=== PATIENT | male | born 1965 | race Caucasian/White ===

== ENCOUNTER 2016-10-23 07:59 | Inpatient (IN) | payer OTHER, MEDICARE ==
[2016-10-23] MEDS ORDERED: ALBUTEROL NEBULIZED 15 MG, IPRATROPIUM NEBULIZED 0.5 MG INHALATION ONE ×2 (08:03)
[2016-10-23] MEDS ORDERED: methylPREDNISolone SOD SUCCI 125 MG/2 ML VIAL IV STA (08:03)
--- NOTE | 2016-10-23 08:05 | ED ---
General Adult HPI - General Stated complaint: chest pain Time Seen by Provider: 10/23/16 08:00 Source: RN notes reviewed - History of Present Illness Initial comments: This is a 51-year-old male who has a past medical history significant for asthma. Patient states since last night he's had a hard time breathing he's been on his nebulizer on that long and it is not improved his breathing at all. Patient states she's been coughing quite a bit and coughing up some positive green sputum. Patient denies any fever chills per patient denies any chest pain or palpitations. Patient denies any headache patient denies numbness weakness. Patient denies any lightheadedness dizziness or near-syncopal episode. Patient denies abdominal pain patient denies nausea vomiting diarrhea. - Related Data Home Medications Medication Instructions Recorded Confirmed Benzonatate [Tessalon Perles] 100 mg PO TID 04/05/14 10/23/16 Fluticasone/Salmeterol [Advair 1 puff INHALATION RT-BID 04/05/14 10/23/16 500-50 Diskus] RABEprazole SODIUM [Aciphex] 20 mg PO BID 04/05/14 10/23/16 traZODone HCL 100 - 200 mg PO HS 04/05/14 10/23/16 Methocarbamol [Robaxin] 1,500 mg PO BID 03/24/16 10/23/16 fentaNYL 25MCG/HR PATCH [Duragesic 25 mcg TRANSDERM Q72H 03/24/16 10/23/16 25MCG/HR] oxyCODONE HCL 20 mg PO QID PRN 03/24/16 10/23/16 rOPINIRole HCL [Requip] 1 mg PO HS 03/24/16 10/23/16 Albuterol Inhaler [Ventolin Hfa 1 - 2 puff INHALATION RT-Q6H PRN 10/23/16 Inhaler] Lisinopril [Zestril] 20 mg PO DAILY 10/23/16 10/23/16 Previous Rx's Medication Instructions Recorded Metoprolol Tartrate [Lopressor] 25 mg PO BID #60 tab 03/26/16 Nitroglycerin Sl Tabs [Nitrostat] 0.4 mg SUBLINGUAL Q5M PRN #25 tab 03/26/16 Aspirin 81 mg PO DAILY chew 04/21/16 Nicotine 21Mg/24Hr Patch [Habitrol] 1 patch TRANSDERM DAILY #14 patch 04/21/16 Allergies Allergy/AdvReac Type Severity Reaction Status Date / Time Iodinated Contrast Media - Allergy Unknown Verified 10/23/16 08:51 Oral and [Iodinated Contrast Media - IV Dye] shellfish derived Allergy Unknown Verified 10/23/16 08:51 Review of Systems ROS Statement: Those systems with pertinent positive or pertinent negative responses have been documented in the HPI. ROS Other: All systems not noted in ROS Statement are negative. 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 "LEG TREMORS" Last Myocardial Infarction Date:: 03/24/2016 History of Any Multi-Drug Resistant Organisms: None Reported Past Surgical History: Appendectomy, Cholecystectomy, Heart Catheterization With Stent, Hernia Repair Additional Past Surgical History / Comment(s): SX TO REPAIR TIP OF INDEX FINGER RT HAND. 03/24/16 stent placed to RCA Past Anesthesia/Blood Transfusion Reactions: No Reported Reaction Date of Last Stent Placement:: 03/24/16 Past Psychological History: No Psychological Hx Reported Smoking Status: Former smoker Past Alcohol Use History: None Reported Additional Past Alcohol Use History / Comment(s): STARTED SMOKING IN 1969 1PPD, QUIT MARCH 2016 Past Drug Use History: None Reported - Past Family History Mother Family Medical History: Cancer, Diabetes Mellitus Additional Family Medical History / Comment(s): COLON CANCER,HEART PROBLEMS Brother(s) Family Medical History: Cancer Additional Family Medical History / Comment(s): AT AGE 52 ESOPHGEAL CANCER Father Family Medical History: Cancer, Myocardial Infarction ([place]) General Exam - General Exam Comments Initial Comments: GENERAL: Patient is well-developed and well-nourished. Patient is nontoxic and well- hydrated and is in moderate distress. ENT: Neck is soft and supple. No significant lymphadenopathy is noted. Oropharynx is clear. Moist mucous membranes. Neck has full range of motion without eliciting any pain. EYES: The sclera were anicteric and conjunctiva were pink and moist. Extraocular movements were intact and pupils were equal round and reactive to light. Eyelids were unremarkable. PULMONARY: Patient is diffusely wheezing with some crackles at the bases CARDIOVASCULAR: There is a regular rate and rhythm without any murmurs gallops or rubs. ABDOMEN: Soft and nontender with normal bowel sounds. No palpable organomegaly was noted. There is no palpable pulsatile mass. SKIN: Skin is clear with no lesions or rashes and otherwise unremarkable. NEUROLOGIC: Patient is alert and oriented x3. Cranial nerves II through XII are grossly intact. Motor and sensory are also intact. Normal speech, volume and content. Symmetrical smile. MUSCULOSKELETAL: Normal extremities with adequate strength and full range of motion. No lower extremity swelling or edema. No calf tenderness. LYMPHATICS: No significant lymphadenopathy is noted PSYCHIATRIC: Normal psychiatric evaluation. Course Vital Signs 10/23/16 10/23/16 10/23/16 08:09 08:16 08:21 Temperature 99.7 F H Pulse Rate 86 82 77 Respiratory 28 H 18 20 Rate Blood Pressure 148/75 130/63 O2 Sat by Pulse 93 L 100 Oximetry 10/23/16 10/23/16 08:35 09:04 Temperature Pulse Rate 88 90 Respiratory Rate Blood Pressure O2 Sat by Pulse Oximetry Medical Decision Making - Medical Decision Making EKG shows normal sinus rhythm at 75 bpm [place] interval is 136 QRS is 80 QT interval 378 QTC is [address] segment elevation or depression or T wave abnormalities are noted Chest x-ray shows no acute abnormality. I went back and after the patient got 15 mg of albuterol and 0.5 of Atrovent patient sounded better however he still continued to wheeze and have a significant cough. Patient states she still felt somewhat short of breath. I gave the patient Solu-Medrol as well earlier. I started the patient on antibiotics for the suspected bronchitis the patient low-grade fever in the emergency department. I spoke with Dr. Stephens admitted the patient I wrote admitting orders and consult pulmonology. - Lab Data Result diagrams: 10/23/16 08:08 10/23/16 08:08 Lab Results 10/23/16 10/23/16 10/23/16 Range/Units 08:08 08:08 08:08 WBC 8.7 (3.8-10.6) k/uL RBC 4.45 (4.30-5.90) m/uL Hgb 13.5 (13.0-17.5) gm/dL Hct 41.6 (39.0-53.0) % MCV 93.4 (80.0-100.0) fL MCH 30.4 (25.0-35.0) pg MCHC 32.5 (31.0-37.0) g/dL RDW 13.2 (11.5-15.5) % Plt Count 188 (150-450) k/uL Neutrophils % 73 % Lymphocytes % 14 % Monocytes % 7 % Eosinophils % 3 % Basophils % 1 % Neutrophils # 6.4 (1.3-7.7) k/uL Lymphocytes # 1.2 (1.0-4.8) k/uL Monocytes # 0.6 (0-1.0) k/uL Eosinophils # 0.3 (0-0.7) k/uL Basophils # 0.1 (0-0.2) k/uL PT (9.0-12.0) sec INR (<1.1) APTT (22.0-30.0) sec Sodium 145 (137-145) mmol/L Potassium 4.3 (3.5-5.1) mmol/L Chloride 105 (98-107) mmol/L Carbon Dioxide 29 (22-30) mmol/L Anion Gap 11 mmol/L BUN 8 L (9-20) mg/dL Creatinine 0.90 (0.66-1.25) mg/dL Est GFR (MDRD) Af Amer >60 (>60 ml/min/1.73 sqM) Est GFR (MDRD) Non-Af >60 (>60 ml/min/1.73 sqM) Glucose 110 H (74-99) mg/dL Calcium 9.4 (8.4-10.2) mg/dL Magnesium 1.8 (1.6-2.3) mg/dL Total Bilirubin 0.6 (0.2-1.3) mg/dL AST 23 (17-59) U/L ALT 32 (21-72) U/L Alkaline Phosphatase 115 (38-126) U/L Total Creatine Kinase 129 (55-170) U/L CK-MB (CK-2) 1.1 (0.0-2.4) ng/mL CK-MB (CK-2) Rel Index 0.9 Troponin I <0.012 (0.000-0.034) ng/mL Total Protein 7.3 (6.3-8.2) g/dL Albumin 4.5 (3.5-5.0) g/dL 10/23/16 Range/Units 08:08 WBC (3.8-10.6) k/uL RBC (4.30-5.90) m/uL Hgb (13.0-17.5) gm/dL Hct (39.0-53.0) % MCV (80.0-100.0) fL MCH (25.0-35.0) pg MCHC (31.0-37.0) g/dL RDW (11.5-15.5) % Plt Count (150-450) k/uL Neutrophils % % Lymphocytes % % Monocytes % % Eosinophils % % Basophils % % Neutrophils # (1.3-7.7) k/uL Lymphocytes # (1.0-4.8) k/uL Monocytes # (0-1.0) k/uL Eosinophils # (0-0.7) k/uL Basophils # (0-0.2) k/uL PT 10.3 (9.0-12.0) sec INR 1.0 (<1.1) APTT 25.0 (22.0-30.0) sec Sodium (137-145) mmol/L Potassium (3.5-5.1) mmol/L Chloride (98-107) mmol/L Carbon Dioxide (22-30) mmol/L Anion Gap mmol/L BUN (9-20) mg/dL Creatinine (0.66-1.25) mg/dL Est GFR (MDRD) Af Amer (>60 ml/min/1.73 sqM) Est GFR (MDRD) Non-Af (>60 ml/min/1.73 sqM) Glucose (74-99) mg/dL Calcium (8.4-10.2) mg/dL Magnesium (1.6-2.3) mg/dL Total Bilirubin (0.2-1.3) mg/dL AST (17-59) U/L ALT (21-72) U/L Alkaline Phosphatase (38-126) U/L Total Creatine Kinase (55-170) U/L CK-MB (CK-2) (0.0-2.4) ng/mL CK-MB (CK-2) Rel Index Troponin I (0.000-0.034) ng/mL Total Protein (6.3-8.2) g/dL Albumin (3.5-5.0) g/dL Critical Care Time Critical Care Time: Yes Total Critical Care Time: 35 Disposition Clinical Impression: Acute severe exacerbation of asthma, Acute bronchitis Disposition: ADMITTED IP TO THIS HOSP Referrals: Joseph Guevara MD [Primary Care Provider] - 1-2 days Time of Disposition: 09:19
[2016-10-23 08:27] LABS: Basophils # (A) 0.1 k/uL (0-0.2); Basophils % (A) 1 %; CH 31.7; CHCM 34.1; Eosinophils # (A) 0.3 k/uL (0-0.7); Eosinophils % (A) 3 %; HCT 41.6 % (39.0-53.0); HDW 2.75; HGB 13.5 gm/dL (13.0-17.5); Luc # (Auto) 0.21; Luc % (Auto) 3; Lymphocytes # (A) 1.2 k/uL (1.0-4.8); Lymphocytes % (A) 14 %; MCH 30.4 pg (25.0-35.0); MCHC 32.5 g/dL (31.0-37.0); MCV 93.4 fL (80.0-100.0); Mean Platelet Volume 7.2; Monocytes # (A) 0.6 k/uL (0-1.0); Monocytes % (A) 7 %; Neutrophils # (A) 6.4 k/uL (1.3-7.7); Neutrophils % (A) 73 %; RBC 4.45 m/uL (4.30-5.90); RDW 13.2 % (11.5-15.5); WBC 8.7 k/uL (3.8-10.6)
[2016-10-23 08:33] LABS: Prothrombin Time 10.3 sec (9.0-12.0)
[2016-10-23 08:37] LABS: ALT 32 U/L (21-72); AST 23 U/L (17-59); Alkaline Phosphatase 115 U/L (38-126); Anion Gap 11 mmol/L; Blood Urea Nitrogen 8 mg/dL (9-20); Calcium 9.4 mg/dL (8.4-10.2); Carbon Dioxide 29 mmol/L (22-30); Chloride 105 mmol/L (98-107); Glucose 110 mg/dL (74-99); Magnesium 1.8 mg/dL (1.6-2.3); Non-African American GFR(MDRD) >60 (>60 ml/min/1.73 sqM); Potassium 4.3 mmol/L (3.5-5.1); Sodium 145 mmol/L (137-145); Total Bilirubin 0.6 mg/dL (0.2-1.3); Total Protein 7.3 g/dL (6.3-8.2)
--- NOTE | 2016-10-23 08:39 | XR ---
EXAMINATION TYPE: XR chest 2V DATE OF EXAM: 10/23/2016 8:32 AM COMPARISON: Chest x-ray April 20, 2016. CTA chest April 21, 2016. HISTORY: Difficulty breathing and congestion. TECHNIQUE: Frontal and lateral views of the chest are obtained. FINDINGS: Chronic emphysematous change is present. There is no focal air space opacity, pleural effus ion, or pneumothorax seen. The cardiac silhouette size is within normal limits. The osseous struct ures are demineralized. Cholecystectomy clips are noted. IMPRESSION: Chronic emphysematous change without acute pulmonary process.
[2016-10-23 08:53] LABS: Creatine Kinase 129 U/L (55-170)
[2016-10-23 09:06] LABS: Creatine Kinase MB 1.1 ng/mL (0.0-2.4); Troponin I <0.012 ng/mL (0.000-0.034)
[2016-10-23] MEDS ORDERED: ACETAMINOPHEN TAB 500 MG TAB PO STA (09:20)
[2016-10-23] MEDS ORDERED: LEVOFLOXACIN 750MG-D5W PMX 750 MG in DEXTROSE/WATER 1 150ML.BAG IVPB STA (09:20)
[2016-10-23] MEDS: methylPREDNISolone SOD SUCCI 125 MG/2 ML VIAL IV SCH ×2 (12:37→18:24)
[2016-10-23] MEDS ORDERED: DIAZEPAM 5 MG/ML 2 ML SYRINGE IVP STA (13:18)
[2016-10-23] MEDS ORDERED: NITROGLYCERIN SL TABS 0.4 MG TAB SUBLINGUAL PRN (17:04)
[2016-10-23] MEDS: IPRATROPIUM-ALBUTEROL 3 ML NEB INHALATION PRN (17:08)
--- NOTE | 2016-10-23 18:08 | HP ---
Patient is a 51-year-old who came in with complaints of shortness of breath and patient probably had COPD. Patient has been having breathing trouble about 3 to 4 days. Patient states he quit smoking about a week ago. Patient is complaining of cough with greenish sputum production. Patient denied any fever or chills. Patient denied any nausea, vomiting. Chest x-ray did not show any pneumonic process. Patient does not use any ( ). Patient is on multiple narcotic medications at home for chronic pain. Patient denies any dysuria, nausea, vomiting. REVIEW OF SYSTEMS: CONSTITUTIONAL: No fever, no malaise, no fatigue. HEENT: No recent visual problems or hearing problems. Denied any sore throat. CARDIOVASCULAR: No chest pain, orthopnea, PND, no palpitations, no syncope. PULMONARY: As described in HPI. GASTROINTESTINAL: No diarrhea, no nausea, no vomiting, no abdominal pain. Normoactive bowel sounds. NEUROLOGICAL: No headaches, no weakness, no numbness. HEMATOLOGICAL: Denies any bleeding or petechiae. GENITOURINARY: Denies any burning micturition, frequency, or urgency. MUSCULOSKELETAL/RHEUMATOLOGICAL: Denies any joint pain, swelling, or any muscle pain. ENDOCRINE: Denies any polyuria or polydipsia. The rest of the 14 point review of systems is negative. Home medications include: 1. Tessalon Perles. 2. Fluticasone. 3. Solu-Medrol. 4. Omeprazole. 5. Trazodone. 6. Methacarbamol. 7. Fentanyl. 8. Ropinirole. 9. Oxycodone and 10. Lisinopril. 11. Metoprolol. 12. Nitroglycerin. 13. Aspirin. 14. Nicotine transdermal patch. ALLERGIES: ALLERGIC TO ( ) SHELLFISH. PAST MEDICAL HISTORY: Significant for COPD, gastroesophageal reflux disease, coronary artery disease, hyperlipidemia, hypertension, myocardial infarction, Guillain-Nunn? syndrome in the past after a flu shot, he says, but patient does not have any residual symptoms. Appendectomy, cholecystectomy, cardiac catheterization and stent placement, hernia repair surgery in the past and patient had a stent to RCA in the past. SOCIAL HISTORY: He quit smoking about a week ago, he says. Denied any alcohol abuse or any drug abuse. FAMILY HISTORY: Mother had cancer, diabetes mellitus. Father had colon cancer. Brother of ( ) cancer and father had myocardial infarction as well as cancer. PHYSICAL EXAMINATION: VITAL SIGNS: Temperature 97.7, pulse of 82, respiratory rate of 28, blood pressure is 130/66, saturating at 93% on 3L of oxygen by nasal cannula. GENERAL: The patient is alert and oriented x3, not in any acute distress. Well developed, well nourished. HEENT: Pupils are round and equally reacting to light. EOMI. No scleral icterus. No conjunctival pallor. Normocephalic, atraumatic. No pharyngeal erythema. No thyromegaly. CARDIOVASCULAR: S1 and S2 present. No murmurs, rubs, or gallops. PULMONARY: Patient is not using any accessory muscles for breathing. Significantly limited air entry to bilateral lung herman. Significant expiratory wheezing was appreciated. ABDOMEN: Soft, nontender, nondistended, normoactive bowel sounds. No palpable organomegaly. MUSCULOSKELETAL: No joint swelling or deformity. EXTREMITIES: No cyanosis, clubbing, or pedal edema. NEUROLOGICAL: Gross neurological examination did not reveal any focal deficits. SKIN: No rashes. LABORATORY DATA: CBC, CMP essentially within normal limits. Chest x-ray did not show any pneumonic process ASSESSMENT AND PLAN: 1. Acute hypercapnic respiratory failure secondary to chronic obstructive pulmonary disease exacerbation. Patient is still wheezy. I believe patient will need to stay as an inpatient. I believe he will stay more than tonight. Patient was started on systemic steroids, inhalational treatments and sputum cultures will be obtained. ( ) at this point of time. 2. Coronary artery disease with receiving stent in the past. Will continue with his home medications. 3. Gastroesophageal reflux disease. 4. Hypertension. 5. Hyperlipidemia. 6. Chronic back pain for which I will go ahead and continue his home medications.
[2016-10-23] MEDS: PANTOPRAZOLE 40 MG TABLET PO SCH (19:45)
[2016-10-23] MEDS: METHOCARBAMOL 750 MG TAB PO SCH (19:45)
[2016-10-23] MEDS: METOPROLOL TARTRATE 25 MG TAB PO SCH (19:45)
[2016-10-23] MEDS: SYMBICORT 160-4.5 MCG INHALER INHALATION SCH (20:03)
[2016-10-23 20:51] LABS: Glucose,Whole Blood 135 mg/dL (75-99)
[2016-10-23] MEDS: INSULIN LISPRO (humaLOG) 300 UNIT/3 ML VIAL SQ SCH (21:49)
[2016-10-23] MEDS: traZODone HCL 50 MG TAB PO SCH (21:50)
[2016-10-23] MEDS: BENZONATATE 100 MG CAP PO SCH (21:50)
[2016-10-24] MEDS: methylPREDNISolone SOD SUCCI 125 MG/2 ML VIAL IV SCH ×2 (00:04→05:49)
[2016-10-24 07:03] LABS: Glucose,Whole Blood 138 mg/dL (75-99)
[2016-10-24] MEDS: SYMBICORT 160-4.5 MCG INHALER INHALATION SCH ×2 (07:58→19:08)
[2016-10-24] MEDS: METHOCARBAMOL 750 MG TAB PO SCH ×2 (08:18→20:42)
[2016-10-24] MEDS: NICOTINE 21MG/24HR PATCH TRANSDERM SCH (08:18)
[2016-10-24] MEDS: PANTOPRAZOLE 40 MG TABLET PO SCH ×2 (08:19→20:42)
[2016-10-24] MEDS: ASPIRIN 81 MG CHEW PO SCH (08:19)
[2016-10-24] MEDS: METOPROLOL TARTRATE 25 MG TAB PO SCH ×2 (08:19→20:43)
[2016-10-24] MEDS: BENZONATATE 100 MG CAP PO SCH ×3 (08:19→21:00)
[2016-10-24] MEDS: INSULIN LISPRO (humaLOG) 300 UNIT/3 ML VIAL SQ SCH ×4 (08:23→21:00)
[2016-10-24] MEDS: IPRATROPIUM-ALBUTEROL 3 ML NEB INHALATION PRN ×4 (08:54→19:08)
[2016-10-24] MEDS ORDERED: LEVOFLOXACIN 750MG-D5W PMX 750 MG in DEXTROSE/WATER 1 150ML.BAG IVPB SCH (09:00)
--- NOTE | 2016-10-24 10:37 | XR ---
EXAMINATION TYPE: XR chest 1V DATE OF EXAM: 10/24/2016 10:31 AM COMPARISON: 10/23/2016 INDICATION: Rule out pneumonia. History of chronic emphysematous change previous abnormal chest x-ray , No other history is provided TECHNIQUE: Single frontal view of the chest is obtained. FINDINGS: The heart size is normal. The pulmonary vasculature is normal. The lungs are clear. IMPRESSION: 1. No acute pulmonary process.
[2016-10-24] MEDS: ALPRAZolam 0.25 MG TAB PO PRN ×3 (11:13→22:58)
[2016-10-24 12:26] LABS: Glucose,Whole Blood 165 mg/dL (75-99)
[2016-10-24] MEDS ORDERED: RX INFO: IV CONTRAST WAS GIVEN 1 EACH MISC MISCELLANE PRN (12:43)
[2016-10-24] MEDS ORDERED: diphenhydrAMINE 50 MG/ML 1 ML VIAL IVP ONE (13:03)
[2016-10-24] MEDS ORDERED: FAMOTIDINE 20 MG/2 ML VIAL IV ONE (13:03)
[2016-10-24] MEDS ORDERED: methylPREDNISolone SOD SUCCI 125 MG/2 ML VIAL IV ONE (13:03)
--- NOTE | 2016-10-24 16:00 | CT ---
CT CHEST FOR PULMONARY EMBOLISM. EXAMINATION TYPE: CT chest angio for PE DATE OF EXAM: 10/24/2016 3:40 PM INDICATION: Cough and shortness of breath. CT DLP: 532.00 mGycm, Automated exposure control for dose reduction was used. CONTRAST: Patient injected with 80 mL of Omnipaque 350. COMPARISON: NONE TECHNIQUE: CT of the chest is performed on a spiral scan at 2 mm thick sections. Study is performed with intravenous contrast timed for evaluation for pulmonary embolism. This will limit additional po rtions of the evaluation. 3-D MIP images reconstructed by the technologist are reviewed on the compu ter in the coronal and sagittal planes. FINDINGS: No persistent filling defects are evident to suggest an acute pulmonary embolism. Emphysematous changes are present. There is a lingular density on lung windows measuring 1.3 cm. Atel ectasis pneumonia could be considered. Underlying mass is not excluded. Follow-up is recommended. The re may be some atelectatic changes within the right middle lobe at the lung base. No mediastinal or hilar adenopathy enlarged by CT criteria is evident. The ascending aorta diameter at the level of the main pulmonary artery is 3.1 cm. The main pulmonary artery diameter at the bifur cation is 2.8 cm. There is a punctate calcification measuring 0.3 cm in the posterior medial left apex. Limited CT section through the upper abdomen are unremarkable. IMPRESSIONS: 1. No acute pulmonary embolism. 2. Possible lingular mass. Follow up CT chest is recommended.
[2016-10-24] MEDS: methylPREDNISolone SOD SUCCI 40 MG/ML 1 ML VIAL IV SCH ×2 (16:47→23:01)
--- NOTE | 2016-10-24 16:52 | PN ---
Patient is a 51-year-old who came in with complaints of shortness of breath secondary to chronic obstructive pulmonary disease exacerbation. Patient has improved symptoms but still wheezing quite a bit. Patient is complaining of some pleuritic chest pain and may be related to musculoskeletal from cough. Anyways will obtain a d-dimer and if it is positive will obtain a CT for pulmonary embolism although patient is allergic to iodinated radiocontrast. Will need prep before he receives that. If d-dimer is negative, I will obtain a troponin, although EKG is essentially within normal limits. Patient's chest pain is noncardiac in nature and as mentioned above can be related to cough and chest wall inflammation from cough. Patient has been coughing quite a bit as REVIEW OF SYSTEMS: CARDIOVASCULAR: No chest pain, no orthopnea, no PND, no palpitations. PULMONARY: As mentioned above. GASTROINTESTINAL: No diarrhea, nausea or vomiting. No abdominal pain. Normoactive bowel sounds. NEUROLOGIC: No headaches, no weakness, no numbness. I did repeat a chest x-ray because of his pleuritic chest pain. Reviewed chest x-ray did not redemonstrate any pneumonic process at this point of time. Medications were reviewed. PHYSICAL EXAMINATION: VITAL SIGNS: Temperature 97.5, pulse of 76, respiratory rate of 22, blood pressure is 110/68, saturating at 94% on room air. GENERAL: The patient is alert and oriented x3, not in any acute distress. Well developed, well nourished. HEENT: Pupils are round and equally reacting to light. EOMI. No scleral icterus. No conjunctival pallor. Normocephalic, atraumatic. No pharyngeal erythema. No thyromegaly. CARDIOVASCULAR: S1 and S2 present. No murmurs, rubs, or gallops. PULMONARY: Continued significant expiratory wheezing and decrease air entry to bilateral lung herman. No crackles are appreciated. ABDOMEN: Soft, nontender, nondistended, normoactive bowel sounds. No palpable organomegaly. MUSCULOSKELETAL: No joint swelling or deformity. EXTREMITIES: No cyanosis, clubbing, or pedal edema. NEUROLOGICAL: Gross neurological examination did not reveal any focal deficits. SKIN: No rashes. LABORATORY DATA: None available from today. ASSESSMENT AND PLAN: 1. Acute hypercapnic respiratory failure secondary to chronic obstructive pulmonary disease exception. 2. Pleuritic chest pain due to above-mentioned reasons. 3. Coronary artery disease. Patient had a stent in the past. Continue with his home medications. 4. Gastroesophageal reflux disease. 5. Hypertension. 6. Hyperlipidemia. 7. Chronic low back. For above mentioned, continue with systemic steroids, inhalational treatments. Continue with home medications for above-mentioned chronic medical problems. Continue to hold lisinopril. Patient's blood pressure is low and patient is also having really bad cough.
[2016-10-24 16:58] LABS: Glucose,Whole Blood 141 mg/dL (75-99)
[2016-10-24] MEDS: traZODone HCL 50 MG TAB PO SCH (20:45)
[2016-10-24 20:54] LABS: Glucose,Whole Blood 176 mg/dL (75-99)
[2016-10-25 07:04] LABS: Glucose,Whole Blood 140 mg/dL (75-99)
[2016-10-25] MEDS: LEVOFLOXACIN 750 MG TAB PO SCH (07:51)
[2016-10-25] MEDS: METOPROLOL TARTRATE 25 MG TAB PO SCH ×2 (07:51→20:53)
[2016-10-25] MEDS: BENZONATATE 100 MG CAP PO SCH ×3 (07:52→20:59)
[2016-10-25] MEDS: PANTOPRAZOLE 40 MG TABLET PO SCH ×2 (07:52→20:53)
[2016-10-25] MEDS: ASPIRIN 81 MG CHEW PO SCH (07:52)
[2016-10-25] MEDS: METHOCARBAMOL 750 MG TAB PO SCH ×2 (07:52→20:54)
[2016-10-25] MEDS: NICOTINE 21MG/24HR PATCH TRANSDERM SCH (07:52)
[2016-10-25] MEDS: INSULIN LISPRO (humaLOG) 300 UNIT/3 ML VIAL SQ SCH ×4 (07:52→22:31)
[2016-10-25] MEDS: methylPREDNISolone SOD SUCCI 40 MG/ML 1 ML VIAL IV SCH (07:52)
[2016-10-25] MEDS: ALPRAZolam 0.25 MG TAB PO PRN ×3 (07:53→20:53)
[2016-10-25 08:34] LABS: CH 31.3; CHCM 32.9; HCT 37.8 % (39.0-53.0); HDW 2.65; HGB 12.2 gm/dL (13.0-17.5); MCH 30.8 pg (25.0-35.0); MCHC 32.2 g/dL (31.0-37.0); MCV 95.9 fL (80.0-100.0); Mean Platelet Volume 6.6; RBC 3.95 m/uL (4.30-5.90); RDW 13.5 % (11.5-15.5); WBC 12.6 k/uL (3.8-10.6)
[2016-10-25 08:49] LABS: Anion Gap 7 mmol/L; Blood Urea Nitrogen 21 mg/dL (9-20); Calcium 9.1 mg/dL (8.4-10.2); Carbon Dioxide 29 mmol/L (22-30); Chloride 108 mmol/L (98-107); Glucose 114 mg/dL (74-99); Non-African American GFR(MDRD) >60 (>60 ml/min/1.73 sqM); Potassium 4.9 mmol/L (3.5-5.1); Sodium 144 mmol/L (137-145)
[2016-10-25] MEDS: IPRATROPIUM-ALBUTEROL 3 ML NEB INHALATION PRN ×2 (11:42→15:26)
[2016-10-25] MEDS: SYMBICORT 160-4.5 MCG INHALER INHALATION SCH ×2 (11:42→19:38)
[2016-10-25 12:08] LABS: Glucose,Whole Blood 128 mg/dL (75-99)
[2016-10-25] MEDS: PROMETHAZ-COD 6.25-10 MG/5 ML 5 ML CUP PO PRN ×2 (15:11→21:00)
--- NOTE | 2016-10-25 15:18 | PN ---
The patient is a 51-year-old, admitted for COPD exacerbation. Patient is complaining of non-improvement in his symptoms. I did obtain a CT of the chest because of the pleuritic chest pain, which did not show any pulmonary embolism but did show some lingular mass. Pulmonary is being consulted at this point of time. Patient says he gets short of breath with minimal ambulation and minimal work and minimal exertion. REVIEW OF SYSTEMS: CARDIOVASCULAR: No chest pain, no orthopnea, no PND, no palpitations. PULMONARY: As described in HPI. GASTROINTESTINAL: No diarrhea, nausea or vomiting. No abdominal pain. Normoactive bowel sounds. NEUROLOGIC: No headaches, no weakness, no numbness. Medications were reviewed. PHYSICAL EXAMINATION: VITAL SIGNS: Temperature 96.5, pulse of 62, respiratory rate of 16. Blood pressure is 116/69. Saturating at 96% on 2 L of oxygen by nasal cannula. GENERAL: The patient is alert and oriented x3, not in any acute distress. Well developed, well nourished. HEENT: Pupils are round and equally reacting to light. EOMI. No scleral icterus. No conjunctival pallor. Normocephalic, atraumatic. No pharyngeal erythema. No thyromegaly. CARDIOVASCULAR: S1 and S2 present. No murmurs, rubs, or gallops. PULMONARY: Decreased air entry in bilateral lung herman. Minimal expiratory wheezing was appreciated. No crackles were appreciated. ABDOMEN: Soft, nontender, nondistended, normoactive bowel sounds. No palpable organomegaly. MUSCULOSKELETAL: No joint swelling or deformity. EXTREMITIES: No cyanosis, clubbing, or pedal edema. NEUROLOGICAL: Gross neurological examination did not reveal any focal deficits. SKIN: No rashes. LABORATORY DATA: CBC, CMP are abnormal for elevated WBC count of 12,600 secondary to systemic steroids. ASSESSMENT AND PLAN: 1. Acute hypercapnic respiratory failure secondary to chronic obstructive pulmonary disease exacerbation and pleuritic chest pain because of the cough, musculoskeletal in nature. I do not believe patient has any acute coronary issue at this point of time. Repeat troponins are negative. EKG did not show any acute ST-T wave changes. 2. Gastroesophageal reflux disease. 3. Hypertension. 4. Hyperlipidemia. 5. Chronic low back pain. 6. Possible lingular mass. I will get Pulmonary to see and evaluate the patient and review the CT with them. Possibility of discharge tomorrow if he continues to improve but, as patient is getting short of breath with minimal exertion, I will keep him here for today.
[2016-10-25 17:05] LABS: Glucose,Whole Blood 123 mg/dL (75-99)
--- NOTE | 2016-10-25 17:48 | P.CNPUL ---
History of Present Illness Consult date: 10/25/16 Requesting physician: Ashly Clancy Reason for consult: dyspnea, cough Chief complaint: Shortness of breath, cough congestion. History of present illness: This is a very pleasant 51-year-old gentleman who follows with Dr. Guevara as his primary care physician. 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 Follows in our office for his chronic obstructive pulmonary disease. He was due to be there on 10/29/2016. He is maintained on Advair and Ventolin. He does have a significant smoking history however quit in March 2016. He presented here in 10/23/2016 with complaints of increasing shortness of breath, cough and congestion. He uses nebulizer at home without any significant improvement. He states he was bringing up green sputum as well. His chest x-ray this far reveals no evidence of acute pulmonary process. A CT angiogram ruled out pulmonary embolism. There is some question of a possible lingular mass. He did have a T-max of 100.2. Currently he has the chills. He is continuing with a loose nonproductive cough. Influenza screen negative. Maintaining O2 saturations in the 90s on room air. Currently afebrile. Review of Systems 14 point review of system was conducted. All negative other than as mentioned in HPI. 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 Last Myocardial Infarction Date:: 03/24/2016 History of Any Multi-Drug Resistant Organisms: None Reported Past Surgical History: Appendectomy, Cholecystectomy, Heart Catheterization With Stent, Hernia Repair Additional Past Surgical History / Comment(s): SX TO REPAIR TIP OF INDEX FINGER RT HAND. 03/24/16 stent placed to RCA Past Anesthesia/Blood Transfusion Reactions: No Reported Reaction Date of Last Stent Placement:: 03/24/16 Past Psychological History: No Psychological Hx Reported Additional Psychological History / Comment(s): Pt resides with his spouse. He uses a cane/walker prn. He drives. Smoking Status: Former smoker Past Alcohol Use History: None Reported Additional Past Alcohol Use History / Comment(s): STARTED SMOKING IN 1970 1PPD, QUIT MARCH 2016 Past Drug Use History: None Reported - Past Family History Mother Family Medical History: Cancer, Diabetes Mellitus Additional Family Medical History / Comment(s): COLON CANCER,HEART PROBLEMS Brother(s) Family Medical History: Cancer Additional Family Medical History / Comment(s): AT AGE 52 ESOPHGEAL CANCER Father Family Medical History: Cancer, Myocardial Infarction (OR) Medications and Allergies Home Medications Medication Instructions Recorded Confirmed Type Benzonatate [Tessalon Perles] 100 mg PO TID 04/05/14 10/23/16 History Fluticasone/Salmeterol [Advair 1 puff INHALATION RT-BID 04/05/14 10/23/16 History 500-50 Diskus] RABEprazole SODIUM [Aciphex] 20 mg PO BID 04/05/14 10/23/16 History traZODone HCL 100 - 200 mg PO 04/05/14 10/23/16 History Methocarbamol [Robaxin] 1,500 mg PO BID 03/24/16 10/23/16 History fentaNYL 25MCG/HR PATCH [Duragesic 1 patch TRANSDERM Q72H 03/24/16 10/23/16 History 25MCG/HR] oxyCODONE HCL 20 mg PO QID PRN 03/24/16 10/23/16 History rOPINIRole HCL [Requip] 1 mg PO HS 03/24/16 10/23/16 History Albuterol Inhaler [Ventolin Hfa 1 - 2 puff INHALATION RT-Q6H PRN 10/23/16 History Inhaler] Lisinopril [Zestril] 20 mg PO DAILY 10/23/16 10/23/16 History Allergies Allergy/AdvReac Type Severity Reaction Status Date / Time Iodinated Contrast Media - Allergy Unknown Verified 10/23/16 08:51 Oral and [Iodinated Contrast Media - IV Dye] shellfish derived Allergy Unknown Verified 10/23/16 08:51 Physical Exam Vitals: Vital Signs Temp Pulse Pulse Resp BP Pulse Ox 10/25/16 15:51 16 10/25/16 15:36 92 10/25/16 15:26 92 10/25/16 15:00 97.1 F L 68 16 116/60 98 10/25/16 12:00 16 10/25/16 11:53 90 10/25/16 11:42 90 10/25/16 08:00 16 10/25/16 07:00 96.5 F L 62 16 116/69 96 10/24/16 22:29 96.7 F L 74 16 120/59 95 10/24/16 20:47 77 122/59 10/24/16 19:21 88 10/24/16 19:09 84 Intake and Output 10/25/16 10/25/16 10/25/16 06:59 14:59 22:59 Other: # Voids 1 2 GENERAL EXAM: Alert, active, comfortable in no apparent distress. HEAD: Normocephalic. EYES: Normal reaction of pupils, equal size. NOSE: Clear with pink turbinates. THROAT: No erythema or exudates. NECK: No masses, no JVD. CHEST: No chest wall deformity. LUNGS: Equal air entry with bilateral scattered rhonchi.. CVS: S1 and S2 normal with no audible murmurs, regular rhythm. ABDOMEN: No hepatosplenomegaly, normal bowel sounds, no guarding or rigidity. SPINE: No scoliosis or deformity SKIN: No rashes CENTRAL NERVOUS SYSTEM: No focal deficits, tone is normal in all 4 extremities. Extremities: He is no significant peripheral edema. No clubbing, no cyanosis. Peripheral pulses are intact. Results - Laboratory Findings CBC and BMP: 10/25/16 08:12 10/25/16 08:12 PT/INR, D-dimer PT 10.3 sec (9.0-12.0) 10/23/16 08:08 INR 1.0 (<1.1) 10/23/16 08:08 D-Dimer 0.66 mg/L FEU (<0.60) H 10/24/16 10:21 Abnormal lab findings: Abnormal Labs 10/23/16 10/24/16 10/24/16 20:49 07:01 10:21 WBC RBC Hgb Hct D-Dimer 0.66 H Chloride BUN Glucose POC Glucose (mg/dL) 135 H 138 H 10/24/16 10/24/16 10/24/16 12:24 16:56 20:51 WBC RBC Hgb Hct D-Dimer Chloride BUN Glucose POC Glucose (mg/dL) 165 H 141 H 176 H 10/25/16 10/25/16 10/25/16 07:02 08:12 08:12 WBC 12.6 H RBC 3.95 L Hgb 12.2 L Hct 37.8 L D-Dimer Chloride 108 H BUN 21 H Glucose 114 H POC Glucose (mg/dL) 140 H 10/25/16 10/25/16 12:07 17:04 WBC RBC Hgb Hct D-Dimer Chloride BUN Glucose POC Glucose (mg/dL) 128 H 123 H - Diagnostic Findings Chest x-ray: image reviewed Assessment and Plan Plan: Impression: #1 Acute exacerbation of chronic obstructive pulmonary disease, complicated by purulent tracheobronchitis. T angiogram ruled out pulmonary embolism. There is some questionable lingular mass which will be followed up in the outpatient setting. #2 History of chronic tobacco dependence for greater than 35 years at 1 pack per day. #3 Coronary artery disease with previous stenting. #4 Hypertension. #5 Hyperlipidemia. #6 History of Gillien Nunn disease following a flu shot. Plan: The patient was seen and evaluated by Dr. Elaine. His chest x-ray and labs were reviewed. We'll go ahead and his current medications including bronchodilators 4 times a day and when necessary, Tessalon Perles, Symbicort, IV Solu-Medrol. He is on empiric antibiotics in the form of Levaquin. We'll continue to follow make further recommendations based on his clinical status.
[2016-10-25] MEDS: methylPREDNISolone SOD SUCCI 125 MG/2 ML VIAL IV SCH (18:04)
[2016-10-25] MEDS: IPRATROPIUM-ALBUTEROL 3 ML NEB INHALATION SCH (19:38)
[2016-10-25] MEDS: traZODone HCL 50 MG TAB PO SCH (20:53)
[2016-10-25 22:29] LABS: Glucose,Whole Blood 266 mg/dL (75-99)
[2016-10-26] MEDS: methylPREDNISolone SOD SUCCI 125 MG/2 ML VIAL IV SCH ×5 (00:33→23:43)
[2016-10-26] MEDS: ALPRAZolam 0.25 MG TAB PO PRN ×4 (03:10→19:44)
[2016-10-26 07:43] LABS: Glucose,Whole Blood 185 mg/dL (75-99)
[2016-10-26] MEDS: IPRATROPIUM-ALBUTEROL 3 ML NEB INHALATION SCH ×4 (07:47→19:48)
[2016-10-26] MEDS: SYMBICORT 160-4.5 MCG INHALER INHALATION SCH ×2 (07:47→19:48)
[2016-10-26] MEDS: NICOTINE 21MG/24HR PATCH TRANSDERM SCH (09:24)
[2016-10-26] MEDS: METHOCARBAMOL 750 MG TAB PO SCH ×2 (09:24→21:50)
[2016-10-26] MEDS: METOPROLOL TARTRATE 25 MG TAB PO SCH ×2 (09:24→21:50)
[2016-10-26] MEDS: LEVOFLOXACIN 750 MG TAB PO SCH (09:24)
[2016-10-26] MEDS: PANTOPRAZOLE 40 MG TABLET PO SCH ×2 (09:24→21:50)
[2016-10-26] MEDS: ASPIRIN 81 MG CHEW PO SCH (09:25)
[2016-10-26] MEDS: BENZONATATE 100 MG CAP PO SCH ×3 (09:25→21:50)
[2016-10-26] MEDS: INSULIN LISPRO (humaLOG) 300 UNIT/3 ML VIAL SQ SCH ×4 (09:25→21:42)
[2016-10-26 11:46] LABS: Glucose,Whole Blood 143 mg/dL (75-99)
--- NOTE | 2016-10-26 13:07 | P.PN ---
Subjective This is a very pleasant 51-year-old gentleman who follows with Dr. Guevara as his primary care physician. 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 Follows in our office for his chronic obstructive pulmonary disease. He was due to be there on 10/29/2016. He is maintained on Advair and Ventolin. He does have a significant smoking history however quit in March 2016. He presented here in 10/23/2016 with complaints of increasing shortness of breath, cough and congestion. He uses nebulizer at home without any significant improvement. He states he was bringing up green sputum as well. His chest x-ray this far reveals no evidence of acute pulmonary process. A CT angiogram ruled out pulmonary embolism. There is some question of a possible lingular mass. He did have a T-max of 100.2. Influenza screen was negative. He is seen again today 10/26/2016 in follow-up on the regular medical floor. He is awake and alert in no acute distress. He continues with a loose productive cough of yellow-green sputum. He is somewhat bronchospastic and wheezing still. He is maintaining good O2 saturations in the mid 90s on room air. He is currently afebrile. Blood cultures reveal no growth to date. Sputum cultures pending. Objective - Vital Signs Vital signs: Vital Signs Temp 97.1 F L 10/26/16 07:00 Pulse 80 10/26/16 12:11 Resp 22 10/26/16 07:00 BP 112/62 10/26/16 07:00 Pulse Ox 95 10/26/16 07:00 Intake & Output 10/25/16 10/26/16 10/26/16 18:59 06:59 18:59 Intake Total 300 240 Balance 300 240 Intake: Oral 300 240 Other: Voiding Method Toilet # Voids 2 2 - Exam GENERAL EXAM: Alert, active, comfortable in no apparent distress. HEAD: Normocephalic. EYES: Normal reaction of pupils, equal size. NOSE: Clear with pink turbinates. THROAT: No erythema or exudates. NECK: No masses, no JVD. CHEST: No chest wall deformity. LUNGS: Equal air entry with bilateral scattered rhonchi, end expiratory wheeze. Diminished.. CVS: S1 and S2 normal with no audible murmurs, regular rhythm. ABDOMEN: No hepatosplenomegaly, normal bowel sounds, no guarding or rigidity. SPINE: No scoliosis or deformity SKIN: No rashes CENTRAL NERVOUS SYSTEM: No focal deficits, tone is normal in all 4 extremities. Extremities: There is no peripheral edema. No clubbing, no cyanosis. Peripheral pulses are intact. - Labs CBC & Chem 7: 10/25/16 08:12 10/25/16 08:12 Labs: Abnormal Lab Results - Last 24 Hours (Table) 10/25/16 10/25/16 10/26/16 Range/Units 17:04 22:20 07:24 POC Glucose (mg/dL) 123 H 266 H 185 H (75-99) mg/dL 10/26/16 Range/Units 11:44 POC Glucose (mg/dL) 143 H (75-99) mg/dL Assessment and Plan Plan: Impression: #1 Acute exacerbation of chronic obstructive pulmonary disease, complicated by purulent tracheobronchitis. CT angiogram ruled out pulmonary embolism. There is some questionable lingular mass which will be followed up in the outpatient setting. #2 History of chronic tobacco dependence for greater than 35 years at 1 pack per day. #3 Coronary artery disease with previous stenting. #4 Hypertension. #5 Hyperlipidemia. #6 History of Gillien Nunn disease following a flu shot. Plan: The patient was seen and evaluated by Dr. Elaine. We'll go ahead and his current medications including bronchodilators 4 times a day and when necessary, Tessalon Perles, Symbicort, Robitussin with codeine, IV Solu-Medrol. He is on empiric antibiotics in the form of Levaquin. He is again educated regarding the importance of complete smoking cessation. A Habitrol patch is in place. We 'll repeat his chest x-ray in the a.m. We'll continue to follow make further recommendations based on his clinical status.
[2016-10-26 17:04] LABS: Glucose,Whole Blood 123 mg/dL (75-99)
[2016-10-26] MEDS: PROMETHAZ-COD 6.25-10 MG/5 ML 5 ML CUP PO PRN ×2 (17:37→19:44)
--- NOTE | 2016-10-26 18:03 | PN ---
51-year-old admitted for COPD exacerbation. The patient is a 51-year-old, admitted for COPD exacerbation. Patient is complaining of non-improvement in his symptoms. I did obtain a CT of the chest because of the pleuritic chest pain, which did not show any pulmonary embolism but did show some lingular mass. Pulmonary is being consulted at this point of time. Patient says he gets short of breath with minimal ambulation and minimal work and minimal exertion. REVIEW OF SYSTEMS: CARDIOVASCULAR: No chest pain, no orthopnea, no PND, no palpitations. PULMONARY: As described in HPI. GASTROINTESTINAL: No diarrhea, nausea or vomiting. No abdominal pain. Normoactive bowel sounds. NEUROLOGIC: No headaches, no weakness, no numbness. Medications were reviewed. PHYSICAL EXAMINATION: VITAL SIGNS: Temperature 97.1, pulse of 80, respiratory of 22, blood pressure is 112/62. GENERAL: The patient is alert and oriented x3, not in any acute distress. Well developed, well nourished. HEENT: Pupils are round and equally reacting to light. EOMI. No scleral icterus. No conjunctival pallor. Normocephalic, atraumatic. No pharyngeal erythema. No thyromegaly. CARDIOVASCULAR: S1 and S2 present. No murmurs, rubs, or gallops. PULMONARY: Decreased air entry in bilateral lung herman. Minimal expiratory wheezing was appreciated. No crackles were appreciated. ABDOMEN: Soft, nontender, nondistended, normoactive bowel sounds. No palpable organomegaly. MUSCULOSKELETAL: No joint swelling or deformity. EXTREMITIES: No cyanosis, clubbing, or pedal edema. NEUROLOGICAL: Gross neurological examination did not reveal any focal deficits. SKIN: No rashes. LABORATORY DATA: None available from today. ASSESSMENT AND PLAN: 1. Acute hypercapnic respiratory failure secondary to chronic obstructive pulmonary disease exacerbation and pleuritic chest pain because of the cough, musculoskeletal in nature. I do not believe patient has any acute coronary issue at this point of time. Repeat troponins are negative. EKG did not show any acute ST-T wave changes. 2. Gastroesophageal reflux disease. 3. Hypertension. 4. Hyperlipidemia. 5. Chronic low back pain. 6. Possible lingular mass. Patient will follow with pulmonology as an outpatient with repeat CT. Patient continues to wheeze significantly because of which will continue the present treatment.
[2016-10-26] MEDS ORDERED: IPRATROPIUM-ALBUTEROL 3 ML NEB INHALATION PRN (20:42)
[2016-10-26 21:41] LABS: Glucose,Whole Blood 163 mg/dL (75-99)
[2016-10-26] MEDS: LORazepam 2 MG/ML SYRINGE IV PRN (21:45)
[2016-10-26] MEDS: traZODone HCL 50 MG TAB PO SCH (21:50)
[2016-10-27] MEDS: LORazepam 2 MG/ML SYRINGE IV PRN ×4 (04:58→22:56)
[2016-10-27] MEDS: methylPREDNISolone SOD SUCCI 125 MG/2 ML VIAL IV SCH ×4 (05:03→22:57)
[2016-10-27] MEDS: IPRATROPIUM-ALBUTEROL 3 ML NEB INHALATION SCH ×4 (07:30→20:00)
[2016-10-27] MEDS: BUDESONIDE 1 MG/2 ML NEBU INHALATION SCH ×2 (07:30→20:00)
[2016-10-27 07:36] LABS: Glucose,Whole Blood 128 mg/dL (75-99)
[2016-10-27] MEDS: INSULIN LISPRO (humaLOG) 300 UNIT/3 ML VIAL SQ SCH ×4 (08:16→21:25)
[2016-10-27] MEDS: METOPROLOL TARTRATE 25 MG TAB PO SCH ×2 (10:34→21:25)
[2016-10-27] MEDS: ASPIRIN 81 MG CHEW PO SCH (10:34)
[2016-10-27] MEDS: NICOTINE 21MG/24HR PATCH TRANSDERM SCH (10:34)
[2016-10-27] MEDS: METHOCARBAMOL 750 MG TAB PO SCH ×2 (10:34→21:24)
[2016-10-27] MEDS: BENZONATATE 100 MG CAP PO SCH ×3 (10:35→21:24)
[2016-10-27] MEDS: PANTOPRAZOLE 40 MG TABLET PO SCH ×2 (10:35→21:25)
[2016-10-27] MEDS: LEVOFLOXACIN 750 MG TAB PO SCH (10:35)
[2016-10-27] MEDS: PROMETHAZ-COD 6.25-10 MG/5 ML 5 ML CUP PO PRN ×2 (11:27→18:07)
[2016-10-27 11:55] LABS: Glucose,Whole Blood 208 mg/dL (75-99)
--- NOTE | 2016-10-27 14:30 | P.PN ---
Subjective Principal diagnosis: Acute exacerbation of COPD This is a very pleasant 51-year-old gentleman who follows with Dr. Guevara as his primary care physician. 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 Follows in our office for his chronic obstructive pulmonary disease. He was due to be there on 10/29/2016. He is maintained on Advair and Ventolin. He does have a significant smoking history however quit in March 2016. He presented here in 10/23/2016 with complaints of increasing shortness of breath, cough and congestion. He uses nebulizer at home without any significant improvement. He states he was bringing up green sputum as well. His chest x-ray this far reveals no evidence of acute pulmonary process. A CT angiogram ruled out pulmonary embolism. There is some question of a possible lingular mass. He did have a T-max of 100.2. Influenza screen was negative. He is seen again today 10/26/2016 in follow-up on the regular medical floor. He is awake and alert in no acute distress. He continues with a loose productive cough of yellow-green sputum. He is somewhat bronchospastic and wheezing still. He is maintaining good O2 saturations in the mid 90s on room air. He is currently afebrile. Blood cultures reveal no growth to date. Sputum cultures pending. Patient was seen again today on 10/27/2016, he is beginning to notice significant improvement in his overall pulmonary status. Less cough and less wheezing less shortness of breath, but clearly is not quite ready for discharge at this point. All his meds were reviewed, and his previous labs were also reviewed. Objective - Vital Signs Vital signs: Vital Signs Temp 97.9 F 10/27/16 07:00 Pulse 88 10/27/16 11:14 Resp 22 10/27/16 07:00 BP 134/67 10/27/16 07:00 Pulse Ox 96 10/27/16 07:00 Intake & Output 10/26/16 10/27/16 10/27/16 18:59 06:59 18:59 Intake Total 720 600 480 Balance 720 600 480 Intake: Oral 720 600 480 Other: Voiding Method Toilet # Voids 1 2 2 - Exam GENERAL EXAM: Alert, active, comfortable in no apparent distress. HEAD: Normocephalic. EYES: Normal reaction of pupils, equal size. NOSE: Clear with pink turbinates. THROAT: No erythema or exudates. NECK: No masses, no JVD. CHEST: No chest wall deformity. LUNGS: Equal air entry with bilateral scattered rhonchi, end expiratory wheeze. Diminished.. CVS: S1 and S2 normal with no audible murmurs, regular rhythm. ABDOMEN: No hepatosplenomegaly, normal bowel sounds, no guarding or rigidity. SPINE: No scoliosis or deformity SKIN: No rashes CENTRAL NERVOUS SYSTEM: No focal deficits, tone is normal in all 4 extremities. Extremities: There is no peripheral edema. No clubbing, no cyanosis. Peripheral pulses are intact. - Labs CBC & Chem 7: 10/25/16 08:12 10/25/16 08:12 Labs: Abnormal Lab Results - Last 24 Hours (Table) 10/26/16 10/26/16 10/27/16 Range/Units 16:51 21:37 07:16 POC Glucose (mg/dL) 123 H 163 H 128 H (75-99) mg/dL 10/27/16 Range/Units 11:45 POC Glucose (mg/dL) 208 H (75-99) mg/dL Assessment and Plan Plan: #1 Acute exacerbation of chronic obstructive pulmonary disease, complicated by purulent tracheobronchitis. CT angiogram ruled out pulmonary embolism. There is some questionable lingular mass which will be followed up in the outpatient setting. #2 History of chronic tobacco dependence for greater than 35 years at 1 pack per day. #3 Coronary artery disease with previous stenting. #4 Hypertension. #5 Hyperlipidemia. #6 History of Gillien Nunn disease following a flu shot. Recommendation: Continue present treatment plan including bronchodilators, antibiotics, steroids, patient is clearly improving with the course of treatment , but again he is not quite ready for discharge planning at this point. I had a chance to review his CT of the chest, and the finding in the lingula is nonspecific, however my only recommendation would be to repeat a CT of the chest in the next 3-4 months. This could be done on outpatient basis. Time with Patient: Less than 30
[2016-10-27 17:31] LABS: Glucose,Whole Blood 150 mg/dL (75-99)
--- NOTE | 2016-10-27 18:23 | PN ---
51-year-old admitted for COPD exacerbation. The patient is a 51-year-old, admitted for COPD exacerbation. Patient is complaining of non-improvement in his symptoms. I did obtain a CT of the chest because of the pleuritic chest pain, which did not show any pulmonary embolism but did show some lingular mass. Pulmonary is being consulted at this point of time. Patient says he gets short of breath with minimal ambulation and minimal work and minimal exertion. REVIEW OF SYSTEMS: CARDIOVASCULAR: No chest pain, no orthopnea, no PND, no palpitations. PULMONARY: As described in HPI. GASTROINTESTINAL: No diarrhea, nausea or vomiting. No abdominal pain. Normoactive bowel sounds. NEUROLOGIC: No headaches, no weakness, no numbness. Medications were reviewed. PHYSICAL EXAMINATION: VITAL SIGNS: Temperature 97.9, pulse 84, respiratory rate of 22, blood pressure 134/67. Saturating at 96% on room air. GENERAL: The patient is alert and oriented x3, not in any acute distress. Well developed, well nourished. HEENT: Pupils are round and equally reacting to light. EOMI. No scleral icterus. No conjunctival pallor. Normocephalic, atraumatic. No pharyngeal erythema. No thyromegaly. CARDIOVASCULAR: S1 and S2 present. No murmurs, rubs, or gallops. PULMONARY: Decreased air entry in bilateral lung herman. Minimal expiratory wheezing was appreciated. No crackles were appreciated. ABDOMEN: Soft, nontender, nondistended, normoactive bowel sounds. No palpable organomegaly. MUSCULOSKELETAL: No joint swelling or deformity. EXTREMITIES: No cyanosis, clubbing, or pedal edema. NEUROLOGICAL: Gross neurological examination did not reveal any focal deficits. SKIN: No rashes. LABORATORY DATA: None available from today. ASSESSMENT AND PLAN: 1. Acute hypercapnic respiratory failure secondary to chronic obstructive pulmonary disease exacerbation and pleuritic chest pain because of the cough, musculoskeletal in nature. I do not believe patient has any acute coronary issue at this point of time. Repeat troponins are negative. EKG did not show any acute ST-T wave changes. 2. Gastroesophageal reflux disease. 3. Hypertension. 4. Hyperlipidemia. 5. Chronic low back pain. 6. Possible lingular mass. Patient will follow with pulmonology as an outpatient with repeat CT. Patient continues to wheeze significantly because of which will continue the present treatment.
[2016-10-27 21:08] LABS: Glucose,Whole Blood 171 mg/dL (75-99)
[2016-10-27] MEDS: traZODone HCL 50 MG TAB PO SCH (21:24)
[2016-10-28] MEDS: methylPREDNISolone SOD SUCCI 125 MG/2 ML VIAL IV SCH ×2 (05:20→12:46)
[2016-10-28] MEDS: LORazepam 2 MG/ML SYRINGE IV PRN ×3 (05:21→17:22)
[2016-10-28 07:14] LABS: Glucose,Whole Blood 132 mg/dL (75-99)
[2016-10-28] MEDS: IPRATROPIUM-ALBUTEROL 3 ML NEB INHALATION SCH ×2 (07:37→11:45)
[2016-10-28] MEDS: BUDESONIDE 1 MG/2 ML NEBU INHALATION SCH ×2 (07:37→19:29)
[2016-10-28] MEDS: NICOTINE 21MG/24HR PATCH TRANSDERM SCH (08:18)
[2016-10-28] MEDS: INSULIN LISPRO (humaLOG) 300 UNIT/3 ML VIAL SQ SCH ×4 (08:19→22:49)
[2016-10-28] MEDS: PANTOPRAZOLE 40 MG TABLET PO SCH ×2 (08:19→20:28)
[2016-10-28] MEDS: METHOCARBAMOL 750 MG TAB PO SCH ×2 (08:19→20:28)
[2016-10-28] MEDS: LEVOFLOXACIN 750 MG TAB PO SCH (08:19)
[2016-10-28] MEDS: METOPROLOL TARTRATE 25 MG TAB PO SCH ×2 (08:19→20:28)
[2016-10-28] MEDS: ASPIRIN 81 MG CHEW PO SCH (08:19)
[2016-10-28] MEDS: BENZONATATE 100 MG CAP PO SCH (08:20)
--- NOTE | 2016-10-28 11:38 | P.PN ---
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 Anyway the patient does have a history of tobacco use. Sees Dr. Castro and our office. Was been seen by Dr. Elaine the last couple of days. Slowly showing improvement. Less short of breath. Less coughing. Less wheezing. Not bringing up much phlegm. No fever no chills. No nausea vomiting or diarrhea. Objective - Vital Signs Vital signs: Vital Signs Temp 96.9 F L 10/28/16 07:00 Pulse 61 10/28/16 08:00 Resp 18 10/28/16 08:00 BP 168/79 10/28/16 07:00 Pulse Ox 94 L 10/28/16 07:00 Intake & Output 10/27/16 10/28/16 10/28/16 18:59 06:59 18:59 Intake Total 960 700 Balance 960 700 Intake: Oral 960 700 Other: Voiding Method Toilet Toilet # Voids 2 1 - Exam No acute distress, oriented 3. No audible wheezing. HEENT examination is grossly unremarkable. Mucous membranes are moist. There are no oral lesions. Supple. Full range of motion. No adenopathy. Cardiovascular examination reveals regular rhythm rate. S1 and S2 normal. Lungs reveal coarse rhonchi. Breath sounds are diminished. Some expiratory wheezes. Breath sounds are equal bilaterally. This prolongation on forced maneuver. Abdomen soft bowel sounds are heard. Extremities are intact. - Labs CBC & Chem 7: 10/25/16 08:12 10/25/16 08:12 Labs: Abnormal Lab Results - Last 24 Hours (Table) 10/27/16 10/27/16 10/27/16 Range/Units 11:45 17:17 21:04 POC Glucose (mg/dL) 208 H 150 H 171 H (75-99) mg/dL 10/28/16 Range/Units 07:12 POC Glucose (mg/dL) 132 H (75-99) mg/dL Assessment and Plan (1) Acute bronchitis Status: Acute (2) Acute severe exacerbation of asthma Status: Acute (3) COPD (chronic obstructive pulmonary disease) Status: Acute (4) COPD exacerbation Status: Acute (5) Guillain Nunn syndrome Status: Acute (6) Hypertension Status: Acute (7) Inferior NH Status: Acute Plan: Plan I suspect the patient may be will be discharged either later today or tomorrow. He has shown improvement. Has been here now for 5 days. Probably not quite ready to this morning for. Is feeling better though. We'll follow up with Dr. Castro and our office. Time with Patient: Less than 30
[2016-10-28 12:23] LABS: Glucose,Whole Blood 91 mg/dL (75-99)
[2016-10-28] MEDS ORDERED: IPRATROPIUM-ALBUTEROL 3 ML NEB INHALATION SCH (12:30)
[2016-10-28] MEDS: ENOXAPARIN 40 MG/0.4 ML SYRINGE SQ SCH (12:45)
[2016-10-28] MEDS: IPRATROPIUM 0.5 MG/2.5 ML NEBU INHALATION SCH ×3 (13:24→19:29)
[2016-10-28] MEDS: ALBUTEROL NEB (CONC) 2.5 MG/0.5 ML INHALATION SCH ×3 (13:24→19:29)
[2016-10-28 17:11] LABS: Glucose,Whole Blood 128 mg/dL (75-99)
[2016-10-28] MEDS: methylPREDNISolone SOD SUCCI 40 MG/ML 1 ML VIAL IV SCH (17:22)
[2016-10-28] MEDS: FORMOTEROL FUMARATE 20 MCG/2 ML NEBU INHALATION SCH (19:29)
[2016-10-28] MEDS: traZODone HCL 50 MG TAB PO SCH (20:28)
[2016-10-28 22:21] LABS: Glucose,Whole Blood 262 mg/dL (75-99)
[2016-10-29] MEDS: methylPREDNISolone SOD SUCCI 40 MG/ML 1 ML VIAL IV SCH ×3 (00:10→16:59)
[2016-10-29] MEDS: ALBUTEROL NEB (CONC) 2.5 MG/0.5 ML INHALATION SCH ×5 (00:59→15:06)
[2016-10-29] MEDS: IPRATROPIUM 0.5 MG/2.5 ML NEBU INHALATION SCH ×5 (00:59→15:06)
[2016-10-29 07:01] LABS: Glucose,Whole Blood 179 mg/dL (75-99)
[2016-10-29] MEDS: BUDESONIDE 1 MG/2 ML NEBU INHALATION SCH ×2 (07:21→19:06)
[2016-10-29] MEDS: FORMOTEROL FUMARATE 20 MCG/2 ML NEBU INHALATION SCH ×2 (07:26→19:06)
[2016-10-29] MEDS: METHOCARBAMOL 750 MG TAB PO SCH ×2 (08:13→20:15)
[2016-10-29] MEDS: PANTOPRAZOLE 40 MG TABLET PO SCH ×2 (08:13→20:15)
[2016-10-29] MEDS: ENOXAPARIN 40 MG/0.4 ML SYRINGE SQ SCH (08:13)
[2016-10-29] MEDS: LEVOFLOXACIN 750 MG TAB PO SCH (08:14)
[2016-10-29] MEDS: ASPIRIN 81 MG CHEW PO SCH (08:14)
[2016-10-29] MEDS: METOPROLOL TARTRATE 25 MG TAB PO SCH ×2 (08:14→21:36)
[2016-10-29] MEDS: NICOTINE 21MG/24HR PATCH TRANSDERM SCH (08:14)
[2016-10-29] MEDS: LORazepam 2 MG/ML SYRINGE IV PRN ×3 (08:22→20:23)
[2016-10-29] MEDS: INSULIN LISPRO (humaLOG) 300 UNIT/3 ML VIAL SQ SCH ×4 (08:31→21:36)
--- NOTE | 2016-10-29 09:20 | PN ---
DATE OF SERVICE: 10/28/2016 PRESENTING COMPLAINT: Short of breath. INTERVAL HISTORY: This is a patient who stopped smoking about a month ago presented with severe COPD exacerbation. The patient has go a cough, ( ). Still very short of breath. Feels tired and exhausted. Not eating much. Lying in bed. Review of systems done for constitutional, cardiovascular, GI, pulmonary; relevant findings as above. Current medications include nebulized bronchodilators every 6 hours, IV Solu-Medrol. On examination, temperature 96.9, pulse 61, respirations 22, blood pressure 116/79, pulse ox 94% on 3 L. GENERAL APPEARANCE: Lying in bed, short of breath. Not able to speak in full sentences. Gets short winded when he starts to speak. EYES: Pupils equal. Conjunctivae normal. NECK: JVD not raised. Mass not palpable. RESPIRATORY: Effort increased. LUNGS: Diminished breath sounds. Prolonged expiration and wheezing. CARDIOVASCULAR: First and second sounds normal. No edema. ABDOMEN: Soft, nontender. Liver and spleen not palpable. PSYCHIATRY: Alert and oriented x3. Mood and affect anxious appearing. INVESTIGATIONS: Accu-Cheks are noted. ASSESSMENT: 1. Acute severe chronic obstructive pulmonary disease exacerbation in a ex-smoker, slow to respond. 2. Patient still significantly short of breath at rest and it is definitely not safe for discharge at this point. 3. Coronary artery disease with stent to the right coronary artery. 4. Chronic tonic-clonic seizure. 5. Hyperlipidemia. 6. Essential hypertension. 7. 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 8. Primary osteoarthritis multiple joints, bilateral. 9. Restless leg syndrome, chronic. PLAN: At this point, we will keep the patient on IV Solu-Medrol. Will double the dose of Ventolin to 5 mg from 2.5 mg, also increase the frequency to every 4 hours. The patient will need at least 48 hours of inpatient stay and it is not safe to go home right now. Care was discussed with the patient. Patient is feeling rather rundown.
[2016-10-29 10:21] LABS: Anion Gap 8 mmol/L; Blood Urea Nitrogen 25 mg/dL (9-20); Calcium 8.4 mg/dL (8.4-10.2); Carbon Dioxide 26 mmol/L (22-30); Chloride 109 mmol/L (98-107); Glucose 136 mg/dL (74-99); Non-African American GFR(MDRD) >60 (>60 ml/min/1.73 sqM); Sodium 143 mmol/L (137-145)
[2016-10-29 12:06] LABS: Glucose,Whole Blood 148 mg/dL (75-99)
--- NOTE | 2016-10-29 14:45 | P.PN ---
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 Anyway the patient does have a history of tobacco use. Sees Dr. Castro and our office. Was been seen by Dr. Elaine the last couple of days. Slowly showing improvement. Less short of breath. Less coughing. Less wheezing. Not bringing up much phlegm. No fever no chills. No nausea vomiting or diarrhea. Progress note dated 10/29/2016 This is a 51-year-old man with a history of underlying COPD as worse after reflux disease hyperlipidemia myocardial infarction CAD with stent placement hypertension and GERD Nunn syndrome. The Guillain-Nunn syndrome developed after a flu shot. The patient was admitted with a diagnosis of COPD/asthma exacerbation. Doing much better today. Likely could go home tomorrow. He sees Dr. Castro my partner in the office. Anyway feeling much better today. Breathing much better. Objective - Vital Signs Vital signs: Vital Signs Temp 98.4 F 10/29/16 07:00 Pulse 58 L 10/29/16 11:27 Resp 24 10/29/16 08:00 BP 123/66 10/29/16 07:00 Pulse Ox 98 10/29/16 07:25 Intake & Output 10/28/16 10/29/16 10/29/16 18:59 06:59 18:59 Intake Total 250 200 Balance 250 200 Intake: Oral 250 200 Other: Voiding Method Toilet Toilet Toilet # Voids 2 1 - Exam No acute distress, oriented 3. No audible wheezing. HEENT examination is grossly unremarkable. Mucous membranes are moist. There are no oral lesions. Supple. Full range of motion. No adenopathy. Cardiovascular examination reveals regular rhythm rate. S1 and S2 normal. Lungs reveal diminished breath sounds. Breath sounds are improved. Less wheezes or rhonchi. There is slight prolongation. Abdomen soft bowel sounds are heard. Extremities are intact. - Labs CBC & Chem 7: 10/25/16 08:12 10/29/16 09:19 Labs: Abnormal Lab Results - Last 24 Hours (Table) 10/28/16 10/28/16 10/29/16 Range/Units 17:10 22:17 06:59 Chloride (98-107) mmol/L BUN (9-20) mg/dL Glucose (74-99) mg/dL POC Glucose (mg/dL) 128 H 262 H 179 H (75-99) mg/dL 10/29/16 10/29/16 Range/Units 09:19 12:05 Chloride 109 H (98-107) mmol/L BUN 25 H (9-20) mg/dL Glucose 136 H (74-99) mg/dL POC Glucose (mg/dL) 148 H (75-99) mg/dL Assessment and Plan (1) Acute bronchitis Status: Acute (2) Acute severe exacerbation of asthma Status: Acute (3) COPD (chronic obstructive pulmonary disease) Status: Acute (4) COPD exacerbation Status: Acute (5) Guillain Nunn syndrome Status: Acute (6) Hypertension Status: Acute (7) Inferior [place] Status: Acute Plan: Plan I suspect the patient may be will be discharged either later today or tomorrow. He has shown improvement. Has been here now for 5 days. Probably not quite ready to this morning for. Is feeling better though. We'll follow up with Dr. Castro and our office. Plan dated 10/29/2016 I suspect the patient may be able to be discharged tomorrow. He is doing much better. He should be discharged on a prednisone burst and taper and some oral antibiotic. He should follow-up with his pile operator, Dr. Castro in the office in 7-10 days. No additional recommendations are made. We'll continue to follow and likely see the patient in the morning before discharge. Time with Patient: Less than 30
[2016-10-29 16:58] LABS: Glucose,Whole Blood 120 mg/dL (75-99)
[2016-10-29] MEDS: IPRATROPIUM-ALBUTEROL 3 ML NEB INHALATION SCH (19:06)
--- NOTE | 2016-10-29 19:42 | PN ---
DATE OF SERVICE: 10/29/2016 PRESENTING COMPLAINT: Short of breath. INTERVAL HISTORY: This is a patient who stopped smoking a month ago. He presented with severe COPD exacerbation. I did double patient's albuterol yesterday and the frequency to every 4 hours. Doing a bit better. Patient usually gets short of breath and has not really been much out of bed. Review of systems done for constitutional, cardiovascular, GI, pulmonary; relevant findings as above. Current medications are reviewed that include Ventolin 5 mg q.4, Solu-Medrol 40 q.8. On examination, temperature 97.1, pulse 64, respiration 24, blood pressure 140/75, pulse ox 98% on 2 L. GENERAL APPEARANCE: ( ) better sitting up; less short-winded. EYES: Pupils equal. Conjunctivae normal. NECK: JVD not raised. Mass not palpable. RESPIRATORY: Effort increased. LUNGS: Slightly improved air entry. Prolonged expiration. Decreased wheezing. CARDIOVASCULAR: First and second sounds normal. No edema. ABDOMEN: Soft, non-tender. Liver and spleen not palpable. PSYCHIATRY: Alert and oriented x3. Mood and affect normal. INVESTIGATIONS: Potassium 4. BUN 25, creatinine 0.88. Accu-Cheks are noted. ASSESSMENT: 1. Acute severe chronic obstructive pulmonary disease exacerbation in an ex-smoker. 2. Coronary artery disease with stent to the right coronary artery. 3. Chronic tonic-clonic seizure, history of. 4. Hyperlipidemia. 5. Essential hypertension. 6. Guillain Bladen syndrome with lower extremity weakness, chronic. 7. Primary osteoarthritis in multiple joints, bilateral. 8. Restless leg syndrome, chronic. PLAN: Will start the patient on theophylline tonight. Will also add some Claritin. Will switch the patient back to DuoNeb. Patient encouraged to be out of bed. Let us see how he does.
[2016-10-29] MEDS: LORATADINE 10 MG TAB PO SCH (20:15)
[2016-10-29] MEDS: traZODone HCL 50 MG TAB PO SCH (20:16)
[2016-10-29 20:48] LABS: Glucose,Whole Blood 178 mg/dL (75-99)
[2016-10-29] MEDS ORDERED: THEOPHYLLINE 24 HOUR 300 MG CAP.ER.24H PO SCH (21:00)
[2016-10-30] MEDS: methylPREDNISolone SOD SUCCI 40 MG/ML 1 ML VIAL IV SCH ×2 (00:25→08:33)
[2016-10-30] MEDS: LORazepam 2 MG/ML SYRINGE IV PRN (04:23)
[2016-10-30 07:18] LABS: Glucose,Whole Blood 136 mg/dL (75-99)
[2016-10-30] MEDS: BUDESONIDE 1 MG/2 ML NEBU INHALATION SCH (07:38)
[2016-10-30] MEDS: FORMOTEROL FUMARATE 20 MCG/2 ML NEBU INHALATION SCH (07:39)
[2016-10-30] MEDS: IPRATROPIUM-ALBUTEROL 3 ML NEB INHALATION SCH ×2 (07:39→11:39)
[2016-10-30 07:41] VITALS: BP 137/80; RESP 16; TEMP 98
[2016-10-30] MEDS: NICOTINE 21MG/24HR PATCH TRANSDERM SCH (08:32)
[2016-10-30] MEDS: LEVOFLOXACIN 750 MG TAB PO SCH (08:33)
[2016-10-30] MEDS: ASPIRIN 81 MG CHEW PO SCH (08:33)
[2016-10-30] MEDS: ENOXAPARIN 40 MG/0.4 ML SYRINGE SQ SCH (08:33)
[2016-10-30] MEDS: METHOCARBAMOL 750 MG TAB PO SCH (08:34)
[2016-10-30] MEDS: PANTOPRAZOLE 40 MG TABLET PO SCH (08:34)
[2016-10-30] MEDS: METOPROLOL TARTRATE 25 MG TAB PO SCH (08:34)
[2016-10-30] MEDS: LORATADINE 10 MG TAB PO SCH (08:34)
[2016-10-30] MEDS: INSULIN LISPRO (humaLOG) 300 UNIT/3 ML VIAL SQ SCH ×2 (08:44→13:40)
--- NOTE | 2016-10-30 10:56 | P.PN ---
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 Anyway the patient does have a history of tobacco use. Sees Dr. Castro and our office. Was been seen by Dr. Elaine the last couple of days. Slowly showing improvement. Less short of breath. Less coughing. Less wheezing. Not bringing up much phlegm. No fever no chills. No nausea vomiting or diarrhea. Progress note dated 10/29/2016 This is a 51-year-old man with a history of underlying COPD as worse after reflux disease hyperlipidemia myocardial infarction CAD with stent placement hypertension and GERD Nunn syndrome. The Guillain-Nunn syndrome developed after a flu shot. The patient was admitted with a diagnosis of COPD/asthma exacerbation. Doing much better today. Likely could go home tomorrow. He sees Dr. Castro my partner in the office. Anyway feeling much better today. Breathing much better. Progress note dated down 10/30/16 This is a 51-year-old gentleman with a history of underlying COPD GERD hyperlipidemia myocardial infarction CAD previous stent placement essential hypertension and Guillain-Nunn syndrome after a flu shot. The patient does have a history of tobacco use and sees Dr. Castro in our office. The patient' s doing much better and is likely to be discharged home today. The patient's breathing has improved. We'll follow up with my partner. He should be discharged home on a prednisone burst and taper 40 mg for 4 days 30 mg 4 days 20 for 4 days 10 for 4 days and stop. In addition, she has short course of oral antibiotics. Objective - Vital Signs Vital signs: Vital Signs Temp 98.0 F 10/30/16 07:00 Pulse 68 10/30/16 07:50 Resp 16 10/30/16 07:00 BP 137/80 10/30/16 07:00 Pulse Ox 98 10/30/16 07:00 Intake & Output 10/29/16 10/30/16 10/30/16 18:59 06:59 18:59 Other: Voiding Method Toilet Toilet # Voids 1 2 - Exam No acute distress, oriented 3. No audible wheezing. HEENT examination is grossly unremarkable. Mucous membranes are moist. There are no oral lesions. Supple. Full range of motion. No adenopathy. Cardiovascular examination reveals regular rhythm rate. S1 and S2 normal. Lungs reveal diminished breath sounds. Breath sounds are improved. Less wheezes or rhonchi. There is slight prolongation. Abdomen soft bowel sounds are heard. Extremities are intact. - Labs CBC & Chem 7: 10/25/16 08:12 10/29/16 09:19 Labs: Abnormal Lab Results - Last 24 Hours (Table) 10/29/16 10/29/16 10/29/16 Range/Units 12:05 16:56 20:46 POC Glucose (mg/dL) 148 H 120 H 178 H (75-99) mg/dL 10/30/16 Range/Units 07:16 POC Glucose (mg/dL) 136 H (75-99) mg/dL Assessment and Plan (1) Acute bronchitis Status: Acute (2) Acute severe exacerbation of asthma Status: Acute (3) COPD (chronic obstructive pulmonary disease) Status: Acute (4) COPD exacerbation Status: Acute (5) Guillain Nunn syndrome Status: Acute (6) Hypertension Status: Acute (7) Inferior [place] Status: Acute Plan: Plan I suspect the patient may be will be discharged either later today or tomorrow. He has shown improvement. Has been here now for 5 days. Probably not quite ready to this morning for. Is feeling better though. We'll follow up with Dr. Castro and our office. Plan dated 10/29/2016 I suspect the patient may be able to be discharged tomorrow. He is doing much better. He should be discharged on a prednisone burst and taper and some oral antibiotic. He should follow-up with his rn social work, Dr. Castro in the office in 7-10 days. No additional recommendations are made. We'll continue to follow and likely see the patient in the morning before discharge. Plan dated 10/30/2016 The patient may be discharged home today. He'll follow up with one of us in the office. He typically sees Dr. Castro. The patient should be discharged home on a short course of antibiotics although she usually breathing medications and prednisone with a burst and taper as outlined above. Additional recommendations suggestions are forthcoming. Prognosis is guarded. Time with Patient: Less than 30
[2016-10-30 11:42] VITALS: PULSE 68
[2016-10-30 12:31] LABS: Glucose,Whole Blood 136 mg/dL (75-99)
--- NOTE | 2016-10-31 08:09 | DS ---
DATE OF ADMISSION: 10/23/2016 DATE OF DISCHARGE: 10/30/2016 FINAL DIAGNOSES: 1. Acute severe chronic obstructive pulmonary disease in an ex-smoker. 2. Coronary artery disease with stent to the right coronary artery. 3. Chronic tonic-clonic seizure, history of. 4. Hyperlipidemia. 5. Essential hypertension. 6. Guillain Lindon Syndrome with lower extremity weakness, chronic. 7. Primary osteoarthritis multiple joints, bilateral. 8. Restless leg syndrome, chronic. 9. Possible acute tracheobronchitis. HOSPITAL COURSE: This patient is a smoker, presented with severe COPD exacerbation, doing much better at the time of discharge. On examination: LUNGS: Improved air entry. Patient is counseled to keep from smoking. CONSULTATION: Dr. Elaine/Dr. Wong from Pulmonary. DISCHARGE MEDICATIONS: 1. Tessalon Perles 100 mg p.o. t.i.d. 2. Advair 500-50 one puff b.i.d. 3. Aciphex 20 mg b.i.d. 4. Trazodone q.h.s. 5. Robaxin 50 mg p.o. b.i.d. 6. Duragesic 25 mcg patch every 72 hours. 7. OxyContin 20 mg p.o. q.i.d. p.r.n. 8. Requip 1 mg p.o. q.h.s. 9. Lopressor 25 mg p.o. b.i.d. 10. Nitrostat 0.4 sublingual q.5 p.r.n. 11. Aspirin 81 mg a day. 12. Nicotine patch taper to continue. 13. Ventolin HFA 1 to 2 puffs q.6 p.r.n. 14. Zestril 20 mg a day. 15. DuoNeb t.i.d. ' 16. Levaquin 750 mg a day for 3 days. 17. Claritin 5 mg q.12 tent tablets. 18. Keshav-24 three hundred mg p.o. q.h.s. 19. Prednisone taper. Follow up with Dr. Guevara on 11/06/2016; follow up with Dr. Castro in 10 days. DC planning more than 35 minutes.
== END 2016-10-30 14:49 | disposition home or self-care (01) | DRG 190 ==
LOC: EC 07:59 → OBSVTOIN 09:21 → 3OBS 09:21 → 4MS4W 17:07
PROVIDERS: ADMIT Hospitalist; ATTEND Hospitalist
DX: J44.0 Chronic obstructive pulmonary disease with (acute) lower respiratory infection (principal); J96.02 Acute respiratory failure with hypercapnia; J45.901 Unspecified asthma with (acute) exacerbation; G65.0 Sequelae of Guillain-Barre syndrome; G40.409 Other generalized epilepsy and epileptic syndromes, not intractable, without status epilepticus; K21.9 Gastro-esophageal reflux disease without esophagitis; I10 Essential (primary) hypertension; E78.5 Hyperlipidemia, unspecified; I25.2 Old myocardial infarction; J20.9 Acute bronchitis, unspecified; J44.1 Chronic obstructive pulmonary disease with (acute) exacerbation; R53.1 Weakness; I25.10 Atherosclerotic heart disease of native coronary artery without angina pectoris; Z95.5 Presence of coronary angioplasty implant and graft; Z87.891 Personal history of nicotine dependence; M19.91 Primary osteoarthritis, unspecified site; Z90.49 Acquired absence of other specified parts of digestive tract; G25.81 Restless legs syndrome; G89.29 Other chronic pain; M54.5 Low back pain; Z79.82 Long term (current) use of aspirin; Z79.51 Long term (current) use of inhaled steroids; Z79.899 Other long term (current) drug therapy
CPT/HCPCS: 36415; 71010; 71020; 71275; 80048; 80053; 82550; 82553; 83735; 84484; 85025; 85027; 85379; 85610; 85730; 87040; 87502; 93005; 94640; 94644; 94760; 96365; 96375; 99291

== ENCOUNTER → 2017-09-29 | Outpatient (CLI) | payer OTHER, MEDICARE ==
--- NOTE | 2017-09-29 11:55 | CT ---
EXAMINATION TYPE: CT chest w con DATE OF EXAM: 09/29/2017 COMPARISON: 07/01/2017 HISTORY: Patient complains of difficulty breathing. CT DLP: 296.9 mGycm Automated exposure control for dose reduction was used. CONTRAST: CT scan of the chest is performed with IV Contrast, patient injected with 100 mL of Omnipaque 300. FINDINGS: LUNGS: The lungs are grossly clear, there is no concerning parenchymal mass or nodule identified. T here is no pleural effusion or pneumothorax seen. The tracheobronchial tree is patent. Calcified gra nuloma left upper lobe. Mild hyperinflation correlate for COPD. Additional 2 mm nodule in the right u pper lobe laterally stable. Pleural-based thickening noted. Additional calcified granuloma within the superior segment of the left lower lobe. Additional 4 mm nodule MEDIASTINUM: There are no greater than 1 cm hilar or mediastinal lymph nodes. Mild atherosclerotic c hanges aorta. Shotty adenopathy noted. Tiny pericardial effusion. . OTHER: Hypertrophic and degenerative change of the spine noted. Suspect canal stenosis near the thor acolumbar junction. Correlate with MRI. Previous gallbladder surgery noted. IMPRESSION: 1. Correlate for COPD. 2. Bilateral pulmonary nodules at least 2 of which are calcified compatible with granuloma. The other 2 is too small to accurately characterize could be followed with a 6 month follow-up exam to confirm stability over 2 years. The nodule within the right lower lobe that measures 4 mm was not clearly se en on the exam of 04/19/2016.
== END | disposition home or self-care (01) ==
LOC: RADCTMAIN 10:49
PROVIDERS: ATTEND Internal Medicine Critical Care Medicine
DX: R91.8 Other nonspecific abnormal finding of lung field (principal)
CPT/HCPCS: 71260; Q9967

== ENCOUNTER → 2018-02-26 | Outpatient (CLI) | payer OTHER, MEDICARE ==
[2018-02-26 11:04] LABS: HCT 41.8 % (39.0-53.0); HGB 13.9 gm/dL (13.0-17.5); MCHC 33.4 g/dL (31.0-37.0); MCV 92.8 fL (80.0-100.0); Mean Platelet Volume 6.5; Platelet Count 205 k/uL (150-450); WBC 13.8 k/uL (3.8-10.6)
[2018-02-26 11:23] LABS: Anion Gap 9 mmol/L; Blood Urea Nitrogen 25 mg/dL (9-20); Carbon Dioxide 29 mmol/L (22-30); Chloride 100 mmol/L (98-107); Sodium 138 mmol/L (137-145)
== END | disposition home or self-care (01) ==
LOC: LABPAT 10:40
PROVIDERS: ATTEND Internal Medicine Cardiovascular Disease
DX: Z01.812 Encounter for preprocedural laboratory examination (principal); I25.10 Atherosclerotic heart disease of native coronary artery without angina pectoris
CPT/HCPCS: 36415; 80051; 82565; 84520; 85027

== ENCOUNTER 2018-03-02 05:58 | Day surgery (SDC) | payer OTHER, MEDICARE ==
[2018-02-27 08:37] VITALS: BMI 25.0
[2018-03-02] MEDS ORDERED: ASPIRIN 325 MG TAB PO STA (06:13)
[2018-03-02] MEDS ORDERED: SODIUM CHLORIDE 0.9% 1,000 ML in EMPTY BAG 1 BAG IV ONE (06:13)
[2018-03-02] MEDS ORDERED: ALPRAZolam 0.5 MG TAB PO PRN (06:13)
[2018-03-02] MEDS ORDERED: ALPRAZolam 0.25 MG TAB PO PRN (06:13)
[2018-03-02] MEDS ORDERED: NITROGLYCERIN SL TABS 0.4 MG TAB SUBLINGUAL PRN (06:13)
[2018-03-02] MEDS ORDERED: ATORVASTATIN 80 MG TAB PO STA (06:13)
[2018-03-02 07:09] VITALS: RESP 16
[2018-03-02] MEDS ORDERED: SODIUM CHLORIDE 0.9% 1,000 ML IV ONE (07:09)
[2018-03-02] MEDS ORDERED: diphenhydrAMINE 50 MG/ML 1 ML VIAL IVP ONE (07:43)
[2018-03-02] MEDS ORDERED: MIDAZOLAM 2 MG/2 ML VIAL IVP ONE (07:43)
[2018-03-02] MEDS ORDERED: LIDOCAINE 2% SYG (PF) 100 MG/5 ML MISCELLANE ONE (07:46)
[2018-03-02] MEDS ORDERED: IOPAMIDOL-370 125ML BTL INJ ONE ×2 (07:56)
[2018-03-02] MEDS ORDERED: NITROGLYCERIN 1000MCG/10ML SYRINGE INTRACORON ONE (08:22)
[2018-03-02] MEDS ORDERED: ADENOSINE 90 MG in SODIUM CHLORIDE 0.9% 60 ML IVP ONE (08:27)
--- NOTE | 2018-03-02 08:37 | CC ---
CARDIAC CATHETERIZATION REPORT INDICATION: Unstable angina. PROCEDURE NOTE: After obtaining informed consent, left heart catheterization and coronary angiogram are performed via the right femoral artery using standard Gladys catheters. Patient tolerated the procedure well without any obvious immediate complications. The patient received moderate conscious sedation and total sedation time was 15 minutes. FINDINGS: 1. HEMODYNAMICS: Left ventricular end-diastolic pressure is 18 mm. There is no significant gradient across the aortic valve. 2. LEFT VENTRICULOGRAM: Left ventriculogram is not performed. 3. ANGIOGRAPHIC DATA: 4. Left main coronary artery: Left main coronary artery is a normal-sized vessel and is free of stenosis. Divides into left anterior descending coronary artery and circumflex coronary artery. LAD and its branches are free of significant stenosis. Circumflex coronary artery gives off a large caliber OM branch that seemed to have a 50% to 60% proximal stenosis. Right coronary artery is a large dominant vessel. The previously stented segment appears patent. There is mild nonobstructive disease noted. CONCLUSIONS: A 50% to 60% stenosis involving the OM branch. Patent stent within the right coronary artery. The patient has had episodes of chest pain since is since his initial evaluation in my office. I am going to have Dr. Cotton the on-call landscaper evaluate the angiographic data and see if patient would benefit from doing an FFR of the OM branch. Referring physician: Dr. Guevara. MMSUZETTEL / KERRIN: [id number] /
[2018-03-02] MEDS ORDERED: RX INFO: IV CONTRAST WAS GIVEN 1 EACH MISC MISCELLANE PRN (08:39)
[2018-03-02] MEDS ORDERED: IPRATROPIUM-ALBUTEROL 3 ML NEB INHALATION PRN (08:40)
[2018-03-02] MEDS ORDERED: OXYCODONE HCL 20 MG PO PRN (08:40)
[2018-03-02] MEDS ORDERED: SODIUM CHLORIDE 0.9% 1,000 ML IV SCH (08:45)
[2018-03-02 08:51] VITALS: TEMP 97.9
[2018-03-02] MEDS ORDERED: NON-FORMULARY DRUG (Rabeprazole Sodium [Aciphex] 20 MG) PO SCH (09:00)
[2018-03-02] MEDS ORDERED: predniSONE 5 MG TAB PO SCH (09:00)
--- NOTE | 2018-03-02 09:07 | PCN ---
PROCEDURE NOTE FRACTIONAL FLOW RESERVE MEASUREMENT Mr. Salvador is a 53-year-old male with a known history of coronary artery disease who underwent stenting of the proximal right coronary artery in 2016. He recently presented to Dr. Garber with symptoms of chest discomfort, reoccurring and somewhat reminding him of the way he felt in 2016. He underwent cardiac catheterization, was found to have a patent stent to the right coronary artery with moderate disease in the first obtuse marginal branch. Because of his symptoms and the results of his coronary angiography, recommendation was made regarding fractional reserve measurement of the obtuse marginal branch. The procedure as well as risks and the complications were discussed with the patient who is in full understanding and agreement. PROCEDURE: A 6-Romansh FL4 guiding catheter was introduced into system after cannulating the left main. The Doppler flow wire was introduced into the first obtuse marginal branch, iFR was measured and subsequently fractional flow reserve was measured using an adenosine infusion per protocol. Following that, catheter and sheaths were removed. Hemostasis was obtained with deployment of an Angio-Seal. There was no immediate complication. Patient was returned to his room in stable condition. Of note, the patient received 5000 units of intravenous heparin as well as intra-arterial nitroglycerin. There was no immediate complication. RESULTS: Non-hemodynamic significant lesion in the obtuse marginal branch with an iFR 1.02 and a FFR of 0.96. RECOMMENDATION: Patient will be continued on the present medical therapy and follow up as an outpatient. Those findings and recommendation were discussed with the patient and his family in full understanding and agreement. MMSUZETTEL / KERRIN: [id number] /
[2018-03-02 15:15] VITALS: BP 131/67; PULSE 68
[2018-03-02] MEDS ORDERED: NON-FORMULARY DRUG (Fluticasone/Salmeterol [Advair 500-50 Diskus] 1 PUFF) INHALATION SCH (20:00)
[2018-03-02] MEDS ORDERED: METOPROLOL TARTRATE 25 MG TAB PO SCH (21:00)
[2018-03-02] MEDS ORDERED: NON-FORMULARY DRUG (Simvastatin [Zocor] 40 MG) PO SCH (21:00)
[2018-03-03] MEDS ORDERED: LISINOPRIL 20 MG TAB PO SCH (09:00)
[2018-03-03] MEDS ORDERED: NON-FORMULARY DRUG (Aspirin [Adult Low Dose Aspirin Ec] 81 MG) PO SCH (09:00)
== END 2018-03-02 16:43 | disposition home or self-care (01) ==
LOC: CATHCVL 05:58
PROVIDERS: ATTEND Internal Medicine Cardiovascular Disease
DX: I25.110 Atherosclerotic heart disease of native coronary artery with unstable angina pectoris (principal); Z95.5 Presence of coronary angioplasty implant and graft; I10 Essential (primary) hypertension; E78.2 Mixed hyperlipidemia; J44.9 Chronic obstructive pulmonary disease, unspecified; I25.9 Chronic ischemic heart disease, unspecified; I25.2 Old myocardial infarction; F17.210 Nicotine dependence, cigarettes, uncomplicated; Z79.02 Long term (current) use of antithrombotics/antiplatelets; Z79.82 Long term (current) use of aspirin; Z79.51 Long term (current) use of inhaled steroids; Z79.899 Other long term (current) drug therapy
CPT/HCPCS: 93571; 93458; C1760; C1887; C1894; C1769; J2250; J1200; J2001; J0153; J1644; Q9967

== ENCOUNTER → 2018-07-28 | Outpatient (CLI) | payer OTHER, MEDICARE ==
--- NOTE | 2018-07-28 10:11 | CT ---
EXAMINATION TYPE: CT chest w con DATE OF EXAM: 07/28/2018 COMPARISON: 07/01/2017, 09/29/2017, and 04/19/2016 HISTORY: sob/lung nodules. hx copd/asthma CT DLP: 321 mGycm. Automated Exposure Control for Dose Reduction was Utilized. TECHNIQUE: CT scan of the thorax is performed following with IV Contrast, patient injected with 100 mL of Isovue 300. FINDINGS: LUNGS: There are multiple pulmonary nodules, one of which is definitively calcified within the left u pper lobe on image 29. The others demonstrate some hyperintensity although no definitive calcificatio n on the bone windows. The first measures 5 mm within the superior segment of the right lower lobe on image 24. The second measures 3 mm on image 34 within the left upper lobe lower segment. In the last measures 2 mm on image 16 within the right lung apex. Another measures 5 mm In comparison to the exa m of 04/19/2016 all of these nodules demonstrate stability There are mild centrilobular emphysematous c hanges. Ill-defined probable atelectasis is seen on image 15 and right lower lobe posteriorly and unc hanged from 2016 therefore likely chronic. MEDIASTINUM: There are no greater than 1 cm hilar or mediastinal lymph nodes. There is a small perica rdial effusion, slightly increased from 2016. OTHER: The gallbladder surgically absent. There is a splenule seen adjacent to the big sandy spleen. Mod erate atherosclerosis is seen of the abdominal aorta. There are mild multilevel degenerative changes of the spine. IMPRESSION: 1. Stability of multiple solid bilateral pulmonary nodules, some of which are calcified representing benign granulomas, in comparison to the exam of 04/19/2016. These demonstrate a for 2 years of stabilit y and are therefore benign. 2. Mild centrilobular emphysematous change. 3. Small pericardial effusion.
== END | disposition home or self-care (01) ==
LOC: RADCTMAIN 09:10
PROVIDERS: ATTEND Internal Medicine Critical Care Medicine
DX: J43.2 Centrilobular emphysema (principal); R91.8 Other nonspecific abnormal finding of lung field; I31.3 Pericardial effusion (noninflammatory); J84.10 Pulmonary fibrosis, unspecified; Z91.013 Allergy to seafood
CPT/HCPCS: 71260; Q9967

== ENCOUNTER 2019-02-19 14:13 | Inpatient (IN) | payer MEDICARE, OTHER ==
[2019-02-19] MEDS ORDERED: SODIUM CHLORIDE 0.9% 1,000 ML IV STA (14:48)
[2019-02-19] MEDS ORDERED: IPRATROPIUM-ALBUTEROL 3 ML NEB INHALATION STA ×3 (15:20→17:05)
[2019-02-19] MEDS ORDERED: ASPIRIN 81 MG PO STA (15:20)
--- NOTE | 2019-02-19 15:21 | ED ---
General Adult HPI - General Chief complaint: Shortness of Breath Stated complaint: Cough, possible torn muscle in chest Time Seen by Provider: 02/19/19 14:47 Source: patient, family Mode of arrival: ambulatory Limitations: no limitations - History of Present Illness Initial comments: 54 yo male with past medical history of COPD, CAD wit presenting today for chief complaint pain after coughing. Patient states that he has chronic COPD as well as a chronic cough. He states he follows Dr. Wong for pulmonology. Patient states that today he had a coughing fit. He states he noticed sudden onset of sharp pain that was localized to the anterior chest wall. Patient states he is able to push in a certain aspect of this chest this reproduces the pain. He states deep breaths and coughing also aggravate the pain he states is sharp in nature. Patient denies any radiation of the pain to the back. Denies any chest pain or pressure. He states it does not feel associated to the heart. Patient states she has had some shortness of breath with cough today. Patient denies any increased sputum production fever chills or night sweats. Patient states he did do one nebulized treatment at home prior to arrival to the emergency department. Remaining review of systems negative, Patient denies any fever, chills, hemoptysis, leg swelling, orthopnea, recent back pain, abdominal pain, nausea or vomiting, numbness or tingling, dysuria or hematuria, constipation or diarrhea, headaches or visual changes, or any other complaints. - Related Data Home Medications Medication Instructions Recorded Confirmed Fluticasone/Salmeterol [Advair 1 puff INHALATION RT-BID 04/05/14 03/02/18 500-50 Diskus] RABEprazole SODIUM [Aciphex] 20 mg PO BID 04/05/14 03/02/18 traZODone HCL 100 - 200 mg PO BID 04/05/14 03/02/18 fentaNYL 25MCG/HR PATCH [Duragesic 1 patch TRANSDERM Q72H PRN 03/24/16 03/02/18 25MCG/HR] oxyCODONE HCL [oxyCODONE HCL (IR)] 20 mg PO QID PRN 03/24/16 03/02/18 rOPINIRole HCL [Requip] 1 mg PO HS 03/24/16 03/02/18 Albuterol Inhaler [Ventolin Hfa 1 - 2 puff INHALATION RT-Q6H PRN 10/23/1602/13 Inhaler] Lisinopril [Zestril] 20 mg PO DAILY 10/23/16 03/02/18 Simvastatin [Zocor] 40 mg PO HS 06/26/17 03/02/18 Aspirin [Adult Low Dose Aspirin EC] 81 mg PO DAILY 02/27/18 03/02/18 predniSONE 5 mg PO DAILY 02/27/18 03/02/18 Previous Rx's Medication Instructions Recorded Metoprolol Tartrate [Lopressor] 25 mg PO BID #60 tab 03/26/16 Nitroglycerin Sl Tabs [Nitrostat] 0.4 mg SUBLINGUAL Q5M PRN #25 tab 03/26/16 Ipratropium-Albuterol Nebulize 3 ml INHALATION RT-TID PRN #90 07/02/17 [Duoneb 0.5 mg-3 mg/3 ml Soln] ampul.neb Allergies Allergy/AdvReac Type Severity Reaction Status Date / Time No Known Allergies Allergy Unverified 02/27/18 08:28 Review of Systems ROS Statement: Those systems with pertinent positive or pertinent negative responses have been documented in the HPI. ROS Other: All systems not noted in ROS Statement are negative. 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 OCCASIONAL USE OF CANE OR WALKER Last Myocardial Infarction Date:: 03/24/2016 History of Any Multi-Drug Resistant Organisms: None Reported Past Surgical History: Appendectomy, Cholecystectomy, Heart Catheterization With Stent, Hernia Repair Additional Past Surgical History / Comment(s): SX TO REPAIR TIP OF INDEX FINGER RT HAND. 03/24/16 2 stent placed to RCA, colonoscopy. Past Anesthesia/Blood Transfusion Reactions: No Reported Reaction Date of Last Stent Placement:: 03/24/16 Past Psychological History: No Psychological Hx Reported Smoking Status: Current every day smoker Past Alcohol Use History: Occasional Past Drug Use History: None Reported - Past Family History Mother Family Medical History: Cancer, Diabetes Mellitus Additional Family Medical History / Comment(s): COLON CANCER,HEART PROBLEMS. Genaro ramos at the age of 73 yrs. Brother(s) Family Medical History: Cancer Additional Family Medical History / Comment(s): AT AGE 52 ESOPHGEAL CANCER Father Family Medical History: Cancer, Myocardial Infarction ([place]) Additional Family Medical History / Comment(s): Pt states he doesn't keep in touch with his father and doesn't know his health hx. General Exam - General Exam Comments Initial Comments: General: The patient is awake and alert, in no distress, and does not appear acutely ill. Eye: +3 mm pupils are equal, round and reactive to light, extra-ocular movements are intact. No nystagmus. There is normal conjunctiva bilaterally. No signs of icterus. Ears, nose, mouth and throat: There are moist mucous membranes and no oral lesions. Neck: The neck is supple, there is no tenderness or JVD. Cardiovascular: There is a regular rate and rhythm. No murmur, rub or gallop is appreciated. Respiratory: Lungs sounds are present in all herman however diminished. There is significant extra wheeze mild infiltrate wheeze. No evidence of rales or focal consolidations. Gastrointestinal: Soft, non-distended, non-tender abdomen without masses or org anomegaly noted. There is no rebound or guarding present. No CVA tenderness. Bowel sounds are unremarkable. Musculoskeletal: Patient is tender just to the right of ther sternum distal aspect. Normal ROM, no tenderness. Strength 5/5. Sensation intact. Radial pulses equal bilaterally 2+. Neurological: A&O x 3. CN II-XII intact, There are no obvious motor or sensory deficits. Coordination appears grossly intact. Speech is normal. Skin: Skin is warm and dry and no rashes or lesions are noted. Psychiatric: Cooperative, appropriate mood & affect, normal judgment. Limitations: no limitations Course Vital Signs 02/19/19 02/19/19 02/19/19 14:15 14:58 15:00 Temperature 98.4 F Pulse Rate 78 80 Respiratory 20 33 H 16 Rate Blood Pressure 126/83 137/91 O2 Sat by Pulse 96 95 Oximetry 02/19/19 02/19/19 02/19/19 15:10 15:20 15:37 Temperature Pulse Rate 70 78 Respiratory 20 18 20 Rate Blood Pressure 137/91 137/91 O2 Sat by Pulse 96 95 Oximetry 02/19/19 02/19/19 02/19/19 15:40 15:50 15:58 Temperature Pulse Rate 78 72 75 Respiratory 19 25 H 20 Rate Blood Pressure 137/91 137/91 117/90 O2 Sat by Pulse 99 97 96 Oximetry 02/19/19 02/19/19 02/19/19 15:59 16:00 16:10 Temperature Pulse Rate 78 73 69 Respiratory 18 16 Rate Blood Pressure 117/90 125/85 O2 Sat by Pulse 97 94 L Oximetry 02/19/19 02/19/19 02/19/19 16:18 16:20 16:30 Temperature Pulse Rate 76 71 86 Respiratory 20 20 18 Rate Blood Pressure 125/85 125/85 O2 Sat by Pulse 99 98 Oximetry 02/19/19 02/19/19 02/19/19 16:35 16:40 17:40 Temperature Pulse Rate 78 80 82 Respiratory 16 Rate Blood Pressure 153/94 O2 Sat by Pulse 99 Oximetry - Reevaluation(s) Reevaluation #1: On multiple re-evaluations after 3 DuoNeb treatments patient continued to have significant expiratory wheeze. No improvement. Will admit patient for COPD exacerbation. 02/19/19 17:43 EKG Findings - EKG Comments: EKG Findings:: Ventricular rate 74 bpm, MI interval 136 ms, QRS duration 82 ms, QT/QTC 370/410 ms. This is normal sinus rhythm. There is a low voltage QRS. No ST elevation or depression. Medical Decision Making - Medical Decision Making Extremities extremities male with past medical history of COPD presenting for sharp chest pain after coughing. Patient states he had a coughing spell which is normal for him, cough so hard he had pain just right of the sternum. He states he can touch a certain area and reproduce the pain. This was evident on examination reproducible anterior chest wall pain. She states pain increases with breathing. Patient's lungs were not clear to auscultation. Significant expiratory wheeze. Patient was given multiple DuoNeb treatments this is not improve. Patient states he does feel slightly short of breath, increased from his usual. This I will the patient for COPD exacerbation. Patient is currently on a daily oral steroid which he took this morning. Patient be given 40 mg daily. He was given 500 mg azithromycin. Patient's chest pain does not appear consistent with a acute coronary syndrome. However troponin will be repeated for a total of 3. EKG no acute findings. Initial troponin negative. Patient states the pain he feels is more so due to a muscle rather than heart related, I concur as the pain was very reproducible on exam, coming on suddenly with a cough. Dr. Juarez accepted admission after speaking with attending provider Jarett Benavides patients established city planning teacher on consult. Patient remained stable in the emergency department, hypertensive however oxygenating well on RA. - Lab Data Result diagrams: 02/19/19 15:03 02/19/19 15:03 Lab Results 02/19/19 02/19/19 02/19/19 Range/Units 15:03 15:03 15:03 WBC 8.2 (3.8-10.6) k/uL RBC 4.46 (4.30-5.90) m/uL Hgb 13.6 (13.0-17.5) gm/dL Hct 40.9 (39.0-53.0) % MCV 91.7 (80.0-100.0) fL MCH 30.5 (25.0-35.0) pg MCHC 33.3 (31.0-37.0) g/dL RDW 14.1 (11.5-15.5) % Plt Count 186 (150-450) k/uL Neutrophils % 77 % Lymphocytes % 15 % Monocytes % 5 % Eosinophils % 1 % Basophils % 1 % Neutrophils # 6.3 (1.3-7.7) k/uL Lymphocytes # 1.2 (1.0-4.8) k/uL Monocytes # 0.4 (0-1.0) k/uL Eosinophils # 0.1 (0-0.7) k/uL Basophils # 0.1 (0-0.2) k/uL PT 9.5 (9.0-12.0) sec INR 0.9 (<1.2) APTT 24.2 (22.0-30.0) sec Sodium 141 (137-145) mmol/L Potassium 5.2 H (3.5-5.1) mmol/L Chloride 104 (98-107) mmol/L Carbon Dioxide 31 H (22-30) mmol/L Anion Gap 6 mmol/L BUN 19 (9-20) mg/dL Creatinine 1.00 (0.66-1.25) mg/dL Est GFR (CKD-EPI)AfAm >90 (>60 ml/min/1.73 sqM) Est GFR (CKD-EPI)NonAf 84 (>60 ml/min/1.73 sqM) Glucose 150 H (74-99) mg/dL Calcium 10.1 (8.4-10.2) mg/dL Total Bilirubin 0.3 (0.2-1.3) mg/dL AST 25 (17-59) U/L ALT 33 (21-72) U/L Alkaline Phosphatase 90 (38-126) U/L Troponin I (0.000-0.034) ng/mL Total Protein 7.3 (6.3-8.2) g/dL Albumin 4.6 (3.5-5.0) g/dL 02/19/19 Range/Units 15:03 WBC (3.8-10.6) k/uL RBC (4.30-5.90) m/uL Hgb (13.0-17.5) gm/dL Hct (39.0-53.0) % MCV (80.0-100.0) fL MCH (25.0-35.0) pg MCHC (31.0-37.0) g/dL RDW (11.5-15.5) % Plt Count (150-450) k/uL Neutrophils % % Lymphocytes % % Monocytes % % Eosinophils % % Basophils % % Neutrophils # (1.3-7.7) k/uL Lymphocytes # (1.0-4.8) k/uL Monocytes # (0-1.0) k/uL Eosinophils # (0-0.7) k/uL Basophils # (0-0.2) k/uL PT (9.0-12.0) sec INR (<1.2) APTT (22.0-30.0) sec Sodium (137-145) mmol/L Potassium (3.5-5.1) mmol/L Chloride (98-107) mmol/L Carbon Dioxide (22-30) mmol/L Anion Gap mmol/L BUN (9-20) mg/dL Creatinine (0.66-1.25) mg/dL Est GFR (CKD-EPI)AfAm (>60 ml/min/1.73 sqM) Est GFR (CKD-EPI)NonAf (>60 ml/min/1.73 sqM) Glucose (74-99) mg/dL Calcium (8.4-10.2) mg/dL Total Bilirubin (0.2-1.3) mg/dL AST (17-59) U/L ALT (21-72) U/L Alkaline Phosphatase (38-126) U/L Troponin I <0.012 (0.000-0.034) ng/mL Total Protein (6.3-8.2) g/dL Albumin (3.5-5.0) g/dL Disposition Clinical Impression: SOB (shortness of breath), COPD exacerbation, Cough, Intercostal muscle strain Disposition: ADMITTED IP TO THIS HOSP Condition: Stable Additional Instructions: . Is patient prescribed a controlled substance at d/c from ED?: No Referrals: Joseph Guevara MD [Primary Care Provider] - 1-2 days Time of Disposition: 17:14 Decision to Admit Reason: Admit from EC Decision Date: 02/19/19 Decision Time: 17:14
[2019-02-19 15:23] LABS: ALT 33 U/L (21-72); AST 25 U/L (17-59); African American GFR (CKD) >90 (>60 ml/min/1.73 sqM); Albumin 4.6 g/dL (3.5-5.0); Alkaline Phosphatase 90 U/L (38-126); Anion Gap 6 mmol/L; Blood Urea Nitrogen 19 mg/dL (9-20); Calcium 10.1 mg/dL (8.4-10.2); Carbon Dioxide 31 mmol/L (22-30); Chloride 104 mmol/L (98-107); Glucose 150 mg/dL (74-99); Potassium 5.2 mmol/L (3.5-5.1); Sodium 141 mmol/L (137-145); Total Bilirubin 0.3 mg/dL (0.2-1.3); Total Protein 7.3 g/dL (6.3-8.2)
[2019-02-19 15:27] LABS: INR 0.9 (<1.2); Partial Thromboplastin Time 24.2 sec (22.0-30.0); Prothrombin Time 9.5 sec (9.0-12.0)
[2019-02-19 15:33] LABS: Basophils # (A) 0.1 k/uL (0-0.2); Basophils % (A) 1 %; Eosinophils # (A) 0.1 k/uL (0-0.7); Eosinophils % (A) 1 %; HCT 40.9 % (39.0-53.0); HGB 13.6 gm/dL (13.0-17.5); Lymphocytes # (A) 1.2 k/uL (1.0-4.8); Lymphocytes % (A) 15 %; MCH 30.5 pg (25.0-35.0); MCHC 33.3 g/dL (31.0-37.0); MCV 91.7 fL (80.0-100.0); Monocytes # (A) 0.4 k/uL (0-1.0); Monocytes % (A) 5 %; Neutrophils # (A) 6.3 k/uL (1.3-7.7); Neutrophils % (A) 77 %; Platelet Count 186 k/uL (150-450); RBC 4.46 m/uL (4.30-5.90); RDW 14.1 % (11.5-15.5); WBC 8.2 k/uL (3.8-10.6)
--- NOTE | 2019-02-19 15:40 | XR ---
EXAMINATION TYPE: XR chest 2V DATE OF EXAM: 02/19/2019 COMPARISON: 06/26/2017 HISTORY: Shortness of breath and cough TECHNIQUE: Frontal and lateral views of the chest are obtained. FINDINGS: There is no focal air space opacity, pleural effusion, or pneumothorax seen. The cardiac silhouette size is within normal limits. Minimal multilevel degenerative changes of the spine are no radha. The osseous structures are intact. Cholecystectomy clips are seen. IMPRESSION: No acute cardiopulmonary process. The known bilateral pulmonary nodules are better seen on CT but appear to represent stable benign granulomas on the exam of 07/28/2018
[2019-02-19] MEDS ORDERED: oxyCODONE ER 10 MG TAB.ER.12H PO STA (19:25)
[2019-02-19] MEDS: AZITHROMYCIN 500 MG TAB PO SCH (19:53)
[2019-02-19] MEDS: IPRATROPIUM-ALBUTEROL 3 ML NEB INHALATION PRN (19:54)
[2019-02-19] MEDS ORDERED: NITROGLYCERIN SL TABS 0.4 MG TAB SUBLINGUAL PRN (20:20)
[2019-02-19] MEDS: METOPROLOL TARTRATE 25 MG TAB PO SCH (21:35)
[2019-02-19] MEDS: PANTOPRAZOLE 40 MG TABLET PO SCH (21:35)
[2019-02-19] MEDS: ATORVASTATIN 20 MG TAB PO SCH (21:35)
[2019-02-19] MEDS: METHOCARBAMOL 750 MG TAB PO SCH (21:35)
[2019-02-20] MEDS ORDERED: ALBUTEROL INHALER 60 PUFF/8 GM INHALER INHALATION SCH
[2019-02-20] MEDS: IPRATROPIUM-ALBUTEROL 3 ML NEB INHALATION PRN ×2 (01:55→04:08)
[2019-02-20 06:50] LABS: Glucose,Whole Blood 126 mg/dL (75-99)
[2019-02-20] MEDS: IPRATROPIUM-ALBUTEROL 3 ML NEB INHALATION SCH ×6 (07:16→23:21)
[2019-02-20] MEDS ORDERED: SYMBICORT 160-4.5 MCG INHALER INHALATION SCH ×2 (08:00)
[2019-02-20] MEDS ORDERED: TIOTROPIUM BROMIDE INHALATION SCH (08:00)
--- NOTE | 2019-02-20 09:04 | CONS ---
CONSULTATION This is a pulmonary critical care consultation. HISTORY OF PRESENT ILLNESS: This is a 54-year-old male presents to the emergency room on February 19 for shortness of breath, cough and pain in the chest. The patient does have a history of quite significant COPD. I see him in the [facility] for COPD. He started having increasing shortness of breath and a very sharp pain in the center of his chest. He thinks he pulled a muscle or even broke a rib. The pain is reproducible. He states he denies any fever, chills. Denies any nausea, vomiting or diarrhea. The patient states that this all began a couple days ago. The patient states that he was evaluated in the emergency room and admitted with a diagnosis of COPD exacerbation. He states the biggest issue for him right now is taking deep breaths, and and/or coughing. He hurts quite a bit when he does cough. The pain is reproducible. I found him to be relatively comfortable in the bed. He seemed not to be particularly short of breath. He is mostly concerned about his cough and the pain in the chest. The pain is sharp. It is reproducible. MEDICATIONS: Current medications include: Advair, AcipHex, trazodone, fentanyl patch, oxycodone, Ropinirole, albuterol inhaler, Zestril, Zocor, aspirin and prednisone 5 mg a day. In addition, he is on metoprolol and nitroglycerin tablets. He has got an updraft machine at home with Pamela. ALLERGIES: Denied. MEDICAL HISTORY: COPD which is quite severe, CAD, hyperlipidemia, hypertension, myocardial infarction, Guillain [place] syndrome after flu vaccine, DJD, history of pneumonia, chronic bilateral leg pain and weakness, restless legs syndrome, and seizure disorder. SURGICAL HISTORY: Includes appendectomy, cholecystectomy, heart catheterization with stent, hernia repair, surgery on 1 of his fingers, 2 stents placed in the right coronary artery and colonoscopy. SOCIAL HISTORY: Positive for ongoing tobacco use. He stopped and started many times over the years. He does drink alcohol occasionally. No illicit drug use. FAMILY HISTORY: Positive for colon cancer, cardiac disease, diabetes, esophageal cancer, and myocardial infarction. REVIEW OF SYSTEMS: CONSTITUTIONAL: Negative. NEUROLOGIC negative. HEENT negative. CARDIOVASCULAR chest pain, worse with deep breathing or coughing, sharp in nature and reproducible. PULMONARY: Shortness of breath, cough, wheezing, chest tightness, minimal phlegm production. GI negative. negative. RHEUMATOLOGIC negative. IMMUNOLOGIC negative. HEMATOLOGIC negative. DERMATOLOGIC negative. PHYSICAL EXAMINATION: VITAL SIGNS: Current vital signs are reviewed. Temperature is 97.2. Heart rate is 76, respirations 18, blood pressure 109/75, mean 86. 2 L saturation 97%. Appears in no acute distress. HEENT examination is grossly unremarkable. Nasal O2 noted. NECK: Supple. Full range of motion. No adenopathy or thyromegaly. NECK veins are flat. CARDIOVASCULAR examination reveals regular rhythm rate. Heart rate in the mid 70s. S1, S2 normal. No murmur noted. LUNGS: Reveal mostly clear breath sounds. A few scattered rhonchi. He does not want to take a deep breath because of the pain. Breath sounds are equal bilaterally but diminished throughout. No crackles or wheezes appreciated. There is pain on palpation to the center of the chest. It is clearly reproducible. ABDOMEN: Soft. Bowel sounds are heard. No masses or tenderness. EXTREMITIES are intact. No cyanosis, clubbing, or edema. SKIN without rash. NEUROLOGIC examination is brief but nonfocal. CHEST X-RAY: Shows changes primarily of COPD. LABS: Reviewed. CBC is completely normal, PT/INR, PTT normal. Sodium 141, potassium 5.2, chloride 104, CO2 31, anion gap 6, BUN and creatinine were 19 and 1.0. Troponins were negative x3. Medications are reviewed. He is getting Theophylline, prednisone updrafts and I will add Symbicort. He is also getting oral antibiotic, which he really does not need. ASSESSMENT: 1. Chronic obstructive pulmonary disease exacerbation. 2. Chest pain, reproducible, likely representing chest wall syndrome. 3. History of coronary artery disease. 4. History of hyperlipidemia. 5. Hypertension by history. 6. History of myocardial infarction. 7. History of Guillain-[place] syndrome secondary to flu vaccine. 8. Degenerative joint disease. 9. History of pneumonia. 10.Restless legs syndrome. 11.Chronic back and leg pain. 12.Status post PCI with stent placement. PLAN: The patient is doing relatively well. I will just add some Symbicort. I also wrote for some Tessalon Perles 200 mg 3 times a day, Symbicort 160/4.5, 2 puffs twice a day. He is on oral prednisone which is fine. He is getting DuoNeb. Additional recommendations and suggestions are forthcoming. Prognosis is guarded. He is counseled about the importance of smoking cessation. MMODL / IJN: [id number] /
[2019-02-20] MEDS: METOPROLOL TARTRATE 25 MG TAB PO SCH ×2 (09:14→21:08)
[2019-02-20] MEDS: METHOCARBAMOL 750 MG TAB PO SCH ×3 (09:14→21:08)
[2019-02-20] MEDS: THEOPHYLLINE 24 HOUR 300 MG CAP.ER.24H PO SCH (09:14)
[2019-02-20] MEDS: predniSONE 20 MG TAB PO SCH (09:14)
[2019-02-20] MEDS: AZITHROMYCIN 500 MG TAB PO SCH (09:14)
[2019-02-20] MEDS: TAMSULOSIN 0.4 MG CAP.ER.24H PO SCH (09:14)
[2019-02-20] MEDS: BENZONATATE 100 MG CAP PO SCH ×3 (09:14→21:08)
[2019-02-20] MEDS: PANTOPRAZOLE 40 MG TABLET PO SCH ×2 (09:15→15:44)
[2019-02-20] MEDS: LISINOPRIL 20 MG TAB PO SCH (09:15)
[2019-02-20 11:42] LABS: Glucose,Whole Blood 161 mg/dL (75-99)
[2019-02-20 16:50] LABS: Glucose,Whole Blood 191 mg/dL (75-99)
[2019-02-20] MEDS: FORMOTEROL FUMARATE 20 MCG/2 ML NEBU INHALATION SCH (19:29)
[2019-02-20] MEDS: BUDESONIDE 0.5 MG/2 ML NEBU INHALATION SCH (19:29)
[2019-02-20 20:06] LABS: Glucose,Whole Blood 180 mg/dL (75-99)
[2019-02-20] MEDS: ATORVASTATIN 20 MG TAB PO SCH (21:08)
[2019-02-20] MEDS: traZODone HCL 100 MG TAB PO SCH (21:50)
--- NOTE | 2019-02-20 23:35 | HP ---
HISTORY AND PHYSICAL DATE OF ADMISSION: 02/19/2019 DATE OF SERVICE: 02/20/2019 PRESENTING COMPLAINT: Cough, short of breath. HISTORY OF PRESENTING COMPLAINT: This is a very pleasant 54-year-old patient of Dr. Joseph Guevara whose chronic stable medical conditions include coronary artery disease with stent, seizure, hyperlipidemia, hypertension, lower extremity weakness, Guillain [place] syndrome, osteoarthritis, restless leg syndrome. The patient for 1 week has being worsening cough, some white- yellow sputum. No fever, some chills, decreased appetite, some vomiting with coughing. Bowels have been okay. Admitted for the same. Found to have COPD exacerbation. REVIEW OF SYSTEMS: CONSTITUTIONAL: Tired. HEENT: None. RESPIRATORY: As above. CARDIOVASCULAR none. GASTROINTESTINAL as above. GENITOURINARY none. MUSCULOSKELETAL: Arthritic pain in joints. DERMATOLOGICAL, HEMATOLOGIC, LYMPHATIC: none. PSYCHIATRY none. NEUROLOGICAL none. PAST MEDICAL HISTORY: Past medical history of COPD, coronary artery disease, hyperlipidemia, hypertension, osteoarthritis, Guillain [place] syndrome after flu vaccine in 2010 with lower extremity weakness, restless legs syndrome. PAST SURGICAL HISTORY: Appendectomy, cholecystectomy, cardiac cath with stent, hernia repair, 2 stents to the RCA in 2016, colonoscopy in 2016. SOCIAL HISTORY: . Smoked 2 packs a day for 46 years. Stopped in 2016. Uses a cane. FAMILY HISTORY: Patient is not sure. HOME MEDICATIONS: 1. Duragesic patch 25 mcg every 72 hours. 2. Requip 1 mg at bedtime. 3. Prednisone 10 mg a day. 4. Oxycodone 20 mg q.i.d. p.r.n. 5. Spiriva 2 puffs daily. 6. . 7. Flomax 0.4 mg a day. 8. Zocor 40 mg q.h.s. 9. AcipHex 20 mg b.i.d. 10.Nitrostat 0.4 sublingual q.5 p.r.n. 11.Lopressor 25 b.i.d. 12.Robaxin 750 mg t.i.d. 13.Zestril 20 mg p.o. daily. 14.DuoNeb q.i.d. 15.Wyxela 500/50 one puff b.i.d. 16.Ventolin HFA 2 puffs q.4h. ALLERGIES: None. PHYSICAL EXAMINATION: VITAL SIGNS: Vital signs on presentation: Temperature 98.4, pulse 78, respirations 20, blood pressure 126/83, pulse ox 96% on room air. GENERAL APPEARANCE: Average built, sitting up, tired. EYES: Pupils equal. Conjunctivae normal. HEENT: External appearance of nose and ears normal. Oral cavity normal. NECK: JVD not raised. Mass not palpable. RESPIRATORY: Effort increased. LUNGS: Diminished breath sounds. Prolonged expiration and wheezing. CARDIOVASCULAR: First and second sounds normal. No edema. ABDOMEN: Soft, nontender. Liver and spleen not palpable. LYMPHATIC: No lymph nodes palpable in the neck and axilla. PSYCHIATRY: Alert and oriented x3. Mood and affect normal. NEUROLOGICAL: Pupils equal. Cranial nerves grossly intact. Power and sensation grossly intact. INVESTIGATIONS: White count 8.2, hemoglobin 13.6, potassium 5.2, BUN and creatinine is normal. Troponin times three is negative. EKG tracing personally reviewed by me shows normal sinus rhythm. Chest x-ray film, personally reviewed by me shows some atelectasis. ASSESSMENT: 1. Acute chronic obstructive pulmonary disease exacerbation in an ex-smoker. 2. Acute tracheobronchitis. 3. Coronary artery disease with prior history of stent. 4. Chronic seizure disorder. 5. Hyperlipidemia. 6. Essential hypertension. 7. 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 8. Primary osteoarthritis. 9. Restless legs syndrome. PLAN: Patient is put on inhaled steroids, bronchodilators. Home medications are resumed. Care was discussed with the patient. Questions were answered. The patient also told to use saltwater gargles for his throat. Copy to Dr. Joseph Guevara. MMSUZETTEL / ULYSSES: [id number] /
[2019-02-21] MEDS: IPRATROPIUM-ALBUTEROL 3 ML NEB INHALATION SCH ×6 (03:36→23:54)
[2019-02-21] MEDS: BUDESONIDE 0.5 MG/2 ML NEBU INHALATION SCH (06:52)
[2019-02-21] MEDS: FORMOTEROL FUMARATE 20 MCG/2 ML NEBU INHALATION SCH ×2 (06:52→21:09)
[2019-02-21 06:53] LABS: Glucose,Whole Blood 115 mg/dL (75-99)
[2019-02-21] MEDS: LISINOPRIL 20 MG TAB PO SCH (08:22)
[2019-02-21] MEDS: METOPROLOL TARTRATE 25 MG TAB PO SCH ×2 (08:22→21:25)
[2019-02-21] MEDS: TAMSULOSIN 0.4 MG CAP.ER.24H PO SCH (08:22)
[2019-02-21] MEDS: predniSONE 20 MG TAB PO SCH (08:22)
[2019-02-21] MEDS: PANTOPRAZOLE 40 MG TABLET PO SCH ×2 (08:22→17:27)
[2019-02-21] MEDS: BENZONATATE 100 MG CAP PO SCH ×3 (08:23→21:25)
[2019-02-21] MEDS: METHOCARBAMOL 750 MG TAB PO SCH ×3 (08:23→21:26)
[2019-02-21] MEDS: AZITHROMYCIN 500 MG TAB PO SCH (08:23)
[2019-02-21] MEDS: THEOPHYLLINE 24 HOUR 300 MG CAP.ER.24H PO SCH (08:24)
[2019-02-21 11:02] LABS: Glucose,Whole Blood 138 mg/dL (75-99)
[2019-02-21] MEDS ORDERED: LACTULOSE 20 GM/30 ML CUP PO ONE (11:42)
--- NOTE | 2019-02-21 14:12 | PN ---
PROGRESS NOTE DATE OF SERVICE: 02/21/2019 A 54-year-old gentleman who presented to the emergency department with shortness of breath and chest pain. The pain was from coughing excessively. It was a reproducible chest wall syndrome. Anyway, from the COPD standpoint, he is doing a bit better. Still quite wheezing, congested. Still coughing quite a bit. When he coughs, he has significant pain in the area of the chest that is bothering him. He denies any fever, chills. Denies any GI or issues. MEDICAL HISTORY: History of CAD, hyperlipidemia, hypertension, myocardial infarction, Guillain [place] syndrome, DJD, history of pneumonia, restless legs syndrome, chronic back and leg pain, and previous PCI with stent placement. PHYSICAL EXAMINATION: Current vital signs are reviewed. Temperature is 97.7 heart rate 79, respiratory rate 18, blood pressure 115/66 mean 82, room air saturation 94% on 2 L. Appears in no acute distress. No audible wheezing. No conversational dyspnea. No use of accessory muscles. HEENT examination is grossly unremarkable. Nasal O2 in place. Mucous membranes are moist. NECK: Supple. Full range of motion. No adenopathy or thyromegaly. Neck veins are flat. Cardiovascular examination reveals regular rhythm and rate. Heart rate 79. S1, S2 normal. No S3, S4, or murmur. Heart sounds are somewhat obscured by his pulmonary adventitious lung sounds. LUNGS: Some coarse inspiratory and expiratory rhonchi. On forced maneuver, his adventitious lung sounds are more prominent. There is prolongation on forced maneuver. He coughs on forced maneuver. ABDOMEN: Soft. Bowel sounds are heard. EXTREMITIES are intact. No cyanosis, clubbing, or edema. SKIN without rash. NEUROLOGIC examination is brief but nonfocal. It should be pointed out that he does have reproducible chest wall pain in the distal portion of the sternum. It is where it was yesterday. It is definitely reproducible. LAB DATA: Reviewed. Nothing new to report. X-rays are reviewed. Nothing new to report. MEDICATIONS: Reviewed. He is on a short-acting beta agonist and a long-acting beta agonist. He is on inhaled corticosteroids and systemic corticosteroids. He is also getting antibiotics. Assessment COPD exacerbation Reproducible chest wall pain CAD Hyperlipidemia HTN Hx of [place] L-G-B Syndrome, secondary to a flu vaccine DJD Hx of pneumonia RLS Chronic back pain PCI/stent placement Plan Continue current meds. Continue with cough medicines to help control the cough. Continue with steroids. The patient is not quite ready for discharge. MMODL / IJN: [id number] / JON
[2019-02-21 16:55] LABS: Glucose,Whole Blood 164 mg/dL (75-99)
[2019-02-21 20:24] LABS: Glucose,Whole Blood 176 mg/dL (75-99)
[2019-02-21] MEDS: BUDESONIDE 1 MG/2 ML NEBU INHALATION SCH (21:03)
[2019-02-21] MEDS: ATORVASTATIN 20 MG TAB PO SCH (21:25)
[2019-02-21] MEDS: traZODone HCL 100 MG TAB PO SCH (21:26)
--- NOTE | 2019-02-21 23:21 | PN ---
PROGRESS NOTE DATE OF SERVICE: 02/21/2019. PRESENTING COMPLAINT: Cough, short of breath. INTERVAL HISTORY: This patient has multiple medical problems, presented with COPD exacerbation. Still somewhat congested and short of breath. Did tolerate some diet. Does feel a bit tired. REVIEW OF SYSTEMS: Done for constitutional, cardiovascular, GI, pulmonary; relevant findings as above. CURRENT MEDICATIONS: Reviewed, that include DuoNeb, oral prednisone. PHYSICAL EXAMINATION: Temperature 97.7, pulse 79, respiratory rate 18, blood pressure 105/66, pulse ox 92 percent on room air. GENERAL APPEARANCE: Lying in bed, awake, a bit tired. EYES: Pupils equal. Conjunctivae normal. NECK: JVD not raised. Mass not palpable. Respiratory effort increased. LUNGS: Decreased breath sounds. Prolonged expiration. CARDIOVASCULAR: 1st and 2nd sounds no edema. ABDOMEN: Soft, nontender. Liver and spleen not palpable. PSYCHIATRY: Alert and oriented x3. Mood and affect normal. INVESTIGATIONS: Accu-Cheks are noted. ASSESSMENT: 1. Acute COPD exacerbation in an ex-smoker. 2. Acute tracheobronchitis. 3. Coronary artery disease with prior history of stent. 4. Chronic seizure disorder. 5. Hyperlipidemia. 6. Essential hypertension. 7. 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 8. Primary osteoarthritis. 9. Restless legs syndrome. PLAN: Continue current medication and treatment plan. Patient is still having some significant secretions. Continue with bronchodilators. Care was discussed with the patient. Will follow. MMODL / IJN: [id number] /
[2019-02-22] MEDS: guaiFENesin 600 MG TABLET.ER PO SCH ×3 (00:05→21:45)
[2019-02-22] MEDS: IPRATROPIUM-ALBUTEROL 3 ML NEB INHALATION SCH ×6 (04:26→23:49)
[2019-02-22 06:52] LABS: Glucose,Whole Blood 122 mg/dL (75-99)
[2019-02-22] MEDS: PANTOPRAZOLE 40 MG TABLET PO SCH ×2 (08:28→17:35)
[2019-02-22] MEDS: BENZONATATE 100 MG CAP PO SCH ×3 (08:29→21:46)
[2019-02-22] MEDS: AZITHROMYCIN 500 MG TAB PO SCH (08:29)
[2019-02-22] MEDS: LISINOPRIL 20 MG TAB PO SCH (08:29)
[2019-02-22] MEDS: METHOCARBAMOL 750 MG TAB PO SCH ×3 (08:30→21:46)
[2019-02-22] MEDS: METOPROLOL TARTRATE 25 MG TAB PO SCH ×2 (08:30→21:46)
[2019-02-22] MEDS: THEOPHYLLINE 24 HOUR 300 MG CAP.ER.24H PO SCH (08:31)
[2019-02-22] MEDS: TAMSULOSIN 0.4 MG CAP.ER.24H PO SCH (08:31)
[2019-02-22 08:36] LABS: Albumin 3.7 g/dL (3.5-5.0); Calcium 8.8 mg/dL (8.4-10.2); Potassium 5.1 mmol/L (3.5-5.1); Total Bilirubin 0.4 mg/dL (0.2-1.3); Total Protein 5.8 g/dL (6.3-8.2)
[2019-02-22] MEDS: predniSONE 20 MG TAB PO SCH (08:38)
[2019-02-22] MEDS: FORMOTEROL FUMARATE 20 MCG/2 ML NEBU INHALATION SCH ×2 (09:11→20:07)
[2019-02-22] MEDS: BUDESONIDE 1 MG/2 ML NEBU INHALATION SCH ×2 (09:11→20:07)
[2019-02-22 11:40] LABS: Glucose,Whole Blood 166 mg/dL (75-99)
[2019-02-22] MEDS: LORATADINE-PSEUDOEPH 5-120 MG 1 EACH TAB.ER.12H PO SCH ×2 (12:32→21:46)
[2019-02-22] MEDS: methylPREDNISolone SOD SUCCI 125 MG/2 ML VIAL IV SCH ×3 (12:32→23:51)
[2019-02-22] MEDS: PROMETHAZ-COD 6.25-10 MG/5 ML 5 ML CUP PO SCH ×3 (12:33→23:51)
[2019-02-22] MEDS: INSULIN ASPART (NovoLOG) 100 UNIT/ML VIAL SQ SCH ×3 (12:33→21:45)
--- NOTE | 2019-02-22 15:48 | P.PN ---
Subjective Progress Note Date: 02/22/19 Principal diagnosis: Acute exacerbation of COPD On 02/22/2017 patient seen in follow-up on medical surgical floor. He is resting in bed, he states his breathing is improving. He still having some coughing fits. Vital signs are stable, chest x-ray did not show any acute infil trates, no acute pulmonary abnormalities. Lung sounds reveal diffuse wheezes, he still having some mild reproducible chest wall pain from coughing fits. He has been switched to oral prednisone, patient is still bronchospastic, we will put the patient back on IV steroids, continue with antibiotics, will continue with the Tessalon Perles, nebulized dilators. Objective - Vital Signs Vital signs: Vital Signs Temp 97.9 F 02/22/19 11:58 Pulse 76 02/22/19 12:28 Resp 17 02/22/19 11:58 BP 117/71 02/22/19 11:58 Pulse Ox 94 L 02/22/19 11:58 Intake & Output 02/21/19 02/22/19 02/22/19 18:59 06:59 18:59 Intake Total 720 590 Balance 720 590 Intake: Oral 720 590 Other: Voiding Method Toilet Toilet Toilet # Voids 4 1 3 # Bowel Movements 1 1 - Exam GENERAL EXAM: Alert, pleasant, 54-year-old white male on room air, with a pulse ox of 94%, comfortable in no apparent distress. HEAD: Normocephalic/atraumatic. EYES: Normal reaction of pupils, equal size. Conjunctiva pink, sclera white. NOSE: Clear with pink turbinates. THROAT: No erythema or exudates. NECK: No masses, no JVD, no thyroid enlargement, no adenopathy. CHEST: No chest wall deformity. Symmetrical expansion. LUNGS: Equal air entry with diffuse wheezes CVS: Regular rate and rhythm, normal S1 and S2, no gallops, no murmurs, no rubs ABDOMEN: Soft, nontender. No hepatosplenomegaly, normal bowel sounds, no guarding or rigidity. EXTREMITIES: No clubbing, no edema, no cyanosis, 2+ pulses and upper and lower extremities. MUSCULOSKELETAL: Muscle strength and tone normal. SPINE: No scoliosis or deformity SKIN: No rashes CENTRAL NERVOUS SYSTEM: Alert and oriented -3. No focal deficits, tone is normal in all 4 extremities. PSYCHIATRIC: Alert and oriented -3. Appropriate affect. Intact judgment and insight. - Labs CBC & Chem 7: 02/19/19 15:03 02/22/19 07:42 Labs: Abnormal Lab Results - Last 24 Hours (Table) 02/21/19 02/21/19 02/22/19 Range/Units 16:54 20:22 06:51 Carbon Dioxide (22-30) mmol/L BUN (9-20) mg/dL Glucose (74-99) mg/dL POC Glucose (mg/dL) 164 H 176 H 122 H (75-99) mg/dL Total Protein (6.3-8.2) g/dL 02/22/19 02/22/19 Range/Units 07:42 11:38 Carbon Dioxide 33 H (22-30) mmol/L BUN 21 H (9-20) mg/dL Glucose 109 H (74-99) mg/dL POC Glucose (mg/dL) 166 H (75-99) mg/dL Total Protein 5.8 L (6.3-8.2) g/dL Assessment and Plan Plan: 1 acute exacerbation of COPD 2 Reproducible chest wall pain from episodes of coughing 3 coronary artery disease with history of PCI/stent placement 4 hypertension, hyperlipidemia 5 history of myocardial infarction 6 history of DM bilaterally syndrome, secondary to a flu vaccine 7 DJD 8 of these episodes of pneumonia 9 RLS 10 chronic back pain Plan: We'll switch to prednisone back to IV Solu-Medrol, continue with the current antibiotic coverage, continue with Tessalon Perles, we will add promethazine Phenergan scheduled every 6 hours around the clock, continue with nebulized bronchodilators, patient is still dyspneic on bronchospastic, and coughing. She to follow I performed a history & physical examination of the patient and discussed their management with my nurse practitioner, Zoey Higginbotham. I reviewed the nurse practitioner's note and agree with the documented findings and plan of care. Stephanie ng sounds are positive for diffuse wheezes throughout the lung herman. The findings and the impression was discussed with the patient. I attest to the documentation by the nurse practitioner. Time with Patient: Less than 30
[2019-02-22 17:04] LABS: Glucose,Whole Blood 232 mg/dL (75-99)
[2019-02-22 19:38] LABS: Glucose,Whole Blood 247 mg/dL (75-99)
--- NOTE | 2019-02-22 20:22 | PN ---
PROGRESS NOTE DATE OF SERVICE: February 22, 2019. PRESENTING COMPLAINT: Cough, short of breath. INTERVAL HISTORY: Patient has multiple medical problems presented with COPD exacerbation. Breathing is better but has nasal congestion. Does get bouts of coughing. Has some postnasal drip. Did tolerate some diet. REVIEW OF SYSTEMS: Done for constitutional, cardiovascular, GI, pulmonary; relevant findings as above. CURRENT MEDICATIONS: Reviewed that include DuoNeb, Solu-Medrol. PHYSICAL EXAMINATION: VITAL SIGNS: Temperature 97.9, pulse 75, respiration 17, blood pressure 117/71, pulse ox 94 percent on room air. GENERAL APPEARANCE: Sitting up, tired, awake. EYES: Pupils are equal. Conjunctivae normal. NECK: JVD not raised. Mass not palpable. RESPIRATORY: Effort increased. LUNGS: Improved air entry. Prolonged expiration. CARDIOVASCULAR: 1st and 2nd sounds normal. No edema. ABDOMEN: Soft, nontender. Liver and spleen not palpable. PSYCHIATRY: Alert and oriented x3. Mood and affect normal. INVESTIGATIONS: Potassium 5.1, BUN 21, creatinine 1.10. ASSESSMENT: 1. Acute chronic obstructive pulmonary disease exacerbation in a smoker, probably worsening by postnasal drip. 2. Acute tracheobronchitis and acute rhinitis with congestion. 3. Coronary artery disease with prior history of stent. 4. Chronic seizure disorder. 5. Hyperlipidemia. 6. Essential hypertension. 7. 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 8. Primary osteoarthritis. 9. Restless legs syndrome. PLAN: I did talk to the patient and his . We will add Claritin-D started this morning twice a day. Other medication and treatment is to continue. Follow with Pulmonary. MMODL / IJN: [id number] /
[2019-02-22] MEDS: ATORVASTATIN 20 MG TAB PO SCH (21:45)
[2019-02-22] MEDS: traZODone HCL 100 MG TAB PO SCH (21:46)
[2019-02-23] MEDS: IPRATROPIUM-ALBUTEROL 3 ML NEB INHALATION SCH ×6 (03:31→23:32)
[2019-02-23] MEDS: methylPREDNISolone SOD SUCCI 125 MG/2 ML VIAL IV SCH ×3 (06:01→17:50)
[2019-02-23] MEDS: PROMETHAZ-COD 6.25-10 MG/5 ML 5 ML CUP PO SCH ×3 (06:02→17:49)
[2019-02-23 06:53] LABS: Glucose,Whole Blood 155 mg/dL (75-99)
[2019-02-23] MEDS: INSULIN ASPART (NovoLOG) 100 UNIT/ML VIAL SQ SCH ×4 (07:33→21:16)
[2019-02-23] MEDS: PANTOPRAZOLE 40 MG TABLET PO SCH ×2 (07:34→17:50)
[2019-02-23] MEDS: LISINOPRIL 20 MG TAB PO SCH (07:35)
[2019-02-23] MEDS: guaiFENesin 600 MG TABLET.ER PO SCH ×2 (07:35→21:16)
[2019-02-23] MEDS: BENZONATATE 100 MG CAP PO SCH ×3 (07:35→21:16)
[2019-02-23] MEDS: TAMSULOSIN 0.4 MG CAP.ER.24H PO SCH (07:36)
[2019-02-23] MEDS: METOPROLOL TARTRATE 25 MG TAB PO SCH ×2 (07:36→21:16)
[2019-02-23] MEDS: LORATADINE-PSEUDOEPH 5-120 MG 1 EACH TAB.ER.12H PO SCH ×2 (07:36→21:16)
[2019-02-23] MEDS: THEOPHYLLINE 24 HOUR 300 MG CAP.ER.24H PO SCH (07:36)
[2019-02-23] MEDS: METHOCARBAMOL 750 MG TAB PO SCH ×3 (07:36→21:16)
[2019-02-23] MEDS: FORMOTEROL FUMARATE 20 MCG/2 ML NEBU INHALATION SCH ×2 (08:16→19:28)
[2019-02-23] MEDS: BUDESONIDE 1 MG/2 ML NEBU INHALATION SCH ×2 (08:16→19:28)
[2019-02-23] MEDS: AZITHROMYCIN 500 MG TAB PO SCH (08:49)
[2019-02-23 11:09] LABS: Glucose,Whole Blood 167 mg/dL (75-99)
--- NOTE | 2019-02-23 12:23 | P.PN ---
Subjective Progress Note Date: 02/23/19 Principal diagnosis: Acute exacerbation of COPD On 02/22/2017 patient seen in follow-up on medical surgical floor. He is resting in bed, he states his breathing is improving. He still having some coughing fits. Vital signs are stable, chest x-ray did not show any acute infil trates, no acute pulmonary abnormalities. Lung sounds reveal diffuse wheezes, he still having some mild reproducible chest wall pain from coughing fits. He has been switched to oral prednisone, patient is still bronchospastic, we will put the patient back on IV steroids, continue with antibiotics, will continue with the Tessalon Perles, nebulized dilators. On 02/23/2019 patient seen in follow-up on medical surgical floor. He is resting in bed, lung sounds still reveal scattered wheezes, he states there is some improvement, but still dyspneic and bronchospastic. Yesterday we switched patient back to IV steroids, he still having coughing spells, but improved. Continues on Zithromax, Pulmicort and Perforomist, and nebulized bronchodilators. Not quite ready for discharge, we'll require another 24 hours of inpatient treatment, will reevaluate in the morning. Objective - Vital Signs Vital signs: Vital Signs Temp 97.6 F 02/23/19 11:48 Pulse 79 02/23/19 11:48 Resp 16 02/23/19 11:48 BP 127/68 02/23/19 11:48 Pulse Ox 92 L 02/23/19 11:48 Intake & Output 02/22/19 02/23/19 02/23/19 18:59 06:59 18:59 Intake Total 1530 Balance 1530 Intake: Oral 1530 Other: Voiding Method Toilet Toilet Toilet # Voids 3 2 # Bowel Movements 1 - Exam GENERAL EXAM: Alert, pleasant, 54-year-old white male on room air, with a pulse ox of 92%, comfortable in no apparent distress. HEAD: Normocephalic/atraumatic. EYES: Normal reaction of pupils, equal size. Conjunctiva pink, sclera white. NOSE: Clear with pink turbinates. THROAT: No erythema or exudates. NECK: No masses, no JVD, no thyroid enlargement, no adenopathy. CHEST: No chest wall deformity. Symmetrical expansion. LUNGS: Equal air entry with diffuse wheezes CVS: Regular rate and rhythm, normal S1 and S2, no gallops, no murmurs, no rubs ABDOMEN: Soft, nontender. No hepatosplenomegaly, normal bowel sounds, no guarding or rigidity. EXTREMITIES: No clubbing, no edema, no cyanosis, 2+ pulses and upper and lower extremities. MUSCULOSKELETAL: Muscle strength and tone normal. SPINE: No scoliosis or deformity SKIN: No rashes CENTRAL NERVOUS SYSTEM: Alert and oriented -3. No focal deficits, tone is normal in all 4 extremities. PSYCHIATRIC: Alert and oriented -3. Appropriate affect. Intact judgment and insight. - Labs CBC & Chem 7: 02/19/19 15:03 02/22/19 07:42 Labs: Abnormal Lab Results - Last 24 Hours (Table) 02/22/19 02/22/19 02/23/19 Range/Units 17:03 19:37 06:52 POC Glucose (mg/dL) 232 H 247 H 155 H (75-99) mg/dL 02/23/19 Range/Units 11:07 POC Glucose (mg/dL) 167 H (75-99) mg/dL Assessment and Plan Plan: 1 acute exacerbation of COPD 2 Reproducible chest wall pain from episodes of coughing 3 coronary artery disease with history of PCI/stent placement 4 hypertension, hyperlipidemia 5 history of myocardial infarction 6 history of DM bilaterally syndrome, secondary to a flu vaccine 7 DJD 8 of these episodes of pneumonia 9 RLS 10 chronic back pain Plan: Still dyspneic and bronchospastic, still having some coughing spells, slightly improved from yesterday, not quite ready for discharge, we will continue with current medical treatment, IV steroids, antibiotics, cough syrup, Tessalon Perles, and nebulized bronchodilators. Increase activity as tolerated, will reevaluate in on the 24 hours. I performed a history & physical examination of the patient and discussed their management with my nurse practitioner, Zoey Higginbotham. I reviewed the nurse practitioner's note and agree with the documented findings and plan of care. Lung sounds are positive for diffuse wheezes throughout the lung herman. The findings and the impression was discussed with the patient. I attest to the documentation by the nurse practitioner. Time with Patient: Less than 30
[2019-02-23 17:19] LABS: Glucose,Whole Blood 238 mg/dL (75-99)
[2019-02-23 17:20] LABS: Hemoglobin A1C 6.1 % (4.0-6.0)
[2019-02-23 19:53] LABS: Glucose,Whole Blood 203 mg/dL (75-99)
[2019-02-23] MEDS: traZODone HCL 100 MG TAB PO SCH (21:16)
[2019-02-23] MEDS: ATORVASTATIN 20 MG TAB PO SCH (21:16)
[2019-02-24] MEDS: methylPREDNISolone SOD SUCCI 125 MG/2 ML VIAL IV SCH ×4 (00:20→19:06)
[2019-02-24] MEDS: PROMETHAZ-COD 6.25-10 MG/5 ML 5 ML CUP PO SCH ×4 (00:22→19:06)
[2019-02-24] MEDS: IPRATROPIUM-ALBUTEROL 3 ML NEB INHALATION SCH ×6 (04:24→23:58)
--- NOTE | 2019-02-24 05:49 | PN ---
PROGRESS NOTE DATE OF SERVICE: 02/23/2019 PRESENTING COMPLAINT: Cough, short of breath. INTERVAL HISTORY: Patient presented with COPD exacerbation, was started on Claritin yesterday with nasal congestion. The breathing is a bit better. Yesterday dose of steroids was increased. Up in the hallway. REVIEW OF SYSTEMS: Done for constitutional, cardiovascular, GI, pulmonary; relevant findings as above. CURRENT MEDICATIONS: Current medications are reviewed that include DuoNeb, IV Solu-Medrol, Claritin D. PHYSICAL EXAMINATION: On examination, temperature 97.6, pulse 79, respiration 16, blood pressure 127/68, pulse ox 92% on room air. GENERAL APPEARANCE: Sitting up, awake. EYES: Pupils equal. Conjunctivae normal. NECK: JVD not raised. Mass not palpable. RESPIRATORY: Effort increased. LUNGS: Improved air entry. Prolonged expiration. CARDIOVASCULAR: First and second sounds normal. No edema. ABDOMEN: Soft, nontender. Liver and spleen not palpable. PSYCHIATRY: Alert and oriented x3. Mood and affect normal. INVESTIGATIONS: Accu-Cheks are noted. ASSESSMENT: 1. Acute chronic obstructive pulmonary disease exacerbation, worsened by postnasal drip, improving. 2. Acute tracheobronchitis and acute rhinitis with congestion. 3. Coronary artery disease with prior history of stent. 4. Chronic seizure disorder. 5. Hyperlipidemia. 6. Essential hypertension. 7. Chronic lower extremity paresis from G[place]ain-[place] syndrome. 8. Primary osteoarthritis. 9. Restless legs syndrome. PLAN: Discussed with Dr. Castro. Continue with current medication and treatment plan. Encouraged to ambulate. MMODL / IJN: [id number] /
[2019-02-24 07:00] LABS: Glucose,Whole Blood 150 mg/dL (75-99)
[2019-02-24] MEDS: FORMOTEROL FUMARATE 20 MCG/2 ML NEBU INHALATION SCH ×2 (07:51→20:07)
[2019-02-24] MEDS: BUDESONIDE 1 MG/2 ML NEBU INHALATION SCH ×2 (07:51→20:07)
[2019-02-24] MEDS: INSULIN ASPART (NovoLOG) 100 UNIT/ML VIAL SQ SCH ×5 (09:12→22:29)
[2019-02-24] MEDS: LISINOPRIL 20 MG TAB PO SCH (09:13)
[2019-02-24] MEDS: BENZONATATE 100 MG CAP PO SCH ×3 (09:13→22:29)
[2019-02-24] MEDS: guaiFENesin 600 MG TABLET.ER PO SCH ×2 (09:13→22:29)
[2019-02-24] MEDS: TAMSULOSIN 0.4 MG CAP.ER.24H PO SCH (09:13)
[2019-02-24] MEDS: PANTOPRAZOLE 40 MG TABLET PO SCH ×2 (09:13→19:06)
[2019-02-24] MEDS: METHOCARBAMOL 750 MG TAB PO SCH ×3 (09:14→22:29)
[2019-02-24] MEDS: METOPROLOL TARTRATE 25 MG TAB PO SCH ×2 (09:14→22:29)
[2019-02-24] MEDS: THEOPHYLLINE 24 HOUR 300 MG CAP.ER.24H PO SCH (09:14)
[2019-02-24] MEDS: LORATADINE-PSEUDOEPH 5-120 MG 1 EACH TAB.ER.12H PO SCH ×2 (09:17→19:06)
[2019-02-24] MEDS: AZITHROMYCIN 500 MG TAB PO SCH (09:17)
[2019-02-24 11:13] LABS: Glucose,Whole Blood 162 mg/dL (75-99)
--- NOTE | 2019-02-24 13:55 | P.PN ---
Subjective Progress Note Date: 02/24/19 Principal diagnosis: Acute exacerbation of COPD On 02/22/2017 patient seen in follow-up on medical surgical floor. He is resting in bed, he states his breathing is improving. He still having some coughing fits. Vital signs are stable, chest x-ray did not show any acute infil trates, no acute pulmonary abnormalities. Lung sounds reveal diffuse wheezes, he still having some mild reproducible chest wall pain from coughing fits. He has been switched to oral prednisone, patient is still bronchospastic, we will put the patient back on IV steroids, continue with antibiotics, will continue with the Tessalon Perles, nebulized dilators. On 02/23/2019 patient seen in follow-up on medical surgical floor. He is resting in bed, lung sounds still reveal scattered wheezes, he states there is some improvement, but still dyspneic and bronchospastic. Yesterday we switched patient back to IV steroids, he still having coughing spells, but improved. Continues on Zithromax, Pulmicort and Perforomist, and nebulized bronchodilators. Not quite ready for discharge, we'll require another 24 hours of inpatient treatment, will reevaluate in the morning. On 02/24/2019 patient seen in follow-up on medical surgical floor. She is resting in bed, he states he still quite dyspneic, having increased chest congestion, coughing, and patient is unable to bring up any sputum related to ineffective cough secondary to abdominal muscle pain. Lung sounds positive for diffuse rhonchi, and wheezing, patient has been maximized on medical treatment, he is on antibiotics, in the form of Zithromax, we will add IV Rocephin, IV steroids, nebulized bronchodilators, cough syrup. Objective - Vital Signs Vital signs: Vital Signs Temp 97.8 F 02/24/19 11:36 Pulse 92 02/24/19 11:52 Resp 18 02/24/19 11:36 BP 125/72 02/24/19 11:36 Pulse Ox 98 02/24/19 11:36 Intake & Output 02/23/19 02/24/19 02/24/19 18:59 06:59 18:59 Intake Total 1140 600 Balance 1140 600 Intake: Oral 1140 600 Other: Voiding Method Toilet Toilet Toilet # Voids 3 2 2 - Exam GENERAL EXAM: Alert, pleasant, 54-year-old white male on room air, with a pulse ox of 98% on 2 L , comfortable in no apparent distress. HEAD: Normocephalic/atraumatic. EYES: Normal reaction of pupils, equal size. Conjunctiva pink, sclera white. NOSE: Clear with pink turbinates. THROAT: No erythema or exudates. NECK: No masses, no JVD, no thyroid enlargement, no adenopathy. CHEST: No chest wall deformity. Symmetrical expansion. LUNGS: Equal air entry with diffuse rhonchi and wheezes CVS: Regular rate and rhythm, normal S1 and S2, no gallops, no murmurs, no rubs ABDOMEN: Soft, nontender. No hepatosplenomegaly, normal bowel sounds, no guarding or rigidity. EXTREMITIES: No clubbing, no edema, no cyanosis, 2+ pulses and upper and lower extremities. MUSCULOSKELETAL: Muscle strength and tone normal. SPINE: No scoliosis or deformity SKIN: No rashes CENTRAL NERVOUS SYSTEM: Alert and oriented -3. No focal deficits, tone is normal in all 4 extremities. PSYCHIATRIC: Alert and oriented -3. Appropriate affect. Intact judgment and insight. - Labs CBC & Chem 7: 02/19/19 15:03 02/22/19 07:42 Labs: Abnormal Lab Results - Last 24 Hours (Table) 02/23/19 02/23/19 02/23/19 Range/Units 08:01 17:18 19:52 POC Glucose (mg/dL) 238 H 203 H (75-99) mg/dL Hemoglobin A1c 6.1 H (4.0-6.0) % 02/24/19 02/24/19 Range/Units 06:58 11:12 POC Glucose (mg/dL) 150 H 162 H (75-99) mg/dL Hemoglobin A1c (4.0-6.0) % Assessment and Plan Plan: 1 acute exacerbation of COPD 2 Reproducible chest wall pain from episodes of coughing 3 coronary artery disease with history of PCI/stent placement 4 hypertension, hyperlipidemia 5 history of myocardial infarction 6 history of DM bilaterally syndrome, secondary to a flu vaccine 7 DJD 8 of these episodes of pneumonia 9 RLS 10 chronic back pain Plan: We will add IV Rocephin, continue with Zithromax, continue with nebulized bronchodilators, IV steroids, cough syrup. We will schedule the patient for bronchoscopy with BAL for tomorrow, nothing by mouth after midnight, this was discussed with the patient and he is agreeable to proceed. Obtain follow-up chest x-ray today. I performed a history & physical examination of the patient and discussed their management with my nurse practitioner, Zoey Higginbotham. I reviewed the nurse practitioner's note and agree with the documented findings and plan of care. Lung sounds are positive for diffuse wheezes and rhonchi throughout the lung herman. The findings and the impression was discussed with the patient. I attest to the documentation by the nurse practitioner. Time with Patient: Less than 30
--- NOTE | 2019-02-24 14:35 | XR ---
EXAMINATION TYPE: XR chest 2V DATE OF EXAM: 02/24/2019 COMPARISON: Prior chest x-ray 02/19/2019 HISTORY: Shortness of breath and COPD TECHNIQUE: Frontal and lateral views of the chest are obtained. FINDINGS: There are overlying cardiac leads. Patient is rotated. Interstitium is mildly increased. Pr ominent lung volumes compatible with underlying COPD. There are coronary calcifications, stent presen t. There is no focal air space opacity, pleural effusion, or pneumothorax seen. The cardiac silhouet te size is within normal limits. The osseous structures are intact. IMPRESSION: No acute cardiopulmonary process. Emphysema.
[2019-02-24 17:20] LABS: Glucose,Whole Blood 213 mg/dL (75-99)
[2019-02-24 20:12] LABS: Glucose,Whole Blood 261 mg/dL (75-99)
--- NOTE | 2019-02-24 20:56 | PN ---
PROGRESS NOTE DATE OF SERVICE: 02/24/2019. PRESENTING COMPLAINT: Cough, short of breath, wheezing. INTERVAL HISTORY: This patient presented with COPD exacerbation. Still congested. Still bouts of coughing, not feeling better. No fever. No chills. Remains on high-dose steroids, bronchodilators. is present. REVIEW OF SYSTEMS: Done for constitutional, cardiovascular, GI, pulmonary; relevant findings as above. CURRENT MEDICATIONS: Reviewed that include IV Solu-Medrol, IV ceftriaxone started today, Claritin-D. PHYSICAL EXAMINATION: Temperature 97.8, pulse 79, respiration 22, blood pressure 125/72, pulse ox 98% on 2 L. GENERAL APPEARANCE: Sitting up, awake. EYES: Pupils equal. Conjunctivae normal. NECK: JVD not raised. Mass not palpable. Respiratory effort increased. LUNGS: Decreased breath sounds, prolonged expiration, wheezing. CARDIOVASCULAR: First and seconds normal. No edema. ABDOMEN: Soft, nontender. Liver and spleen not palpable. PSYCHIATRY: Alert and oriented x3. Mood and affect normal. INVESTIGATIONS: Accu-Cheks are noted. ASSESSMENT: 1. Acute chronic obstructive pulmonary disease exacerbation, not improving with episodes of getting worse. 2. Acute tracheobronchitis and acute rhinitis. 3. Coronary artery disease, prior history of stent. 4. Chronic seizure disorder. 5. Hyperlipidemia. 6. Essential hypertension. 7. Chronic lower extremity paresis from [place] syndrome. 8. Primary osteoarthritis. 9. Restless legs syndrome. PLAN: Care was discussed with the patient's ; also, discussed with Dr. Castro. It is our impression that the patient may benefit from bronchoscopy with lavage which could be done as early as tomorrow. Follow. MMODL / IJN: [id number] /
[2019-02-24] MEDS: ATORVASTATIN 20 MG TAB PO SCH (22:28)
[2019-02-24] MEDS: traZODone HCL 100 MG TAB PO SCH (22:29)
[2019-02-25] MEDS: PROMETHAZ-COD 6.25-10 MG/5 ML 5 ML CUP PO SCH ×5 (00:29→23:22)
[2019-02-25] MEDS: methylPREDNISolone SOD SUCCI 125 MG/2 ML VIAL IV SCH ×5 (00:29→23:22)
[2019-02-25] MEDS: IPRATROPIUM-ALBUTEROL 3 ML NEB INHALATION SCH ×5 (05:24→20:09)
[2019-02-25 07:08] LABS: Glucose,Whole Blood 149 mg/dL (75-99)
[2019-02-25 07:49] LABS: Basophils % (A) 0 %; Eosinophils % (A) 0 %; HCT 35.9 % (39.0-53.0); HGB 11.6 gm/dL (13.0-17.5); Lymphocytes # (A) 0.6 k/uL (1.0-4.8); Lymphocytes % (A) 5 %; MCH 30.2 pg (25.0-35.0); MCHC 32.3 g/dL (31.0-37.0); MCV 93.6 fL (80.0-100.0); Mean Platelet Volume 7.3; Monocytes # (A) 0.5 k/uL (0-1.0); Monocytes % (A) 4 %; Neutrophils # (A) 11.3 k/uL (1.3-7.7); Neutrophils % (A) 91 %; Platelet Count 152 k/uL (150-450); RBC 3.83 m/uL (4.30-5.90); RDW 14.2 % (11.5-15.5); WBC 12.4 k/uL (3.8-10.6)
[2019-02-25 07:58] LABS: Calcium 8.8 mg/dL (8.4-10.2); Potassium 4.9 mmol/L (3.5-5.1)
[2019-02-25] MEDS: FORMOTEROL FUMARATE 20 MCG/2 ML NEBU INHALATION SCH ×2 (08:10→20:14)
[2019-02-25] MEDS: BUDESONIDE 1 MG/2 ML NEBU INHALATION SCH ×2 (08:10→20:10)
[2019-02-25] MEDS: LISINOPRIL 20 MG TAB PO SCH (08:56)
[2019-02-25] MEDS: METOPROLOL TARTRATE 25 MG TAB PO SCH ×2 (08:56→21:21)
--- NOTE | 2019-02-25 10:16 | P.PN ---
Subjective This is a pleasant 54 years old male with past medical history of asthma/COPD, coronary artery disease, hyperlipidemia, hypertension, osteoarthritis, [place] syndromes after flu vaccination 2010, bilateral leg pain and restless leg. Occasional use of cane or walker. Presents with dyspnea and coughing with chest pain. Patient has been evaluated by fire official and found him to have acute exacerbation of COPD and reproducible chest pain from coughing. Patient has been treated with antibiotics, breathing treatments, steroids and cough syrup. Patient's possible for bronchoscopy today. Patient is menopausal is chest pain with coughing. However he does not want more pain medication when I offered it. Patient is not on oxygen at home however his destroyed dependent. His fire official Dr. Wong has placed him on prednisone 20 mg daily for the last 2 months. Objective - Vital Signs Vital signs: Vital Signs Temp 97.2 F L 02/25/19 05:00 Pulse 74 02/25/19 08:31 Resp 16 02/25/19 05:00 BP 114/65 02/25/19 05:00 Pulse Ox 95 02/25/19 08:10 Intake & Output 02/24/19 02/25/19 02/25/19 18:59 06:59 18:59 Intake Total 600 890 Balance 600 890 Intake: Intake, IV Titration 50 Amount cefTRIAXone 1 gm In 50 Sodium Chloride 0.9% 50 ml @ 100 mls/hr IVPB Q24H [facility] Rx#:[id number] Oral 600 840 Other: Voiding Method Toilet Toilet # Voids 2 2 - Exam GENERAL: The patient is alert and oriented x3, not in any acute distress. Well developed, well nourished. HEENT: Pupils are round and equally reacting to light. EOMI. No scleral icterus. No conjunctival pallor. Normocephalic, atraumatic. No pharyngeal erythema. No thyromegaly. CARDIOVASCULAR: S1 and S2 present. No murmurs, rubs, or gallops. -PULMONARY: Chest is clear to auscultation, bilateral scattered wheezing ABDOMEN: Soft, nontender, nondistended, normoactive bowel sounds. No palpable organomegaly. MUSCULOSKELETAL: No joint swelling or deformity. EXTREMITIES: No cyanosis, clubbing, or pedal edema. NEUROLOGICAL: Gross neurological examination did not reveal any focal deficits. SKIN: No rashes. - Labs CBC & Chem 7: 02/25/19 07:05 02/25/19 07:05 Labs: Abnormal Lab Results - Last 24 Hours (Table) 02/24/19 02/24/19 02/24/19 Range/Units 11:12 17:15 20:10 WBC (3.8-10.6) k/uL RBC (4.30-5.90) m/uL Hgb (13.0-17.5) gm/dL Hct (39.0-53.0) % Neutrophils # (1.3-7.7) k/uL Lymphocytes # (1.0-4.8) k/uL Chloride (98-107) mmol/L BUN (9-20) mg/dL Glucose (74-99) mg/dL POC Glucose (mg/dL) 162 H 213 H 261 H (75-99) mg/dL 02/25/19 02/25/19 02/25/19 Range/Units 07:05 07:05 07:07 WBC 12.4 H (3.8-10.6) k/uL RBC 3.83 L (4.30-5.90) m/uL Hgb 11.6 L (13.0-17.5) gm/dL Hct 35.9 L (39.0-53.0) % Neutrophils # 11.3 H (1.3-7.7) k/uL Lymphocytes # 0.6 L (1.0-4.8) k/uL Chloride 110 H (98-107) mmol/L BUN 39 H (9-20) mg/dL Glucose 142 H (74-99) mg/dL POC Glucose (mg/dL) 149 H (75-99) mg/dL Assessment and Plan Assessment: Acute COPD exacerbation Muscular skeletal chest pain from coughing History of coronary artery disease History of [place]. Syndrome secondary to flu vaccine Previous episodes of pneumonia History of Osteoarthritis Restless leg syndrome History of chronic back pain Plan: This is a pleasant 54 years old male who presents with COPD exacerbation. Pulmonary team are planning for bronchoscopy. Continue with steroids, antibiotics, breathing treatments and oxygen as needed. Labs and medication were reviewed.. Continue same treatment. Continue with symptomatic treatment. Resume home medication. Monitor lytes and vitals. DVT and GI prophylaxis. Further recommendations of the clinical course of the patient DVT prophylaxis: Subcutaneous heparin GI Prophylaxis: Pepcid PT/OT: Pending Prognosis is guarded
[2019-02-25] MEDS: INSULIN ASPART (NovoLOG) 100 UNIT/ML VIAL SQ SCH ×4 (11:11→21:22)
[2019-02-25] MEDS: BENZONATATE 100 MG CAP PO SCH ×3 (11:12→21:23)
[2019-02-25] MEDS: LORATADINE-PSEUDOEPH 5-120 MG 1 EACH TAB.ER.12H PO SCH ×2 (11:12→21:23)
[2019-02-25] MEDS: METHOCARBAMOL 750 MG TAB PO SCH ×3 (11:12→21:23)
[2019-02-25] MEDS: guaiFENesin 600 MG TABLET.ER PO SCH ×2 (11:12→21:21)
[2019-02-25] MEDS: PANTOPRAZOLE 40 MG TABLET PO SCH ×2 (11:12→17:54)
[2019-02-25 11:24] LABS: Glucose,Whole Blood 140 mg/dL (75-99)
[2019-02-25] MEDS ORDERED: PROPOFOL 10 MG/ML 20 ML VIAL IV ONE (12:46)
[2019-02-25] MEDS ORDERED: fentaNYL (PF) 50 MCG/ML 2 ML AMP ONE (12:46)
[2019-02-25] MEDS ORDERED: KETAMINE 10 MG/ML 20 ML VIAL ONE (12:46)
[2019-02-25] MEDS ORDERED: LIDOCAINE 1% INJ 10MG/ML (20 ML MDV) ONE (12:46)
[2019-02-25] MEDS ORDERED: GLYCOPYRROLATE 0.2 MG/ML 2 ML VIAL ONE (12:46)
[2019-02-25] MEDS ORDERED: MIDAZOLAM 2 MG/2 ML VIAL ONE (12:46)
[2019-02-25] MEDS ORDERED: IV FLUID CONTINUATION 1,000 ML IV ONE (12:59)
--- NOTE | 2019-02-25 13:08 | P.PN ---
Subjective Progress Note Date: 02/25/19 Principal diagnosis: Acute exacerbation of chronic obstructive pulmonary disease The patient is seen today 02/25/2019 in follow-up on the regular medical floor. He is awake and alert in no acute distress. Resting fairly comfortably in bed. He continues with some shortness of breath, loose nonproductive cough. No fever chills or night sweats. He is maintaining good O2 saturations in the 90s on room air. He's afebrile. Hemodynamically stable. White count 12.4. Hemoglo bin 11.6. Creatinine 1.12. He remains on DuoNeb inhalations, Pulmicort and Perforomist inhalations, IV Solu-Medrol. He is also on antibiotics in the form of ceftriaxone and azithromycin. The plan is for bronchoscopy with BAL today. Objective - Vital Signs Vital signs: Vital Signs Temp 97.9 F 02/25/19 12:15 Pulse 72 02/25/19 12:15 Resp 17 02/25/19 12:15 BP 129/78 02/25/19 12:15 Pulse Ox 94 L 02/25/19 12:15 Intake & Output 02/24/19 02/25/19 02/25/19 18:59 06:59 18:59 Intake Total 600 890 Balance 600 890 Intake: Intake, IV Titration 50 Amount cefTRIAXone 1 gm In 50 Sodium Chloride 0.9% 50 ml @ 100 mls/hr IVPB Q24H [facility] Rx#:[id number] Oral 600 840 Other: Voiding Method Toilet Toilet Toilet # Voids 2 2 - Exam GENERAL EXAM: Alert, comfortable in no apparent distress. On room air. HEAD: Normocephalic. EYES: Normal reaction of pupils, equal size. NOSE: Clear with pink turbinates. THROAT: No erythema or exudates. NECK: No masses, no JVD. CHEST: No chest wall deformity. LUNGS: Equal air entry with bilateral scattered rhonchi.. CVS: S1 and S2 normal with no audible murmur, regular rhythm. ABDOMEN: No hepatosplenomegaly, normal bowel sounds, no guarding or rigidity. SPINE: No scoliosis or deformity SKIN: No rashes CENTRAL NERVOUS SYSTEM: No focal deficits, tone is normal in all 4 extremities. EXTREMITIES: There is no peripheral edema. No clubbing, no cyanosis. Peripheral pulses are intact. - Labs CBC & Chem 7: 02/25/19 07:05 02/25/19 07:05 Labs: Abnormal Lab Results - Last 24 Hours (Table) 02/24/19 02/24/19 02/25/19 Range/Units 17:15 20:10 07:05 WBC 12.4 H (3.8-10.6) k/uL RBC 3.83 L (4.30-5.90) m/uL Hgb 11.6 L (13.0-17.5) gm/dL Hct 35.9 L (39.0-53.0) % Neutrophils # 11.3 H (1.3-7.7) k/uL Lymphocytes # 0.6 L (1.0-4.8) k/uL Chloride (98-107) mmol/L BUN (9-20) mg/dL Glucose (74-99) mg/dL POC Glucose (mg/dL) 213 H 261 H (75-99) mg/dL 02/25/19 02/25/19 02/25/19 Range/Units 07:05 07:07 11:23 WBC (3.8-10.6) k/uL RBC (4.30-5.90) m/uL Hgb (13.0-17.5) gm/dL Hct (39.0-53.0) % Neutrophils # (1.3-7.7) k/uL Lymphocytes # (1.0-4.8) k/uL Chloride 110 H (98-107) mmol/L BUN 39 H (9-20) mg/dL Glucose 142 H (74-99) mg/dL POC Glucose (mg/dL) 149 H 140 H (75-99) mg/dL Assessment and Plan Assessment: Impression: 1 acute exacerbation of COPD 2 Reproducible chest wall pain from episodes of coughing 3 coronary artery disease with history of PCI/stent placement 4 hypertension, hyperlipidemia 5 history of myocardial infarction 6 history of DM bilaterally syndrome, 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 Castro. The plan is for bronchoscopy with BAL today. We'll continue with his current treatment plan. We will increase his activity as tolerated. We'll continue to follow and make further recommendations based on his clinical status. I, the cosigning physician, performed a history & physical examination of the patient. Lungs sounds have scattered rhonchi bilaterally. Maintaining good O2 saturations in the 90s on room air. I discussed the assessment and plan of care with my nurse practitioner, Bianca Arechiga. I attest to the above note as dictated by her.
--- NOTE | 2019-02-25 15:19 | P.PCN ---
Date of Procedure: 02/25/19 Preoperative Diagnosis: Shortness of breath, COPD exacerbation Postoperative Diagnosis: Obstructive sleep apnea with dynamic obstruction of the upper airway, severe tracheobronchitis, mucous plugs, bronchioloalveolar lavage was done Procedure(s) Performed: Flexible bronchoscopy and bronchioalveolar lavage Anesthesia: MAC Surgeon: Ana Castro Estimated Blood Loss (ml): 0 Pathology: other Condition: stable Disposition: floor Operative Findings: This procedure was done under conscious sedation. The patient continued to have cough and congestion and bronchospasm wheezing unable to bring up any sputum. For that reason, a bronchoscopy was indicated. A timeout was obtained. Consent was obtained. The patient was brought into the bronchoscopy suite and under conscious sedation the procedure was completed. Anesthetic was administered by anesthesia the bedside. After achieving adequate sedation flexible bronchoscope was inserted through the left nostril. The bronchoscope was gradually advanced into the posterior pharynx and larynx. There was evidence of dynamic obstruction of the upper airway typical of obstructive sleep apnea. No lesions or masses was identified. It was a dynamic obstruction. Epiglottis was seen. There was some purulent secretions around the daughter that was suctioned out. Then inspection of the vallecula arytenoids and the vocal cords was done. All of the structures were within normal limits. A total of 2 mL of 1% lidocaine was applied to the vocal cords and following that the bronchoscope was advanced past the vocal cords into the upper trachea. There was a component of mild tracheal bronchomalacia. There was excessive check a bronchitis with mucosal inflammation involving the entire trachea from the subglottic area down to the alirio. There was copious amount of purulent respiratory secretions and mucous plugs within the trachea. The alirio was identified. Bilateral mainstem bronchi were also seen. Then the bronchoscope was advanced into the right upper lobe right middle lobe and right lower lobe and then into the left upper lobe and left lower lobe. As airway inspection was being completed, thickening with a secretions were encountered that were suctioned out without any major difficulties. Following that, the bronchoscope was moved to the right lower lobe endobronchial lavage was done. Total of 40 mL of fluid was infused and 25 mL was suctioned back. By the completion of the procedure, I was able to take most of the secretions out. Nevertheless I was limited as the patient was having apneic episodes and coughing episodes and he was desaturating down to the mid 80s. I felt it was best to terminate the procedure remove the bronchoscope as I was able to obtain the samples for culture and therapeutic it was suctioning was also done to achieve airway patency. Bronchoscope was removed and the procedure was terminated and the patient was transferred to recovery and then to his room in stable condition. The samples will be sent for microbial cultures and these are samples collected from the right lower lobe. We'll continue to follow. Continue bronchodilators. Continue systemic steroids. Continue antibiotics.
[2019-02-25] MEDS: AZITHROMYCIN 500 MG TAB PO SCH (15:23)
[2019-02-25] MEDS: TAMSULOSIN 0.4 MG CAP.ER.24H PO SCH (15:24)
[2019-02-25] MEDS: THEOPHYLLINE 24 HOUR 300 MG CAP.ER.24H PO SCH (15:24)
[2019-02-25 17:24] LABS: Glucose,Whole Blood 186 mg/dL (75-99)
[2019-02-25 17:46] LABS: Appearance,BF Cloudy; Color,BF Red; Nucleated Cells, Body Fluid 325 /uL; RBC, Body Fluid 2560 /uL
[2019-02-25 19:14] LABS: Mononuclear WBC,Body Fluid 2 %; Polynuclear WBC,Body Fluid 98 %
[2019-02-25 21:00] LABS: Glucose,Whole Blood 182 mg/dL (75-99)
[2019-02-25] MEDS: ATORVASTATIN 20 MG TAB PO SCH (21:21)
[2019-02-25] MEDS: HEPARIN SODIUM,PORCINE 5,000 UNIT/ML 1 ML VIAL SQ SCH (21:21)
[2019-02-25] MEDS: traZODone HCL 100 MG TAB PO SCH (21:23)
[2019-02-26] MEDS: IPRATROPIUM-ALBUTEROL 3 ML NEB INHALATION SCH ×7 (00:33→23:47)
[2019-02-26] MEDS: PROMETHAZ-COD 6.25-10 MG/5 ML 5 ML CUP PO SCH ×4 (06:17→23:13)
[2019-02-26] MEDS: methylPREDNISolone SOD SUCCI 125 MG/2 ML VIAL IV SCH ×4 (06:17→23:14)
[2019-02-26] MEDS: FORMOTEROL FUMARATE 20 MCG/2 ML NEBU INHALATION SCH ×2 (06:48→19:00)
[2019-02-26] MEDS: BUDESONIDE 1 MG/2 ML NEBU INHALATION SCH ×2 (06:48→19:00)
[2019-02-26 07:23] LABS: Glucose,Whole Blood 158 mg/dL (75-99)
[2019-02-26 07:32] LABS: Potassium 4.9 mmol/L (3.5-5.1)
[2019-02-26] MEDS: INSULIN ASPART (NovoLOG) 100 UNIT/ML VIAL SQ SCH ×4 (09:27→20:11)
[2019-02-26] MEDS: THEOPHYLLINE 24 HOUR 300 MG CAP.ER.24H PO SCH (09:28)
[2019-02-26] MEDS: TAMSULOSIN 0.4 MG CAP.ER.24H PO SCH (09:28)
[2019-02-26] MEDS: HEPARIN SODIUM,PORCINE 5,000 UNIT/ML 1 ML VIAL SQ SCH ×2 (09:28→20:18)
[2019-02-26] MEDS: AZITHROMYCIN 500 MG TAB PO SCH (09:30)
[2019-02-26] MEDS: PANTOPRAZOLE 40 MG TABLET PO SCH ×2 (09:30→17:53)
[2019-02-26] MEDS: BENZONATATE 100 MG CAP PO SCH ×3 (09:30→23:13)
[2019-02-26] MEDS: LISINOPRIL 20 MG TAB PO SCH (09:31)
[2019-02-26] MEDS: METOPROLOL TARTRATE 25 MG TAB PO SCH ×2 (09:31→20:09)
[2019-02-26] MEDS: LORATADINE-PSEUDOEPH 5-120 MG 1 EACH TAB.ER.12H PO SCH ×2 (09:31→20:21)
[2019-02-26] MEDS: guaiFENesin 600 MG TABLET.ER PO SCH ×2 (09:31→20:10)
[2019-02-26] MEDS: METHOCARBAMOL 750 MG TAB PO SCH ×3 (09:31→23:13)
[2019-02-26 11:08] LABS: Glucose,Whole Blood 245 mg/dL (75-99)
--- NOTE | 2019-02-26 12:31 | P.PN ---
Subjective Progress Note Date: 02/26/19 Principal diagnosis: Acute exacerbation of COPD On 02/22/2017 patient seen in follow-up on medical surgical floor. He is resting in bed, he states his breathing is improving. He still having some coughing fits. Vital signs are stable, chest x-ray did not show any acute infil trates, no acute pulmonary abnormalities. Lung sounds reveal diffuse wheezes, he still having some mild reproducible chest wall pain from coughing fits. He has been switched to oral prednisone, patient is still bronchospastic, we will put the patient back on IV steroids, continue with antibiotics, will continue with the Tessalon Perles, nebulized dilators. On 02/23/2019 patient seen in follow-up on medical surgical floor. He is resting in bed, lung sounds still reveal scattered wheezes, he states there is some improvement, but still dyspneic and bronchospastic. Yesterday we switched patient back to IV steroids, he still having coughing spells, but improved. Continues on Zithromax, Pulmicort and Perforomist, and nebulized bronchodilators. Not quite ready for discharge, we'll require another 24 hours of inpatient treatment, will reevaluate in the morning. On 02/24/2019 patient seen in follow-up on medical surgical floor. She is resting in bed, he states he still quite dyspneic, having increased chest congestion, coughing, and patient is unable to bring up any sputum related to ineffective cough secondary to abdominal muscle pain. Lung sounds positive for diffuse rhonchi, and wheezing, patient has been maximized on medical treatment, he is on antibiotics, in the form of Zithromax, we will add IV Rocephin, IV steroids, nebulized bronchodilators, cough syrup. On 02/26/2019 patient seen in follow-up on the surgical floor, sounding slightly improved today, but still has diffuse wheezes throughout the lung herman, 98% on 2 L, bronchial wash cultures are still pending, Gram stain showed few epithelial cells, and a few gram-positive cocci, final cultures pending. No fe cesar or chills. He is on IV Solu-Medrol, nebulized bronchodilators, Pulmicort, Perforomist, cough syrup, Rocephin and Zithromax for better coverage. Increase activity, not quite ready for discharge, improving. Objective - Vital Signs Vital signs: Vital Signs Temp 97.6 F 02/26/19 11:59 Pulse 79 02/26/19 11:59 Resp 18 02/26/19 11:59 BP 135/78 02/26/19 11:59 Pulse Ox 98 02/26/19 11:59 Intake & Output 02/25/19 02/26/19 02/26/19 18:59 06:59 18:59 Intake Total 100 750 Balance 100 750 Intake: IV 100 Intake, IV Titration 50 Amount cefTRIAXone 1 gm In 50 Sodium Chloride 0.9% 50 ml @ 100 mls/hr IVPB Q24H [facility] Rx#:[id number] Oral 700 Other: Voiding Method Toilet Toilet # Voids 3 1 - Exam GENERAL EXAM: Alert, pleasant, 54-year-old white male on room air, with a pulse ox of 98% on 2 L , comfortable in no apparent distress. HEAD: Normocephalic/atraumatic. EYES: Normal reaction of pupils, equal size. Conjunctiva pink, sclera white. NOSE: Clear with pink turbinates. THROAT: No erythema or exudates. NECK: No masses, no JVD, no thyroid enlargement, no adenopathy. CHEST: No chest wall deformity. Symmetrical expansion. LUNGS: Equal air entry with diffuse wheezes CVS: Regular rate and rhythm, normal S1 and S2, no gallops, no murmurs, no rubs ABDOMEN: Soft, nontender. No hepatosplenomegaly, normal bowel sounds, no guarding or rigidity. EXTREMITIES: No clubbing, no edema, no cyanosis, 2+ pulses and upper and lower extremities. MUSCULOSKELETAL: Muscle strength and tone normal. SPINE: No scoliosis or deformity SKIN: No rashes CENTRAL NERVOUS SYSTEM: Alert and oriented -3. No focal deficits, tone is normal in all 4 extremities. PSYCHIATRIC: Alert and oriented -3. Appropriate affect. Intact judgment and insight. - Labs CBC & Chem 7: 02/25/19 07:05 02/26/19 06:59 Labs: Abnormal Lab Results - Last 24 Hours (Table) 02/25/19 02/25/19 02/26/19 Range/Units 17:23 20:58 06:53 Carbon Dioxide (22-30) mmol/L BUN (9-20) mg/dL Glucose (74-99) mg/dL POC Glucose (mg/dL) 186 H 182 H 158 H (75-99) mg/dL 02/26/19 02/26/19 Range/Units 06:59 11:06 Carbon Dioxide 31 H (22-30) mmol/L BUN 36 H (9-20) mg/dL Glucose 159 H (74-99) mg/dL POC Glucose (mg/dL) 245 H (75-99) mg/dL Microbiology - Last 24 Hours (Table) 02/25/19 12:52 Gram Stain - Preliminary Bronchoalviolar Lavage - Right Bronchial Washings Culture - Preliminary 02/25/19 12:52 Fungal Culture - Preliminary Bronchoalviolar Lavage - Right Assessment and Plan Plan: 1 acute exacerbation of COPD 2 Reproducible chest wall pain from episodes of coughing 3 coronary artery disease with history of PCI/stent placement 4 hypertension, hyperlipidemia 5 history of myocardial infarction 6 history of DM bilaterally syndrome, secondary to a flu vaccine 7 DJD 8 of these episodes of pneumonia 9 RLS 10 chronic back pain Plan: Continue current antibiotic coverage, will await the results of the final bronchial cultures, patient is slowly improving, will continue current dose of IV steroids, nebulized bronchodilators, not quite ready for discharge, still dyspneic and wheezy, but improving, increase activity, encouraged the patient to sit up in the chair. I performed a history & physical examination of the patient and discussed their management with my nurse practitioner, Zoey Higginbotham. I reviewed the nurse practitioner's note and agree with the documented findings and plan of care. Lung sounds are positive for diffuse wheezes and rhonchi throughout the lung herman. The findings and the impression was discussed with the patient. I attest to the documentation by the nurse practitioner. Time with Patient: Less than 30
[2019-02-26 12:38] VITALS: BMI 26.4
--- NOTE | 2019-02-26 12:46 | P.PN ---
Subjective This is a pleasant 54 years old male with past medical history of asthma/COPD, coronary artery disease, hyperlipidemia, hypertension, osteoarthritis, Bang Ramirez syndromes after flu vaccination 2010, bilateral leg pain and restless leg. Occasional use of cane or walker. Presents with dyspnea and coughing with chest pain. Patient has been evaluated by retort loader and found him to have acute exacerbation of COPD and reproducible chest pain from coughing. Patient has been treated with antibiotics, breathing treatments, steroids and cough syrup. Patient's possible for bronchoscopy today. Patient is menopausal is chest pain with coughing. However he does not want more pain medication when I offered it. Patient is not on oxygen at home however his destroyed dependent. His retort loader Dr. Wong has placed him on prednisone 20 mg daily for the last 2 months. 02/26/2019 Patient is a status post bronchoscopy yesterday which shows purulent discharge and his airways that has been washed out by the pulmonary team. Today he was sitting in the chair and is respiratory distress however he still limited dyspneic. And he still have obstructive lesion on his lung exam with expiratory wheezing. However patient does not use accessory muscles for breathing. Patient is having drank up with no chest pain. Patient is afebrile and hemodynamically stable, he is saturating 98% on 2 L. He has mild leukocytosis at 12.4, but also he is on steroids. Culture and cytology report from bronchoscopy secretions are pending. Patient currently on 60 mg of Solu-Medrol, as well as Zithromax and ceftriaxone. Objective - Vital Signs Vital signs: Vital Signs Temp 97.6 F 02/26/19 11:59 Pulse 79 02/26/19 11:59 Resp 18 02/26/19 11:59 BP 135/78 02/26/19 11:59 Pulse Ox 98 02/26/19 11:59 Intake & Output 02/25/19 02/26/19 02/26/19 18:59 06:59 18:59 Intake Total 100 750 Balance 100 750 Weight 76.657 kg Intake: IV 100 Intake, IV Titration 50 Amount cefTRIAXone 1 gm In 50 Sodium Chloride 0.9% 50 ml @ 100 mls/hr IVPB Q24H [facility] Rx#:[id number] Oral 700 Other: Voiding Method Toilet Toilet # Voids 3 1 - Exam GENERAL: The patient is alert and oriented x3, not in any acute distress. Well developed, well nourished. HEENT: Pupils are round and equally reacting to light. EOMI. No scleral icterus. No conjunctival pallor. Normocephalic, atraumatic. No pharyngeal erythema. No thyromegaly. CARDIOVASCULAR: S1 and S2 present. No murmurs, rubs, or gallops. -PULMONARY: Chest is clear to auscultation, bilateral scattered wheezing ABDOMEN: Soft, nontender, nondistended, normoactive bowel sounds. No palpable organomegaly. MUSCULOSKELETAL: No joint swelling or deformity. EXTREMITIES: No cyanosis, clubbing, or pedal edema. NEUROLOGICAL: Gross neurological examination did not reveal any focal deficits. SKIN: No rashes. - Labs CBC & Chem 7: 02/25/19 07:05 02/26/19 06:59 Labs: Abnormal Lab Results - Last 24 Hours (Table) 02/25/19 02/25/19 02/26/19 Range/Units 17:23 20:58 06:53 Carbon Dioxide (22-30) mmol/L BUN (9-20) mg/dL Glucose (74-99) mg/dL POC Glucose (mg/dL) 186 H 182 H 158 H (75-99) mg/dL 02/26/19 02/26/19 Range/Units 06:59 11:06 Carbon Dioxide 31 H (22-30) mmol/L BUN 36 H (9-20) mg/dL Glucose 159 H (74-99) mg/dL POC Glucose (mg/dL) 245 H (75-99) mg/dL Microbiology - Last 24 Hours (Table) 02/25/19 12:52 Gram Stain - Preliminary Bronchoalviolar Lavage - Right Bronchial Washings Culture - Preliminary 02/25/19 12:52 Fungal Culture - Preliminary Bronchoalviolar Lavage - Right Assessment and Plan Assessment: Acute COPD exacerbation Acute PERRLA tracheobronchitis Musculoskeletal chest pain from coughing History of coronary artery disease History of [place]. Syndrome secondary to flu vaccine Previous episodes of pneumonia History of Osteoarthritis Restless leg syndrome History of chronic back pain Plan: This is a pleasant 54 years old male who presents with COPD exacerbation. Pulmonary team are planning for bronchoscopy. Continue with steroids, antib iotics, breathing treatments and oxygen as needed. Labs and medication were reviewed.. Continue same treatment. Continue with symptomatic treatment. Resume home medication. Monitor lytes and vitals. DVT and GI prophylaxis. Further recommendations of the clinical course of the patient DVT prophylaxis: Subcutaneous heparin GI Prophylaxis: Pepcid PT/OT: Pending Prognosis is guarded
[2019-02-26 17:10] LABS: Glucose,Whole Blood 204 mg/dL (75-99)
[2019-02-26 19:46] LABS: Glucose,Whole Blood 196 mg/dL (75-99)
[2019-02-26] MEDS: ATORVASTATIN 20 MG TAB PO SCH (20:10)
[2019-02-26] MEDS: traZODone HCL 100 MG TAB PO SCH (20:20)
[2019-02-27] MEDS: IPRATROPIUM-ALBUTEROL 3 ML NEB INHALATION SCH ×6 (03:03→23:06)
[2019-02-27] MEDS: PROMETHAZ-COD 6.25-10 MG/5 ML 5 ML CUP PO SCH ×4 (05:56→20:49)
[2019-02-27] MEDS: methylPREDNISolone SOD SUCCI 125 MG/2 ML VIAL IV SCH ×4 (05:59→23:45)
[2019-02-27 06:48] LABS: Glucose,Whole Blood 176 mg/dL (75-99)
[2019-02-27] MEDS: BUDESONIDE 1 MG/2 ML NEBU INHALATION SCH ×2 (07:10→19:35)
[2019-02-27] MEDS: FORMOTEROL FUMARATE 20 MCG/2 ML NEBU INHALATION SCH ×2 (07:10→19:35)
[2019-02-27 07:52] LABS: African American GFR (CKD) >90 (>60 ml/min/1.73 sqM); Anion Gap 4 mmol/L; Blood Urea Nitrogen 32 mg/dL (9-20); Calcium 8.9 mg/dL (8.4-10.2); Carbon Dioxide 31 mmol/L (22-30); Chloride 106 mmol/L (98-107); Glucose 157 mg/dL (74-99); Potassium 4.7 mmol/L (3.5-5.1); Sodium 141 mmol/L (137-145)
[2019-02-27] MEDS: INSULIN ASPART (NovoLOG) 100 UNIT/ML VIAL SQ SCH ×3 (09:00→20:49)
[2019-02-27] MEDS: HEPARIN SODIUM,PORCINE 5,000 UNIT/ML 1 ML VIAL SQ SCH ×2 (09:04→21:00)
[2019-02-27] MEDS: TAMSULOSIN 0.4 MG CAP.ER.24H PO SCH (09:04)
[2019-02-27] MEDS: BENZONATATE 100 MG CAP PO SCH ×3 (09:05→20:48)
[2019-02-27] MEDS: LORATADINE-PSEUDOEPH 5-120 MG 1 EACH TAB.ER.12H PO SCH ×2 (09:05→20:47)
[2019-02-27] MEDS: METOPROLOL TARTRATE 25 MG TAB PO SCH ×2 (09:05→20:47)
[2019-02-27] MEDS: THEOPHYLLINE 24 HOUR 300 MG CAP.ER.24H PO SCH (09:05)
[2019-02-27] MEDS: METHOCARBAMOL 750 MG TAB PO SCH ×3 (09:05→20:49)
[2019-02-27] MEDS: PANTOPRAZOLE 40 MG TABLET PO SCH ×2 (09:05→16:48)
[2019-02-27] MEDS: AZITHROMYCIN 500 MG TAB PO SCH (09:05)
[2019-02-27] MEDS: LISINOPRIL 20 MG TAB PO SCH (09:05)
[2019-02-27] MEDS: guaiFENesin 600 MG TABLET.ER PO SCH ×2 (09:15→20:48)
[2019-02-27 11:30] LABS: Glucose,Whole Blood 171 mg/dL (75-99)
--- NOTE | 2019-02-27 12:54 | P.PN ---
Subjective Progress Note Date: 02/27/19 Principal diagnosis: Acute exacerbation of chronic obstructive pulmonary disease The patient is seen today 02/27/2019 in follow-up on the regular medical floor. He is awake and alert in no acute distress. He is having ongoing issues with shortness of breath, cough and congestion. Able to bring up some sputum but still feels congested. He did undergo bronchoscopy with BAL. Cultures are positive for methicillin sensitive Staphylococcus aureus. Currently on ceftriaxone and azithromycin. Continue and DuoNeb inhalations, Pulmicort and Perforomist inhalations, Tessalon Perles, IV Solu-Medrol, Mucinex. Maintaining good O2 saturations in the 90s on room air. Afebrile. Objective - Vital Signs Vital signs: Vital Signs Temp 97 F L 02/27/19 12:38 Pulse 81 02/27/19 12:38 Resp 20 02/27/19 12:38 BP 161/65 02/27/19 12:38 Pulse Ox 94 L 02/27/19 12:38 Intake & Output 02/26/19 02/27/19 02/27/19 18:59 06:59 18:59 Intake Total 600 Balance 600 Weight 76.657 kg Intake: Oral 600 Other: Voiding Method Toilet Toilet # Voids 4 2 - Exam GENERAL EXAM: Alert, comfortable in no apparent distress. On room air. HEAD: Normocephalic. EYES: Normal reaction of pupils, equal size. NOSE: Clear with pink turbinates. THROAT: No erythema or exudates. NECK: No masses, no JVD. CHEST: No chest wall deformity. LUNGS: Equal air entry with bilateral scattered rhonchi.. CVS: S1 and S2 normal with no audible murmur, regular rhythm. ABDOMEN: No hepatosplenomegaly, normal bowel sounds, no guarding or rigidity. SPINE: No scoliosis or deformity SKIN: No rashes CENTRAL NERVOUS SYSTEM: No focal deficits, tone is normal in all 4 extremities. EXTREMITIES: There is no peripheral edema. No clubbing, no cyanosis. Peripheral pulses are intact. - Labs CBC & Chem 7: 02/25/19 07:05 02/27/19 06:48 Labs: Abnormal Lab Results - Last 24 Hours (Table) 02/25/19 02/26/19 02/26/19 Range/Units 12:52 16:53 19:44 Carbon Dioxide (22-30) mmol/L BUN (9-20) mg/dL Glucose (74-99) mg/dL POC Glucose (mg/dL) 204 H 196 H (75-99) mg/dL Viral Test See Below H 02/27/19 02/27/19 02/27/19 Range/Units 06:46 06:48 11:29 Carbon Dioxide 31 H (22-30) mmol/L BUN 32 H (9-20) mg/dL Glucose 157 H (74-99) mg/dL POC Glucose (mg/dL) 176 H 171 H (75-99) mg/dL Viral Test Microbiology - Last 24 Hours (Table) 02/25/19 12:52 Gram Stain - Final Bronchoalviolar Lavage - Right Bronchial Washings Culture - Final Staphylococcus aureus Arlyn albicans Assessment and Plan Assessment: Impression: 1 acute exacerbation of COPD secondary to methicillin sensitive staph coccus aureus 2 Reproducible chest wall pain from episodes of coughing 3 coronary artery disease with history of PCI/stent placement 4 hypertension, hyperlipidemia 5 history of myocardial infarction 6 history of DM bilaterally syndrome, 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 Castro. Cultures positive for methicillin sensitive Staphylococcus aureus from bronchoscopy wash. Remains on ceftriaxone and azithromycin. Not quite back to his baseline. We'll continue with his current treatment plan. Repeat a chest x-ray in the a.m. We will increase his activity as tolerated. We'll continue to follow and make further recommendations based on his clinical status. I, the cosigning physician, performed a history & physical examination of the patient. Lungs sounds have scattered rhonchi bilaterally. Maintaining good O2 saturations in the 90s on room air. I discussed the assessment and plan of care with my nurse practitioner, Bianca Arechiga. I attest to the above note as dictated by her.
[2019-02-27 17:16] LABS: Glucose,Whole Blood 231 mg/dL (75-99)
[2019-02-27 20:06] LABS: Glucose,Whole Blood 188 mg/dL (75-99)
[2019-02-27] MEDS: ATORVASTATIN 20 MG TAB PO SCH (20:47)
[2019-02-27] MEDS: traZODone HCL 100 MG TAB PO SCH (20:48)
[2019-02-28] MEDS: IPRATROPIUM-ALBUTEROL 3 ML NEB INHALATION SCH ×6 (02:58→19:23)
[2019-02-28] MEDS: PROMETHAZ-COD 6.25-10 MG/5 ML 5 ML CUP PO SCH ×4 (05:49→23:42)
[2019-02-28] MEDS: methylPREDNISolone SOD SUCCI 125 MG/2 ML VIAL IV SCH ×4 (05:50→23:42)
--- NOTE | 2019-02-28 06:47 | XR ---
EXAMINATION TYPE: XR chest 2V DATE OF EXAM: 02/28/2019 HISTORY: Dyspnea. REFERENCE: Previous study dated 02/24/2019. FINDINGS: There is some right upper lobe atelectasis. Lungs otherwise clear. Pleural spaces are clear . The heart is not enlarged. IMPRESSION: MILD RIGHT UPPER LOBE ATELECTASIS.
[2019-02-28 07:02] LABS: Glucose,Whole Blood 165 mg/dL (75-99)
[2019-02-28] MEDS: BUDESONIDE 1 MG/2 ML NEBU INHALATION SCH ×2 (07:13→19:26)
[2019-02-28] MEDS: FORMOTEROL FUMARATE 20 MCG/2 ML NEBU INHALATION SCH ×2 (07:13→19:26)
[2019-02-28 08:03] LABS: Calcium 9.2 mg/dL (8.4-10.2)
[2019-02-28] MEDS: METOPROLOL TARTRATE 25 MG TAB PO SCH ×2 (08:57→21:20)
[2019-02-28] MEDS: guaiFENesin 600 MG TABLET.ER PO SCH ×2 (08:57→21:18)
[2019-02-28] MEDS: TAMSULOSIN 0.4 MG CAP.ER.24H PO SCH (08:58)
[2019-02-28] MEDS: INSULIN ASPART (NovoLOG) 100 UNIT/ML VIAL SQ SCH ×4 (08:58→21:24)
[2019-02-28] MEDS: PANTOPRAZOLE 40 MG TABLET PO SCH ×2 (08:59→17:45)
[2019-02-28] MEDS: LISINOPRIL 20 MG TAB PO SCH (08:59)
[2019-02-28] MEDS: HEPARIN SODIUM,PORCINE 5,000 UNIT/ML 1 ML VIAL SQ SCH ×2 (08:59→21:21)
[2019-02-28] MEDS: THEOPHYLLINE 24 HOUR 300 MG CAP.ER.24H PO SCH (09:03)
[2019-02-28] MEDS: LORATADINE-PSEUDOEPH 5-120 MG 1 EACH TAB.ER.12H PO SCH ×2 (09:03→21:20)
[2019-02-28] MEDS: METHOCARBAMOL 750 MG TAB PO SCH ×3 (09:04→21:20)
[2019-02-28] MEDS: BENZONATATE 100 MG CAP PO SCH ×3 (09:04→21:19)
[2019-02-28] MEDS: AZITHROMYCIN 500 MG TAB PO SCH (09:04)
--- NOTE | 2019-02-28 10:32 | P.PN ---
Subjective Progress Note Date: 02/28/19 Principal diagnosis: Acute exacerbation of chronic obstructive pulmonary disease The patient is seen today 02/28/2019 in follow-up on the regular medical floor. He is awake and alert in no acute distress. Continues with a loose nonproductive cough. Still dyspneic on minimal exertion. Still some sinus congestion. Still not back to his baseline. Chest x-ray shows continued mild right upper lobe atelectasis. Bronchial wash cultures were positive for Staphylococcus aureus and Arlyn. Sodium 141. Potassium 5.0. Bicarb 31. Creatinine 1.13. Remains on ceftriaxone. Continued on DuoNeb inhalations, Pulmicort and Perforomist inhalations, and IV Solu-Medrol along with Tessalon Perles Objective - Vital Signs Vital signs: Vital Signs Temp 97.7 F 02/28/19 05:00 Pulse 84 02/28/19 07:35 Resp 18 02/28/19 05:00 BP 153/87 02/28/19 05:00 Pulse Ox 98 02/28/19 07:16 Intake & Output 02/27/19 02/28/19 02/28/19 18:59 06:59 18:59 Intake Total 360 100 Balance 360 100 Intake: Intake, IV Titration 100 Amount cefTRIAXone 1 gm In 100 Sodium Chloride 0.9% 50 ml @ 100 mls/hr IVPB Q24H [facility] Rx#:[id number] Oral 360 Other: Voiding Method Toilet Toilet Toilet # Voids 3 1 - Exam GENERAL EXAM: Alert, comfortable in no apparent distress. On room air. HEAD: Normocephalic. EYES: Normal reaction of pupils, equal size. NOSE: Clear with pink turbinates. THROAT: No erythema or exudates. NECK: No masses, no JVD. CHEST: No chest wall deformity. LUNGS: Equal air entry with bilateral scattered rhonchi more so on the right. CVS: S1 and S2 normal with no audible murmur, regular rhythm. ABDOMEN: No hepatosplenomegaly, normal bowel sounds, no guarding or rigidity. SPINE: No scoliosis or deformity SKIN: No rashes CENTRAL NERVOUS SYSTEM: No focal deficits, tone is normal in all 4 extremities. EXTREMITIES: There is no peripheral edema. No clubbing, no cyanosis. Peripheral pulses are intact. - Labs CBC & Chem 7: 02/25/19 07:05 02/28/19 06:50 Labs: Abnormal Lab Results - Last 24 Hours (Table) 02/27/19 02/27/19 02/27/19 Range/Units 11:29 17:15 20:04 Carbon Dioxide (22-30) mmol/L BUN (9-20) mg/dL Glucose (74-99) mg/dL POC Glucose (mg/dL) 171 H 231 H 188 H (75-99) mg/dL 02/28/19 02/28/19 Range/Units 06:50 07:01 Carbon Dioxide 31 H (22-30) mmol/L BUN 38 H (9-20) mg/dL Glucose 163 H (74-99) mg/dL POC Glucose (mg/dL) 165 H (75-99) mg/dL Microbiology - Last 24 Hours (Table) 02/25/19 12:52 Gram Stain - Final Bronchoalviolar Lavage - Right Bronchial Washings Culture - Final Staphylococcus aureus Arlyn albicans Assessment and Plan Assessment: Impression: 1 acute exacerbation of COPD secondary to methicillin sensitive staphylococcus aureus currently on ceftriaxone 2 Reproducible chest wall pain from episodes of coughing 3 coronary artery disease with history of PCI/stent placement 4 hypertension, hyperlipidemia 5 history of myocardial infarction 6 history of DM bilaterally syndrome, 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 Castro. Chest x-ray reviewed. Some right upper lung atelectasis. The patient has been slow to progress. May require repeat bronchoscopy with BAL. Continued on ceftriaxone for methicillin sensitive Staphylococcus aureus. We'll continue to follow and make further recommendations based on his clinical status. I, the cosigning physician, performed a history & physical examination of the patient. Lungs sounds have scattered rhonchi bilaterally, more so on the right. Maintaining good O2 saturations in the 90s on room air. I discussed the assessment and plan of care with my nurse practitioner, Bianca Arechiga. I attest to the above note as dictated by her.
[2019-02-28 10:52] LABS: Glucose,Whole Blood 210 mg/dL (75-99)
[2019-02-28 16:48] LABS: Glucose,Whole Blood 175 mg/dL (75-99)
[2019-02-28 20:24] LABS: Glucose,Whole Blood 265 mg/dL (75-99)
[2019-02-28] MEDS: ATORVASTATIN 20 MG TAB PO SCH (21:19)
[2019-02-28] MEDS: traZODone HCL 100 MG TAB PO SCH (21:19)
--- NOTE | 2019-02-28 23:22 | P.PN ---
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 Occasional use of cane or walker. Presents with dyspnea and coughing with chest pain. Patient has been evaluated by spice grinder and found him to have acute exacerbation of COPD and reproducible chest pain from coughing. Patient has been treated with antibiotics, breathing treatments, steroids and cough syrup. Patient's possible for bronchoscopy today. Patient is menopausal is chest pain with coughing. However he does not want more pain medication when I offered it. Patient is not on oxygen at home however his destroyed dependent. His spice grinder Dr. Wong has placed him on prednisone 20 mg daily for the last 2 months. 02/26/2019 Patient is a status post bronchoscopy yesterday which shows purulent discharge and his airways that has been washed out by the pulmonary team. Today he was sitting in the chair and is respiratory distress however he still limited dyspneic. And he still have obstructive lesion on his lung exam with expiratory wheezing. However patient does not use accessory muscles for breathing. Patient is having drank up with no chest pain. Patient is afebrile and hemodynamically stable, he is saturating 98% on 2 L. He has mild leukocytosis at 12.4, but also he is on steroids. Culture and cytology report from bronchos copy secretions are pending. Patient currently on 60 mg of Solu-Medrol, as well as Zithromax and ceftriaxone. 02/27/2019 Patient is still having shortness of breath with minimal ambulation. Currently lying in the bed comfortably in no acute distress. Does have cough without much sputum production. Patient is status post bronchoscopy with balanced fluid cultures showing MSSA. Currently on antibiotics in the form of ceftriaxone and azithromycin. Otherwise patient is being continued on DuoNeb's, IV Solu-Medrol and Mucinex. Pulmonary is on board. No fever no chills. No nausea vomiting or abdominal pain or diarrhea. Tolerating oral diet. Discussed with the family at bedside in detail. Current medications reviewed. Objective - Vital Signs Vital signs: Vital Signs Temp 97.5 F L 02/27/19 04:52 Pulse 80 02/27/19 07:37 Resp 18 02/27/19 04:52 BP 142/84 02/27/19 04:52 Pulse Ox 94 L 02/27/19 04:52 Intake & Output 02/26/19 02/27/19 02/27/19 18:59 06:59 18:59 Intake Total 600 Balance 600 Weight 76.657 kg Intake: Oral 600 Other: Voiding Method Toilet # Voids 4 2 - Exam GENERAL: The patient is alert and oriented x3, not in any acute distress. Well developed, well nourished. HEENT: Pupils are round and equally reacting to light. EOMI. No scleral icterus. No conjunctival pallor. Normocephalic, atraumatic. No pharyngeal erythema. No thyromegaly. CARDIOVASCULAR: S1 and S2 present. No murmurs, rubs, or gallops. -PULMONARY: Chest is clear to auscultation, bilateral scattered wheezing ABDOMEN: Soft, nontender, nondistended, normoactive bowel sounds. No palpable organomegaly. MUSCULOSKELETAL: No joint swelling or deformity. EXTREMITIES: No cyanosis, clubbing, or pedal edema. NEUROLOGICAL: Gross neurological examination did not reveal any focal deficits. SKIN: No rashes. - Labs CBC & Chem 7: 02/25/19 07:05 02/28/19 06:50 Labs: Abnormal Lab Results - Last 24 Hours (Table) 02/25/19 02/26/19 02/26/19 Range/Units 12:52 11:06 16:53 Carbon Dioxide (22-30) mmol/L BUN (9-20) mg/dL Glucose (74-99) mg/dL POC Glucose (mg/dL) 245 H 204 H (75-99) mg/dL Viral Test See Below H 02/26/19 02/27/19 02/27/19 Range/Units 19:44 06:46 06:48 Carbon Dioxide 31 H (22-30) mmol/L BUN 32 H (9-20) mg/dL Glucose 157 H (74-99) mg/dL POC Glucose (mg/dL) 196 H 176 H (75-99) mg/dL Viral Test Microbiology - Last 24 Hours (Table) 02/25/19 12:52 Gram Stain - Final Bronchoalviolar Lavage - Right Bronchial Washings Culture - Final Staphylococcus aureus Arlyn albicans Assessment and Plan Assessment: Acute COPD exacerbation Acute purulent tracheobronchitis. Status post bronchoscopy. 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 Patient is status post bronchoscopy. Continue with steroids, antibiotics, breathing treatments and oxygen as needed. Labs and medication were reviewed.. Continue same treatment. Continue with symptomatic treatment. Resume home medication. Monitor lytes and vitals. DVT and GI prophylaxis. Further recommendations of the clinical course of the patient DVT prophylaxis: Subcutaneous heparin GI Prophylaxis: Pepcid PT/OT: Pending Prognosis is guarded Time with Patient: Greater than 30
[2019-02-28] MEDS: IPRATROPIUM-ALBUTEROL 3 ML NEB INHALATION PRN (23:58)
[2019-03-01] MEDS: IPRATROPIUM-ALBUTEROL 3 ML NEB INHALATION SCH ×5 (04:23→20:19)
[2019-03-01] MEDS: PROMETHAZ-COD 6.25-10 MG/5 ML 5 ML CUP PO SCH ×3 (05:27→17:18)
[2019-03-01] MEDS: methylPREDNISolone SOD SUCCI 125 MG/2 ML VIAL IV SCH ×2 (05:28→13:28)
[2019-03-01 07:03] LABS: Glucose,Whole Blood 216 mg/dL (75-99)
[2019-03-01] MEDS: FORMOTEROL FUMARATE 20 MCG/2 ML NEBU INHALATION SCH ×2 (07:48→20:19)
[2019-03-01] MEDS: BUDESONIDE 1 MG/2 ML NEBU INHALATION SCH ×2 (07:48→20:19)
[2019-03-01] MEDS: INSULIN ASPART (NovoLOG) 100 UNIT/ML VIAL SQ SCH ×4 (07:58→21:35)
[2019-03-01] MEDS: BENZONATATE 100 MG CAP PO SCH ×3 (09:04→21:27)
[2019-03-01] MEDS: METHOCARBAMOL 750 MG TAB PO SCH ×3 (09:04→21:27)
[2019-03-01] MEDS: guaiFENesin 600 MG TABLET.ER PO SCH ×2 (10:20→21:34)
[2019-03-01] MEDS: TAMSULOSIN 0.4 MG CAP.ER.24H PO SCH (10:21)
[2019-03-01] MEDS: METOPROLOL TARTRATE 25 MG TAB PO SCH ×2 (10:21→21:27)
[2019-03-01] MEDS: LISINOPRIL 20 MG TAB PO SCH (10:21)
[2019-03-01] MEDS: PANTOPRAZOLE 40 MG TABLET PO SCH ×2 (10:21→15:56)
[2019-03-01] MEDS: THEOPHYLLINE 24 HOUR 300 MG CAP.ER.24H PO SCH (11:02)
[2019-03-01] MEDS: AZITHROMYCIN 500 MG TAB PO SCH (11:02)
[2019-03-01] MEDS: LORATADINE-PSEUDOEPH 5-120 MG 1 EACH TAB.ER.12H PO SCH ×2 (11:02→21:35)
[2019-03-01] MEDS: HEPARIN SODIUM,PORCINE 5,000 UNIT/ML 1 ML VIAL SQ SCH ×2 (11:03→21:34)
[2019-03-01] MEDS ORDERED: LORazepam 0.5 MG TAB PO PRN (11:13)
[2019-03-01 12:06] LABS: Glucose,Whole Blood 196 mg/dL (75-99)
--- NOTE | 2019-03-01 13:26 | P.PN ---
Subjective Progress Note Date: 03/01/19 Principal diagnosis: Acute exacerbation of chronic obstructive pulmonary disease The patient is seen today 03/01/2019 in follow-up on the regular medical floor. He is currently awake and alert in no acute distress. He states his breathing is about the same not much improvement. Still with a loose productive cough. Currently maintaining O2 saturations in the 90s on room air. He's afebrile. Hemodynamically stable. Bronchial wash cultures were positive for methicillin sensitive Staphylococcus aureus and Arlyn. Currently on ceftriaxone, azithromycin and Diflucan. He remains on DuoNeb inhalations, Pulmicort and Perforomist inhalations, IV Solu-Medrol and theophylline, Phenergan With Codeine, Mucinex, Tessalon Perles. Objective - Vital Signs Vital signs: Vital Signs Temp 98.2 F 03/01/19 13:00 Pulse 78 03/01/19 13:00 Resp 20 03/01/19 13:00 BP 135/82 03/01/19 13:00 Pulse Ox 96 03/01/19 13:00 Intake & Output 02/28/19 03/01/19 03/01/19 18:59 06:59 18:59 Intake Total 50 360 Balance 50 360 Intake: Intake, IV Titration 50 Amount cefTRIAXone 1 gm In 50 Sodium Chloride 0.9% 50 ml @ 100 mls/hr IVPB Q24H [facility] Rx#:[id number] Oral 0 360 Other: Voiding Method Toilet Toilet Toilet # Voids 3 2 3 - Exam GENERAL EXAM: Alert, comfortable in no apparent distress. On room air. HEAD: Normocephalic. EYES: Normal reaction of pupils, equal size. NOSE: Clear with pink turbinates. THROAT: No erythema or exudates. NECK: No masses, no JVD. CHEST: No chest wall deformity. LUNGS: Equal air entry with bilateral scattered rhonchi more so on the right. CVS: S1 and S2 normal with no audible murmur, regular rhythm. ABDOMEN: No hepatosplenomegaly, normal bowel sounds, no guarding or rigidity. SPINE: No scoliosis or deformity SKIN: No rashes CENTRAL NERVOUS SYSTEM: No focal deficits, tone is normal in all 4 extremities. EXTREMITIES: There is no peripheral edema. No clubbing, no cyanosis. Peripheral pulses are intact. - Labs CBC & Chem 7: 02/25/19 07:05 02/28/19 06:50 Labs: Abnormal Lab Results - Last 24 Hours (Table) 02/28/19 02/28/19 03/01/19 Range/Units 16:47 20:23 07:00 POC Glucose (mg/dL) 175 H 265 H 216 H (75-99) mg/dL 03/01/19 Range/Units 11:47 POC Glucose (mg/dL) 196 H (75-99) mg/dL Microbiology - Last 24 Hours (Table) 02/25/19 12:52 Fungal Culture - Preliminary Bronchoalviolar Lavage - Right Arlyn albicans Assessment and Plan Assessment: Impression: 1 acute exacerbation of COPD secondary to methicillin sensitive staphylococcus aureus currently on ceftriaxone and azithromycin 2 Reproducible chest wall pain from episodes of coughing 3 coronary artery disease with history of PCI/stent placement 4 hypertension, hyperlipidemia 5 history of myocardial infarction 6 history of DM bilaterally syndrome, 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 Elaine. Unable to perform a repeat bronchoscopy today and the patient became quite agitated and angry and cursing. He is on maximum medication. He is also maintaining good O2 saturations in the 90s on room air. Continue with the current treatment plan. If still no significant improvement in the next day or so may repeat a bronchoscopy then. We'll continue to follow and make further recommendations based on his clinical status. I, the cosigning physician, performed a history & physical examination of the patient. Lungs sounds have scattered rhonchi bilaterally, more so on the right. Maintaining good O2 saturations in the 90s on room air. I discussed the assessment and plan of care with my nurse practitioner, Bianca Arechiga. I attest to the above note as dictated by her.
[2019-03-01] MEDS ORDERED: predniSONE 20 MG TAB PO STA (15:21)
--- NOTE | 2019-03-01 15:26 | P.PN ---
Subjective Progress Note Date: 02/28/19 Principal diagnosis: Acute COPD exacerbation Purulent tracheobronchitis This is a pleasant 54 years old male with past medical history of asthma/COPD, coronary artery disease, hyperlipidemia, hypertension, osteoarthritis, Bang Ramirez syndromes after flu vaccination 2010, bilateral leg pain and restless leg. Occasional use of cane or walker. Presents with dyspnea and coughing with chest pain. Patient has been evaluated by crusher dry ground mica and found him to have acute exacerbation of COPD and reproducible chest pain from coughing. Patient has been treated with antibiotics, breathing treatments, steroids and cough syrup. Patient's possible for bronchoscopy today. Patient is menopausal is chest pain with coughing. However he does not want more pain medication when I offered it. Patient is not on oxygen at home however his destroyed dependent. His crusher dry ground mica Dr. Wong has placed him on prednisone 20 mg daily for the last 2 months. 02/26/2019 Patient is a status post bronchoscopy yesterday which shows purulent discharge and his airways that has been washed out by the pulmonary team. Today he was sitting in the chair and is respiratory distress however he still limited dyspneic. And he still have obstructive lesion on his lung exam with expiratory wheezing. However patient does not use accessory muscles for breathing. Patient is having drank up with no chest pain. Patient is afebrile and hemodynamically stable, he is saturating 98% on 2 L. He has mild leukocytosis at 12.4, but also he is on steroids. Culture and cytology report from bronchos copy secretions are pending. Patient currently on 60 mg of Solu-Medrol, as well as Zithromax and ceftriaxone. 02/27/2019 Patient is still having shortness of breath with minimal ambulation. Currently lying in the bed comfortably in no acute distress. Does have cough without much sputum production. Patient is status post bronchoscopy with balanced fluid cultures showing MSSA. Currently on antibiotics in the form of ceftriaxone and azithromycin. Otherwise patient is being continued on DuoNeb's, IV Solu-Medrol and Mucinex. Pulmonary is on board. No fever no chills. No nausea vomiting or abdominal pain or diarrhea. Tolerating oral diet. Discussed with the family at bedside in detail. 02/28/2019 Patient is awake alert and oriented and able to lie in the bed flat. Still complaining of dyspneic with ambulation. Chest x-ray showed right upper lobe atelectasis mild. Patient is status post bronchoscopy and bronchial fluid cultures showed MSSA and Arlyn. Patient denied any complaints of fever or chills. Cough without much sputum production. Pulmonary is considering another bronchoscopy if needed tomorrow. Current medications reviewed. Objective - Vital Signs Vital signs: Vital Signs Temp 97.8 F 02/28/19 21:00 Pulse 99 02/28/19 21:00 Resp 20 02/28/19 21:00 BP 137/70 02/28/19 21:00 Pulse Ox 95 02/28/19 21:00 Intake & Output 02/28/19 02/28/19 03/01/19 06:59 18:59 06:59 Intake Total 100 Balance 100 Intake: Intake, IV Titration 100 Amount cefTRIAXone 1 gm In 100 Sodium Chloride 0.9% 50 ml @ 100 mls/hr IVPB Q24H [facility] Rx#:[id number] Other: Voiding Method Toilet Toilet # Voids 1 3 - Exam GENERAL: The patient is alert and oriented x3, not in any acute distress. Well developed, well nourished. HEENT: Pupils are round and equally reacting to light. EOMI. No scleral icterus. No conjunctival pallor. Normocephalic, atraumatic. No pharyngeal erythema. No thyromegaly. CARDIOVASCULAR: S1 and S2 present. No murmurs, rubs, or gallops. -PULMONARY: Chest is clear to auscultation, bilateral scattered wheezing and crackles ABDOMEN: Soft, nontender, nondistended, normoactive bowel sounds. No palpable organomegaly. MUSCULOSKELETAL: No joint swelling or deformity. EXTREMITIES: No cyanosis, clubbing, or pedal edema. NEUROLOGICAL: Gross neurological examination did not reveal any focal deficits. SKIN: No rashes. - Labs CBC & Chem 7: 02/25/19 07:05 02/28/19 06:50 Labs: Abnormal Lab Results - Last 24 Hours (Table) 02/28/19 02/28/19 02/28/19 Range/Units 06:50 07:01 10:50 Carbon Dioxide 31 H (22-30) mmol/L BUN 38 H (9-20) mg/dL Glucose 163 H (74-99) mg/dL POC Glucose (mg/dL) 165 H 210 H (75-99) mg/dL 02/28/19 02/28/19 Range/Units 16:47 20:23 Carbon Dioxide (22-30) mmol/L BUN (9-20) mg/dL Glucose (74-99) mg/dL POC Glucose (mg/dL) 175 H 265 H (75-99) mg/dL Assessment and Plan Assessment: Acute COPD exacerbation Acute purulent tracheobronchitis. Status post bronchoscopy. 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 Patient is status post bronchoscopy. Continue with steroids, antibiotics, breathing treatments and oxygen as needed. Labs and medication were reviewed.. Continue same treatment. Continue with symptomatic treatment. Resume home medication. Monitor lytes and vitals. DVT and GI prophylaxis. Further recommendations of the clinical course of the patient DVT prophylaxis: Subcutaneous heparin GI Prophylaxis: Pepcid PT/OT: Pending Prognosis is guarded Time with Patient: Greater than 30
[2019-03-01] MEDS ORDERED: FLUCONAZOLE 100 MG TAB PO ONE (15:27)
--- NOTE | 2019-03-01 17:11 | P.PN ---
Progress Note - Text Progress Note Date: 03/01/19 I saw this patient this morning, and as soon as I walked into the room the patient was extremely upset and agitated because I told him that he does not need to be bronchoscoped today. I listened to the patient, and his pulmonary findings are not bad enough to arrange for emergency bronchoscopy today. As a matter of fact I explained to the patient that based on his symptoms and based on his pulmonary findings, I don't think he needs to be bronchoscoped. And I have no plans to perform bronchoscopy on this patient. Patient became extremely agitated and upset, and his was calling him down. Patient told me that he is feeling fine and there is no reason for him to be in the hospital. I explained to them that I will recommend that his IV Solu-Medrol gets tapered or changed to oral prednisone, and I have no problem clearing the patient to be discharged home in the next 24 hours if he continues to do as well as he is today. I even offered the patient to get a second pulmonary opinion if he wishes regarding his pulmonary status, and I have no plans to perform bronchoscopy on him. I honestly believe he does not need to be bronchoscoped and there is no reason to do it. He was already bronchoscoped few days ago, and we had positive cultures from his lavage and patient was found to have MSSA staph aureus infection being treated. He is already on good course of bronchodilators and he is on good course of steroids
[2019-03-01] MEDS: traZODone HCL 100 MG TAB PO SCH (21:27)
[2019-03-01] MEDS: ATORVASTATIN 20 MG TAB PO SCH (21:27)
[2019-03-01] MEDS: CEFDINIR 300 MG CAP PO SCH (21:28)
--- NOTE | 2019-03-02 00:22 | P.PN ---
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 Occasional use of cane or walker. Presents with dyspnea and coughing with chest pain. Patient has been evaluated by engineer automated equipment and found him to have acute exacerbation of COPD and reproducible chest pain from coughing. Patient has been treated with antibiotics, breathing treatments, steroids and cough syrup. Patient's possible for bronchoscopy today. Patient is menopausal is chest pain with coughing. However he does not want more pain medication when I offered it. Patient is not on oxygen at home however his destroyed dependent. His engineer automated equipment Dr. Wong has placed him on prednisone 20 mg daily for the last 2 months. 02/26/2019 Patient is a status post bronchoscopy yesterday which shows purulent discharge and his airways that has been washed out by the pulmonary team. Today he was sitting in the chair and is respiratory distress however he still limited dyspneic. And he still have obstructive lesion on his lung exam with expiratory wheezing. However patient does not use accessory muscles for breathing. Patient is having drank up with no chest pain. Patient is afebrile and hemodynamically stable, he is saturating 98% on 2 L. He has mild leukocytosis at 12.4, but also he is on steroids. Culture and cytology report from bronchos copy secretions are pending. Patient currently on 60 mg of Solu-Medrol, as well as Zithromax and ceftriaxone. 02/27/2019 Patient is still having shortness of breath with minimal ambulation. Currently lying in the bed comfortably in no acute distress. Does have cough without much sputum production. Patient is status post bronchoscopy with balanced fluid cultures showing MSSA. Currently on antibiotics in the form of ceftriaxone and azithromycin. Otherwise patient is being continued on DuoNeb's, IV Solu-Medrol and Mucinex. Pulmonary is on board. No fever no chills. No nausea vomiting or abdominal pain or diarrhea. Tolerating oral diet. Discussed with the family at bedside in detail. 02/28/2019 Patient is awake alert and oriented and able to lie in the bed flat. Still complaining of dyspneic with ambulation. Chest x-ray showed right upper lobe atelectasis mild. Patient is status post bronchoscopy and bronchial fluid cultures showed MSSA and Arlyn. Patient denied any complaints of fever or chills. Cough without much sputum production. Pulmonary is considering another bronchoscopy if needed tomorrow. 03/01/2019 Patient is currently awake alert and oriented. His breathing is much easier today. Otherwise patient still complaining of exertional short of breath and was upset when the pulmonary recommends no need for bronchoscopy at this time. Patient will be continued on steroids which will be changed to by mouth. Continue with antibiotics and current management and anticipate discharge next 24 hours. Current medications reviewed. Objective - Vital Signs Vital signs: Vital Signs Temp 98.2 F 03/01/19 13:00 Pulse 78 03/01/19 14:57 Resp 20 03/01/19 14:57 BP 135/82 03/01/19 13:00 Pulse Ox 96 03/01/19 13:00 Intake & Output 02/28/19 03/01/19 03/01/19 18:59 06:59 18:59 Intake Total 50 360 Balance 50 360 Intake: Intake, IV Titration 50 Amount cefTRIAXone 1 gm In 50 Sodium Chloride 0.9% 50 ml @ 100 mls/hr IVPB Q24H [facility] Rx#:[id number] Oral 0 360 Other: Voiding Method Toilet Toilet Toilet # Voids 3 2 3 - Exam GENERAL: The patient is alert and oriented x3, not in any acute distress. Well developed, well nourished. HEENT: Pupils are round and equally reacting to light. EOMI. No scleral icterus. No conjunctival pallor. Normocephalic, atraumatic. No pharyngeal erythema. No thyromegaly. CARDIOVASCULAR: S1 and S2 present. No murmurs, rubs, or gallops. -PULMONARY: Chest is clear to auscultation, bilateral scattered rhonchi and minimal expiratory wheeze. ABDOMEN: Soft, nontender, nondistended, normoactive bowel sounds. No palpable organomegaly. MUSCULOSKELETAL: No joint swelling or deformity. EXTREMITIES: No cyanosis, clubbing, or pedal edema. NEUROLOGICAL: Gross neurological examination did not reveal any focal deficits. SKIN: No rashes. - Labs CBC & Chem 7: 02/25/19 07:05 02/28/19 06:50 Labs: Abnormal Lab Results - Last 24 Hours (Table) 02/28/19 02/28/19 03/01/19 Range/Units 16:47 20:23 07:00 POC Glucose (mg/dL) 175 H 265 H 216 H (75-99) mg/dL 03/01/19 Range/Units 11:47 POC Glucose (mg/dL) 196 H (75-99) mg/dL Microbiology - Last 24 Hours (Table) 02/25/19 12:52 Fungal Culture - Preliminary Bronchoalviolar Lavage - Right Arlyn albicans Assessment and Plan Assessment: Acute COPD exacerbation Acute purulent tracheobronchitis. Status post bronchoscopy. 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 Patient is status post bronchoscopy. Continue with steroids, antibiotics, breathing treatments and oxygen as needed. Labs and medication were reviewed.. Continue same treatment. Continue with symptomatic treatment. Resume home medication. Monitor lytes and vitals. DVT and GI prophylaxis. Further recommendations of the clinical course of the patient DVT prophylaxis: Subcutaneous heparin GI Prophylaxis: Pepcid PT/OT: Pending Prognosis is guarded Time with Patient: Greater than 30
[2019-03-02] MEDS: IPRATROPIUM-ALBUTEROL 3 ML NEB INHALATION SCH ×4 (00:24→11:30)
[2019-03-02] MEDS: PROMETHAZ-COD 6.25-10 MG/5 ML 5 ML CUP PO SCH ×3 (00:37→12:33)
[2019-03-02 05:25] VITALS: BP 134/79; RESP 16; TEMP 97.7
[2019-03-02] MEDS: METHOCARBAMOL 750 MG TAB PO SCH (08:10)
[2019-03-02] MEDS: INSULIN ASPART (NovoLOG) 100 UNIT/ML VIAL SQ SCH ×2 (08:12→12:33)
[2019-03-02] MEDS: HEPARIN SODIUM,PORCINE 5,000 UNIT/ML 1 ML VIAL SQ SCH (08:13)
[2019-03-02] MEDS: guaiFENesin 600 MG TABLET.ER PO SCH (08:13)
[2019-03-02] MEDS: BENZONATATE 100 MG CAP PO SCH (08:13)
[2019-03-02] MEDS: AZITHROMYCIN 500 MG TAB PO SCH (08:13)
[2019-03-02] MEDS: CEFDINIR 300 MG CAP PO SCH (08:13)
[2019-03-02] MEDS: LISINOPRIL 20 MG TAB PO SCH (08:13)
[2019-03-02] MEDS: PANTOPRAZOLE 40 MG TABLET PO SCH (08:13)
[2019-03-02] MEDS: METOPROLOL TARTRATE 25 MG TAB PO SCH (08:14)
[2019-03-02] MEDS: THEOPHYLLINE 24 HOUR 300 MG CAP.ER.24H PO SCH (08:14)
[2019-03-02] MEDS: LORATADINE-PSEUDOEPH 5-120 MG 1 EACH TAB.ER.12H PO SCH (08:14)
[2019-03-02] MEDS: TAMSULOSIN 0.4 MG CAP.ER.24H PO SCH (08:14)
[2019-03-02] MEDS: FORMOTEROL FUMARATE 20 MCG/2 ML NEBU INHALATION SCH (08:19)
[2019-03-02] MEDS: BUDESONIDE 1 MG/2 ML NEBU INHALATION SCH (08:19)
[2019-03-02] MEDS ORDERED: predniSONE 50 MG TAB PO SCH (09:00)
[2019-03-02 11:34] VITALS: PULSE 84
--- NOTE | 2019-03-02 13:07 | P.PN ---
Subjective Progress Note Date: 03/02/19 Principal diagnosis: Acute exacerbation of chronic obstructive pulmonary disease The patient is seen today 03/02/2019 in follow-up. He is still quite irritated and agitated. He's been refusing all of his medications other than his muscle relaxant and pain medications. Demanding to go home. Refuses prednisone as well as updraft treatments. He is currently afebrile. Maintaining good O2 saturations in the upper 90s on room air. Hemodynamically stable. Objective - Vital Signs Vital signs: Vital Signs Temp 97.7 F 03/02/19 05:00 Pulse 84 03/02/19 11:45 Resp 16 03/02/19 08:00 BP 134/79 03/02/19 05:00 Pulse Ox 96 03/02/19 05:00 Intake & Output 03/01/19 03/02/19 03/02/19 18:59 06:59 18:59 Intake Total 360 590 240 Balance 360 590 240 Intake: Oral 360 590 240 Other: Voiding Method Toilet Toilet Toilet # Voids 3 1 - Exam GENERAL EXAM: Alert, comfortable in no apparent distress. On room air. HEAD: Normocephalic. EYES: Normal reaction of pupils, equal size. NOSE: Clear with pink turbinates. THROAT: No erythema or exudates. NECK: No masses, no JVD. CHEST: No chest wall deformity. LUNGS: Equal air entry with faint end expiratory wheeze, diminished. CVS: S1 and S2 normal with no audible murmur, regular rhythm. ABDOMEN: No hepatosplenomegaly, normal bowel sounds, no guarding or rigidity. SPINE: No scoliosis or deformity SKIN: No rashes CENTRAL NERVOUS SYSTEM: No focal deficits, tone is normal in all 4 extremities. EXTREMITIES: There is no peripheral edema. No clubbing, no cyanosis. Peripheral pulses are intact. 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 Elaine. The patient remains agitated and angry. He's refused all of his breathing treatments and steroids along with his other medications other than pain medicines and muscle relaxants. He is adamant about going home. He can follow up with Dr. Castro in our office in 1-2 weeks' time. His is being quite reasonable and agreeable to the plan. She will call sooner with any recurrence of symptoms or other questions or concerns. I, the cosigning physician, performed a history & physical examination of the patient. Lungs sounds have faint end expiratory wheeze, diminished. Maintaining good O2 saturations in the 90s on room air. I discussed the assessment and plan of care with my nurse practitioner, Bianca Arechiga. I attest to the above note as dictated by her.
--- NOTE | 2019-03-03 00:42 | P.DS ---
Providers Date of admission: 02/20/19 14:02 Expected date of discharge: 03/02/19 Attending physician: Darnell Juarez Consults: 02/19/19 16:42 Consult Physician Routine Consulting Provider: William Wong Consult Reason/Comments: established patient COPD exacerbation Do you want consulting provider notified?: Yes Primary care physician: [facility] Course: Discharge diagnosis. Acute COPD exacerbation. Improved slowly. Acute purulent tracheobronchitis. Status post bronchoscopy. 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 Occasional use of cane or walker. Presents with dyspnea and coughing with chest pain. Patient has been evaluated by senior operations manager and found him to have acute exacerbation of COPD and reproducible chest pain from coughing. Patient has been treated with antibiotics, breathing treatments, steroids and cough syrup. Patient's possible for bronchoscopy today. Patient is menopausal is chest pain with coughing. However he does not want more pain medication when I offered it. Patient is not on oxygen at home however his destroyed dependent. His senior operations manager Dr. Wong has placed him on prednisone 20 mg daily for the last 2 months. 02/26/2019 Patient is a status post bronchoscopy yesterday which shows purulent discharge and his airways that has been washed out by the pulmonary team. Today he was sitting in the chair and is respiratory distress however he still limited dyspneic. And he still have obstructive lesion on his lung exam with expiratory wheezing. However patient does not use accessory muscles for breathing. Patient is having drank up with no chest pain. Patient is afebrile and hemodynamically stable, he is saturating 98% on 2 L. He has mild leukocytosis at 12.4, but also he is on steroids. Culture and cytology report from bronchoscopy secretions are pending. Patient currently on 60 mg of Solu-Medrol, as well as Zithromax and ceftriaxone. 02/27/2019 Patient is still having shortness of breath with minimal ambulation. Currently lying in the bed comfortably in no acute distress. Does have cough without much sputum production. Patient is status post bronchoscopy with balanced fluid cultures showing MSSA. Currently on antibiotics in the form of ceftriaxone and azithromycin. Otherwise patient is being continued on DuoNeb's, IV Solu-Medrol and Mucinex. Pulmonary is on board. No fever no chills. No nausea vomiting or abdominal pain or diarrhea. Tolerating oral diet. Discussed with the family at bedside in detail. 02/28/2019 Patient is awake alert and oriented and able to lie in the bed flat. Still complaining of dyspneic with ambulation. Chest x-ray showed right upper lobe atelectasis mild. Patient is status post bronchoscopy and bronchial fluid cultures showed MSSA and Arlyn. Patient denied any complaints of fever or chills. Cough without much sputum production. Pulmonary is considering another bronchoscopy if needed tomorrow. 03/01/2019 Patient is currently awake alert and oriented. His breathing is much easier today. Otherwise patient still complaining of exertional short of breath and wa s upset when the pulmonary recommends no need for bronchoscopy at this time. Patient will be continued on steroids which will be changed to by mouth. Continue with antibiotics and current management and anticipate discharge next 24 hours. 03/02/2019 Patient says that his breathing is is the same compared to yesterday. Saturating well on room air. Able to ambulate without much short of breath. Patient be converted on oral antibiotic course and prednisone tapering doses. Patient was seen by pulmonary. Stable to be discharged home at this time. Patient is less anxious and cooperative today. Discharge medication reconciliation was done. Discussed the patient and his at bedside in detail. Discussed with pulmonary. PHYSICAL EXAMINATION: Patient is lying in the bed comfortably, no acute distress, awake alert and oriented.. HEENT: Normocephalic. Neck is supple. Pupils reactive. Nostrils clear. Oral cavity is moist. Ears reveal no drainage. Neck reveals no JVD, carotid bruits, or thyromegaly. CHEST EXAMINATION: Trachea is central. Symmetrical expansion. Minimal left basilar crackles. Otherwise clear to auscultation. No wheezing.. CARDIAC: Normal S1, S2 with no gallops. No murmurs ABDOMEN: Soft. Bowel sounds normal. No organomegaly. No abdominal bruits. Extremities: reveal no edema. No clubbing or cyanosis Neurologically awake, alert, oriented x3 with well-coordinated movements. No focal deficits noted Skin: No rash or skin lesions. Psychiatric: Coperative. Nonsuicidal Musculoskeletal: No joint swelling or deformity. Normal range of motion. Vital Signs - 24 hr 03/02/19 03/02/19 03/02/19 04:20 04:36 05:00 Temperature 97.7 F Pulse Rate 92 92 Pulse Rate [ 81 Pulse Oximetery ] Respiratory 16 Rate Blood Pressure 134/79 [Right Arm] O2 Sat by Pulse 96 Oximetry 03/02/19 03/02/19 03/02/19 08:00 08:19 08:30 Temperature Pulse Rate 84 88 Pulse Rate [ 81 Pulse Oximetery ] Respiratory 16 Rate Blood Pressure [Right Arm] O2 Sat by Pulse Oximetry 03/02/19 03/02/19 03/02/19 08:31 08:41 11:30 Temperature Pulse Rate 88 84 84 Pulse Rate [ Pulse Oximetery ] Respiratory Rate Blood Pressure [Right Arm] O2 Sat by Pulse Oximetry 03/02/19 11:45 Temperature Pulse Rate 84 Pulse Rate [ Pulse Oximetery ] Respiratory Rate Blood Pressure [Right Arm] O2 Sat by Pulse Oximetry Total time taken greater than 35 minutes including 18 minutes for counseling and coordination of care. Patient Condition at Discharge: Stable Plan - Discharge Summary Discharge Rx Participant: Yes New Discharge Prescriptions: New Cefdinir [Omnicef] 300 mg PO BID 5 Days #10 cap predniSONE See Taper PO DIRECTED #32 tab Continue RABEprazole SODIUM [Aciphex] 20 mg PO BID oxyCODONE HCL [oxyCODONE HCL (IR)] 20 mg PO QID PRN PRN Reason: Pain rOPINIRole HCL [Requip] 1 mg PO HS Metoprolol Tartrate [Lopressor] 25 mg PO BID #60 tab Nitroglycerin Sl Tabs [Nitrostat] 0.4 mg SUBLINGUAL Q5M PRN #25 tab PRN Reason: Chest Pain Lisinopril [Zestril] 20 mg PO DAILY Simvastatin [Zocor] 40 mg PO HS Tamsulosin HCl [Flomax] 0.4 mg PO DAILY Theophylline Anhydrous [Theochron] 300 mg PO DAILY Methocarbamol [Robaxin] 750 mg PO TID Ipratropium-Albuterol Nebulize [Duoneb 0.5 mg-3 mg/3 ml Soln] 3 ml INHALATION RT-QID Fluticasone Propion/Salmeterol [Wixela 500-50 Inhub] 1 puff INHALATION RT-BID predniSONE 10 mg PO DAILY Albuterol Inhaler [Ventolin Hfa Inhaler] 2 puff INHALATION RT-Q4H Tiotropium Erhard [Spiriva Respimat] 2 puff INHALATION RT-DAILY fentaNYL 25MCG/HR PATCH [Duragesic 25MCG/HR] 1 patch TRANSDERM Q72H Discharge Medication List RABEprazole SODIUM [Aciphex] 20 mg PO BID 04/05/14 [History] oxyCODONE HCL [oxyCODONE HCL (IR)] 20 mg PO QID PRN 03/24/16 [History] rOPINIRole HCL [Requip] 1 mg PO HS 03/24/16 [History] Metoprolol Tartrate [Lopressor] 25 mg PO BID #60 tab 03/26/16 [Rx] Nitroglycerin Sl Tabs [Nitrostat] 0.4 mg SUBLINGUAL Q5M PRN #25 tab 03/26/16 [Rx] Lisinopril [Zestril] 20 mg PO DAILY 10/23/16 [History] Simvastatin [Zocor] 40 mg PO HS 06/26/17 [History] Albuterol Inhaler [Ventolin Hfa Inhaler] 2 puff INHALATION RT-Q4H 02/19/19 [History] Fluticasone Propion/Salmeterol [Wixela 500-50 Inhub] 1 puff INHALATION RT-BID 02/19/19 [History] Ipratropium-Albuterol Nebulize [Duoneb 0.5 mg-3 mg/3 ml Soln] 3 ml INHALATION RT-QID 02/19/19 [History] Methocarbamol [Robaxin] 750 mg PO TID 02/19/19 [History] Tamsulosin HCl [Flomax] 0.4 mg PO DAILY 02/19/19 [History] Theophylline Anhydrous [Theochron] 300 mg PO DAILY 02/19/19 [History] Tiotropium Erhard [Spiriva Respimat] 2 puff INHALATION RT-DAILY 02/19/19 [History] fentaNYL 25MCG/HR PATCH [Duragesic 25MCG/HR] 1 patch TRANSDERM Q72H 06/07/19 [History] predniSONE 10 mg PO DAILY 02/19/19 [History] Cefdinir [Omnicef] 300 mg PO BID 5 Days #10 cap 03/02/19 [Rx] predniSONE See Taper PO DIRECTED #32 tab 03/02/19 [Rx] Follow up Appointment(s)/Referral(s): [facility], [NON-STAFF] - 1 Week William Wong DO [Doctor of Osteopathic Medicine] - 03/19/19 9:30 am Joseph Guevara MD [Primary Care Provider] - 03/05/19 3:30 pm Patient Instructions/Handouts: Prednisone (By mouth), Cefdinir (By mouth), COPD (Chronic Obstructive Pulmonary Disease) (DC), Shortness of Breath (DC) Activity/Diet/Wound Care/Special Instructions: . Discharge Disposition: HOME WITH HOME HEALTH SERVICES
== END 2019-03-02 12:30 | disposition home health service (06) | DRG 191 ==
LOC: EC 14:13 → 3NMEDONC 18:41 → OBSVTOIN 02-20 14:02
PROVIDERS: ADMIT Hospitalist; ATTEND Hospitalist
PROC: 0B9F8ZX Drainage of Right Lower Lung Lobe, Via Natural or Artificial Opening Endoscopic, Diagnostic (ICD-10-PCS; principal; 2019-02-25 07:30)
DX: J44.0 Chronic obstructive pulmonary disease with (acute) lower respiratory infection (principal); G61.0 Guillain-Barre syndrome; J98.11 Atelectasis; J20.8 Acute bronchitis due to other specified organisms; F17.210 Nicotine dependence, cigarettes, uncomplicated; J44.1 Chronic obstructive pulmonary disease with (acute) exacerbation; B95.61 Methicillin susceptible Staphylococcus aureus infection as the cause of diseases classified elsewhere; E78.5 Hyperlipidemia, unspecified; Z71.6 Tobacco abuse counseling; G25.81 Restless legs syndrome; G40.909 Epilepsy, unspecified, not intractable, without status epilepticus; G47.33 Obstructive sleep apnea (adult) (pediatric); G83.10 Monoplegia of lower limb affecting unspecified side; T88.1XXS Other complications following immunization, not elsewhere classified, sequela; G89.29 Other chronic pain; I10 Essential (primary) hypertension; I25.10 Atherosclerotic heart disease of native coronary artery without angina pectoris; I25.2 Old myocardial infarction; Z87.01 Personal history of pneumonia (recurrent); J98.09 Other diseases of bronchus, not elsewhere classified; M19.90 Unspecified osteoarthritis, unspecified site; S29.011A Strain of muscle and tendon of front wall of thorax, initial encounter; T17.990A Other foreign object in respiratory tract, part unspecified in causing asphyxiation, initial encounter; Z79.82 Long term (current) use of aspirin; Z79.899 Other long term (current) drug therapy; Z80.0 Family history of malignant neoplasm of digestive organs; Z82.49 Family history of ischemic heart disease and other diseases of the circulatory system; Z83.3 Family history of diabetes mellitus; Z95.5 Presence of coronary angioplasty implant and graft; Z79.52 Long term (current) use of systemic steroids
CPT/HCPCS: 31624; 36415; 71046; 80048; 80053; 83036; 84484; 85025; 85610; 85730; 87070; 87077; 87102; 87186; 87205; 87252; 87496; 87498; 87502; 87529; 87634; 87798; 88108; 88305; 89050; 93005; 94640; 94760; 96360; 96361; 99291

== ENCOUNTER 2019-06-03 02:53 | Inpatient (IN) | payer MEDICARE, OTHER ==
[2019-06-03 03:33] LABS: Basophils # (A) 0.1 k/uL (0-0.2); Basophils % (A) 1 %; Eosinophils # (A) 0.2 k/uL (0-0.7); Eosinophils % (A) 1 %; HGB 14.9 gm/dL (13.0-17.5); Lymphocytes # (A) 3.1 k/uL (1.0-4.8); Lymphocytes % (A) 21 %; MCH 31.8 pg (25.0-35.0); MCHC 33.8 g/dL (31.0-37.0); MCV 94.3 fL (80.0-100.0); Mean Platelet Volume 6.6; Monocytes # (A) 0.8 k/uL (0-1.0); Monocytes % (A) 6 %; Neutrophils # (A) 9.9 k/uL (1.3-7.7); Neutrophils % (A) 69 %; Platelet Count 188 k/uL (150-450); RBC 4.67 m/uL (4.30-5.90); RDW 13.5 % (11.5-15.5); WBC 14.4 k/uL (3.8-10.6)
[2019-06-03] MEDS ORDERED: IPRATROPIUM-ALBUTEROL 3 ML NEB INHALATION STA (03:33)
[2019-06-03] MEDS ORDERED: SODIUM CHLORIDE 0.9% 500 ML 500 ML IV STA (03:33)
[2019-06-03 03:42] LABS: INR 0.9 (<1.2); Partial Thromboplastin Time 22.3 sec (22.0-30.0); Prothrombin Time 9.7 sec (9.0-12.0)
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
--- NOTE | 2019-06-03 03:45 | XR ---
EXAMINATION TYPE: XR chest 2V DATE OF EXAM: 06/03/2019 COMPARISON: 02/28/2019 HISTORY: Chest pain TECHNIQUE: Frontal and lateral views of the chest are obtained. FINDINGS: Heart and mediastinum are normal. Lungs are clear. Diaphragm is normal. Bony thorax is nor mal. There are chest leads. IMPRESSION: Normal chest.
[2019-06-03 03:48] LABS: Albumin 4.1 g/dL (3.5-5.0); Calcium 8.8 mg/dL (8.4-10.2); Magnesium 2.2 mg/dL (1.6-2.3); Potassium 4.2 mmol/L (3.5-5.1); Total Bilirubin 0.5 mg/dL (0.2-1.3); Total Protein 6.7 g/dL (6.3-8.2)
[2019-06-03] MEDS ORDERED: predniSONE 20 MG TAB PO STA (04:13)
[2019-06-03] MEDS ORDERED: NITROGLYCERIN SL TABS 0.4 MG TAB SUBLINGUAL PRN ×2 (05:35→05:36)
[2019-06-03] MEDS: SODIUM CHLORIDE 0.9% 1,000 ML IV SCH ×2 (06:18→15:28)
[2019-06-03] MEDS ORDERED: HEPARIN SODIUM,PORCINE 5,000 UNIT/ML 1 ML VIAL IV PRN (07:58)
[2019-06-03] MEDS ORDERED: HEPARIN SODIUM,PORCINE 5,000 UNIT/ML 1 ML VIAL IV ONE (07:58)
[2019-06-03] MEDS ORDERED: NITROGLYCERIN OINT 1 INCH/GM PACKET TOPICAL STA (08:00)
[2019-06-03] MEDS ORDERED: HEPARIN SOD,PORK IN 0.45% NACL 25,000 UNIT in 0.45% NACL 1 250ML.BAG IV SCH (08:00)
[2019-06-03] MEDS ORDERED: SYMBICORT 160-4.5 MCG INHALER INHALATION SCH (08:00)
[2019-06-03] MEDS: IPRATROPIUM-ALBUTEROL 3 ML NEB INHALATION SCH ×4 (08:16→19:35)
[2019-06-03] MEDS: ALBUTEROL NEBULIZED 2.5 MG/3 ML INHALATION SCH ×3 (08:17→15:15)
[2019-06-03] MEDS: IPRATROPIUM 0.5 MG/2.5 ML NEBU INHALATION SCH ×3 (08:18→15:15)
[2019-06-03 08:52] LABS: Basophils % (A) 0 %; Eosinophils # (A) 0.1 k/uL (0-0.7); Eosinophils % (A) 1 %; HCT 45.9 % (39.0-53.0); HGB 14.6 gm/dL (13.0-17.5); Lymphocytes # (A) 0.5 k/uL (1.0-4.8); Lymphocytes % (A) 4 %; MCH 30.3 pg (25.0-35.0); MCHC 31.8 g/dL (31.0-37.0); MCV 95.3 fL (80.0-100.0); Mean Platelet Volume 6.6; Monocytes # (A) 0.2 k/uL (0-1.0); Monocytes % (A) 2 %; Neutrophils # (A) 10.9 k/uL (1.3-7.7); Neutrophils % (A) 92 %; Platelet Count 172 k/uL (150-450); RBC 4.82 m/uL (4.30-5.90); RDW 13.5 % (11.5-15.5); WBC 11.8 k/uL (3.8-10.6)
[2019-06-03 09:15] LABS: Prothrombin Time 10.3 sec (9.0-12.0)
[2019-06-03 09:29] LABS: Partial Thromboplastin Time 135.5 sec (22.0-30.0)
[2019-06-03] MEDS: TAMSULOSIN 0.4 MG CAP.ER.24H PO SCH (09:50)
[2019-06-03] MEDS: METOPROLOL TARTRATE 25 MG TAB PO SCH ×2 (09:50→21:11)
[2019-06-03] MEDS: PANTOPRAZOLE 40 MG TABLET PO SCH ×2 (09:50→21:10)
[2019-06-03] MEDS: LISINOPRIL 20 MG TAB PO SCH (09:50)
[2019-06-03] MEDS: METHOCARBAMOL 750 MG TAB PO SCH ×3 (09:50→21:10)
[2019-06-03] MEDS: THEOPHYLLINE 24 HOUR 300 MG CAP.ER.24H PO SCH (09:51)
--- NOTE | 2019-06-03 09:58 | P.CRDCN ---
History of Present Illness History of present illness: This is a pleasant 54 showed male past medical history significant for coronary artery disease status post stent placement, COPD, hypertension, dyslipidemia, daily and fragoso and chronic nicotine dependence. He follows in the office with Dr. Garber. We have asked him in consultation secondary to chest discomfort. He states he woke up acutely around 1:00 last evening significantly short of breath. He states he was struggling to breathe for quite a while and then started having a heavy pressure sensation in the chest. He felt like a ton of bricks was sitting on his chest and pressing. His chest discomfort was exacerbated by breathing and struggling to breathe. The pressure in his chest radiating into the base of his left neck, left shoulder and down his left arm. He took 2 sublingual nitroglycerin and achieved no relief. At that time he woke up his . Per the he was extremely diaphoretic and started turning blue. EMS was called. Upon EMS arrival oxygen was applied and the patient states after couple of minutes of receiving oxygen his symptoms slowly started to subside. He is seen and examined sitting up in bed in no acute distress. He has no further chest discomfort and his breathing has stabilized. Per EMS documentation that was reviewed upon arrival his blood pressure was 80/50, EKG was sinus with no ST depression or elevation. He initially underwent stent placement to the RCA in 2007, then again in 2016 he had in-stent restenosis and underwent repeat angioplasty. 2018 in the setting of unstable angina he underwent repeat cardiac catheterization revealing patent stents to the RCA, left main free of stenosis, LAD and circumflex free of significant stenosis, OM with a 50-60% proximal stenosis. At that time he underwent FFR which was unremarkable. EKG reveals sinus mechanism heart rate of [address] or T wave abnormalities noted. Chest x-ray reveals no acute cardiopulmonary process. Laboratory data reviewed, WBC on admission 14.4 repeat this morning 11.8, hemoglobin 14.6, platelets 172, sodium 138, potassium 4.2, creatinine 1.27, magnesium 2.2, cardiac enzymes negative 2, proBNP 42. Current daily cardiac medications include lisinopril 20 mg daily, Lopressor 25 mg twice a day, simvastatin 40 mg daily. Most recent echocardiogram obtained in the office in 2018 reveals preserved LV systolic function with ejection fraction 55-60%. At the time of my exam: CONSTITUTIONAL: Denies fever. Denies chills. EYES: Denies blurred vision. Denies vision changes. Denies eye pain. EARS, NOSE, MOUTH & THROAT: Denies headache. Denies sore throat. Denies ear pain. CARDIOVASCULAR: Denies chest pain. Complains of ongoing shortness of breath. Denies orthopnea. Denies PND. Denies palpitations. RESPIRATORY: Complains of chronic cough. GASTROINTESTINAL: Denies abdominal pain. Denies diarrhea. Denies constipation. Denies nausea. Denies vomiting. MUSCULOSKELETAL: Denies myalgias. INTEGUMENTARY: Denies pruitis. Denies rash. NEUROLOGIC: Denies numbness. Denies tingling. Denies weakness. PSYCHIATRIC: Denies anxiety. Denies depression. ENDOCRINE: Denies fatigue. Denies weight change. Denies polydipsia. Denies polyurina. GENITOURINARY: Denies burning, hematuria or urgency with micturation. HEMATOLOGIC: Denies history of anemia. Denies bleeding. Blood pressure 100/60 heart rate 68 afebrile maintaining oxygen saturation on nasal cannula GENERAL: This is a 54-year-old occasion male in no apparent distress at the time of my examination. HEENT: Head is atraumatic, normocephalic. Pupils are equal, round. Sclerae anicteric. Conjunctivae are clear. Mucous membranes of the mouth are moist. Neck is supple. There is no jugular venous distention. No carotid bruit is heard. LUNGS: Significantly diminished at the bilateral bases with expiratory wheezes noted throughout, no rales or rhonchi. No chest wall tenderness is noted on palpation or with deep breathing. HEART: Regular rate and rhythm with systolic ejection murmur at the left sternal border, no rubs or gallops. S1 and S2 heard. ABDOMEN: Soft, nontender. Bowel sounds are heard. No organomegaly noted. EXTREMITIES: No evidence of peripheral edema and no calf tenderness noted. VASCULAR: Radial and dorsalis pedis pulses palpated, no evidence of clubbing. NEUROLOGIC: Patient is awake, alert and oriented x3. ASSESSMENT Chest pain associated with significant shortness of breath improved with oxygen. First 2 troponins are normal. Symptoms likely related to underlying COPD. History of coronary artery disease status post stent placement COPD Leukocytosis Hypertension Dyslipidemia Chronic nicotine dependence PLAN Continue to obtain serial enzymes to rule out an acute coronary event. After the third troponin heparin infusion may be discontinued if normal. Likely the symptoms are related to an acute exacerbation of COPD however he does have significant underlying coronary artery disease. Repeat 2-D echocardiogram and Doppler study to assess cardiac structure and function. Resume simvastatin, Lopressor, aspirin and lisinopril as previously ordered. Strongly recommend smoking cessation. Recommend pulmonary evaluation. Further recommendations to follow based upon clinical course. Thank you kindly for this consultation. Nurse Practitioner note has been reviewed, I agree with a documented findings and plan of care. Patient was seen and examined. Past Medical History Past Medical History: Asthma, Coronary Artery Disease (CAD), COPD, Hyperlipidemia, Hypertension, Myocardial Infarction ([place]), Neurologic Disorder, Osteoarthritis (OA), Pneumonia Additional Past Medical History / Comment(s): Recent injection (approximately 2 weeks ago) at Dr. 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 Last Myocardial Infarction Date:: 03/24/2016 History of Any Multi-Drug Resistant Organisms: None Reported Past Surgical History: Appendectomy, Cholecystectomy, Heart Catheterization, Heart Catheterization With Stent, Hernia Repair Additional Past Surgical History / Comment(s): Bronchoscopy with BAL, PCI with stents (2) in 2010 and 2015, R inguinal hernia repair, surgery to repair tip of R index finger, colonoscopy. Past Anesthesia/Blood Transfusion Reactions: No Reported Reaction Date of Last Stent Placement:: 03/24/16 Smoking Status: Current every day smoker - Past Family History Mother Family Medical History: Cancer, Coronary Artery Disease (CAD), Diabetes Mellitus Additional Family Medical History / Comment(s): Mother at the age of 73 yrs from colon cancer. Brother(s) Family Medical History: Cancer Additional Family Medical History / Comment(s): AT AGE 52 ESOPHGEAL CANCER Father History Unknown: Yes Family Medical History: Cancer, Myocardial Infarction ([place]) Additional Family Medical History / Comment(s): Pt states he doesn't keep in touch with his father and doesn't know his health hx. Medications and Allergies Home Medications Medication Instructions Recorded Confirmed Type RABEprazole SODIUM [Aciphex] 20 mg PO BID 04/05/14 06/03/19 History oxyCODONE HCL [oxyCODONE HCL (IR)] 20 mg PO QID PRN 03/24/16 06/03/19 History rOPINIRole HCL [Requip] 1 mg PO HS 03/24/16 06/03/19 History Metoprolol Tartrate [Lopressor] 25 mg PO BID #60 tab 03/26/16 06/03/19 Rx Nitroglycerin Sl Tabs [Nitrostat] 0.4 mg SUBLINGUAL Q5M PRN #25 tab 03/26/16 06/03/19 Rx Lisinopril [Zestril] 20 mg PO DAILY 10/23/16 06/03/19 History Simvastatin [Zocor] 40 mg PO HS 06/26/17 06/03/19 History Albuterol Inhaler [Ventolin Hfa 2 puff INHALATION RT-Q4H PRN 02/19/19 06/03/19 History Inhaler] Methocarbamol [Robaxin] 750 mg PO TID 02/19/19 06/03/19 History Theophylline Anhydrous [Theochron] 300 mg PO DAILY 02/19/19 06/03/19 History Tiotropium [place] [Spiriva 2 puff INHALATION RT-DAILY 02/19/19 06/03/19 History Respimat] predniSONE 10 mg PO DAILY 02/19/19 06/03/19 History Allergies Allergy/AdvReac Type Severity Reaction Status Date / Time iodine Allergy Anaphylaxis Verified 06/03/19 07:27 shellfish derived [Shellfish] Allergy Swelling Verified 06/03/19 07:27 Physical Exam Vitals: Vital Signs Temp Pulse Pulse Resp BP BP Pulse Ox 06/03/19 08:31 94 06/03/19 08:20 97.5 F L 68 20 100/60 99 06/03/19 08:19 92 06/03/19 06:14 98 F 85 18 118/63 98 06/03/19 04:12 93 20 99/57 97 06/03/19 04:07 88 06/03/19 03:50 88 06/03/19 03:31 87 20 90/74 95 06/03/19 03:10 24 06/03/19 02:59 98.2 F 93 19 97/67 Intake and Output 06/02/19 06/03/19 06/03/19 22:59 06:59 14:59 Other: Weight 73.936 kg Results 06/03/19 08:21 06/03/19 03:00 Cardiac Enzymes 06/03/19 06/03/19 06/03/19 Range/Units 03:00 03:00 08:21 AST 27 (17-59) U/L Troponin I <0.012 <0.012 (0.000-0.034) ng/mL Coagulation 06/03/19 06/03/19 Range/Units 03:00 08:21 PT 9.7 10.3 (9.0-12.0) sec APTT 22.3 135.5 H* (22.0-30.0) sec CBC 06/03/19 06/03/19 Range/Units 03:00 08:21 WBC 14.4 H 11.8 H (3.8-10.6) k/uL RBC 4.67 4.82 (4.30-5.90) m/uL Hgb 14.9 14.6 (13.0-17.5) gm/dL Hct 44.0 45.9 (39.0-53.0) % Plt Count 188 172 (150-450) k/uL Comprehensive Metabolic Panel 06/03/19 Range/Units 03:00 Sodium 138 (137-145) mmol/L Potassium 4.2 (3.5-5.1) mmol/L Chloride 98 (98-107) mmol/L Carbon Dioxide 32 H (22-30) mmol/L BUN 28 H (9-20) mg/dL Creatinine 1.27 H (0.66-1.25) mg/dL Glucose 180 H (74-99) mg/dL Calcium 8.8 (8.4-10.2) mg/dL AST 27 (17-59) U/L ALT 38 (21-72) U/L Alkaline Phosphatase 84 (38-126) U/L Total Protein 6.7 (6.3-8.2) g/dL Albumin 4.1 (3.5-5.0) g/dL Current Medications Generic Name Dose Route Start Last Admin Trade Name Freq PRN Reason Stop Dose Admin Albuterol Sulfate 2.5 mg 06/03/19 08:00 06/03/19 08:17 Ventolin Nebulized INHALATION Not Given RT-Q4H ROBIN Albuterol/Ipratropium 3 ml 06/03/19 08:00 06/03/19 08:16 Duoneb 0.5 Mg-3 Mg/3 Ml Soln INHALATION 3 ml RT-QID ROBIN Administration Aspirin 81 mg 06/04/19 09:00 Aspirin PO DAILY [facility] Atorvastatin Calcium 20 mg 06/03/19 21:00 Lipitor PO HS [facility] Budesonide/Formoterol Fumarate 2 puff 06/03/19 08:00 06/03/19 08:16 Symbicort 160-4.5 Mcg Inhaler INHALATION 2 puff RT-BID ROBIN Administration Heparin Sodium (Porcine) 0 unit 06/03/19 07:58 Heparin IV PER PROTOCOL PRN Low PTT Protocol Sodium Chloride 1,000 mls @ 20 mls/hr 06/03/19 05:45 06/03/19 06:18 Saline 0.9% IV 20 mls/hr .Q24H ROBIN Administration Heparin Sodium/Sodium Chloride 250 mls @ 8.872 mls/hr 06/03/19 08:00 06/03/19 08:10 25,000 unit/ Sodium Chloride IV 12 units/kg/hr .Q24H ROBIN 8.872 mls/hr Administration Protocol 12 UNITS/KG/HR Ipratropium [place] 0.5 mg 06/03/19 08:00 06/03/19 08:18 Atrovent Nebulized INHALATION Not Given RT-QID [facility] Lisinopril 20 mg 06/03/19 09:00 Zestril PO DAILY [facility] Methocarbamol 750 mg 06/03/19 09:00 Robaxin PO TID [facility] Metoprolol Tartrate 25 mg 06/03/19 09:00 Lopressor PO BID [facility] Nitroglycerin 0.4 mg 06/03/19 05:35 Nitrostat SUBLINGUAL Q5M PRN Chest Pain Nitroglycerin 0.4 mg 06/03/19 05:36 Nitrostat SUBLINGUAL Q5M PRN Chest Pain Oxycodone HCl 20 mg 06/03/19 09:00 Oxyir PO QID PRN Pain Pantoprazole Sodium 40 mg 06/03/19 09:00 Protonix PO BID [facility] Ropinirole HCl 1 mg 06/03/19 21:00 Requip PO HS [facility] Tamsulosin HCl 0.4 mg 06/03/19 09:00 Flomax PO DAILY [facility] Theophylline 300 mg 06/03/19 09:00 Keshav-24 PO DAILY ROBIN Intake and Output 06/02/19 06/03/19 06/03/19 22:59 06:59 14:59 Other: Weight 73.936 kg 06/03/19 08:21 06/03/19 03:00
[2019-06-03 11:08] LABS: Cholesterol 220 mg/dL (<200); HDL Cholesterol 56 mg/dL (40-60); Triglycerides 446 mg/dL (<150)
[2019-06-03] MEDS ORDERED: NITROGLYCERIN OINT 1 INCH/GM PACKET TOPICAL SCH (12:00)
--- NOTE | 2019-06-03 12:00 | ECHOF ---
Referral Reason: MEASUREMENTS -------- HEIGHT: 170.2 cm WEIGHT: 73.9 kg BP: IVSd: 1.2 cm (0.6 - 1.1) LVIDd: 4.1 cm (3.9 - 5.3) LVPWd: 1.0 cm (0.6 - 1.1) IVSs: 1.3 cm LVIDs: 2.6 cm LVPWs: 1.2 cm LA Diam: 3.3 cm (2.7 - 3.8) LAESV Index (A-L): 13.97 ml/m Ao Diam: 2.5 cm (2.0 - 3.7) LA Diam: 3.7 cm (2.7 - 3.8) MV E Stanley: 0.74 m/s MV DecT: 193 ms MV A Stanley: 0.92 m/s MV E/A Ratio: 0.81 RAP: 5.00 mmHg RVSP: 16.18 mmHg TAPSE: 2.34 cm FINDINGS -------- Sinus rhythm. This was a technically adequate study. The left ventricular size is normal. There is mild concentric left ventricular hypertrophy. Overa ll left ventricular systolic function is normal with, an EF between 55 - 60 %. The diastolic fillin g pattern is normal for the age of the patient 9.65. The right ventricle is normal in size. Normal LA size by volume 22+/-6 ml/m2. The right atrial size is normal. The aortic valve is trileaflet, and appears structurally normal. No aortic stenosis or regurgitation. The mitral valve is normal. Mild mitral regurgitation is present. Mild tricuspid regurgitation present. There is no evidence of pulmonary hypertension. The right v entricular systolic pressure, as measured by Doppler, is 16.18mmHg. The pulmonic valve was not well visualized. There is no pulmonic regurgitation present. The aortic root size is normal. There is no pericardial effusion. CONCLUSIONS -------- 1. Sinus rhythm. 2. This was a technically adequate study. 3. The left ventricular size is normal. 4. There is mild concentric left ventricular hypertrophy. 5. Overall left ventricular systolic function is normal with, an EF between 55 - 60 %. 6. The diastolic filling pattern is normal for the age of the patient 9.65 7. Normal LA size by volume 22+/-6 ml/m2. 8. The aortic valve is trileaflet, and appears structurally normal. No aortic stenosis or regurgitati on. 9. Mild mitral regurgitation is present. 10. Mild tricuspid regurgitation present. 11. There is no evidence of pulmonary hypertension. 12. The pulmonic valve was not well visualized. 13. There is no pulmonic regurgitation present. 14. The aortic root size is normal. 15. There is no pericardial effusion. METALS ANALYST: Lili Hurd RDCS
[2019-06-03] MEDS ORDERED: traMADol 50 MG TAB PO PRN (15:03)
[2019-06-03] MEDS ORDERED: guaiFENesin SYRUP 100MG/5ML 200 MG/10 ML CUP PO PRN (15:05)
--- NOTE | 2019-06-03 15:06 | P.HPIM ---
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 He presents because of dyspnea which waking from sleep, possibly had some central chest pain radiating to the left arm about 8/10 in severity coming down to 3/10 in severity, felt like somebody sitting on his chest, associated with sweating. He was not eating and drinking for the last couple days he barely eats anything, and he drinks 3-4 pops of regular coke each day. He has cough with green phlegm Vitals are stable and she is saturating 95% on 2 L oxygen per nasal cannula. On admission his blood pressure was in the low-normal sign at 97/67, currently 118/63. He has mild leukocytosis of 14.4 K and 11.8 K,, baseline 0.9-1.1, serial troponins are negative, the triglycerides at 446 and cholesterol 220. Echocardiogram: Ejection fraction 55-60%, chest x-ray: No acute process in the emergency room patient received 500 L of normal saline bolus, prednisone 60 mg, he was started on heparin drip and nitroglycerin, Review of Systems CONSTITUTIONAL: No fever, no malaise, no fatigue. HEENT: No recent visual problems or hearing problems. Denied any sore throat. CARDIOVASCULAR: No orthopnea, PND, no palpitations, no syncope. PULMONARY: No shortness of breath, no cough, no hemoptysis. GASTROINTESTINAL: No diarrhea, no nausea, no vomiting, no abdominal pain. Normoactive bowel sounds. NEUROLOGICAL: No headaches, no weakness, no numbness. HEMATOLOGICAL: Denies any bleeding or petechiae. GENITOURINARY: Denies any burning micturition, frequency, or urgency. MUSCULOSKELETAL/RHEUMATOLOGICAL: Denies any joint pain, swelling, or any muscle pain. ENDOCRINE: Denies any polyuria or polydipsia. Past Medical History Past Medical History: Asthma, Coronary Artery Disease (CAD), COPD, Hyperlipidemia, Hypertension, Myocardial Infarction ([place]), Neurologic Disorder, Osteoarthritis (OA), Pneumonia Additional Past Medical History / Comment(s): GUILLAIN BARRE' SYNDROME AFTER FLU VACCINE IN 2010, RLS, chronic bilateral leg pain and weakness, restless leg, possible seizure once 2014? OCCASIONAL USE OF CANE OR WALKER Last Myocardial Infarction Date:: 03/24/2016 History of Any Multi-Drug Resistant Organisms: None Reported Past Surgical History: Appendectomy, Cholecystectomy, Heart Catheterization With Stent, Hernia Repair Additional Past Surgical History / Comment(s): SX TO REPAIR TIP OF INDEX FINGER RT HAND. 03/24/16 2 stent placed to RCA, colonoscopy. Past Anesthesia/Blood Transfusion Reactions: No Reported Reaction Date of Last Stent Placement:: 03/24/16 Past Psychological History: No Psychological Hx Reported Smoking Status: Former smoker Past Alcohol Use History: Occasional Past Drug Use History: None Reported - Past Family History Mother Family Medical History: Cancer, Diabetes Mellitus Additional Family Medical History / Comment(s): COLON CANCER,HEART PROBLEMS. Mother at the age of 73 yrs. Brother(s) Family Medical History: Cancer Additional Family Medical History / Comment(s): AT AGE 52 ESOPHGEAL CANCER Father History Unknown: Yes Family Medical History: Cancer, Myocardial Infarction ([place]) Additional Family Medical History / Comment(s): Pt states he doesn't keep in touch with his father and doesn't know his health hx. Medications and Allergies Home Medications Medication Instructions Recorded Confirmed Type RABEprazole SODIUM [Aciphex] 20 mg PO BID 04/05/14 06/03/19 History oxyCODONE HCL [oxyCODONE HCL (IR)] 20 mg PO QID PRN 03/24/16 06/03/19 History rOPINIRole HCL [Requip] 1 mg PO HS 03/24/16 06/03/19 History Metoprolol Tartrate [Lopressor] 25 mg PO BID #60 tab 03/26/16 06/03/19 Rx Nitroglycerin Sl Tabs [Nitrostat] 0.4 mg SUBLINGUAL Q5M PRN #25 tab 03/26/16 06/03/19 Rx Lisinopril [Zestril] 20 mg PO DAILY 10/23/16 06/03/19 History Simvastatin [Zocor] 40 mg PO HS 06/26/17 06/03/19 History Albuterol Inhaler [Ventolin Hfa 2 puff INHALATION RT-Q4H PRN 02/19/19 06/03/19 History Inhaler] Methocarbamol [Robaxin] 750 mg PO TID 02/19/19 06/03/19 History Theophylline Anhydrous [Theochron] 300 mg PO DAILY 02/19/19 06/03/19 History Tiotropium [place] [Spiriva 2 puff INHALATION RT-DAILY 02/19/19 06/03/19 History Respimat] predniSONE 10 mg PO DAILY 02/19/19 06/03/19 History Allergies Allergy/AdvReac Type Severity Reaction Status Date / Time iodine Allergy Anaphylaxis Verified 06/03/19 07:27 shellfish derived [Shellfish] Allergy Swelling Verified 06/03/19 07:27 Physical Exam Vitals: Vital Signs Temp Pulse Pulse Resp BP BP Pulse Ox 06/03/19 11:54 98.1 F 73 18 102/66 95 06/03/19 11:13 88 06/03/19 11:04 82 06/03/19 08:31 94 06/03/19 08:20 97.5 F L 68 20 100/60 99 06/03/19 08:19 92 06/03/19 06:14 98 F 85 18 118/63 98 06/03/19 04:12 93 20 99/57 97 06/03/19 04:07 88 06/03/19 03:50 88 06/03/19 03:31 87 20 90/74 95 06/03/19 03:10 24 06/03/19 02:59 98.2 F 93 19 97/67 Intake and Output 06/02/19 06/03/19 06/03/19 22:59 06:59 14:59 Intake Total 114.047 Balance 114.047 Intake: Intake, IV Titration 14.047 Amount Heparin Sod,Pork in 0.45% 14.047 NaCl 25,000 unit In 0.45 % NaCl 1 250ml.bag @ 12 UNITS/KG/HR 8.872 mls/hr IV .Q24H [facility] Rx#: [id number] Other 100 Other: Weight 73.936 kg GENERAL: The patient is alert and oriented x3, not in any acute distress. Well developed, well nourished. HEENT: Pupils are round and equally reacting to light. EOMI. No scleral icterus. No conjunctival pallor. Normocephalic, atraumatic. No pharyngeal erythema. No thyromegaly. CARDIOVASCULAR: S1 and S2 present. No murmurs, rubs, or gallops. -PULMONARY: Chest is clear to auscultation, no wheezing or crackles. Heart ysabel ath sounds on both sides with coarse crepitation of from secretions ABDOMEN: Soft, nontender, nondistended, normoactive bowel sounds. No palpable organomegaly. MUSCULOSKELETAL: No joint swelling or deformity. EXTREMITIES: No cyanosis, clubbing, or pedal edema. NEUROLOGICAL: Gross neurological examination did not reveal any focal deficits. SKIN: No rashes. No petechiae Results CBC & Chem 7: 06/03/19 08:21 06/03/19 03:00 Labs: Abnormal Lab Results - Last 24 Hours (Table) 06/03/19 06/03/19 06/03/19 Range/Units 03:00 03:00 03:00 WBC 14.4 H (3.8-10.6) k/uL Neutrophils # 9.9 H (1.3-7.7) k/uL Lymphocytes # (1.0-4.8) k/uL APTT (22.0-30.0) sec Carbon Dioxide 32 H (22-30) mmol/L BUN 28 H (9-20) mg/dL Creatinine 1.27 H (0.66-1.25) mg/dL Glucose 180 H (74-99) mg/dL Triglycerides 446 H (<150) mg/dL Cholesterol 220 H (<200) mg/dL 06/03/19 06/03/19 Range/Units 08:21 08:21 WBC 11.8 H (3.8-10.6) k/uL Neutrophils # 10.9 H (1.3-7.7) k/uL Lymphocytes # 0.5 L (1.0-4.8) k/uL APTT 135.5 H* (22.0-30.0) sec Carbon Dioxide (22-30) mmol/L BUN (9-20) mg/dL Creatinine (0.66-1.25) mg/dL Glucose (74-99) mg/dL Triglycerides (<150) mg/dL Cholesterol (<200) mg/dL Thrombosis Risk Factor Assmnt - Choose All That Apply Any of the Below Risk Factors Present?: Yes Each Factor Represents 1 point: Abnormal pulmonary function (COPD), Age 41-60 years Other Risk Factors: No Other congenital or acquired thrombophilia - If yes, enter type in comment: No Thrombosis Risk Factor Assessment Total Risk Factor Score: 2 Thrombosis Risk Factor Assessment Level: Low Risk Assessment and Plan Assessment: Acute tracheobronchitis Chest pain mostly related to his bronchitis however rule out cardiac causes Dehydration Nicotine dependence History of coronary artery disease status post stent placement history of asthma/COPD Hyperlipidemia GERD Hypertension History 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 Continue with oral prednisone, start antibiotics, breathing treatment, incentive spirometry, of medicine, pain management, follow-up cardiology recommendation and call his filler operator Dr. Amaya for further evaluation. Continue with hydration. Check influenza. Nicotine patch patient is counseled about quitting smoking he agrees Labs and medication were reviewed.. Continue same treatment. Continue with symptomatic treatment. Resume home medication. Monitor lytes and vitals. DVT and GI prophylaxis. Further recommendations of the clinical course of the patient DVT prophylaxis: heparin GI ProphylaxisOn Protonix for GERD PT/OT: Pending Prognosis is guarded
[2019-06-03] MEDS ORDERED: predniSONE 20 MG TAB PO SCH (15:15)
[2019-06-03] MEDS: NICOTINE 21MG/24HR PATCH TRANSDERM SCH (15:28)
[2019-06-03] MEDS: LEVOFLOXACIN 500MG-D5W PMX 500 MG in DEXTROSE/WATER 1 100ML.BAG IVPB SCH (16:45)
[2019-06-03] MEDS: methylPREDNISolone SOD SUCCI 125 MG/2 ML VIAL IV SCH (17:04)
[2019-06-03] MEDS: BUDESONIDE 0.5 MG/2 ML NEBU INHALATION SCH (19:35)
[2019-06-03] MEDS ORDERED: ATORVASTATIN 20 MG TAB PO SCH (21:00)
[2019-06-03] MEDS: HEPARIN SODIUM,PORCINE 5,000 UNIT/ML 1 ML VIAL SQ SCH (21:10)
[2019-06-03] MEDS: FAMOTIDINE 20 MG/2 ML VIAL IV SCH (21:10)
--- NOTE | 2019-06-03 23:08 | CONS ---
CONSULTATION DATE OF SERVICE: 06/03/2019 HISTORY OF PRESENT ILLNESS: Patient is a 54-year-old male with a history of COPD and asthma who has been following in our office and recently started on anti-IgE treatment. Patient states last night he woke up and could not get a breath in or get a breath out. Patient did have an EpiPen which he had been prescribed after he started the new medication and thought that may be what was happening, and he took the epinephrine as well as a respiratory treatment but did not improve. His called EMS. EMS arrived; according to the patient's , the patient then was unresponsive and turning blue. Blood pressure when EMS arrived was 80 systolic. Patient was brought to the emergency room at [facility] and admitted into Observation to rule out any coronary syndrome, as patient does have quite a significant cardiac history as well. PAST MEDICAL HISTORY: Past medical history is significant for: 1. Asthma. 2. Coronary artery disease. 3. COPD. 4. Hyperlipidemia. 5. Hypertension. 6. VT. 7. Guillain-Frenchburg syndrome after a vaccine in 2010. 8. Osteoarthritis. 9. Pneumonia. 10.Restless legs syndrome. 11.Chronic lower extremity leg pain with bilateral neuropathy and weakness. 12.Possible history of seizures. PAST SURGICAL HISTORY: Past surgical history includes: 1. Appendectomy. 2. Cholecystectomy. 3. Cardiac cath with stent. 4. Hernia repair. 5. Repair of tip of index finger on the right hand. 6. Patient has had a colonoscopy. ALLERGIES: ALLERGIES include IODINE AND SHELLFISH. MEDICATIONS: Medications the patient is on at home include: 1. Nitrostat 0.4 mg sublingually q.5 minutes p.r.n. 2. Ventolin inhaler 2 puffs q.4 hours p.r.n. 3. Requip 1 mg p.o. at bedtime. 4. Prednisone 10 mg p.o. daily. 5. Spiriva 2 puffs daily. 6. Theophylline 300 mg p.o. daily. 7. Zocor 40 mg p.o. at bedtime. 8. AcipHex 20 mg p.o. b.i.d. 9. Oxycodone 20 mg p.o. q.i.d. p.r.n. 10.Lopressor 25 mg p.o. b.i.d. 11.Robaxin 750 mg p.o. t.i.d. 12.Zestril 20 mg p.o. daily. FAMILY HISTORY: Mother with a history of cancer and diabetes mellitus of colon cancer and heart problems at the age of 73. Father with a history of cancer and VT. He does not know any further history on his father. SOCIAL HISTORY: The patient does smoke cigarettes daily. Drinks alcohol only on occasion. Denies any illicit drug use. REVIEW OF SYSTEMS: GENERAL: Negative for any fever or chills. Patient does complain of generalized weakness. HEENT: Negative for any headache or dizziness. Denies any acute visual problems. Denies any difficulty hearing. Denies any sore throat or difficulty swallowing. RESPIRATORY: Positive for worsening shortness of breath. History of asthma and COPD. CARDIOVASCULAR: Significant for the chest pressure last night when he had the event where he could not get his breath. Denies chest pain at this time. GI: Denies abdominal pain, nausea, vomiting, diarrhea or constipation. : Negative for any hematuria or dysuria. ENDOCRINE: Negative for diabetes mellitus or thyroid disease. NEUROLOGIC: Positive for bilateral lower extremity neuropathy. MUSCULOSKELETAL: History of osteoarthritis. PSYCHIATRIC: Anxiety appears to be an issue with possible depression. PHYSICAL EXAMINATION: GENERAL: This is a pleasant 54-year-old male who is awake, alert, calm and cooperative; does get teary-eyed at times. VITAL SIGNS: Temperature 97.8, heart rate 88, respiratory rate 18, blood pressure 98/67, oxygen saturation 94% on room air. HEENT: Head is normocephalic, atraumatic. Pupils equal, round, react to light. Ears and nose: No discharge is noted. Mouth: Moist mucous membranes. Mallampati is class IV. NECK: Neck is short, thick, supple. Trachea is midline. LUNGS: Decreased breath sounds and scattered expiratory wheezes throughout. HEART: S1 and S2 are heard. Not tachycardic. ABDOMEN: Soft. Bowel sounds are heard. EXTREMITIES: No edema. NEUROLOGIC: Patient is awake, alert, oriented. LABS: White count 11.8, hemoglobin 14.6, hematocrit 45.9 with 172,000 platelets. PT is 10.3, INR is 1.0, PTT is 135.5. Patient was just being taken off heparin. Sodium is 138, potassium 4.2, chloride 98. CO2 is 32. Anion gap is 8. BUN is 28, creatinine 1.27. Glucose is 180. Calcium is 8.8, magnesium 2.2. Total bilirubin 0.5, AST 27, ALT 38, alkaline phosphatase 84. Troponins are less than 0.012 x3. BNP is 42. Total protein 6.7, albumin 4.1. Triglycerides are 446. Cholesterol is 220. HDL is 56. IMAGING: Chest x-ray shows normal chest. IMPRESSION: 1. Severe persistent Asthma and chronic obstructive pulmonary disease with acute exacerbation. 2. Chest pain with a history of coronary artery disease. Troponins negative x3. 3. Dehydration. 4. Nicotine dependence. 5. History of Guillain-Frenchburg syndrome. 6. Bilateral lower extremity neuropathy. PLAN: Continue bronchodilators. Will add aerosolized steroids. Will change oral prednisone to IV Solu-Medrol 60 mg q.6 hours. Continue with IV fluids. Patient was counseled on the need to quit smoking. The patient may also benefit from a sleep study on an outpatient basis for the severe restless legs syndrome as well as further evaluation for suspected obstructive sleep apnea. Continue GI and DVT prophylaxis. Continue to monitor on telemetry. Thank you for the consultation. We will continue to follow patient closely with you, making further changes as necessary. MMODL / IJN: [id number] / JON
[2019-06-04] MEDS: methylPREDNISolone SOD SUCCI 125 MG/2 ML VIAL IV SCH ×4 (00:41→18:35)
[2019-06-04] MEDS: SODIUM CHLORIDE 0.9% 1,000 ML IV SCH ×3 (04:14→17:17)
[2019-06-04 06:52] LABS: Basophils % (A) 0 %; Eosinophils % (A) 0 %; HCT 39.9 % (39.0-53.0); HGB 12.8 gm/dL (13.0-17.5); Lymphocytes # (A) 0.5 k/uL (1.0-4.8); Lymphocytes % (A) 6 %; MCH 30.6 pg (25.0-35.0); MCHC 32.1 g/dL (31.0-37.0); MCV 95.2 fL (80.0-100.0); Mean Platelet Volume 6.7; Monocytes # (A) 0.3 k/uL (0-1.0); Monocytes % (A) 3 %; Neutrophils # (A) 8.4 k/uL (1.3-7.7); Neutrophils % (A) 91 %; Platelet Count 154 k/uL (150-450); RBC 4.19 m/uL (4.30-5.90); RDW 13.5 % (11.5-15.5); WBC 9.3 k/uL (3.8-10.6)
[2019-06-04 07:04] LABS: Calcium 9.1 mg/dL (8.4-10.2); Potassium 5.2 mmol/L (3.5-5.1)
[2019-06-04] MEDS: HEPARIN SODIUM,PORCINE 5,000 UNIT/ML 1 ML VIAL SQ SCH ×2 (08:20→21:00)
[2019-06-04] MEDS: ASPIRIN 81 MG PO SCH (08:21)
[2019-06-04] MEDS: LISINOPRIL 20 MG TAB PO SCH (08:21)
[2019-06-04] MEDS: FAMOTIDINE 20 MG/2 ML VIAL IV SCH (08:21)
[2019-06-04] MEDS: METOPROLOL TARTRATE 25 MG TAB PO SCH ×2 (08:21→21:00)
[2019-06-04] MEDS: PANTOPRAZOLE 40 MG TABLET PO SCH ×2 (08:21→21:43)
[2019-06-04] MEDS: TAMSULOSIN 0.4 MG CAP.ER.24H PO SCH (08:21)
[2019-06-04] MEDS: NICOTINE 21MG/24HR PATCH TRANSDERM SCH (08:23)
[2019-06-04] MEDS: METHOCARBAMOL 750 MG TAB PO SCH ×3 (08:27→21:00)
[2019-06-04] MEDS: THEOPHYLLINE 24 HOUR 300 MG CAP.ER.24H PO SCH (08:27)
[2019-06-04] MEDS: BUDESONIDE 0.5 MG/2 ML NEBU INHALATION SCH ×2 (08:30→20:17)
[2019-06-04] MEDS: IPRATROPIUM-ALBUTEROL 3 ML NEB INHALATION SCH ×4 (08:30→20:17)
--- NOTE | 2019-06-04 08:33 | PN ---
PROGRESS NOTE Mr. Salvador is a 54-year-old male with known history of coronary artery disease, history of chronic tobacco use and chronic obstructive lung disease, who presented with symptoms of severe dyspnea and chest discomfort. He continues to have some discomfort in the chest, worse when he takes a deep breath when he coughs. He continues to have quite significant dyspnea. He was evaluated by Dr. Amaya yesterday and adjustment of his medication for exacerbation of COPD was done. He had an echocardiogram performed yesterday and revealed a preserved left ventricular size and systolic function with mild mitral and tricuspid regurgitation. He continues to be at this time on aspirin, Lipitor 20 mg daily, ipratropium, levofloxacin, lisinopril 20 mg daily, Robaxin, Solu-Medrol, metoprolol tartrate 25 mg twice a day, nicotine patch, Protonix, tamsulosin, and theophylline. PHYSICAL EXAMINATION: Blood pressure 134/70 with the heart rate in the 70s. LUNGS: With severe decrease in air exchange with scattered wheezes bilaterally. HEART: Regular rate and rhythm. S1, S2. No S3. No rub. ABDOMEN: Soft, nontender. EXTREMITIES: No edema. LAB DATA: Lab data revealed BUN and creatinine 35 and 1.12, potassium 5.2, hemoglobin of 12.8. IMPRESSION: 1. Acute exacerbation of chronic obstructive pulmonary disease. 2. History of coronary artery disease. 3. Chest discomfort atypical for ischemic heart disease. 4. Chronic tobacco use. 5. Hypertension. RECOMMENDATION: From the cardiac standpoint, I see no evidence of active ischemia at this time. I will continue present medical therapy. He will follow up with Dr. Garber as an outpatient. We will see him on as-needed basis. Please feel free to call us for any question. MMODL / IJN: [id number] /
[2019-06-04] MEDS ORDERED: ASPIRIN 325 MG TAB PO SCH (09:00)
--- NOTE | 2019-06-04 12:26 | P.PN ---
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 He presents because of dyspnea which waking from sleep, possibly had some central chest pain radiating to the left arm about 8/10 in severity coming down to 3/10 in severity, felt like somebody sitting on his chest, associated with sweating. He was not eating and drinking for the last couple days he barely eats anything, and he drinks 3-4 pops of regular coke each day. He has cough with green phlegm Vitals are stable and she is saturating 95% on 2 L oxygen per nasal cannula. On admission his blood pressure was in the low-normal sign at 97/67, currently 118/63. He has mild leukocytosis of 14.4 K and 11.8 K,, baseline 0.9-1.1, serial troponins are negative, the triglycerides at 446 and cholesterol 220. Echocardiogram: Ejection fraction 55-60%, chest x-ray: No acute process in the emergency room patient received 500 L of normal saline bolus, prednisone 60 mg, he was started on heparin drip and nitroglycerin, 06/04/2019 Patient is still short of breath with decreased air entry on both sides, he still of coughing with phlegm but no chest pain. Distal needed a breathing treatment and parenteral steroids. Patient's blood pressure 120/60 and he satur ating 90% and 2 L oxygen via nasal cannula,his obesity came back to normal at 9.3K, his repeated high potassium is 5.2 and 5.5, we'll give him one small dose of Kayexalate. Influenza is negative. Pulmonary input is appreciated and they recommended to continue with same treatment of steroids. Patient currently on Solu-Medrol 60 mg, is also on Levaquin, bronchodilator and normal saline at 50 mL/h. patient will be turned from observation status to inpatient as he is probably need more than 2 nights Review of systems CONSTITUTIONAL: No fever, no malaise, no fatigue. HEENT: No recent visual problems or hearing problems. Denied any sore throat. CARDIOVASCULAR: no palpitations, no syncope. PULMONARY: no hemoptysis. GASTROINTESTINAL: No diarrhea, no nausea, no vomiting, no abdominal pain. Normoactive bowel sounds. NEUROLOGICAL: No headaches, no weakness, no numbness. HEMATOLOGICAL: Denies any bleeding or petechiae. GENITOURINARY: Denies any burning micturition, frequency, or urgency. MUSCULOSKELETAL/RHEUMATOLOGICAL: Denies any joint pain, swelling, or any muscle pain. ENDOCRINE: Denies any polyuria or polydipsia. Active Medications Generic Name Dose Route Start Last Admin Trade Name Freq PRN Reason Stop Dose Admin Albuterol/Ipratropium 3 ml 06/03/19 08:00 06/04/19 12:09 Duoneb 0.5 Mg-3 Mg/3 Ml Soln INHALATION 3 ml RT-QID ROBIN Administration Aspirin 81 mg 06/04/19 09:00 06/04/19 08:21 Aspirin PO 81 mg DAILY ROBIN Administration Atorvastatin Calcium 40 mg 06/04/19 21:00 Lipitor PO HS ROBIN Budesonide 0.5 mg 06/03/19 20:00 06/04/19 08:30 Pulmicort INHALATION 0.5 mg RT-BID ROBIN Administration Famotidine 20 mg 06/03/19 21:00 06/04/19 08:21 Pepcid IV 20 mg Q12HR ROBIN Administration Guaifenesin 200 mg 06/03/19 15:05 Robitussin PO Q6H PRN Cough Heparin Sodium (Porcine) 5,000 unit 06/03/19 21:00 06/04/19 08:20 Heparin SQ 5,000 unit Q12HR ROBIN Administration Sodium Chloride 1,000 mls @ 20 mls/hr 06/03/19 05:45 06/03/19 06:18 Saline 0.9% IV 20 mls/hr .Q24H ROBIN Administration Levofloxacin 500 mg/ IV 100 mls @ 100 mls/hr 06/03/19 16:00 06/03/19 16:45 Solution IVPB 100 mls/hr Q24H ROBIN Administration Sodium Chloride 1,000 mls @ 50 mls/hr 06/03/19 15:15 06/04/19 04:14 Saline 0.9% IV 75 mls/hr .Q20H ROBIN Administration Lisinopril 20 mg 06/03/19 09:00 06/04/19 08:21 Zestril PO 20 mg DAILY ROBIN Administration Methocarbamol 750 mg 06/03/19 09:00 06/04/19 08:27 Robaxin PO 750 mg TID ROBIN Administration Methylprednisolone Sodium Succinate 60 mg 06/03/19 18:00 06/04/19 12:08 Solu-Medrol IV 60 mg Q6HR ROBIN Administration Metoprolol Tartrate 25 mg 06/03/19 09:00 06/04/19 08:21 Lopressor PO 25 mg BID ROBIN Administration Nicotine 1 patch 06/03/19 15:15 06/04/19 08:23 Habitrol 21mg/24hr Patch TRANSDERM 1 patch DAILY ROBIN Administration Nitroglycerin 0.4 mg 06/03/19 05:35 Nitrostat SUBLINGUAL Q5M PRN Chest Pain Nitroglycerin 0.4 mg 06/03/19 05:36 Nitrostat SUBLINGUAL Q5M PRN Chest Pain Oxycodone HCl 20 mg 06/03/19 09:00 06/04/19 08:21 Oxyir PO 20 mg QID PRN Administration Pain Pantoprazole Sodium 40 mg 06/03/19 09:00 06/04/19 08:21 Protonix PO 40 mg BID ROBIN Administration Ropinirole HCl 1 mg 06/03/19 21:00 06/03/19 21:10 Requip PO 1 mg HS ROBIN Administration Sodium Polystyrene Sulfonate 15 gm 06/04/19 12:22 Kayexalate PO 06/04/19 12:23 ONCE STA Tamsulosin HCl 0.4 mg 06/03/19 09:00 06/04/19 08:21 Flomax PO 0.4 mg DAILY ROBIN Administration Theophylline 300 mg 06/03/19 09:00 06/04/19 08:27 Keshav-24 PO 300 mg DAILY ROBIN Administration Tramadol HCl 50 mg 06/03/19 15:03 Ultram PO TID PRN Pain Objective - Vital Signs Vital signs: Vital Signs Temp 98.0 F 06/04/19 11:15 Pulse 90 06/04/19 12:09 Resp 18 06/04/19 11:15 BP 120/60 06/04/19 11:15 Pulse Ox 90 L 06/04/19 11:15 Intake & Output 06/03/19 06/04/19 06/04/19 18:59 06:59 18:59 Intake Total 354.047 750 240 Balance 354.047 750 240 Intake: Intake, IV Titration 14.047 750 Amount Heparin Sod,Pork in 0.45% 14.047 NaCl 25,000 unit In 0.45 % NaCl 1 250ml.bag @ 12 UNITS/KG/HR 8.872 mls/hr IV .Q24H ROBIN Rx#: [id number] Sodium Chloride 0.9% 1, 750 000 ml @ 75 mls/hr IV . [id number] ROBIN Rx#:[id number] Oral 240 240 Other 100 Other: # Voids 1 - Exam GENERAL: The patient is alert and oriented x3, not in any acute distress. Well developed, well nourished. HEENT: Pupils are round and equally reacting to light. EOMI. No scleral icterus. No conjunctival pallor. Normocephalic, atraumatic. No pharyngeal erythema. No thyromegaly. CARDIOVASCULAR: S1 and S2 present. No murmurs, rubs, or gallops. -PULMONARY: Chest is clear to auscultation, decreased air entry on both sides with scattered wheezing bilaterally ABDOMEN: Soft, nontender, nondistended, normoactive bowel sounds. No palpable organomegaly. MUSCULOSKELETAL: No joint swelling or deformity. EXTREMITIES: No cyanosis, clubbing, or pedal edema. NEUROLOGICAL: Gross neurological examination did not reveal any focal deficits. SKIN: No rashes. no petechiae. - Labs CBC & Chem 7: 06/04/19 06:31 06/04/19 11:09 Labs: Abnormal Lab Results - Last 24 Hours (Table) 06/04/19 06/04/19 06/04/19 Range/Units 06:31 06:31 11:09 RBC 4.19 L (4.30-5.90) m/uL Hgb 12.8 L (13.0-17.5) gm/dL Neutrophils # 8.4 H (1.3-7.7) k/uL Lymphocytes # 0.5 L (1.0-4.8) k/uL Potassium 5.2 H 5.5 H (3.5-5.1) mmol/L BUN 35 H (9-20) mg/dL Glucose 147 H (74-99) mg/dL Assessment and Plan Assessment: Acute tracheobronchitis Acute COPD exacerbation Chest pain mostly related to his bronchitis however rule out cardiac causes Dehydration Nicotine dependence History of coronary artery disease status post stent placement history of asthma/COPD Hyperlipidemia GERD Hypertension History 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 Continue with IV Solu-Medrol, continue with Levaquin, breathing treatment, incentive spirometry, pain management, follow-up cardiology and pulmonary recommendation. Labs and medication were reviewed.. Continue same treatment. Continue with symptomatic treatment. Resume home medication. Monitor lytes and vitals. DVT and GI prophylaxis. Further recommendations of the clinical course of the patient DVT prophylaxis: heparin GI Prophylaxis: On Protonix for GERD PT/OT: Pending Prognosis is guarded
[2019-06-04] MEDS ORDERED: SODIUM POLYSTYRENE SULFONATE 15 GM/60 ML BOTTLE PO STA (12:27)
--- NOTE | 2019-06-04 13:24 | PN ---
PROGRESS NOTE DATE OF SERVICE: 06/04/2019 Patient is a 54-year-old male who is seen lying in bed. He is awake and alert. He does feel a bit better today. Continues to have bronchospasms with deep inspiration. The patient is hemodynamically stable, afebrile, in no acute distress. ON PHYSICAL EXAM: VITAL SIGNS: Temp is 98, heart rate is 83, respiratory rate is 18, blood pressure is 120/60, O2 sats 90% on 2 L O2 via nasal cannula. HEENT: Head is normocephalic, atraumatic. Neck is supple. Trachea is midline. LUNGS: With scattered wheezes throughout with bronchospasms with deep inspiration. HEART: S1, S2 are heard. Not tachycardic. ABDOMEN: Soft. Bowel sounds are positive. EXTREMITIES: With no edema NEUROLOGIC: Patient is awake and alert. LABS: White count 9.3, hemoglobin 12.8, hematocrit is 39.9 with 154,000 platelets. Sodium is 138, potassium is 5.2, chloride 102, CO2 is 30. Anion gap is 6. BUN is 35, creatinine 1.12. Glucose 147. Calcium is 9.1. Influenza type A and B not detected. No new imaging to review. IMPRESSION: 1. Severe persistent asthma with acute exacerbation. 2. Chest pain with a history of coronary artery disease. Cardiology is following. 3. History of chronic obstructive pulmonary disease. 4. Dehydration. 5. Nicotine dependence. 6. History of Guillain-Nunn syndrome. 7. Bilateral lower extremity neuropathy. PLAN: Continue current medications which have been reviewed. Continue the IV Solu-Medrol at 60 q.6 for another 24 hours. Continue bronchodilators and aerosol steroids. Continue GI and DVT prophylaxis. We will follow patient closely with you making further changes as necessary. MMODL / IJN: [id number] /
[2019-06-04] MEDS: LEVOFLOXACIN 500MG-D5W PMX 500 MG in DEXTROSE/WATER 1 100ML.BAG IVPB SCH (16:10)
[2019-06-04] MEDS ORDERED: ALPRAZolam 0.5 MG TAB PO STA (18:31)
[2019-06-04] MEDS: ATORVASTATIN 40 MG TAB PO SCH (21:00)
[2019-06-05] MEDS: methylPREDNISolone SOD SUCCI 125 MG/2 ML VIAL IV SCH ×5 (00:37→23:26)
[2019-06-05] MEDS: SODIUM CHLORIDE 0.9% 1,000 ML IV SCH ×2 (02:27→15:30)
[2019-06-05 05:57] LABS: Basophils % (A) 0 %; Eosinophils % (A) 0 %; HCT 39.2 % (39.0-53.0); HGB 12.8 gm/dL (13.0-17.5); Lymphocytes # (A) 0.5 k/uL (1.0-4.8); Lymphocytes % (A) 4 %; MCH 30.9 pg (25.0-35.0); MCHC 32.8 g/dL (31.0-37.0); MCV 94.3 fL (80.0-100.0); Mean Platelet Volume 6.8; Monocytes # (A) 0.5 k/uL (0-1.0); Monocytes % (A) 4 %; Neutrophils # (A) 10.9 k/uL (1.3-7.7); Neutrophils % (A) 91 %; Platelet Count 178 k/uL (150-450); RBC 4.15 m/uL (4.30-5.90); RDW 14.8 % (11.5-15.5)
[2019-06-05] MEDS: IPRATROPIUM-ALBUTEROL 3 ML NEB INHALATION SCH ×4 (07:31→19:15)
[2019-06-05] MEDS: BUDESONIDE 0.5 MG/2 ML NEBU INHALATION SCH ×2 (07:32→19:14)
[2019-06-05] MEDS: HEPARIN SODIUM,PORCINE 5,000 UNIT/ML 1 ML VIAL SQ SCH ×2 (08:10→20:54)
[2019-06-05] MEDS: METHOCARBAMOL 750 MG TAB PO SCH ×3 (08:10→20:52)
[2019-06-05] MEDS: LISINOPRIL 20 MG TAB PO SCH (08:11)
[2019-06-05] MEDS: THEOPHYLLINE 24 HOUR 300 MG CAP.ER.24H PO SCH (08:11)
[2019-06-05] MEDS: TAMSULOSIN 0.4 MG CAP.ER.24H PO SCH (08:11)
[2019-06-05] MEDS: PANTOPRAZOLE 40 MG TABLET PO SCH ×2 (08:11→20:52)
[2019-06-05] MEDS: METOPROLOL TARTRATE 25 MG TAB PO SCH ×2 (08:11→20:52)
[2019-06-05] MEDS: NICOTINE 21MG/24HR PATCH TRANSDERM SCH (08:12)
[2019-06-05] MEDS: ASPIRIN 81 MG PO SCH (08:14)
[2019-06-05 09:31] LABS: African American GFR (CKD) >90 (>60 ml/min/1.73 sqM); Anion Gap 8 mmol/L; Blood Urea Nitrogen 35 mg/dL (9-20); Calcium 9.3 mg/dL (8.4-10.2); Carbon Dioxide 28 mmol/L (22-30); Chloride 104 mmol/L (98-107); Glucose 153 mg/dL (74-99); Potassium 4.8 mmol/L (3.5-5.1); Sodium 140 mmol/L (137-145)
--- NOTE | 2019-06-05 16:38 | P.PN ---
Subjective Progress Note Date: 06/05/19 Principal diagnosis: Mr. 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 Patient was initially admitted for acute coronary syndrome rule out with him having difficulty in breathing and chest pain. His troponins have been negative. Cardiology has cleared him. Currently he is being treated for acute COPD exacerbation. On 06/05/2019-patient is lying in bed appears to be in acute distress. He states that his difficulty in breathing is still ongoing. He has cough with yellowish sputum production. And he also was mentions about having history of anxiety and he feels like he is having a panic attack. He complains of some palpitations. Denies having any orthopnea or PND. No lower extremity swelling. Patient mentions that he quit smoking couple of months back. Previously he used to smoke a pack a day. Patient denies having any chest pain currently. No abdominal pain nausea vomiting or diarrhea. No dysuria or hematuria. No headaches or blurring of vision. No weakness of his extremities. Patient's labs have been reviewed and within normal limits except for a white count which is standard up from 9 to 12, as he is on steroids. Active Medications Albuterol/Ipratropium (Duoneb 0.5 Mg-3 Mg/3 Ml Soln) 3 ml INHALATION RT-QID [facility] Last Admin: 06/05/19 15:46 Dose: 3 ml Documented by: Alprazolam (Xanax) 0.5 mg PO BID PRN PRN Reason: Anxiety Aspirin (Aspirin) 81 mg PO DAILY [facility] Last Admin: 06/05/19 08:14 Dose: 81 mg Documented by: Atorvastatin Calcium (Lipitor) 40 mg PO HS [facility] Last Admin: 06/04/19 21:00 Dose: 40 mg Documented by: Budesonide (Pulmicort) 0.5 mg INHALATION RT-BID [facility] Last Admin: 06/05/19 07:32 Dose: Not Given Documented by: Guaifenesin (Robitussin) 200 mg PO Q6H PRN PRN Reason: Cough Heparin Sodium (Porcine) (Heparin) 5,000 unit SQ Q12HR [facility] Last Admin: 06/05/19 08:10 Dose: 5,000 unit Documented by: Sodium Chloride (Saline 0.9%) 1,000 mls @ 20 mls/hr IV .Q24H [facility] Last Admin: 06/05/19 02:27 Dose: Not Given Documented by: Levofloxacin 500 mg/ IV (Solution) 100 mls @ 100 mls/hr IVPB Q24H [facility] Last Admin: 06/04/19 16:10 Dose: 100 mls/hr Documented by: Sodium Chloride (Saline 0.9%) 1,000 mls @ 50 mls/hr IV .Q20H [facility] Last Admin: 06/05/19 15:30 Dose: Not Given Documented by: Lisinopril (Zestril) 20 mg PO DAILY [facility] Last Admin: 06/05/19 08:11 Dose: 20 mg Documented by: Methocarbamol (Robaxin) 750 mg PO TID [facility] Last Admin: 06/05/19 08:10 Dose: 750 mg Documented by: Methylprednisolone Sodium Succinate (Solu-Medrol) 60 mg IV Q6HR [facility] Last Admin: 06/05/19 11:59 Dose: 60 mg Documented by: Metoprolol Tartrate (Lopressor) 25 mg PO BID [facility] Last Admin: 06/05/19 08:11 Dose: 25 mg Documented by: Nicotine (Habitrol 21mg/24hr Patch) 1 patch TRANSDERM DAILY [facility] Last Admin: 06/05/19 08:12 Dose: 1 patch Documented by: Nitroglycerin (Nitrostat) 0.4 mg SUBLINGUAL Q5M PRN PRN Reason: Chest Pain Nitroglycerin (Nitrostat) 0.4 mg SUBLINGUAL Q5M PRN PRN Reason: Chest Pain Oxycodone HCl (Oxyir) 20 mg PO QID PRN PRN Reason: Pain Last Admin: 06/05/19 12:05 Dose: 20 mg Documented by: Pantoprazole Sodium (Protonix) 40 mg PO BID [facility] Last Admin: 06/05/19 08:11 Dose: 40 mg Documented by: Ropinirole HCl (Requip) 1 mg PO HS [facility] Last Admin: 06/04/19 21:00 Dose: 1 mg Documented by: Tamsulosin HCl (Flomax) 0.4 mg PO DAILY [facility] Last Admin: 06/05/19 08:11 Dose: 0.4 mg Documented by: Theophylline (Keshav-24) 300 mg PO DAILY [facility]IN Last Admin: 06/05/19 08:11 Dose: 300 mg Documented by: Tramadol HCl (Ultram) 50 mg PO TID PRN PRN Reason: Pain Objective - Vital Signs Vital signs: Vital Signs Temp 97.5 F L 06/05/19 16:00 Pulse 97 06/05/19 16:00 Resp 18 06/05/19 16:00 BP 132/74 06/05/19 16:00 Pulse Ox 95 06/05/19 16:00 Intake & Output 06/04/19 06/05/19 06/05/19 18:59 06:59 18:59 Intake Total 660 140 Balance 660 140 Intake: Oral 660 140 Other: Voiding Method Toilet # Voids 2 # Bowel Movements 1 - Exam GENERAL: The patient is alert and oriented x3, not in any acute distress. Well developed, well nourished. HEENT: Pupils are round and equally reacting to light. EOMI. No scleral icterus. No conjunctival pallor. Normocephalic, atraumatic. No pharyngeal erythema. No thyromegaly. CARDIOVASCULAR: S1 and S2 present. No murmurs, rubs, or gallops. PULMONARY: Decreased air entry bilaterally. Rhonchi in bilateral lung herman. Mild end expiratory wheeze, right more than the left. ABDOMEN: Soft, nontender, nondistended, normoactive bowel sounds. No palpable organomegaly. MUSCULOSKELETAL: No joint swelling or deformity. EXTREMITIES: No cyanosis, clubbing, or pedal edema. NEUROLOGICAL: Gross neurological examination did not reveal any focal deficits. SKIN: No rashes. no petechiae. - Labs CBC & Chem 7: 06/05/19 05:37 06/05/19 05:37 Labs: Abnormal Lab Results - Last 24 Hours (Table) 06/05/19 06/05/19 Range/Units 05:37 05:37 WBC 12.0 H (3.8-10.6) k/uL RBC 4.15 L (4.30-5.90) m/uL Hgb 12.8 L (13.0-17.5) gm/dL Neutrophils # 10.9 H (1.3-7.7) k/uL Lymphocytes # 0.5 L (1.0-4.8) k/uL BUN 35 H (9-20) mg/dL Glucose 153 H (74-99) mg/dL Assessment and Plan Assessment: Acute tracheobronchitis Acute COPD exacerbation Chest pain mostly related to his bronchitis however rule out cardiac causes Dehydration Nicotine dependence History of coronary artery disease status post stent placement history of asthma/COPD Hyperlipidemia GERD Hypertension History of Gullian Barri syndrome after flu vaccine in 2010 Restless leg syndrome Chronic bilateral leg pain and weakness PLAN: Patient is currently being treated with steroids, antibiotics and breathing treatments for acute COPD exacerbation. As the patient has difficulty in breathing and he is feeling anxious, frail give him Xanax for his panic attacks on when necessary basis. Continue with the rest of his current medication regimen. DVT and GI prophylaxis. Further recommendations depending on the progress of the patient.
[2019-06-05] MEDS: LEVOFLOXACIN 500MG-D5W PMX 500 MG in DEXTROSE/WATER 1 100ML.BAG IVPB SCH (16:49)
--- NOTE | 2019-06-05 17:10 | PN ---
PROGRESS NOTE DATE OF SERVICE: June 05, 2019 He is less short of breath, sitting up in bed. PHYSICAL EXAMINATION: His heart rate is 101, respiratory rate of 18, temperature 97.6, blood pressure 132/70, O2 saturation on room air is 94%. HEENT reveals pupils are equal. Chest reveals expiratory wheeze but fair air entry. Cardiovascular system reveals an S1, S2. Abdomen is soft. There is trace pedal edema. LABORATORY DATA: White count is 12, hemoglobin of 12.8 sodium 140, potassium 4.8, chloride 104, bicarb 20, BUN 35, creatinine of 1. IMPRESSION: At this time: 1. Asthma with chronic obstructive pulmonary disease with acute exacerbation. 2. Previous Guillain [place] syndrome. 3. Medical debility. Increase his activity level. Continue systemic steroids. May switch him to oral steroids and consider discharge planning from a pulmonary standpoint. Continue bronchodilators. Agree with discharge planning with close outpatient followup. Depending on how he does we should make further changes to his care. MMODL / IJN: [id number] /
[2019-06-05 20:04] LABS: Glucose,Whole Blood 170 mg/dL (75-99)
[2019-06-05] MEDS: ATORVASTATIN 40 MG TAB PO SCH (20:52)
[2019-06-05] MEDS: ALPRAZolam 0.5 MG TAB PO PRN (23:27)
[2019-06-06 05:08] LABS: Basophils % (A) 0 %; Eosinophils % (A) 0 %; HCT 38.9 % (39.0-53.0); HGB 12.7 gm/dL (13.0-17.5); Lymphocytes # (A) 0.4 k/uL (1.0-4.8); Lymphocytes % (A) 4 %; MCH 30.9 pg (25.0-35.0); MCHC 32.6 g/dL (31.0-37.0); MCV 94.8 fL (80.0-100.0); Mean Platelet Volume 7.2; Monocytes # (A) 0.4 k/uL (0-1.0); Monocytes % (A) 4 %; Neutrophils % (A) 91 %; Platelet Count 161 k/uL (150-450); RBC 4.11 m/uL (4.30-5.90); RDW 14.7 % (11.5-15.5); WBC 9.9 k/uL (3.8-10.6)
[2019-06-06 05:16] LABS: Calcium 9.4 mg/dL (8.4-10.2); Potassium 4.6 mmol/L (3.5-5.1)
[2019-06-06] MEDS: methylPREDNISolone SOD SUCCI 125 MG/2 ML VIAL IV SCH ×4 (05:58→23:33)
[2019-06-06] MEDS: SODIUM CHLORIDE 0.9% 1,000 ML IV SCH ×2 (06:22→17:02)
[2019-06-06] MEDS: TAMSULOSIN 0.4 MG CAP.ER.24H PO SCH (07:58)
[2019-06-06] MEDS: METOPROLOL TARTRATE 25 MG TAB PO SCH ×2 (07:58→19:50)
[2019-06-06] MEDS: PANTOPRAZOLE 40 MG TABLET PO SCH ×2 (07:58→19:50)
[2019-06-06] MEDS: LISINOPRIL 20 MG TAB PO SCH (07:58)
[2019-06-06] MEDS: HEPARIN SODIUM,PORCINE 5,000 UNIT/ML 1 ML VIAL SQ SCH ×2 (07:59→19:49)
[2019-06-06] MEDS: THEOPHYLLINE 24 HOUR 300 MG CAP.ER.24H PO SCH (07:59)
[2019-06-06] MEDS: METHOCARBAMOL 750 MG TAB PO SCH ×3 (07:59→19:50)
[2019-06-06] MEDS: ASPIRIN 81 MG PO SCH (07:59)
[2019-06-06] MEDS: NICOTINE 21MG/24HR PATCH TRANSDERM SCH (08:03)
[2019-06-06 08:11] VITALS: RESP 18
[2019-06-06] MEDS: BUDESONIDE 0.5 MG/2 ML NEBU INHALATION SCH ×2 (08:54→19:17)
[2019-06-06] MEDS: IPRATROPIUM-ALBUTEROL 3 ML NEB INHALATION SCH ×4 (08:54→19:17)
[2019-06-06] MEDS: ALPRAZolam 0.5 MG TAB PO PRN ×2 (13:25→19:52)
[2019-06-06] MEDS: LEVOFLOXACIN 500MG-D5W PMX 500 MG in DEXTROSE/WATER 1 100ML.BAG IVPB SCH (17:01)
[2019-06-06] MEDS: ATORVASTATIN 40 MG TAB PO SCH (19:50)
[2019-06-06] MEDS ORDERED: TEMAZEPAM 15 MG CAP PO SCH (21:00)
--- NOTE | 2019-06-06 21:15 | PN ---
PROGRESS NOTE DATE OF SERVICE: June 06, 2019. He is less short of breath and is almost back to his baseline. PHYSICAL EXAMINATION: His respiratory rate is 18, pulse of 85, temperature 97.5, blood pressure 135/75, O2 saturation on room air is 93%. HEENT is unremarkable. Chest reveals expiratory wheeze. Cardiovascular system is S1, S2. Abdomen is soft. There is trace edema. White count is 9.9, hemoglobin 12.7, sodium 141, potassium 4.6, chloride 106, bicarb 28, BUN 32, creatinine of 1.11. IMPRESSION: At this time: 1. Asthma with acute exacerbation. 2. Chronic obstructive pulmonary disease. 3. Medical debility. 4. Previous Guillain-Amboy syndrome. Agree with possible discharge planning with close outpatient followup. Continue anti IgE treatment as an outpatient. Increase activity level today. He was counseled regarding his condition. MMODL / KERRIN: [id number] /
[2019-06-07] MEDS: SODIUM CHLORIDE 0.9% 1,000 ML IV SCH ×2 (03:13→05:31)
[2019-06-07] MEDS: methylPREDNISolone SOD SUCCI 125 MG/2 ML VIAL IV SCH ×2 (05:30→13:57)
[2019-06-07 05:46] LABS: Basophils % (A) 0 %; Eosinophils % (A) 0 %; HCT 39.6 % (39.0-53.0); HGB 12.3 gm/dL (13.0-17.5); Lymphocytes # (A) 0.4 k/uL (1.0-4.8); Lymphocytes % (A) 5 %; MCH 29.7 pg (25.0-35.0); MCHC 31.1 g/dL (31.0-37.0); MCV 95.5 fL (80.0-100.0); Mean Platelet Volume 6.9; Monocytes # (A) 0.4 k/uL (0-1.0); Monocytes % (A) 5 %; Neutrophils # (A) 7.6 k/uL (1.3-7.7); Neutrophils % (A) 89 %; Platelet Count 161 k/uL (150-450); RBC 4.15 m/uL (4.30-5.90); RDW 13.5 % (11.5-15.5); WBC 8.5 k/uL (3.8-10.6)
[2019-06-07 06:08] LABS: African American GFR (CKD) >90 (>60 ml/min/1.73 sqM); Anion Gap 5 mmol/L; Blood Urea Nitrogen 34 mg/dL (9-20); Carbon Dioxide 26 mmol/L (22-30); Chloride 107 mmol/L (98-107); Glucose 200 mg/dL (74-99); Potassium 4.4 mmol/L (3.5-5.1); Sodium 138 mmol/L (137-145)
[2019-06-07] MEDS: BUDESONIDE 0.5 MG/2 ML NEBU INHALATION SCH (07:58)
[2019-06-07] MEDS: IPRATROPIUM-ALBUTEROL 3 ML NEB INHALATION SCH ×2 (07:58→11:24)
[2019-06-07] MEDS: TAMSULOSIN 0.4 MG CAP.ER.24H PO SCH (08:58)
[2019-06-07] MEDS: ASPIRIN 81 MG PO SCH (08:58)
[2019-06-07] MEDS: METOPROLOL TARTRATE 25 MG TAB PO SCH (08:58)
[2019-06-07] MEDS: LISINOPRIL 20 MG TAB PO SCH (08:58)
[2019-06-07] MEDS: NICOTINE 21MG/24HR PATCH TRANSDERM SCH (08:58)
[2019-06-07] MEDS: HEPARIN SODIUM,PORCINE 5,000 UNIT/ML 1 ML VIAL SQ SCH (08:58)
[2019-06-07] MEDS: METHOCARBAMOL 750 MG TAB PO SCH (09:04)
[2019-06-07] MEDS: THEOPHYLLINE 24 HOUR 300 MG CAP.ER.24H PO SCH (09:04)
[2019-06-07 11:24] VITALS: BP 152/90; TEMP 97.3
[2019-06-07 11:29] VITALS: PULSE 76
--- NOTE | 2019-06-07 13:11 | P.PAINCN ---
History of Present Illness - Reason for Consult Consult date: 06/07/19 - History of Present Illness This is a consultation visit for this 54 years old male, with past medical history of chronic lower extremity pain and weakness he'll take diagnosed with Guillain-Nunn syndrome secondary to flu vaccination in 2010, and he had severe chronic pain syndrome, and he was managed as an outpatient by his primary care doctor Ismael, and he was on oxycodone 20 mg every 6 hours and Ultram 50 mg every 8 hours, he denies any side effect of the medication and he reported the current medication was helping to some degree, recently his pain intensity increased over time, and currently is constant squeezing pressure-type pain, associated with some numbness in the lower extremity, patient was admitted to [facility] because of dyspnea, and central chest pain Past Medical History Past Medical History: Asthma, Coronary Artery Disease (CAD), COPD, Hyperlipidemia, Hypertension, Myocardial Infarction ([place]), Neurologic Disorder, Osteoarthritis (OA), Pneumonia Additional Past Medical History / Comment(s): GUILLAIN BARRE' SYNDROME AFTER FLU VACCINE IN 2010, RLS, chronic bilateral leg pain and weakness, restless leg, possible seizure once 2014? OCCASIONAL USE OF CANE OR WALKER Last Myocardial Infarction Date:: 03/24/2016 History of Any Multi-Drug Resistant Organisms: None Reported Past Surgical History: Appendectomy, Cholecystectomy, Heart Catheterization With Stent, Hernia Repair Additional Past Surgical History / Comment(s): SX TO REPAIR TIP OF INDEX FINGER RT HAND. 03/24/16 2 stent placed to RCA, colonoscopy. Past Anesthesia/Blood Transfusion Reactions: No Reported Reaction Date of Last Stent Placement:: 03/24/16 Past Psychological History: No Psychological Hx Reported Smoking Status: Former smoker Past Alcohol Use History: Occasional Past Drug Use History: None Reported - Past Family History Mother Family Medical History: Cancer, Diabetes Mellitus Additional Family Medical History / Comment(s): COLON CANCER,HEART PROBLEMS. Mother at the age of 73 yrs. Brother(s) Family Medical History: Cancer Additional Family Medical History / Comment(s): AT AGE 52 ESOPHGEAL CANCER Father History Unknown: Yes Family Medical History: Cancer, Myocardial Infarction ([place]) Additional Family Medical History / Comment(s): Pt states he doesn't keep in touch with his father and doesn't know his health hx. Medications and Allergies Home Medications Medication Instructions Recorded Confirmed Type RABEprazole SODIUM [Aciphex] 20 mg PO BID 04/05/14 06/03/19 History oxyCODONE HCL [oxyCODONE HCL (IR)] 20 mg PO QID PRN 03/24/16 06/03/19 History rOPINIRole HCL [Requip] 1 mg PO HS 03/24/16 06/03/19 History Metoprolol Tartrate [Lopressor] 25 mg PO BID #60 tab 03/26/16 06/03/19 Rx Nitroglycerin Sl Tabs [Nitrostat] 0.4 mg SUBLINGUAL Q5M PRN #25 tab 03/26/16 06/03/19 Rx Lisinopril [Zestril] 20 mg PO DAILY 10/23/16 06/03/19 History Simvastatin [Zocor] 40 mg PO HS 06/26/17 06/03/19 History Albuterol Inhaler [Ventolin Hfa 2 puff INHALATION RT-Q4H PRN 02/19/19 06/03/19 History Inhaler] Methocarbamol [Robaxin] 750 mg PO TID 02/19/19 06/03/19 History Theophylline Anhydrous [Theochron] 300 mg PO DAILY 02/19/19 06/03/19 History Tiotropium [place] [Spiriva 2 puff INHALATION RT-DAILY 02/19/19 06/03/19 History Respimat] predniSONE 10 mg PO DAILY 02/19/19 06/03/19 History Cefuroxime [Ceftin] 250 mg PO BID #6 tablet 06/07/19 Rx Melatonin 3 mg PO HS #30 tablet 06/07/19 Rx Nicotine 21Mg/24Hr Patch [Habitrol] 1 patch TRANSDERM DAILY #14 patch 06/07/19 Rx Tamsulosin [Flomax] 0.4 mg PO DAILY #30 cap.er.24h 06/07/19 Rx predniSONE 10 mg PO DAILY #30 tab 06/07/19 Rx Allergies Allergy/AdvReac Type Severity Reaction Status Date / Time iodine Allergy Anaphylaxis Verified 06/03/19 07:27 shellfish derived [Shellfish] Allergy Swelling Verified 06/03/19 07:27 Physical Exam Vitals: Vital Signs Temp Pulse Pulse Resp BP Pulse Ox 06/07/19 11:38 76 06/07/19 11:24 76 06/07/19 11:23 97.3 F L 71 18 152/90 95 06/07/19 08:19 80 06/07/19 07:59 72 93 L 06/07/19 07:05 97.6 F 75 18 145/84 97 06/07/19 04:00 97.5 F L 74 18 128/74 97 06/07/19 03:10 18 06/06/19 23:37 18 06/06/19 23:31 97.4 F L 90 18 144/80 96 06/06/19 20:00 18 06/06/19 19:50 97.7 F 99 18 123/77 98 06/06/19 19:30 84 06/06/19 19:17 82 06/06/19 16:45 82 06/06/19 16:33 82 06/06/19 16:00 97.5 F L 85 18 135/75 93 L Intake and Output 06/06/19 06/07/19 06/07/19 22:59 06:59 14:59 Intake Total 620 Balance 620 Intake: Oral 420 Other 200 Other: Voiding Method Toilet Toilet Toilet # Voids 1 1 REVIEW OF ORGAN SYSTEMS: CONSTITUTIONAL: No fevers or chills. No recent weight loss. EYES: History of troubles with vision. No glasses. HEENT: No difficulties with hearing. No nosebleeds. No difficulty swallowing. RESPIRATORY: Past pneumonia. Denies any troubles with breathing or dyspnea on exertion. CARDIOVASCULAR: Denies any chest pain, palpitations, or recent heart attacks. GASTROINTESTINAL: Denies fatty food intolerance. Has change in bowel habits and gas bloat. GENITOURINARY: Denies any blood in urine. Has increased urinary frequency. NEUROLOGICAL: numbness or tingling , and weakness in the lower extremities. No seizure disorders or headaches. MUSCULOSKELETAL: Weakness in the lower extremity SKIN: Past t skin cancer. No rash. PSYCHIATRIC: Denies current depression or suicidal thoughts. ENDOCRINE: Denies current thyroid disorders. Denies any blood sugar glucose intolerance. HEME/LYMPHATIC: Denies any lumps and bumps around the neck. History of deep venous thrombosis. ALLERGY/IMMUNOLOGY: No immunoglobulin therapy. No immune deficiencies. BREAST: Denies current breast lumps, pain or nipple discharge. Physical Examinations : Constitutiona : Cooperative , not in acute distress . HEENT : nech : supple , no Lymphadenopathy , normal thyroid size . eyes : no ptosis , no icterus, no photophobia . ENT : normal of hearing , normal oropharynx , no Thrush . Respiratory : Chest clear to auscultations Bilaterally , no wheezing , no Rhonchi . Cardiovascula : regular rate and rhythem , S1 , S2 , no S3 , no S4. Gastrointestina : abdomen soft no tenderness , bowel sounds , no organomegally . Genitourinary : Defferred . neurologic : Cranial nerve II to XII intact , no focal neurological deffecit . psychatric : alert , oriented X 3 , appropriate affect , intact judgment and insight . Lymphatic : no Lymphadenopathy . musculoskeltal : Lumber spine moter stegnth lower extremities ,thigh and legs 2- 3/5 Right side , 2- 3/5 Left side [place] in the lower extremity from the knee to the distal part of the lower extremity positive lumber facet Loading Test Range of motion of the lumbar spine Flexion 30 degrees, extension 10 degrees strait leg raising test , positive at 45degree Fabere test positive RT and positive LT . Results CBC & Chem 7: 06/07/19 05:23 06/07/19 05:23 Labs: Abnormal Lab Results - Last 24 Hours (Table) 06/07/19 06/07/19 Range/Units 05:23 05:23 RBC 4.15 L (4.30-5.90) m/uL Hgb 12.3 L (13.0-17.5) gm/dL Lymphocytes # 0.4 L (1.0-4.8) k/uL BUN 34 H (9-20) mg/dL Glucose 200 H (74-99) mg/dL Assessment and Plan Plan: Assessment and plan= Gullian Nunn syndrome, with lower extremity weakness Rule out peripheral neuropathy. Patient is not a candidate to have any interventional pain management, Recommend continue current medication and oxyc odone 20 mg by mouth 6 hours and Ultram 50 mg every 8 hours when necessary Patient could benefit from the Neurontin 100 mg 3 times a day could be increased in the future to 300 mg 3 times a day. Time with Patient: Greater than 30 PQRS Measure Charge Sheet Measure #130: Documentation of Current Meds in Medical Chart: Patient's medications documented in chart PQRS Narrative: Smoking Status Former smoker Do You Want the Pneumonia Vaccine Up to Date Vaccine AT THIS TIME? Blood Pressure [Right Arm] 152/90 Blood Pressure 118/63 Pain Intensity [Bilateral Leg] 0 Pain Intensity [Left Chest] 0 Pain Intensity 0 Pain Scale Used Numeric (1 - 10) Scale Used Numeric (1 - 10) Home Medications: Ambulatory Orders RABEprazole SODIUM [Aciphex] 20 mg PO BID 04/05/14 oxyCODONE HCL [oxyCODONE HCL (IR)] 20 mg PO QID PRN 03/24/16 rOPINIRole HCL [Requip] 1 mg PO HS 03/24/16 Metoprolol Tartrate [Lopressor] 25 mg PO BID #60 tab 03/26/16 Nitroglycerin Sl Tabs [Nitrostat] 0.4 mg SUBLINGUAL Q5M PRN #25 tab 03/26/16 Lisinopril [Zestril] 20 mg PO DAILY 10/23/16 Simvastatin [Zocor] 40 mg PO HS 06/26/17 Albuterol Inhaler [Ventolin Hfa Inhaler] 2 puff INHALATION RT-Q4H PRN 02/19/19 Methocarbamol [Robaxin] 750 mg PO TID 02/19/19 Theophylline Anhydrous [Theochron] 300 mg PO DAILY 02/19/19 Tiotropium [place] [Spiriva Respimat] 2 puff INHALATION RT-DAILY 02/19/19 predniSONE 10 mg PO DAILY 02/19/19 Cefuroxime [Ceftin] 250 mg PO BID #6 tablet 06/07/19 Melatonin 3 mg PO HS #30 tablet 06/07/19 Nicotine 21Mg/24Hr Patch [Habitrol] 1 patch TRANSDERM DAILY #14 patch 06/07/19 Tamsulosin [Flomax] 0.4 mg PO DAILY #30 cap.er.24h 06/07/19 predniSONE 10 mg PO DAILY #30 tab 06/07/19
[2019-06-07] MEDS: PANTOPRAZOLE 40 MG TABLET PO SCH (13:57)
[2019-06-07] MEDS ORDERED: GABAPENTIN 100 MG CAP PO SCH (16:00)
[2019-06-07] MEDS ORDERED: LEVOFLOXACIN 500 MG TAB PO SCH (16:00)
== END 2019-06-07 13:44 | disposition home or self-care (01) | DRG 202 ==
LOC: EC 02:53 → 1SOBS 05:35 → OBSVTOIN 06-04 13:30
PROVIDERS: ADMIT Hospitalist; ATTEND Hospitalist
DX: J45.51 Severe persistent asthma with (acute) exacerbation (principal); J44.1 Chronic obstructive pulmonary disease with (acute) exacerbation; G61.0 Guillain-Barre syndrome; J44.0 Chronic obstructive pulmonary disease with (acute) lower respiratory infection; I08.1 Rheumatic disorders of both mitral and tricuspid valves; E66.9 Obesity, unspecified; E78.5 Hyperlipidemia, unspecified; E86.0 Dehydration; F17.210 Nicotine dependence, cigarettes, uncomplicated; F41.9 Anxiety disorder, unspecified; G25.81 Restless legs syndrome; G57.93 Unspecified mononeuropathy of bilateral lower limbs; G89.29 Other chronic pain; I10 Essential (primary) hypertension; I25.10 Atherosclerotic heart disease of native coronary artery without angina pectoris; I25.2 Old myocardial infarction; J20.9 Acute bronchitis, unspecified; K21.9 Gastro-esophageal reflux disease without esophagitis; M19.90 Unspecified osteoarthritis, unspecified site; R07.89 Other chest pain; G40.909 Epilepsy, unspecified, not intractable, without status epilepticus; Z79.899 Other long term (current) drug therapy; Z79.52 Long term (current) use of systemic steroids; Z91.041 Radiographic dye allergy status; Z91.013 Allergy to seafood; Z87.01 Personal history of pneumonia (recurrent); Z68.25 Body mass index [BMI] 25.0-25.9, adult; Z95.5 Presence of coronary angioplasty implant and graft; Z90.49 Acquired absence of other specified parts of digestive tract; Z80.0 Family history of malignant neoplasm of digestive organs; Z82.49 Family history of ischemic heart disease and other diseases of the circulatory system; Z83.3 Family history of diabetes mellitus
CPT/HCPCS: 36415; 71046; 80048; 80053; 80061; 83735; 83880; 84132; 84484; 85025; 85610; 85730; 87502; 93005; 93306; 94640; 94760; 96360; 99285

== ENCOUNTER 2020-12-20 07:24 | Inpatient (IN) | payer MEDICARE, OTHER ==
[2020-12-20] MEDS ORDERED: MORPHINE SULFATE 4 MG/ML SYRINGE IV STA (07:29)
--- NOTE | 2020-12-20 07:39 | ED ---
General Adult HPI - General Stated complaint: Chest Pain Time Seen by Provider: 12/20/20 07:29 Source: patient, RN notes reviewed, old records reviewed - History of Present Illness Initial comments: 55-year-old male with known coronary artery disease presenting for evaluation of chest pain which is been ongoing for the past 2 days. Patient had taken nitroglycerin at home without relief. Additionally he has had 325 mg of aspirin by EMS. He states that his symptoms have been at rest. He also reports a mild dyspnea and cough. No fever. No abdominal pain. He states the pain is substernal, radiates to his left arm. No abdominal pain. No nausea vomiting. No fever. - Related Data Home Medications Medication Instructions Recorded Confirmed RABEprazole SODIUM [Aciphex] 20 mg PO BID 04/05/14 06/03/19 oxyCODONE HCL [oxyCODONE HCL (IR)] 20 mg PO QID PRN 03/24/16 06/03/19 rOPINIRole HCL [Requip] 1 mg PO HS 03/24/16 06/03/19 lisinopriL [Zestril] 20 mg PO DAILY 10/23/16 06/03/19 Simvastatin [Zocor] 40 mg PO HS 06/26/17 06/03/19 Albuterol Inhaler (Mhu) [Ventolin 2 puff INHALATION RT-Q4H PRN 02/19/19 06/03/19 Hfa Inhaler (Mhu)] Theophylline Anhydrous [Theochron] 300 mg PO DAILY 02/19/19 06/03/19 Tiotropium [place] [Spiriva 2 puff INHALATION RT-DAILY 02/19/19 06/03/19 Respimat] methocarbamoL [Robaxin] 750 mg PO TID 02/19/19 06/03/19 predniSONE 10 mg PO DAILY 02/19/19 06/03/19 Previous Rx's Medication Instructions Recorded Metoprolol Tartrate [Lopressor] 25 mg PO BID #60 tab 03/26/16 Nitroglycerin Sl Tabs [Nitrostat] 0.4 mg SUBLINGUAL Q5M PRN #25 tab 03/26/16 Cefuroxime [Ceftin] 250 mg PO BID #6 tablet 06/07/19 Melatonin 3 mg PO HS #30 tablet 06/07/19 Nicotine 21Mg/24Hr Patch [Habitrol] 1 patch TRANSDERM DAILY #14 patch 06/07/19 Tamsulosin [Flomax] 0.4 mg PO DAILY #30 cap.er.24h 06/07/19 predniSONE 10 mg PO DAILY #30 tab 06/07/19 Allergies Allergy/AdvReac Type Severity Reaction Status Date / Time iodine Allergy Anaphylaxis Verified 06/03/19 07:27 shellfish derived [Shellfish] Allergy Swelling Verified 06/03/19 07:27 Review of Systems ROS Statement: Those systems with pertinent positive or pertinent negative responses have been documented in the HPI. ROS Other: All systems not noted in ROS Statement are negative. 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 OCCASIONAL USE OF CANE OR WALKER Last Myocardial Infarction Date:: 03/24/2016 History of Any Multi-Drug Resistant Organisms: None Reported Past Surgical History: Appendectomy, Cholecystectomy, Heart Catheterization With Stent, Hernia Repair Additional Past Surgical History / Comment(s): SX TO REPAIR TIP OF INDEX FINGER RT HAND. 03/24/16 2 stent placed to RCA, colonoscopy. Past Anesthesia/Blood Transfusion Reactions: No Reported Reaction Date of Last Stent Placement:: 03/24/16 Past Psychological History: No Psychological Hx Reported Past Alcohol Use History: Occasional Past Drug Use History: None Reported - Past Family History Mother Family Medical History: Cancer, Diabetes Mellitus Additional Family Medical History / Comment(s): COLON CANCER,HEART PROBLEMS. Mother at the age of 73 yrs. Brother(s) Family Medical History: Cancer Additional Family Medical History / Comment(s): AT AGE 52 ESOPHGEAL CANCER Father History Unknown: Yes Family Medical History: Cancer, Myocardial Infarction ([place]) Additional Family Medical History / Comment(s): Pt states he doesn't keep in touch with his father and doesn't know his health hx. General Exam General appearance: alert, in no apparent distress, in distress (In pain) Head exam: Present: atraumatic, normocephalic Eye exam: Present: normal appearance, PERRL ENT exam: Present: normal exam Neck exam: Present: normal inspection. Absent: tenderness, meningismus Respiratory exam: Present: normal lung sounds bilaterally. Absent: respiratory distress, wheezes Cardiovascular Exam: Present: regular rate, normal rhythm, other (Distal pulses 2+ and symmetric) GI/Abdominal exam: Present: soft. Absent: distended, tenderness, guarding, rebound Extremities exam: Present: normal inspection, normal capillary refill. Absent: pedal edema Back exam: Present: normal inspection. Absent: CVA tenderness (R), CVA tenderness (L) Neurological exam: Present: alert, oriented X3, CN II-XII intact. Absent: motor sensory deficit Psychiatric exam: Present: normal affect, normal mood Skin exam: Present: warm, dry, intact. Absent: cyanosis, diaphoretic Course Vital Signs 12/20/20 07:39 Temperature 98.1 F Pulse Rate 77 Respiratory 17 Rate Blood Pressure 120/82 O2 Sat by Pulse 95 Oximetry - Reevaluation(s) Reevaluation #1: 12/20/20 10:14 He continues to have mild discomfort in the central chest. EKG Findings - EKG Comments: EKG Findings:: EKG: Normal sinus rhythm no ST segment elevation, rate 73, NM interval 148, QRS duration 88, QTC 445 Medical Decision Making - Medical Decision Making 55-year-old male history of CAD presenting with 2 days of intermittent chest pain. Pain became more severe yesterday evening at 6 PM. Patient has EKG showing sinus rhythm without ST segment elevation. Patient has hemoglobin 12.8. Laboratory testing does reveal an elevated troponin at 0.9. He continues to have some chest discomfort. I did discuss case both with the admitting physician Dr. Juarez and with Flakita katz for Dr. Mcclendon. and received aspirin prior to transport. He is started on heparin drip. He will be admitted for non-ST segment elevated [place]. - Lab Data Result diagrams: 12/20/20 07:33 12/20/20 07:33 Lab Results 12/20/20 12/20/20 12/20/20 Range/Units 07:33 07:33 07:33 WBC 7.3 (3.8-10.6) k/uL RBC 3.95 L (4.30-5.90) m/uL Hgb 12.8 L (13.0-17.5) gm/dL Hct 35.5 L (39.0-53.0) % MCV 89.8 (80.0-100.0) fL MCH 32.4 (25.0-35.0) pg MCHC 36.1 (31.0-37.0) g/dL RDW 13.2 (11.5-15.5) % Plt Count 173 (150-450) k/uL MPV 7.0 Neutrophils % 56 % Lymphocytes % 29 % Monocytes % 8 % Eosinophils % 2 % Basophils % 1 % Neutrophils # 4.1 (1.3-7.7) k/uL Lymphocytes # 2.1 (1.0-4.8) k/uL Monocytes # 0.6 (0-1.0) k/uL Eosinophils # 0.2 (0-0.7) k/uL Basophils # 0.1 (0-0.2) k/uL PT 10.1 (9.0-12.0) sec INR 0.9 (<1.2) APTT 25.2 (22.0-30.0) sec Sodium 139 (137-145) mmol/L Potassium 3.8 (3.5-5.1) mmol/L Chloride 107 (98-107) mmol/L Carbon Dioxide 28 (22-30) mmol/L Anion Gap 4 mmol/L BUN 14 (9-20) mg/dL Creatinine 1.07 (0.66-1.25) mg/dL Est GFR (CKD-EPI)AfAm 89 (>60 ml/min/1.73 sqM) Est GFR (CKD-EPI)NonAf 77 (>60 ml/min/1.73 sqM) Glucose 113 H (74-99) mg/dL Calcium 8.6 (8.4-10.2) mg/dL Magnesium 1.8 (1.6-2.3) mg/dL Total Bilirubin 0.4 (0.2-1.3) mg/dL AST 26 (17-59) U/L ALT 17 (4-49) U/L Alkaline Phosphatase 113 (38-126) U/L Troponin I (0.000-0.034) ng/mL NT-Pro-B Natriuret Pep pg/mL Total Protein 6.0 L (6.3-8.2) g/dL Albumin 3.7 (3.5-5.0) g/dL Lipase 110 (23-300) U/L Urine Color Urine Appearance (Clear) Urine pH (5.0-8.0) Ur Specific [place] (1.001-1.035) Urine Protein (Negative) Urine Glucose (UA) (Negative) Urine Ketones (Negative) Urine Blood (Negative) Urine Nitrite (Negative) Urine Bilirubin (Negative) Urine Urobilinogen (<2.0) mg/dL Ur Leukocyte Esterase (Negative) Urine RBC (0-5) /hpf Urine WBC (0-5) /hpf Urine Bacteria (None) /hpf Urine Mucus (None) /hpf 12/20/20 12/20/20 12/20/20 Range/Units 07:33 07:33 08:17 WBC (3.8-10.6) k/uL RBC (4.30-5.90) m/uL Hgb (13.0-17.5) gm/dL Hct (39.0-53.0) % MCV (80.0-100.0) fL MCH (25.0-35.0) pg MCHC (31.0-37.0) g/dL RDW (11.5-15.5) % Plt Count (150-450) k/uL MPV Neutrophils % % Lymphocytes % % Monocytes % % Eosinophils % % Basophils % % Neutrophils # (1.3-7.7) k/uL Lymphocytes # (1.0-4.8) k/uL Monocytes # (0-1.0) k/uL Eosinophils # (0-0.7) k/uL Basophils # (0-0.2) k/uL PT (9.0-12.0) sec INR (<1.2) APTT (22.0-30.0) sec Sodium (137-145) mmol/L Potassium (3.5-5.1) mmol/L Chloride (98-107) mmol/L Carbon Dioxide (22-30) mmol/L Anion Gap mmol/L BUN (9-20) mg/dL Creatinine (0.66-1.25) mg/dL Est GFR (CKD-EPI)AfAm (>60 ml/min/1.73 sqM) Est GFR (CKD-EPI)NonAf (>60 ml/min/1.73 sqM) Glucose (74-99) mg/dL Calcium (8.4-10.2) mg/dL Magnesium (1.6-2.3) mg/dL Total Bilirubin (0.2-1.3) mg/dL AST (17-59) U/L ALT (4-49) U/L Alkaline Phosphatase (38-126) U/L Troponin I 0.917 H* (0.000-0.034) ng/mL NT-Pro-B Natriuret Pep 1150 pg/mL Total Protein (6.3-8.2) g/dL Albumin (3.5-5.0) g/dL Lipase (23-300) U/L Urine Color Yellow Urine Appearance Clear (Clear) Urine pH 5.5 (5.0-8.0) Ur Specific [place] 1.039 H (1.001-1.035) Urine Protein Trace H (Negative) Urine Glucose (UA) Negative (Negative) Urine Ketones Negative (Negative) Urine Blood Negative (Negative) Urine Nitrite Negative (Negative) Urine Bilirubin Negative (Negative) Urine Urobilinogen 2.0 (<2.0) mg/dL Ur Leukocyte Esterase Small H (Negative) Urine RBC 1 (0-5) /hpf Urine WBC 6 H (0-5) /hpf Urine Bacteria Rare H (None) /hpf Urine Mucus Few H (None) /hpf Critical Care Time Critical Care Time: Yes Total Critical Care Time: 35 Disposition Clinical Impression: Acute non-ST elevation myocardial infarction (NSTEMI) Disposition: ADMITTED IP TO THIS [facility] Condition: Stable Is patient prescribed a controlled substance at d/c from ED?: No Referrals: None,Stated [REFERRING] - 1-2 days Decision to Admit Reason: Admit from EC Decision Date: 12/20/20 Decision Time: 10:20
[2020-12-20 08:06] LABS: Basophils # (A) 0.1 k/uL (0-0.2); Basophils % (A) 1 %; Eosinophils # (A) 0.2 k/uL (0-0.7); Eosinophils % (A) 2 %; HCT 35.5 % (39.0-53.0); HGB 12.8 gm/dL (13.0-17.5); Lymphocytes # (A) 2.1 k/uL (1.0-4.8); Lymphocytes % (A) 29 %; MCH 32.4 pg (25.0-35.0); MCHC 36.1 g/dL (31.0-37.0); MCV 89.8 fL (80.0-100.0); Monocytes # (A) 0.6 k/uL (0-1.0); Monocytes % (A) 8 %; Neutrophils # (A) 4.1 k/uL (1.3-7.7); Neutrophils % (A) 56 %; Platelet Count 173 k/uL (150-450); RBC 3.95 m/uL (4.30-5.90); RDW 13.2 % (11.5-15.5); WBC 7.3 k/uL (3.8-10.6)
[2020-12-20 08:16] LABS: Albumin 3.7 g/dL (3.5-5.0); Calcium 8.6 mg/dL (8.4-10.2); Magnesium 1.8 mg/dL (1.6-2.3); Potassium 3.8 mmol/L (3.5-5.1); Total Bilirubin 0.4 mg/dL (0.2-1.3)
--- NOTE | 2020-12-20 08:23 | XR ---
EXAMINATION TYPE: XR chest 2V DATE OF EXAM: 12/20/2020 COMPARISON: 06/03/2019 INDICATION: Dull chest pain TECHNIQUE: Frontal and lateral views of the chest are obtained. FINDINGS: The heart size is normal. The pulmonary vasculature is normal. There is some linear density extending from the right hilum may be some atelectasis. Some flattening of the diaphragms is present on the lateral view. IMPRESSION: 1. There may be some mild atelectasis at the left perihilar region. 2. Examination is otherwise unremarkable
[2020-12-20 08:25] LABS: INR 0.9 (<1.2); Partial Thromboplastin Time 25.2 sec (22.0-30.0); Prothrombin Time 10.1 sec (9.0-12.0)
[2020-12-20 08:47] LABS: Appearance,Urine Clear (Clear); Bacteria,Urine Rare /hpf; Bilirubin,Urine Negative (Negative); Blood,Urine Negative (Negative); Color,Urine Yellow; Glucose,Urine (UA) Negative (Negative); Ketones,Urine Negative (Negative); Leukocyte Esterase,Urine Small (Negative); Mucus,Urine Few /hpf; Nitrite,Urine Negative (Negative); PH, Urine 5.5 (5.0-8.0); Protein,Urine Trace (Negative); RBC,Urine 1 /hpf (0-5); Specific Gravity,Urine 1.039 (1.001-1.035); WBC,Urine 6 /hpf (0-5)
[2020-12-20] MEDS ORDERED: HEPARIN SODIUM 1,000 UN/ML (10ML VL) IV ONE (10:08)
[2020-12-20] MEDS ORDERED: HEPARIN SODIUM 1,000 UN/ML (10ML VL) IV PRN (10:08)
[2020-12-20] MEDS ORDERED: HEPARIN SOD,PORK IN 0.45% NACL 25,000 UNIT in 0.45% NACL 1 250ML.BAG IV SCH (10:15)
[2020-12-20] MEDS ORDERED: MORPHINE SULFATE 4 MG/ML SYRINGE IVP STA (10:26)
[2020-12-20] MEDS ORDERED: NALOXONE 0.4 MG/ML 1 ML VIAL IV PRN (11:51)
[2020-12-20] MEDS ORDERED: ACETAMINOPHEN TAB 325 MG TAB PO PRN (11:51)
[2020-12-20] MEDS ORDERED: NITROGLYCERIN SL TABS 0.4 MG TAB SUBLINGUAL PRN ×2 (13:09→15:04)
[2020-12-20] MEDS ORDERED: ALPRAZolam 0.5 MG TAB PO PRN (13:18)
[2020-12-20] MEDS ORDERED: ASPIRIN 325 MG TAB PO STA (13:18)
[2020-12-20] MEDS ORDERED: SODIUM CHLORIDE 0.9% 1,000 ML in EMPTY BAG 1 BAG IV ONE (13:18)
[2020-12-20] MEDS ORDERED: ATORVASTATIN 80 MG TAB PO STA (13:18)
[2020-12-20] MEDS ORDERED: fentaNYL (PF) 50 MCG/ML 2 ML AMP ONE (13:45)
[2020-12-20] MEDS ORDERED: LIDOCAINE 1% INJ 10MG/ML (20 ML MDV) ONE (13:45)
[2020-12-20] MEDS ORDERED: IV FLUID CONTINUATION 400 ML IV ONE (13:49)
[2020-12-20] MEDS ORDERED: MIDAZOLAM 2 MG/2 ML VIAL IV ONE (13:53)
[2020-12-20] MEDS ORDERED: fentaNYL (PF) 50 MCG/ML 2 ML AMP IV ONE (13:53)
[2020-12-20] MEDS ORDERED: HEPARIN SODIUM,PORCINE 10,000 UNIT in SODIUM CHLORIDE 0.9% 1,000 ML IRRIGATION PRN (14:00)
[2020-12-20] MEDS ORDERED: HEPARIN SODIUM,PORCINE 2,500 UNIT in SODIUM CHLORIDE 0.9% 250 ML IRRIGATION PRN (14:00)
[2020-12-20] MEDS ORDERED: LIDOCAINE 1% INJ 10MG/ML (20 ML MDV) SQ ONE (14:06)
[2020-12-20] MEDS ORDERED: TICAGRELOR 90 MG TAB ONE (14:26)
[2020-12-20] MEDS ORDERED: TICAGRELOR 90 MG TAB PO ONE (14:28)
[2020-12-20] MEDS ORDERED: HEPARIN SODIUM 1,000 UN/ML (10ML VL) ONE (14:31)
[2020-12-20] MEDS ORDERED: IOPAMIDOL-370 125ML BTL INJ ONE (14:50)
[2020-12-20] MEDS ORDERED: ZOLPIDEM 5 MG TAB PO PRN (15:04)
[2020-12-20] MEDS ORDERED: RX INFO: IV CONTRAST WAS GIVEN 1 EACH MISC MISCELLANE PRN (15:04)
[2020-12-20] MEDS ORDERED: ATROPINE SULFATE 0.1 MG/ML 10ML SYRINGE IV PRN (15:04)
[2020-12-20] MEDS ORDERED: MAG HYDROX/AL HYDROX/SIMETH 30 ML CUP PO PRN (15:04)
[2020-12-20] MEDS ORDERED: SODIUM CHLORIDE 0.9% 1,000 ML IV SCH (15:15)
[2020-12-20] MEDS: IPRATROPIUM-ALBUTEROL 3 ML NEB INHALATION PRN ×2 (16:21→20:23)
[2020-12-20] MEDS: MORPHINE SULFATE 4 MG/ML SYRINGE IV PRN ×2 (17:17→21:29)
[2020-12-20] MEDS: PANTOPRAZOLE 40 MG TABLET PO SCH (18:18)
[2020-12-20] MEDS: methocarbamoL 750 MG TAB PO SCH ×2 (18:18→20:46)
--- NOTE | 2020-12-20 19:58 | P.HPIM ---
History of Present Illness H&P Date: 12/20/20 Chief Complaint: Chest pain Chief Complaint: Short of breath History of presenting complaint: This is a very pleasant 49-year-old patient who follows with Dr. Daniel. Aroldo rico December 08 patient started becoming progressively short of breath. The left or cough. Fever and chills. Significant headache and body ache. Developed loss of smell and taste. Some diarrhea. [place] very tired and exhausted. Patient was checking her pulse ox at home for last 2 days the pulse ox dropped into the 80s. Patient was diagnosed with COVID 19 on December 14. At [facility] on. P resented to ER admitted with a diagnosis of COVID 19 pneumonia. Patient's is also admitted for the same. With her. Review of systems: GEN.: Fever or chills decreased appetite EYES: None HEENT: Headaches NECK: None RESPIRATORY: As above CARDIOVASCULAR: None GASTROINTESTINAL: As above GENITOURINARY: None MUSCULOSKELETAL: Aches and pains LYMPHATICS: None HEMATOLOGICAL: None PSYCHIATRY: None NEUROLOGICAL: None Past medical history to include: Hypertension, hypothyroid, sarcoidosis affecting several organs including her brain and heart. Kidney stones. Anxiety. Social history: . Nonsmoker. Alcohol rarely. Physical examination: VITAL SIGNS: [100.3, 103, 19, 126/77, 95% on 6 L GENERAL: BMI 31.9, laying in bed, slightly short of breath. EYES: Pupils equal. Conjunctiva normal. HEENT: External appearance of nose and ears normal, oral cavity grossly normal. NECK: JVD not raised; masses not palpable. HEART: First and second heart sounds are normal; no edema. LUNGS: Respiratory rate increased, basal crackles. ABDOMEN: Soft, nontender, liver spleen not palpable, no masses palpable. PSYCH: Alert and oriented x3; mood and affect anxiousl. NEUROLOGICAL: Cranial nerves grossly intact; no facial asymmetry, power and sensation grossly intact. LYMPHATICS: No lymph nodes palpable in the axilla and neck INVESTIGATIONS, reviewed in the clinical context: December 19: D-dimer 0.61 CRP 296.4 Admission labs: WBC 8.5 hemoglobin 12.8 platelets 237 lymphocytes 0.8 d-dimer 0.38 potassium 3.6 creatinine 0.67 TSH 3.5 Chest x-ray film personally reviewed by me-bilateral infiltrates Assessment and plan: -Acute bilateral COVID 19 pneumonitis with symptoms starting about 10 years ago Patient receiving vitamin C, vitamin D, IV dexamethasone, subcu Lovenox. Remdesivir. Pulmonary consulted. Follow CRP d-dimer -Acute hypoxic respiratory failure secondary to COVID 19 pneumonia Supplement oxygen -Hypothyroid Continue with Synthroid -Essential hypertension Continue with atenolol -Chronic sarcoidosis affecting multiple organs except for the brain of the heart. Follow clinically -Anxiety not otherwise specified Continue with Desyrel. Care was discussed at length with the patient. Questions answered. Pulmonary consulted. Oxygen supplementation. Patient to sit up as much possible. Use incentive spirometry. 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 OCCASIONAL USE OF CANE OR WALKER Last Myocardial Infarction Date:: 03/24/2016 History of Any Multi-Drug Resistant Organisms: None Reported Past Surgical History: Appendectomy, Cholecystectomy, Heart Catheterization With Stent, Hernia Repair Additional Past Surgical History / Comment(s): SX TO REPAIR TIP OF INDEX FINGER RT HAND. 03/24/16 2 stent placed to RCA, colonoscopy. Past Anesthesia/Blood Transfusion Reactions: No Reported Reaction Date of Last Stent Placement:: 03/24/16 Past Psychological History: No Psychological Hx Reported Past Alcohol Use History: Occasional Past Drug Use History: None Reported - Past Family History Mother Family Medical History: Cancer, Diabetes Mellitus Additional Family Medical History / Comment(s): COLON CANCER,HEART PROBLEMS. Mother at the age of 73 yrs. Brother(s) Family Medical History: Cancer Additional Family Medical History / Comment(s): AT AGE 52 ESOPHGEAL CANCER Father History Unknown: Yes Family Medical History: Cancer, Myocardial Infarction (ID) Additional Family Medical History / Comment(s): Pt states he doesn't keep in touch with his father and doesn't know his health hx. Medications and Allergies Home Medications Medication Instructions Recorded Confirmed Type RABEprazole SODIUM [Aciphex] 20 mg PO BID 04/05/14 12/20/20 History oxyCODONE HCL [oxyCODONE HCL (IR)] 20 mg PO Q6H 03/24/16 12/20/20 History rOPINIRole HCL [Requip] 1 mg PO DAILY 03/24/16 12/20/20 History Metoprolol Tartrate [Lopressor] 25 mg PO BID #60 tab 03/26/16 12/20/20 Rx lisinopriL [Zestril] 20 mg PO DAILY 10/23/16 12/20/20 History Simvastatin [Zocor] 40 mg PO HS 06/26/17 12/20/20 History methocarbamoL [Robaxin] 750 mg PO TID 02/19/19 12/20/20 History Tamsulosin [Flomax] 0.4 mg PO DAILY #30 cap.er.24h 06/07/19 12/20/20 Rx Budesonide [Pulmicort] 0.5 mg INHALATION RT-BID 12/20/20 12/20/20 History Cholecalciferol [Vitamin D3 (25 25 mcg PO DAILY 12/20/20 12/20/20 History Mcg = 1000 Iu)] Cyanocobalamin (Vitamin B-12) 1,000 mcg PO DAILY 12/20/20 12/20/20 History [Vitamin B-12] Fluticasone/Umeclidin/Vilanter 1 puff INHALATION RT-DAILY 12/20/20 12/20/20 History [Trelegy Ellipta 200-62.5-25] Ipratropium-Albuterol Nebulize 3 ml INHALATION RT-QID PRN 12/20/20 12/20/20 History [Duoneb 0.5 mg-3 mg/3 ml Soln] Montelukast [Singulair] 10 mg PO DAILY 12/20/20 12/20/20 History Nitroglycerin Sl Tabs [Nitrostat] 0.4 mg SL Q5M PRN 12/20/20 12/20/20 History Nortriptyline [Pamelor] 20 mg PO HS 12/20/20 12/20/20 History OXcarbazepine [Trileptal] 150 mg PO BID 12/20/20 12/20/20 History Allergies Allergy/AdvReac Type Severity Reaction Status Date / Time iodine Allergy Anaphylaxis Verified 12/20/20 11:18 shellfish derived [Shellfish] Allergy Anaphylaxis Verified 12/20/20 11:18 Physical Exam Vitals: Vital Signs Temp Pulse Pulse Resp BP BP Pulse Ox 12/20/20 17:51 80 135/82 97 12/20/20 16:51 76 131/81 98 12/20/20 16:34 70 12/20/20 16:21 72 80 147/84 99 12/20/20 15:51 72 136/75 100 12/20/20 15:36 72 131/91 100 12/20/20 15:21 64 20 122/80 99 12/20/20 15:06 98.8 F 74 18 134/82 96 12/20/20 12:00 64 123/109 96 12/20/20 11:30 95 123/109 12/20/20 11:00 68 110/61 95 12/20/20 10:30 70 110/61 97 12/20/20 10:22 67 18 110/61 96 12/20/20 10:00 63 118/73 96 12/20/20 09:30 67 116/67 95 12/20/20 09:00 68 123/78 95 12/20/20 08:30 71 109/72 95 12/20/20 08:00 78 132/58 12/20/20 07:39 98.1 F 77 17 120/82 95 12/20/20 07:30 131/108 96 Intake and Output 12/20/20 12/20/20 12/20/20 06:59 14:59 22:59 Intake Total 240 Balance 240 Intake: Oral 240 Other: Weight 78.925 kg Results CBC & Chem 7: 12/20/20 07:33 12/20/20 07:33 Labs: Abnormal Lab Results - Last 24 Hours (Table) 12/20/20 12/20/20 12/20/20 Range/Units 07:33 07:33 07:33 RBC 3.95 L (4.30-5.90) m/uL Hgb 12.8 L (13.0-17.5) gm/dL Hct 35.5 L (39.0-53.0) % APTT (22.0-30.0) sec Glucose 113 H (74-99) mg/dL Troponin I 0.917 H* (0.000-0.034) ng/mL Total Protein 6.0 L (6.3-8.2) g/dL Ur Specific [place] (1.001-1.035) Urine Protein (Negative) Ur Leukocyte Esterase (Negative) Urine WBC (0-5) /hpf Urine Bacteria (None) /hpf Urine Mucus (None) /hpf 12/20/20 12/20/20 Range/Units 08:17 16:07 RBC (4.30-5.90) m/uL Hgb (13.0-17.5) gm/dL Hct (39.0-53.0) % APTT >200.0 H* (22.0-30.0) sec Glucose (74-99) mg/dL Troponin I (0.000-0.034) ng/mL Total Protein (6.3-8.2) g/dL Ur Specific [place] 1.039 H (1.001-1.035) Urine Protein Trace H (Negative) Ur Leukocyte Esterase Small H (Negative) Urine WBC 6 H (0-5) /hpf Urine Bacteria Rare H (None) /hpf Urine Mucus Few H (None) /hpf Thrombosis Risk Factor Assmnt - Choose All That Apply Each Factor Represents 1 point: Age 41-60 years Other Risk Factors: No Other congenital or acquired thrombophilia - If yes, enter type in comment: No Thrombosis Risk Factor Assessment Total Risk Factor Score: 1 Thrombosis Risk Factor Assessment Level: Low Risk
[2020-12-20] MEDS ORDERED: BUDESONIDE 0.5 MG/2 ML NEBU INHALATION SCH (20:00)
--- NOTE | 2020-12-20 20:24 | P.HPIM ---
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 Has coronary artery disease with stent possibly done in [address] Norma Garber the map colorer. Patient has continued to smoke up until recently. Patient 2 days ago developed chest pressure while watching television last full code aren't half. Middle of the chest. It went down the left arm. He took nitroglycerin with some relief. The pain did get up to the jaw also. Following morning patient was woken up with chest pain at 4 AM again the same presentation with cold sweats and took nitroglycerin with some help. Again this morning around 4 in the morning patient developed a similar presentation and has pain was significant decided to come to the ER. Troponins were positive. Cardiology consulted. Patient thinks he may have had a stress test over a year ago. When I saw the patient this afternoon he was still having some chest pain. Review of systems: GEN.: Tired EYES: None HEENT: None NECK: None RESPIRATORY: As above CARDIOVASCULAR: [As above GASTROINTESTINAL: None GENITOURINARY: None MUSCULOSKELETAL: Joint pains LYMPHATICS: None HEMATOLOGICAL: None PSYCHIATRY: None NEUROLOGICAL: None Past medical history to include: Coronary artery the visit stent, COPD, hypertension, hyperlipidemia, primary osteoarthritis, GERD and body syndrome after flu vaccine 2010, 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 Smokes average about a pack a day for close to 50 years. Was up to 2 packs a day. Alcohol occasionally. Physical examination: VITAL SIGNS: 98.1, 77, 17, 120/82, 95% on room air GENERAL: BMI 27.3, laying in bed, awake tired. EYES: Pupils equal. Conjunctiva normal. HEENT: External appearance of nose and ears normal, oral cavity grossly normal. NECK: JVD not raised; masses not palpable. HEART: First and second heart sounds are normal; no edema. LUNGS: Respiratory rate increased; decreased breath sounds. ABDOMEN: Soft, nontender, liver spleen not palpable, no masses palpable. PSYCH: Alert and oriented x3; mood and affect anxiousl. NEUROLOGICAL: Cranial nerves grossly intact; no facial asymmetry, power and sensation grossly intact. LYMPHATICS: No lymph nodes palpable in the axilla and neck INVESTIGATIONS, reviewed in the clinical context: WBC 7.3 hemoglobin 12.8 platelets 173 potassium 3.8 creatinine 1.07 Troponin I 0.917 proBNP 1150 lipase 110 Coronavirus [PCR]-not detected EKG tracing personally reviewed by me-normal sinus rhythm flipped T waves in inferior leads Chest x-ray film personally reviewed by me-lung herman hyperinflated Assessment and plan: -Acute non-Q-wave myocardial infarction likely the initial insult was 2 days ago. Most likely troponins are on the way down. Patient still having some pain this afternoon. Discussed with cardiology. Possible cardiac catheterization. Aspirin, IV heparin, Zestril, Lopressor -COPD in a current smoker Continue with DuoNepinky, trilogy ellipta -Hyperlipidemia Add Lipitor -Essential hypertension Zestril, Lopressor -Primary osteoarthritis Tylenol as needed -Bilateral lower exstrophy paresis due to Radu barre syndrome Fall precautions -Restless leg syndrome Requip Patient seen by cardiology, Dr. Palomo. Plan is for cardiac catheterization. Meantime continue with other medications and IV heparin. Given the complexity and severity of patient's condition expect the patient to b e in the hospital at least for 2 overnights Past Medical History Past Medical History: Asthma, Coronary Artery Disease (CAD), COPD, Hyperlipidemia, Hypertension, Myocardial Infarction (DE), Neurologic Disorder, Osteoarthritis (OA), Pneumonia Additional Past Medical History / Comment(s): GUILLAIN BARRE' SYNDROME AFTER FLU VACCINE IN 2010, RLS, chronic bilateral leg pain and weakness, restless leg, possible seizure once 2014? OCCASIONAL USE OF CANE OR WALKER Last Myocardial Infarction Date:: 03/24/2016 History of Any Multi-Drug Resistant Organisms: None Reported Past Surgical History: Appendectomy, Cholecystectomy, Heart Catheterization With Stent, Hernia Repair Additional Past Surgical History / Comment(s): SX TO REPAIR TIP OF INDEX FINGER RT HAND. 03/24/16 2 stent placed to RCA, colonoscopy. Past Anesthesia/Blood Transfusion Reactions: No Reported Reaction Date of Last Stent Placement:: 03/24/16 Past Psychological History: No Psychological Hx Reported Past Alcohol Use History: Occasional Past Drug Use History: None Reported - Past Family History Mother Family Medical History: Cancer, Diabetes Mellitus Additional Family Medical History / Comment(s): COLON CANCER,HEART PROBLEMS. Mother at the age of 73 yrs. Brother(s) Family Medical History: Cancer Additional Family Medical History / Comment(s): AT AGE 52 ESOPHGEAL CANCER Father History Unknown: Yes Family Medical History: Cancer, Myocardial Infarction (DE) Additional Family Medical History / Comment(s): Pt states he doesn't keep in touch with his father and doesn't know his health hx. Medications and Allergies Home Medications Medication Instructions Recorded Confirmed Type RABEprazole SODIUM [Aciphex] 20 mg PO BID 04/05/14 12/20/20 History oxyCODONE HCL [oxyCODONE HCL (IR)] 20 mg PO Q6H 03/24/16 12/20/20 History rOPINIRole HCL [Requip] 1 mg PO DAILY 03/24/16 12/20/20 History Metoprolol Tartrate [Lopressor] 25 mg PO BID #60 tab 03/26/16 12/20/20 Rx lisinopriL [Zestril] 20 mg PO DAILY 10/23/16 12/20/20 History Simvastatin [Zocor] 40 mg PO HS 06/26/17 12/20/20 History methocarbamoL [Robaxin] 750 mg PO TID 02/19/19 12/20/20 History Tamsulosin [Flomax] 0.4 mg PO DAILY #30 cap.er.24h 06/07/19 12/20/20 Rx Budesonide [Pulmicort] 0.5 mg INHALATION RT-BID 12/20/20 12/20/20 History Cholecalciferol [Vitamin D3 (25 25 mcg PO DAILY 12/20/20 12/20/20 History Mcg = 1000 Iu)] Cyanocobalamin (Vitamin B-12) 1,000 mcg PO DAILY 12/20/20 12/20/20 History [Vitamin B-12] Fluticasone/Umeclidin/Vilanter 1 puff INHALATION RT-DAILY 12/20/20 12/20/20 History [Trelegy Ellipta 200-62.5-25] Ipratropium-Albuterol Nebulize 3 ml INHALATION RT-QID PRN 12/20/20 12/20/20 History [Duoneb 0.5 mg-3 mg/3 ml Soln] Montelukast [Singulair] 10 mg PO DAILY 12/20/20 12/20/20 History Nitroglycerin Sl Tabs [Nitrostat] 0.4 mg SL Q5M PRN 12/20/20 12/20/20 History Nortriptyline [Pamelor] 20 mg PO HS 12/20/20 12/20/20 History OXcarbazepine [Trileptal] 150 mg PO BID 12/20/20 12/20/20 History Allergies Allergy/AdvReac Type Severity Reaction Status Date / Time iodine Allergy Anaphylaxis Verified 12/20/20 11:18 shellfish derived [Shellfish] Allergy Anaphylaxis Verified 12/20/20 11:18 Physical Exam Vitals: Vital Signs Temp Pulse Pulse Resp BP BP Pulse Ox 12/20/20 17:51 80 135/82 97 12/20/20 16:51 76 131/81 98 12/20/20 16:34 70 12/20/20 16:21 72 80 147/84 99 12/20/20 15:51 72 136/75 100 12/20/20 15:36 72 131/91 100 12/20/20 15:21 64 20 122/80 99 12/20/20 15:06 98.8 F 74 18 134/82 96 12/20/20 12:00 64 123/109 96 12/20/20 11:30 95 123/109 12/20/20 11:00 68 110/61 95 12/20/20 10:30 70 110/61 97 12/20/20 10:22 67 18 110/61 96 12/20/20 10:00 63 118/73 96 12/20/20 09:30 67 116/67 95 12/20/20 09:00 68 123/78 95 12/20/20 08:30 71 109/72 95 12/20/20 08:00 78 132/58 12/20/20 07:39 98.1 F 77 17 120/82 95 12/20/20 07:30 131/108 96 Intake and Output 12/20/20 12/20/20 12/20/20 06:59 14:59 22:59 Intake Total 240 Balance 240 Intake: Oral 240 Other: Weight 78.925 kg Results CBC & Chem 7: 12/20/20 07:33 12/20/20 07:33 Labs: Abnormal Lab Results - Last 24 Hours (Table) 12/20/20 12/20/20 12/20/20 Range/Units 07:33 07:33 07:33 RBC 3.95 L (4.30-5.90) m/uL Hgb 12.8 L (13.0-17.5) gm/dL Hct 35.5 L (39.0-53.0) % APTT (22.0-30.0) sec Glucose 113 H (74-99) mg/dL Troponin I 0.917 H* (0.000-0.034) ng/mL Total Protein 6.0 L (6.3-8.2) g/dL Ur Specific [place] (1.001-1.035) Urine Protein (Negative) Ur Leukocyte Esterase (Negative) Urine WBC (0-5) /hpf Urine Bacteria (None) /hpf Urine Mucus (None) /hpf 12/20/20 12/20/20 Range/Units 08:17 16:07 RBC (4.30-5.90) m/uL Hgb (13.0-17.5) gm/dL Hct (39.0-53.0) % APTT >200.0 H* (22.0-30.0) sec Glucose (74-99) mg/dL Troponin I (0.000-0.034) ng/mL Total Protein (6.3-8.2) g/dL Ur Specific [place] 1.039 H (1.001-1.035) Urine Protein Trace H (Negative) Ur Leukocyte Esterase Small H (Negative) Urine WBC 6 H (0-5) /hpf Urine Bacteria Rare H (None) /hpf Urine Mucus Few H (None) /hpf Thrombosis Risk Factor Assmnt - Choose All That Apply Each Factor Represents 1 point: Age 41-60 years Other Risk Factors: No Other congenital or acquired thrombophilia - If yes, enter type in comment: No Thrombosis Risk Factor Assessment Total Risk Factor Score: 1 Thrombosis Risk Factor Assessment Level: Low Risk
--- NOTE | 2020-12-20 20:31 | CONS ---
CONSULTATION DATE OF SERVICE: December 20, 2020. REASON FOR CONSULTATION: Chest discomfort. HISTORY OF PRESENT ILLNESS: This is a 55-year-old gentleman who sees Dr. Garber in the office as an outpatient with coronary artery disease and prior stenting of the RCA as well as known intermediate disease involving the left circumflex as well as hypertension and dyslipidemia who presented to the emergency department complaining of chest discomfort. The chest discomfort started 3 days ago and described as a pressure of the chest with radiation to the left arm and right arm. No associated symptoms of shortness of breath or dizziness or lightheadedness, or syncope. Because the chest discomfort got worse, he decided to come to the emergency department and when he was seen, he was having ongoing chest discomfort. The troponin came in to be slightly abnormal. The EKG showed sinus rhythm with ST changes in the inferior leads concerning for severe underlying coronary artery disease. With his ongoing chest discomfort as well as abnormal troponin and abnormal EKG, an emergent heart catheterization was advised. We contacted Dr. Garber who is going to pursue with the procedure. PAST MEDICAL HISTORY: Includes 1. Coronary artery disease and prior stenting of the RCA. 2. Hypertension. 3. Dyslipidemia. MEDICATIONS: Current medications include the followin. Lisinopril 20 mg p.o. daily. 2. Simvastatin 40 mg p.o. q.h.s. 3. Metoprolol tartrate 25 mg p.o. b.i.d. 4. Requip 1 mg p.o. daily. 5. Robaxin 750 mg p.o. t.i.d. PHYSICAL EXAMINATION: General appearance: The patient was in mild discomfort when he was seen. Vitals: Heart rate 64. Blood pressure is 123/79, heart saturation is 96%. Cardiovascular examination shows regular rate and rhythm. Respiratory examination shows clear breathing sounds bilaterally. Extremity examination: No pedal edema. Vascular examination: He does have good pulse in the right common femoral artery. CONCLUSION: 1. Acute non ST elevation myocardial infarction. 2. Coronary artery disease and prior stenting of the RCA. 3. Hypertension. 4. Dyslipidemia. PLAN: 1. Continue aspirin as well as heparin. 2. Proceed with heart catheterization to be done as soon as possible. 3. An echocardiogram with Doppler. 4. Follow up with the patient. MMODL / IJN: [id number] /
[2020-12-20] MEDS: METOPROLOL TARTRATE 25 MG TAB PO SCH (20:45)
[2020-12-20] MEDS: NORTRIPTYLINE 10 MG CAP PO SCH (20:46)
[2020-12-20] MEDS: TICAGRELOR 90 MG TAB PO SCH (20:46)
[2020-12-20] MEDS: ATORVASTATIN 80 MG TAB PO SCH (20:46)
[2020-12-20] MEDS: OXcarbazepine 150 MG TAB PO SCH (20:46)
[2020-12-20] MEDS ORDERED: ATORVASTATIN 20 MG TAB PO SCH (21:00)
--- NOTE | 2020-12-20 21:16 | CC ---
CARDIAC CATHETERIZATION REPORT INDICATION: Acute non ST-segment elevation AK. The patient has known CAD, status post prior angioplasty. Eddie is a 55-year-old gentleman with history of coronary artery disease, who presented to the hospital with acute non ST-segment elevation AK and because of persistent chest pain, was advised to undergo cardiac catheterization. He had been explained of risks, benefits and alternatives, understood and accepted. PROCEDURE NOTE: After obtaining informed consent, left heart catheterization and coronary angiogram were performed via the right femoral artery using standard Gladys catheters. The patient tolerated the procedure well without any obvious immediate complications. The patient received moderate conscious sedation. Total sedation time was 14 minute. FINDINGS: HEMODYNAMICS: Left ventricular end-diastolic pressure is 22 mm. There is no significant gradient across the aortic valve. LEFT VENTRICULOGRAM: Not performed. ANGIOGRAPHIC DATA: The left main coronary artery: Left main coronary artery is a normal size vessel and is free of stenosis. Divides into left anterior descending coronary artery and circumflex coronary artery. Circumflex coronary artery and its branches are free of stenosis. Left anterior descending coronary artery gives off a fair caliber diagonal branch which the 2nd diagonal branch shows a 70% ostial stenosis. Right coronary artery: Large dominant vessel that shows an area of plaque rupture and stenosis just past the distal end of the previous stented segment at its worse is 95% stenosis. CONCLUSIONS: 1. Area of plaque rupture that is 95% stenosed involving mid RCA. 2. Significant stenosis involving the ostial portion of the diagonal. PLAN: Patient will undergo angioplasty of the right coronary artery. MMODL / IJN: [id number] /
--- NOTE | 2020-12-20 21:16 | PTCA ---
PERCUTANEOUSTRANS CORORONARY ANGIOGRAPHY Mr. Salvador is a 55-year-old male with known history of coronary artery disease, prior history of smoking, history of prior coronary artery disease who presented with symptoms of chest discomfort and evidence of cav-HS-arincjr-elevation myocardial infarction, underwent cardiac catheterization by Dr. Garber and was found to have a subtotally occluded mid RCA. In view of that, recommendation was made regarding angioplasty and stenting. The procedure as well as the risks and the complications were discussed with the patient, who was in full understanding and agreement. PROCEDURE DESCRIPTION: A 6-[place] FR4 guiding catheter was introduced into the system. After cannulating the right coronary ostium, a 0.014 balanced medium weight J-wire was advanced across the lesion, positioned distally. Then a 2.5 x 12 mm NC Trek balloon was advanced and multiple inflations to a maximum of 12 atmospheres were done. Following that the balloon was removed and a 3.0 x 18 mm Xience Chelsi stent was deployed and post-dilated at 16 atmospheres. Following that the balloon was removed and a 3.5 x 15 mm NC Trek balloon was advanced and multiple inflations to a maximum of 16 atmospheres were done. After the last inflation, after appropriate wait, the balloon and the guidewire were withdrawn back into the guiding catheter. Images were obtained and repeated. Those images revealed stable successful stenting. At that point, the guiding catheter, the balloon and the guidewire were removed. The sheath was removed. Hemostasis was obtained with deployment of an Angio-Seal. There was no immediate complication. Patient was returned to his room in stable condition. Of note, the patient's chest discomfort improved during the procedure. He received a total of 7000 units of intravenous heparin as well as intra-arterial verapamil. His ACT was followed. RESULTS: Successful stenting of the mid right coronary artery with reduction of stenosis from 99% to 0%. RECOMMENDATIONS: Patient will be continued on aspirin, Brilinta, beta merry, EMELIA inhibitor and statin. The importance of dual antiplatelet treatment were discussed with the patient and his family, and they are in full understanding and agreement. Duration of sedation was 23 minutes. MMODL / IJN: [id number] /
[2020-12-20] MEDS: ALPRAZolam 0.25 MG TAB PO PRN (21:28)
[2020-12-21] MEDS: PANTOPRAZOLE 40 MG TABLET PO SCH ×2 (06:23→17:32)
[2020-12-21 07:00] LABS: African American GFR (CKD) >90 (>60 ml/min/1.73 sqM); Anion Gap 1 mmol/L; Blood Urea Nitrogen 12 mg/dL (9-20); Calcium 8.9 mg/dL (8.4-10.2); Carbon Dioxide 30 mmol/L (22-30); Chloride 108 mmol/L (98-107); Glucose 91 mg/dL (74-99); Non-African American GFR(CKD) 84 (>60 ml/min/1.73 sqM); Potassium 4.3 mmol/L (3.5-5.1); Sodium 139 mmol/L (137-145)
[2020-12-21] MEDS ORDERED: SYMBICORT 80-4.5 MCG INHALER INHALATION SCH (08:00)
[2020-12-21] MEDS: MONTELUKAST 10 MG TAB PO SCH (09:05)
[2020-12-21] MEDS: CYANOCOBALAMIN 500 MCG TAB PO SCH (09:05)
[2020-12-21] MEDS: METOPROLOL TARTRATE 25 MG TAB PO SCH ×2 (09:06→21:09)
[2020-12-21] MEDS: OXcarbazepine 150 MG TAB PO SCH ×2 (09:06→21:10)
[2020-12-21] MEDS: TAMSULOSIN 0.4 MG CAP.ER.24H PO SCH (09:07)
[2020-12-21] MEDS: TICAGRELOR 90 MG TAB PO SCH ×2 (09:07→21:09)
[2020-12-21] MEDS: ASPIRIN 81 MG PO SCH (09:07)
[2020-12-21] MEDS: methocarbamoL 750 MG TAB PO SCH ×3 (09:07→21:10)
[2020-12-21] MEDS: lisinopriL 20 MG TAB PO SCH (09:08)
[2020-12-21] MEDS: CHOLECALCIFEROL 25 MCG (1000 IU) TABLET PO SCH (09:08)
[2020-12-21] MEDS: IPRATROPIUM-ALBUTEROL 3 ML NEB INHALATION SCH ×4 (09:15→20:30)
--- NOTE | 2020-12-21 11:01 | ECHOF ---
Referral Reason: MEASUREMENTS -------- HEIGHT: 170.2 cm WEIGHT: 77.1 kg BP: IVSd: 1.4 cm (0.6 - 1.1) LVIDd: 3.8 cm (3.9 - 5.3) LVPWd: 1.4 cm (0.6 - 1.1) EDV(Teich): 63 ml IVSs: 1.8 cm LVIDs: 2.5 cm LVPWs: 1.7 cm %IVS Thck: 26 % ESV(Teich): 22 ml EF(Teich): 66 % %FS: 35 % SV(Teich): 41 ml Ao Diam: 3.1 cm (2.0 - 3.7) LA Diam: 2.7 cm (2.7 - 3.8) AV Cusp: 1.7 cm (1.5 - 2.6) EPSS: 1.4 cm MV E Stanley: 1.04 m/s MV DecT: 294 ms MV Dec Walworth: 3.5 m/s MV A Stanley: 0.83 m/s MV E/A Ratio: 1.26 MV PHT: 85 ms MR Vmax: 0.99 m/s MR maxP.92 mmHg TR Vmax: 0.93 m/s TR maxP.46 mmHg RAP: 5.00 mmHg RVSP: 8.46 mmHg MV EF SLOPE: 225.68 mm/s (70 - 150) MV EXCURSION: 20.82 mm (> 18.000) FINDINGS -------- This was a technically difficult study with suboptimal views. The left ventricular size is normal. There is mild concentric left ventricular hypertrophy. Overa left ventricular systolic function is normal with, an EF between 55 - 60 %. The RV was not well visualized. The left atrial size is normal. The right atrium was not well visualized. Lumason used The aortic valve was not well visualized. The mitral valve is normal. There is trace mitral regurgitation. The tricuspid valve appears structurally normal. Trace tricuspid regurgitation present. Right usha tricular systolic pressure is normal at < 35 mmHg. The pulmonic valve was not well visualized. The aortic root size is normal. IVC Not well visulized. There is no pericardial effusion. CONCLUSIONS -------- 1. The left ventricular size is normal. 2. There is mild concentric left ventricular hypertrophy. 3. Overall left ventricular systolic function is normal with, an EF between 55 - 60 %. 4. There is trace mitral regurgitation. 5. Trace tricuspid regurgitation present. 6. There is no pericardial effusion. DIRECTOR AMBULATORY: Arlette Khoury RDCS
[2020-12-21 11:38] VITALS: BMI 26.7
--- NOTE | 2020-12-21 12:57 | XR ---
EXAMINATION TYPE: XR chest 1V portable DATE OF EXAM: 12/21/2020 Comparison: 12/20/2020 Clinical History: 55-year-old male chest pain, shortness of breath Findings: Heart normal size. Aorta and pulmonary vasculature are within normal limits. Mild interstitial promin ence is unchanged. No stewart consolidation or pleural effusion. Impression: Chronic changes, possible bronchitis or chronic asthma. No focal infiltrate seen.
[2020-12-21] MEDS: guaiFENesin 600 MG TABLET.ER PO SCH ×3 (13:02→21:09)
[2020-12-21] MEDS: ALPRAZolam 0.25 MG TAB PO PRN (13:02)
[2020-12-21 13:09] LABS: Glucose,Whole Blood 121 mg/dL (75-99)
--- NOTE | 2020-12-21 14:10 | P.PN ---
Subjective HISTORY OF PRESENTING ILLNESS Tarah is a pleasant 54 showed male past medical history significant for coronary artery disease status post stent placement to the RCA in 2007, COPD, hypertension, dyslipidemia, daily chronic nicotine dependence. He follows in the office with Dr. Garber. We have asked him in consultation secondary to chest discomfort. He initially underwent stent placement to the RCA in 2007, then again in 2015 he had in-stent restenosis and underwent repeat angioplasty. 2018 in the setting of unstable angina he underwent repeat cardiac catheterization revealing patent stents to the RCA, left main free of stenosis, LAD and circumflex free of significant stenosis, OM with a 50-60% proximal stenosis. At that time he underwent FFR which was unremarkable. Patient is seen and examined in the emergency department. He continues to have chest pain 5/10. Radiates to left arm. Troponin 0.917, EKG sinus rhythm with new T wave inversion in inferior leads. IT was agreed to take patient for cardiac catheterization. 12/21/2020: Patient is s/p cardiac catheterization with PCI to the mid RCA yesterday. Patient with increased pain at cath site. Right groin site is very tender to palpation He is continuously having chest pain, midsternal 6/10. Woke him up out of bed. Started having shortness of breath. Feels like a pressure. Similar chest pain as yesterday. Laboratory data reviewed, sodium 139, potassium 4.3, serum cr eatinine 0.9, BNP yesterday 1150 Vital signs blood pressure 10/07/1972, heart rate 68, afebrile, on 2 L nasal cannula No documentation of hypoxia on room air, however, patient states it was placed on oxygen due to shortness of breath . He maintained on aspirin 81 mg daily, atorvastatin 80 mg daily, lisinopril 20 mg daily Lopressor 25 mg twice a day, Premarin, 90 mg twice a day PHYSICAL EXAMINATION CONSTITUTIONAL: No apparent distress. HEENT: Head is normocephalic. Pupils are equal, round. Sclerae anicteric. Mucous membranes of the mouth are moist. No JVD. No carotid bruit. CHEST EXAMINATION: Lungs are clear to auscultation. No chest wall tenderness is noted on palpation or with deep breathing. HEART EXAMINATION: Regular rate and rhythm. S1, S2 heard. No murmurs, gallops or rub. ABDOMEN: Soft, nontender. Positive bowel sounds. EXTREMITIES: 2+ peripheral dorsal pedis pulses and 2+radial pulses , no lower extremity edema and no calf tenderness. Right groin site is clean, dry, no shyam jourdan noted. Very tender to palpation. NEUROLOGIC EXAMINATION: Patient is awake, alert and oriented x3. ASSESSMENT NSTEMI s/p cardiac catheterization with PCI to the mid RCA 12/20/20 Chest pain Shortness of breath History of coronary artery disease status post stent placement COPD Leukocytosis Hypertension Dyslipidemia Chronic nicotine dependence PLAN Repeat BNP Chest Xray Repeat EKG Obtain limited echo to evaluate Continue current medical therapy Further recommendations to follow Nurse Practitioner note has been reviewed, I agree with a documented findings and plan of care. Patient was seen and examined. Objective - Vital Signs Vital signs: Vital Signs Temp 97.8 F 12/21/20 07:41 Pulse 82 12/21/20 09:36 Resp 17 12/21/20 07:41 BP 123/71 12/21/20 07:41 Pulse Ox 98 12/21/20 07:41 Intake & Output 12/20/20 12/21/20 12/21/20 18:59 06:59 18:59 Intake Total 240 0 Output Total 250 Balance 240 -250 0 Weight 78.925 kg 77.4 kg Intake: Oral 240 0 Output: Urine 250 Other: Voiding Method Urinal # Voids 1 # Bowel Movements 0 - Labs CBC & Chem 7: 12/20/20 07:33 12/21/20 05:54 Labs: Abnormal Lab Results - Last 24 Hours (Table) 12/20/20 12/21/20 Range/Units 16:07 05:54 APTT >200.0 H* (22.0-30.0) sec Chloride 108 H (98-107) mmol/L
[2020-12-21] MEDS: MORPHINE SULFATE 4 MG/ML SYRINGE IV PRN ×2 (16:03→21:10)
[2020-12-21] MEDS ORDERED: BUDESONIDE 0.5 MG/2 ML NEBU INHALATION SCH (20:00)
[2020-12-21] MEDS: ATORVASTATIN 80 MG TAB PO SCH (21:09)
[2020-12-21] MEDS: NORTRIPTYLINE 10 MG CAP PO SCH (21:10)
--- NOTE | 2020-12-21 21:28 | P.PN ---
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 Has coronary artery disease with stent possibly done in [address] Norma Garber the delivery professional. Patient has continued to smoke up until recently. Patient 2 days ago developed chest pressure while watching television last full code aren't half. Middle of the chest. It went down the left arm. He took nitroglycerin with some relief. The pain did get up to the jaw also. Following morning patient was woken up with chest pain at 4 AM again the same presentation with cold sweats and took nitroglycerin with some help. Again this morning around 4 in the morning patient developed a similar presentation and has pain was significant decided to come to the ER. Troponins were positive. Cardiology consulted. Patient thinks he may have had a stress test over a year ago. When I saw the patient this afternoon he was still having some chest pain. Admitted with acute non-Q-wave CT. On December 20 underwent successful stenting of the mid RCA by Dr. Palomo. Today-laying in bed. Some shortness of breath and wheezing. Slight cough. Does complain of some slight chest pain. He he did talk to cardiology. Review of systems: Was done for constitutional, cardiovascular, GI, pulmonary. relevant finding as above Active Medications Acetaminophen (Acetaminophen Tab 325 Mg Tab) 650 mg PO Q6HR PRN PRN Reason: Mild Pain or Fever > 100.5 Al Hydroxide/Mg Hydroxide (Mag Hydrox/Al Hydrox/Simeth 30 Ml Cup) 30 ml PO Q4HR PRN PRN Reason: Heartburn Albuterol/Ipratropium (Ipratropium-Albuterol 3 Ml Neb) 3 ml INHALATION RT-QID ROBIN Last Admin: 12/21/20 20:30 Dose: 3 ml Documented by: Albuterol/Ipratropium (Ipratropium-Albuterol 3 Ml Neb) 3 ml INHALATION RT-QID PRN PRN Reason: Shortness Of Breath Last Admin: 12/20/20 20:23 Dose: 3 ml Documented by: Alprazolam (Alprazolam 0.25 Mg Tab) 0.25 mg PO Q6HR PRN PRN Reason: Mild Anxiety Last Admin: 12/21/20 13:02 Dose: 0.25 mg Documented by: Alprazolam (Alprazolam 0.5 Mg Tab) 0.5 mg PO Q6HR PRN PRN Reason: Moderate Anxiety Last Admin: 12/20/20 17:18 Dose: 0.5 mg Documented by: Aspirin (Aspirin 81 Mg) 81 mg PO DAILY [facility] Last Admin: 12/21/20 09:07 Dose: 81 mg Documented by: Atorvastatin Calcium (Atorvastatin 80 Mg Tab) 80 mg PO HS [facility] Last Admin: 12/21/20 21:09 Dose: 80 mg Documented by: Atropine Sulfate (Atropine Sulfate 0.1 Mg/Ml 10ml Syringe) 0.5 mg IV ONCE PRN PRN Reason: Symptomatic Bradycardia Budesonide (Budesonide 0.5 Mg/2 Ml Nebu) 0.5 mg INHALATION RT-BID [facility] Last Admin: 12/21/20 20:30 Dose: 0.5 mg Documented by: Cholecalciferol (Cholecalciferol 25 Mcg (1000 Iu) Tablet) 25 mcg PO DAILY [facility] Last Admin: 12/21/20 09:08 Dose: 25 mcg Documented by: Cyanocobalamin (Cyanocobalamin 500 Mcg Tab) 1,000 mcg PO DAILY [facility] Last Admin: 12/21/20 09:05 Dose: 1,000 mcg Documented by: Guaifenesin (Guaifenesin 600 Mg Tablet.Er) 600 mg PO QID [facility] Last Admin: 12/21/20 21:09 Dose: 600 mg Documented by: Lisinopril (Lisinopril 20 Mg Tab) 20 mg PO DAILY [facility] Last Admin: 12/21/20 09:08 Dose: 20 mg Documented by: Methocarbamol (Methocarbamol 750 Mg Tab) 750 mg PO TID [facility] Last Admin: 12/21/20 21:10 Dose: 750 mg Documented by: Metoprolol Tartrate (Metoprolol Tartrate 25 Mg Tab) 25 mg PO BID [facility] Last Admin: 12/21/20 21:09 Dose: 25 mg Documented by: Miscellaneous Information (Rx Info: Iv Contrast Was Given 1 Each Misc) 1 each MISCELLANE DAILY PRN PRN Reason: Per Protocol Stop: 12/22/20 15:06 Montelukast Sodium (Montelukast 10 Mg Tab) 10 mg PO DAILY [facility] Last Admin: 12/21/20 09:05 Dose: 10 mg Documented by: Morphine Sulfate (Morphine Sulfate 4 Mg/Ml Syringe) 4 mg IV Q4HR PRN PRN Reason: Severe Pain Last Admin: 12/21/20 21:10 Dose: 4 mg Documented by: Naloxone HCl (Naloxone 0.4 Mg/Ml 1 Ml Vial) 0.2 mg IV Q2M PRN PRN Reason: Opioid Reversal Nitroglycerin (Nitroglycerin Sl Tabs 0.4 Mg Tab) 0.4 mg SUBLINGUAL Q5M PRN PRN Reason: Chest Pain Nortriptyline HCl (Nortriptyline 10 Mg Cap) 20 mg PO HS [facility] Last Admin: 12/21/20 21:10 Dose: 20 mg Documented by: Oxcarbazepine (Oxcarbazepine 150 Mg Tab) 150 mg PO BID [facility] Last Admin: 12/21/20 21:10 Dose: 150 mg Documented by: Oxycodone HCl (Oxycodone Hcl 5 Mg Tab) 20 mg PO Q6H [facility] Last Admin: 12/21/20 17:32 Dose: 20 mg Documented by: Pantoprazole Sodium (Pantoprazole 40 Mg Tablet) 40 mg PO AC-BID [facility] Last Admin: 12/21/20 17:32 Dose: 40 mg Documented by: Ropinirole HCl (Ropinirole Hcl 1 Mg Tab) 1 mg PO DAILY [facility] Last Admin: 12/21/20 09:06 Dose: 1 mg Documented by: Tamsulosin HCl (Tamsulosin 0.4 Mg Cap.Er.24h) 0.4 mg PO DAILY [facility] Last Admin: 12/21/20 09:07 Dose: 0.4 mg Documented by: Ticagrelor (Ticagrelor 90 Mg Tab) 90 mg PO BID [facility] Last Admin: 12/21/20 21:09 Dose: 90 mg Documented by: Zolpidem Tartrate (Zolpidem 5 Mg Tab) 5 mg PO HS PRN PRN Reason: Insomnia Past medical history to include: Coronary artery the visit stent, COPD, hypertension, hyperlipidemia, primary osteoarthritis, GERD and body syndrome after flu vaccine 2010, 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 Smokes average about a pack a day for close to 50 years. Was up to 2 packs a day. Alcohol occasionally. Physical examination: VITAL SIGNS: 97.4, 92, 24, 120/77, 97% GENERAL: BMI 27.3, laying in bed, awake tired. EYES: Pupils equal. Conjunctiva normal. HEENT: External appearance of nose and ears normal, oral cavity grossly normal. NECK: JVD not raised; masses not palpable. HEART: First and second heart sounds are normal; no edema. LUNGS: Respiratory rate increased; decreased breath sounds. Wheezing. ABDOMEN: Soft, nontender, liver spleen not palpable, no masses palpable. PSYCH: Alert and oriented x3; mood and affect anxiousl. INVESTIGATIONS, reviewed in the clinical context: December 21: Potassium 4.3 creatinine 0.99 WBC 7.3 hemoglobin 12.8 platelets 173 potassium 3.8 creatinine 1.07 Troponin I 0.917 proBNP 1150 lipase 110 Coronavirus [PCR]-not detected EKG tracing personally reviewed by me-normal sinus rhythm flipped T waves in inferior leads Chest x-ray film personally reviewed by me-lung herman hyperinflated Assessment and plan: -Acute non-Q-wave myocardial infarction likely the initial insult was 2 days ago. Patient underwent successful angioplasty stenting to RCA. -Coronary artery disease with stent to RCA Aspirin, Lipitor, Zestril, Lopressor Brilinta -COPD in a current smoker-acute exacerbation Continue with jami Santiago. Add Solu-Medrol -Hyperlipidemia Add Lipitor -Essential hypertension Zestril, Lopressor -Primary osteoarthritis Tylenol as needed -Bilateral lower exstrophy paresis due to Radu barre syndrome Fall precautions -Restless leg syndrome Requip Add IV Solu-Medrol. In his steroids. Discussed with patient. Other medications to continue
[2020-12-21] MEDS: BUDESONIDE 1 MG/2 ML NEBU INHALATION SCH (23:43)
[2020-12-22] MEDS: methylPREDNISolone SOD SUCCI 40 MG/ML 1 ML VIAL IV SCH ×5 (02:48→23:11)
[2020-12-22] MEDS: PANTOPRAZOLE 40 MG TABLET PO SCH ×2 (06:30→17:20)
[2020-12-22] MEDS: BUDESONIDE 1 MG/2 ML NEBU INHALATION SCH ×2 (08:47→20:34)
[2020-12-22] MEDS: IPRATROPIUM-ALBUTEROL 3 ML NEB INHALATION SCH ×4 (08:47→20:34)
[2020-12-22] MEDS: ASPIRIN 81 MG PO SCH (09:39)
[2020-12-22] MEDS: CHOLECALCIFEROL 25 MCG (1000 IU) TABLET PO SCH (09:40)
[2020-12-22] MEDS: CYANOCOBALAMIN 500 MCG TAB PO SCH (09:40)
[2020-12-22] MEDS: guaiFENesin 600 MG TABLET.ER PO SCH ×4 (09:41→20:07)
[2020-12-22] MEDS: lisinopriL 20 MG TAB PO SCH (09:41)
[2020-12-22] MEDS: methocarbamoL 750 MG TAB PO SCH ×3 (09:42→20:06)
[2020-12-22] MEDS: MONTELUKAST 10 MG TAB PO SCH (09:43)
[2020-12-22] MEDS: METOPROLOL TARTRATE 25 MG TAB PO SCH ×2 (09:43→20:06)
[2020-12-22] MEDS: OXcarbazepine 150 MG TAB PO SCH ×2 (09:44→20:07)
[2020-12-22] MEDS: TICAGRELOR 90 MG TAB PO SCH ×2 (09:45→20:06)
[2020-12-22] MEDS: TAMSULOSIN 0.4 MG CAP.ER.24H PO SCH (12:41)
--- NOTE | 2020-12-22 12:55 | P.PN ---
Subjective HISTORY OF PRESENTING ILLNESS Tarah is a pleasant 54 showed male past medical history significant for coronary artery disease status post stent placement to the RCA in 2007, COPD, hypertension, dyslipidemia, daily chronic nicotine dependence. He follows in the office with Dr. Garber. We have asked him in consultation secondary to chest discomfort. He initially underwent stent placement to the RCA in 2007, then again in 2015 he had in-stent restenosis and underwent repeat angioplasty. 2018 in the setting of unstable angina he underwent repeat cardiac catheterization revealing patent stents to the RCA, left main free of stenosis, LAD and circumflex free of significant stenosis, OM with a 50-60% proximal stenosis. At that time he underwent FFR which was unremarkable. Patient is seen and examined in the emergency department. He continues to have chest pain 5/10. Radiates to left arm. Troponin 0.917, EKG sinus rhythm with new T wave inversion in inferior leads. IT was agreed to take patient for cardiac catheterization. 12/21/2020: Patient is s/p cardiac catheterization with PCI to the mid RCA yesterday. Patient with increased pain at cath site. Right groin site is very tender to palpation He is continuously having chest pain, midsternal /10. Woke him up out of bed. Started having shortness of breath. Feels like a pressure. Similar chest pain as yesterday. Laboratory data reviewed, sodium 139, potassium 4.3, serum cr eatinine 0.9, BNP yesterday 1150 Vital signs blood pressure 10/07/1970, heart rate 68, afebrile, on 2 L nasal cannula No documentation of hypoxia on room air, however, patient states it was placed on oxygen due to shortness of breath . He maintained on aspirin 81 mg daily, atorvastatin 80 mg daily, lisinopril 20 mg daily Lopressor 25 mg twice a day, Brilinta 90 mg twice a day 12/22/2020: Patient with chest pain yesterday. Patient seen and examined at bedside, no acute distress. Denies chest pain and shortness of breath. Repeat BNP revealed 1390.Echo revealed EF 50-55%, trace MR, trace TR, no pericardial effusion. Chest xray revealed hyperinflation, basilar atelectasis or early infiltrate. Repeat EKG revealed no acute ischemic changes PHYSICAL EXAMINATION Blood /70 heart rate 66, 92-99% on 2L nasal cannula, afebrile CONSTITUTIONAL: No apparent distress. HEENT: Head is normocephalic. Pupils are equal, round. Sclerae anicteric. Mucous membranes of the mouth are moist. No JVD. No carotid bruit. CHEST EXAMINATION: Lungs are clear to auscultation. No chest wall tenderness is noted on palpation or with deep breathing. HEART EXAMINATION: Regular rate and rhythm. S1, S2 heard. No murmurs, gallops or rub. ABDOMEN: Soft, nontender. Positive bowel sounds. EXTREMITIES: 2+ peripheral dorsal pedis pulses and 2+radial pulses , no lower extremity edema and no calf tenderness. Right groin site is clean, dry, no hematoma noted. Continues to be tender to palpation but improved NEUROLOGIC EXAMINATION: Patient is awake, alert and oriented x3. ASSESSMENT NSTEMI s/p cardiac catheterization with PCI to the mid RCA 12/20/20 Chest pain Shortness of breath History of coronary artery disease status post stent placement COPD Leukocytosis Hypertension Dyslipidemia Chronic nicotine dependence PLAN From cardiology perspective patient is stable for discharge home. Patient should follow up with Dr Garber in the outpatient office within 1 week Continue aspirin 81 mg daily, atorvastatin 80 mg daily, lisinopril 20 mg daily Lopressor 25 mg twice a day, Brilinta 90 mg twice a day Nurse Practitioner note has been reviewed, I agree with a documented findings and plan of care. Patient was seen and examined. Objective - Vital Signs Vital signs: Vital Signs Temp 97.4 F L 12/21/20 13:29 Pulse 72 12/21/20 15:42 Resp 18 12/21/20 16:00 BP 129/68 12/21/20 16:00 Pulse Ox 100 12/21/20 16:00 Intake & Output 12/21/20 12/21/20 12/22/20 06:59 18:59 06:59 Intake Total 240 Output Total 250 Balance -250 240 Weight 77.4 kg 77.4 kg Intake: Oral 240 Output: Urine 250 Other: Voiding Method Urinal # Voids 1 # Bowel Movements 0 - Labs CBC & Chem 7: 12/20/20 07:33 12/21/20 05:54 Labs: Abnormal Lab Results - Last 24 Hours (Table) 12/21/20 12/21/20 Range/Units 05:54 13:06 Chloride 108 H (98-107) mmol/L POC Glucose (mg/dL) 121 H (75-99) mg/dL
--- NOTE | 2020-12-22 18:46 | P.PN ---
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 Has coronary artery disease with stent possibly done in [address] Norma Garber the underwriting assistant. Patient has continued to smoke up until recently. Patient 2 days ago developed chest pressure while watching television last full code aren't half. Middle of the chest. It went down the left arm. He took nitroglycerin with some relief. The pain did get up to the jaw also. Following morning patient was woken up with chest pain at 4 AM again the same presentation with cold sweats and took nitroglycerin with some help. Again this morning around 4 in the morning patient developed a similar presentation and has pain was significant decided to come to the ER. Troponins were positive. Cardiology consulted. Patient thinks he may have had a stress test over a year ago. When I saw the patient this afternoon he was still having some chest pain. Admitted with acute non-Q-wave [place]. On December 20 underwent successful stenting of the mid RCA by Dr. Palomo. Also developed COPD exacerbation.-Improved on bronchodilators steroids Today-some pain in the right groin at the cardiac catheterization site. Evaluated by cardiology. Still has some wheezing and cough. at the bedside. Review of systems: Was done for constitutional, cardiovascular, GI, pulmonary. relevant finding as above Active Medications Acetaminophen (Acetaminophen Tab 325 Mg Tab) 650 mg PO Q6HR PRN PRN Reason: Mild Pain or Fever > 100.5 Al Hydroxide/Mg Hydroxide (Mag Hydrox/Al Hydrox/Simeth 30 Ml Cup) 30 ml PO Q4HR PRN PRN Reason: Heartburn Albuterol/Ipratropium (Ipratropium-Albuterol 3 Ml Neb) 3 ml INHALATION RT-QID [facility] Last Admin: 12/22/20 15:57 Dose: 3 ml Documented by: Albuterol/Ipratropium (Ipratropium-Albuterol 3 Ml Neb) 3 ml INHALATION RT-QID PRN PRN Reason: Shortness Of Breath Last Admin: 12/20/20 20:23 Dose: 3 ml Documented by: Aspirin (Aspirin 81 Mg) 81 mg PO DAILY [facility] Last Admin: 12/22/20 09:39 Dose: 81 mg Documented by: Atorvastatin Calcium (Atorvastatin 80 Mg Tab) 80 mg PO HS [facility] Last Admin: 12/21/20 21:09 Dose: 80 mg Documented by: Atropine Sulfate (Atropine Sulfate 0.1 Mg/Ml 10ml Syringe) 0.5 mg IV ONCE PRN PRN Reason: Symptomatic Bradycardia Budesonide (Budesonide 1 Mg/2 Ml Nebu) 1 mg INHALATION RT-BID [facility] Last Admin: 12/22/20 08:47 Dose: 1 mg Documented by: Cholecalciferol (Cholecalciferol 25 Mcg (1000 Iu) Tablet) 25 mcg PO DAILY [facility] Last Admin: 12/22/20 09:40 Dose: 25 mcg Documented by: Cyanocobalamin (Cyanocobalamin 500 Mcg Tab) 1,000 mcg PO DAILY [facility] Last Admin: 12/22/20 09:40 Dose: 1,000 mcg Documented by: Guaifenesin (Guaifenesin 600 Mg Tablet.Er) 600 mg PO QID [facility] Last Admin: 12/22/20 17:22 Dose: 600 mg Documented by: Lisinopril (Lisinopril 20 Mg Tab) 20 mg PO DAILY [facility] Last Admin: 12/22/20 09:41 Dose: 20 mg Documented by: Methocarbamol (Methocarbamol 750 Mg Tab) 750 mg PO TID [facility] Last Admin: 12/22/20 17:23 Dose: 750 mg Documented by: Methylprednisolone Sodium Succinate (Methylprednisolone Sod Succi 40 Mg/Ml 1 Ml Vial) 40 mg IV Q8HR [facility] Last Admin: 12/22/20 17:20 Dose: 40 mg Documented by: Metoprolol Tartrate (Metoprolol Tartrate 25 Mg Tab) 25 mg PO BID [facility] Last Admin: 12/22/20 09:43 Dose: 25 mg Documented by: Montelukast Sodium (Montelukast 10 Mg Tab) 10 mg PO DAILY [facility] Last Admin: 12/22/20 09:43 Dose: 10 mg Documented by: Naloxone HCl (Naloxone 0.4 Mg/Ml 1 Ml Vial) 0.2 mg IV Q2M PRN PRN Reason: Opioid Reversal Nitroglycerin (Nitroglycerin Sl Tabs 0.4 Mg Tab) 0.4 mg SUBLINGUAL Q5M PRN PRN Reason: Chest Pain Nortriptyline HCl (Nortriptyline 10 Mg Cap) 20 mg PO HS [facility] Last Admin: 12/21/20 21:10 Dose: 20 mg Documented by: Oxcarbazepine (Oxcarbazepine 150 Mg Tab) 150 mg PO BID [facility] Last Admin: 12/22/20 09:44 Dose: 150 mg Documented by: Oxycodone HCl (Oxycodone Hcl 5 Mg Tab) 20 mg PO Q6H [facility] Last Admin: 12/22/20 17:20 Dose: 20 mg Documented by: Pantoprazole Sodium (Pantoprazole 40 Mg Tablet) 40 mg PO AC-BID [facility] Last Admin: 12/22/20 17:20 Dose: 40 mg Documented by: Ropinirole HCl (Ropinirole Hcl 1 Mg Tab) 1 mg PO DAILY [facility] Last Admin: 12/22/20 09:45 Dose: 1 mg Documented by: Tamsulosin HCl (Tamsulosin 0.4 Mg Cap.Er.24h) 0.4 mg PO DAILY [facility] Last Admin: 12/22/20 12:41 Dose: 0.4 mg Documented by: Ticagrelor (Ticagrelor 90 Mg Tab) 90 mg PO BID [facility] Last Admin: 12/22/20 09:45 Dose: 90 mg Documented by: Zolpidem Tartrate (Zolpidem 5 Mg Tab) 5 mg PO HS PRN PRN Reason: Insomnia Past medical history to include: Coronary artery the visit stent, COPD, hypertension, hyperlipidemia, primary osteoarthritis, GERD and body syndrome after flu vaccine 2010, 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 Smokes average about a pack a day for close to 50 years. Was up to 2 packs a day. Alcohol occasionally. Physical examination: VITAL SIGNS: 87.4, 79, 18, 121/73, 95% GENERAL: BMI 27.3, sitting up in a chair, short of breath EYES: Pupils equal. Conjunctiva normal. HEENT: External appearance of nose and ears normal, oral cavity grossly normal. NECK: JVD not raised; masses not palpable. HEART: First and second heart sounds are normal; no edema. LUNGS: Respiratory rate increased; decreased breath sounds. Expiratory Wheezing. ABDOMEN: Soft, nontender, liver spleen not palpable, no masses palpable. PSYCH: Alert and oriented x3; mood and affect anxious INVESTIGATIONS, reviewed in the clinical context: December 21: Potassium 4.3 creatinine 0.99 WBC 7.3 hemoglobin 12.8 platelets 173 potassium 3.8 creatinine 1.07 Troponin I 0.917 proBNP 1150 lipase 110 Coronavirus [PCR]-not detected EKG tracing personally reviewed by me-normal sinus rhythm flipped T waves in inferior leads Chest x-ray film personally reviewed by me-lung herman hyperinflated Assessment and plan: -Acute non-Q-wave myocardial infarction likely the initial insult was 2 days ago. Patient underwent successful angioplasty stenting to RCA. -Coronary artery disease with stent to RCA Aspirin, Lipitor, Zestril, Lopressor Brilinta -COPD in a current smoker-acute exacerbation-slow to respond Continue with DuoNeb, trilogy ellipta. Solu-Medrol. IV Pulmicort -Hyperlipidemia Add Lipitor -Essential hypertension Zestril, Lopressor -Primary osteoarthritis Tylenol as needed -Bilateral lower exstrophy paresis due to Radu barre syndrome Fall precautions -Restless leg syndrome Requip Continue with IV Solu-Medrol, IV Pulmicort. Discussed with the patient and at the bedside. Ice pack to the right groin. No indication for IV morphine discontinued
[2020-12-22] MEDS: NORTRIPTYLINE 10 MG CAP PO SCH (20:06)
[2020-12-22] MEDS: ATORVASTATIN 80 MG TAB PO SCH (20:06)
[2020-12-23] MEDS: PANTOPRAZOLE 40 MG TABLET PO SCH (06:36)
[2020-12-23] MEDS: BUDESONIDE 1 MG/2 ML NEBU INHALATION SCH (08:25)
[2020-12-23] MEDS: IPRATROPIUM-ALBUTEROL 3 ML NEB INHALATION SCH ×2 (08:25→11:30)
[2020-12-23 09:48] VITALS: RESP 16; TEMP 98.4
[2020-12-23] MEDS: guaiFENesin 600 MG TABLET.ER PO SCH ×2 (09:50→12:21)
[2020-12-23] MEDS: methocarbamoL 750 MG TAB PO SCH (09:50)
[2020-12-23] MEDS: ASPIRIN 81 MG PO SCH (09:50)
[2020-12-23] MEDS: OXcarbazepine 150 MG TAB PO SCH (09:51)
[2020-12-23] MEDS: lisinopriL 20 MG TAB PO SCH (09:51)
[2020-12-23] MEDS: methylPREDNISolone SOD SUCCI 40 MG/ML 1 ML VIAL IV SCH (09:51)
[2020-12-23] MEDS: CHOLECALCIFEROL 25 MCG (1000 IU) TABLET PO SCH (09:51)
[2020-12-23] MEDS: TAMSULOSIN 0.4 MG CAP.ER.24H PO SCH (09:51)
[2020-12-23] MEDS: METOPROLOL TARTRATE 25 MG TAB PO SCH (09:51)
[2020-12-23] MEDS: MONTELUKAST 10 MG TAB PO SCH (09:51)
[2020-12-23] MEDS: CYANOCOBALAMIN 500 MCG TAB PO SCH (09:51)
[2020-12-23] MEDS: TICAGRELOR 90 MG TAB PO SCH (09:51)
--- NOTE | 2020-12-23 11:26 | P.PN ---
Subjective Progress Note Date: 12/23/20 This is a pleasant 55-year-old gentleman with past medical history significant for coronary artery disease with prior RCA stenting in 2008, restenting of the RCA in 2016,, hypertension, hyperlipidemia, nicotine dependence, COPD, follows in the office regularly with Dr. Garber. Patient presented to the hospital with symptoms of chest discomfort with mild abnormality in troponins suggestive of acute coronary syndrome. He was taken to the cardiac catheterization lab where the patient underwent stenting of the right coronary artery. He was seen and examined this morning, denied any chest discomfort, still complaining of feeling short of breath and wheezy. Blood pressure this morning 122/68 with a heart rate in the 60s, 97% on room air. No lab data today. The patient was cleared for discharge yesterday by cardiology, he was kept in the hospital because he is still on IV steroids. Objective - Vital Signs Vital signs: Vital Signs Temp 98.4 F 12/23/20 09:47 Pulse 67 12/23/20 09:47 Resp 16 12/23/20 09:47 BP 123/68 12/23/20 09:47 Pulse Ox 97 12/23/20 09:47 Intake & Output 12/22/20 12/23/20 12/23/20 18:59 06:59 18:59 Intake Total 1020 180 Balance 1020 180 Weight 76.7 kg Intake: Oral 1020 180 Other: Voiding Method Urinal Urinal # Voids 3 1 - Exam PHYSICAL EXAMINATION Blood [id number] heart rate 67, 97% on room air , afebrile CONSTITUTIONAL: No apparent distress. HEENT: Head is normocephalic. Pupils are equal, round. Sclerae anicteric. Mucous membranes of the mouth are moist. No JVD. No carotid bruit. CHEST EXAMINATION: Lungs are clear to auscultation. No chest wall tenderness is noted on palpation or with deep breathing. HEART EXAMINATION: Regular rate and rhythm. S1, S2 heard. No murmurs, gallops or rub. ABDOMEN: Soft, nontender. Positive bowel sounds. EXTREMITIES: 2+ peripheral dorsal pedis pulses and 2+radial pulses , no lower extremity edema and no calf tenderness. Right groin site is clean, dry, no hematoma noted. Continues to be tender to palpation but improved NEUROLOGIC EXAMINATION: Patient is awake, alert and oriented x3. - Labs CBC & Chem 7: 12/20/20 07:33 12/21/20 05:54 Assessment and Plan Plan: Assessment and plan #1 acute coronary syndrome, status post stenting of the RCA #2 known history of coronary artery disease with prior RCA stenting #3 COPD #4 hypertension #5 hyperlipidemia #6 chronic nicotine dependence Plan From cardiology's perspective, patient may be discharged home once cleared by primary. We'll make a follow-up appointment in the office with Dr. Garber post discharge. DNP note has been reviewed, I agree with a documented findings and plan of care. Patient was seen and examined.
[2020-12-23 12:09] VITALS: BP 130/77; PULSE 70
--- NOTE | 2020-12-24 21:45 | P.DS ---
Providers Date of admission: 12/20/20 11:51 Expected date of discharge: 12/23/20 Attending physician: Darnell Juarez Consults: 12/20/20 11:52 Consult Physician Urgent Consulting Provider: Reji Mcclendon Consult Reason/Comments: NSTEMI Do you want consulting provider notified?: Already Contacted 12/20/20 15:06 Consult Physician Routine Consulting Provider: Cj Harmon Consult Reason/Comments: Post Interventional patient Do you want consulting provider notified?: Already Contacted Primary care physician: Claudia Collins MD Hospital Course: Chief Complaint: Chest pain History of presenting complaint: This is a pleasant 55-year-old patient was chronic stable medical conditions include COPD, hypertension, hyperlipidemia, osteoporosis, restless leg syndrome, chronic bilateral lower extremity weakness, 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 Has coronary artery disease with stent possibly done in [address] Norma Garber the chief librarian music department. Patient has continued to smoke up until recently. Patient 2 days ago developed chest pressure while watching television last full code aren't half. Middle of the chest. It went down the left arm. He took nitroglycerin with some relief. The pain did get up to the jaw also. Following morning patient was woken up with chest pain at 4 AM again the same presentation with cold sweats and took nitroglycerin with some help. Again this morning around 4 in the morning patient developed a similar presentation and has pain was significant decided to come to the ER. Troponins were positive. Cardiology consulted. Patient thinks he may have had a stress test over a year ago. When I saw the patient this afternoon he was still having some chest pain. Admitted with acute non-Q-wave [place]. On December 20 underwent successful stenting of the mid RCA by Dr. Palomo. Also developed COPD exacerbation.-Improved on bronchodilators steroids Today-doing much better. Breathing much improved. Care was discussed at length with the patient and . Questions answered. 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 Smokes average about a pack a day for close to 50 years. Was up to 2 packs a day. Alcohol occasionally. Physical examination: VITAL SIGNS: 98.4, 70, 16, 130/77, 97% room air GENERAL: BMI 27.3, sitting up in a chair, breathing improved EYES: Pupils equal. Conjunctiva normal. HEENT: External appearance of nose and ears normal, oral cavity grossly normal. NECK: JVD not raised; masses not palpable. HEART: First and second heart sounds are normal; no edema. LUNGS: Respiratory rate normal; decreased breath sounds. Minimal wheezing. ABDOMEN: Soft, nontender, liver spleen not palpable, no masses palpable. PSYCH: Alert and oriented x3; mood and affect anxious INVESTIGATIONS, reviewed in the clinical context: December 23: WBC 11.2 hemoglobin 12.6 potassium 3.8 creatinine 0.68 December 21: Potassium 4.3 creatinine 0.99 WBC 7.3 hemoglobin 12.8 platelets 173 potassium 3.8 creatinine 1.07 Troponin I 0.917 proBNP 1150 lipase 110 Coronavirus [PCR]-not detected EKG tracing personally reviewed by me-normal sinus rhythm flipped T waves in inferior leads Chest x-ray film personally reviewed by me-lung herman hyperinflated Assessment and plan: -Acute non-Q-wave myocardial infarction likely the initial insult was 2 days prior to presentation. -Coronary artery disease with stent to RCA Aspirin, Lipitor, Zestril, Lopressor Brilinta -COPD in a current smoker-acute exacerbation-doing better Continue with jami Santiago. Solu-Medrol. IV Pulmicort. 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 Fall precautions -Restless leg syndrome Requip Disposition: Home Patient Condition at Discharge: Stable Plan - Discharge Summary Discharge Rx Participant: No New Discharge Prescriptions: New Aspirin 81 mg PO DAILY 30 Days #30 chew Atorvastatin [Lipitor] 80 mg PO HS 30 Days #30 tab predniSONE 10 mg PO DAILY #30 tab Ticagrelor [Brilinta] 90 mg PO BID 30 Days #60 tab Continue RABEprazole SODIUM [Aciphex] 20 mg PO BID oxyCODONE HCL [oxyCODONE HCL (IR)] 20 mg PO Q6H rOPINIRole HCL [Requip] 1 mg PO DAILY Metoprolol Tartrate [Lopressor] 25 mg PO BID #60 tab lisinopriL [Zestril] 20 mg PO DAILY methocarbamoL [Robaxin] 750 mg PO TID Tamsulosin [Flomax] 0.4 mg PO DAILY #30 cap.er.24h OXcarbazepine [Trileptal] 150 mg PO BID Nitroglycerin Sl Tabs [Nitrostat] 0.4 mg SL Q5M PRN PRN Reason: Chest Pain Fluticasone/Umeclidin/Vilanter [Trelegy Ellipta 200-62.5-25] 1 puff INHALATION RT-DAILY Cyanocobalamin (Vitamin B-12) [Vitamin B-12] 1,000 mcg PO DAILY Budesonide [Pulmicort] 0.5 mg INHALATION RT-BID Nortriptyline [Pamelor] 20 mg PO HS Montelukast [Singulair] 10 mg PO DAILY Ipratropium-Albuterol Nebulize [Duoneb 0.5 mg-3 mg/3 ml Soln] 3 ml INHALATION RT-QID PRN PRN Reason: Shortness Of Breath Cholecalciferol [Vitamin D3 (25 Mcg = 1000 Iu)] 25 mcg PO DAILY Discontinued Simvastatin [Zocor] 40 mg PO HS Discharge Medication List RABEprazole SODIUM [Aciphex] 20 mg PO BID 04/05/14 [History] oxyCODONE HCL [oxyCODONE HCL (IR)] 20 mg PO Q6H 03/24/16 [History] rOPINIRole HCL [Requip] 1 mg PO DAILY 03/24/16 [History] Metoprolol Tartrate [Lopressor] 25 mg PO BID #60 tab 03/26/16 [Rx] lisinopriL [Zestril] 20 mg PO DAILY 10/23/16 [History] methocarbamoL [Robaxin] 750 mg PO TID 02/19/19 [History] Tamsulosin [Flomax] 0.4 mg PO DAILY #30 cap.er.24h 06/07/19 [Rx] Budesonide [Pulmicort] 0.5 mg INHALATION RT-BID 12/20/20 [History] Cholecalciferol [Vitamin D3 (25 Mcg = 1000 Iu)] 25 mcg PO DAILY 12/20/20 [History] Cyanocobalamin (Vitamin B-12) [Vitamin B-12] 1,000 mcg PO DAILY 12/20/20 [History] Fluticasone/Umeclidin/Vilanter [Trelegy Ellipta 200-62.5-25] 1 puff INHALATION RT-DAILY 12/20/20 [History] Ipratropium-Albuterol Nebulize [Duoneb 0.5 mg-3 mg/3 ml Soln] 3 ml INHALATION RT-QID PRN 12/20/20 [History] Montelukast [Singulair] 10 mg PO DAILY 12/20/20 [History] Nitroglycerin Sl Tabs [Nitrostat] 0.4 mg SL Q5M PRN 12/20/20 [History] Nortriptyline [Pamelor] 20 mg PO HS 12/20/20 [History] OXcarbazepine [Trileptal] 150 mg PO BID 12/20/20 [History] Aspirin 81 mg PO DAILY 30 Days #30 chew 12/22/20 [Rx] Atorvastatin [Lipitor] 80 mg PO HS 30 Days #30 tab 12/22/20 [Rx] Ticagrelor [Brilinta] 90 mg PO BID 30 Days #60 tab 12/22/20 [Rx] predniSONE 10 mg PO DAILY #30 tab 12/23/20 [Rx] Follow up Appointment(s)/Referral(s): None,Stated [REFERRING] - 1-2 days Claudia Collins MD [Primary Care Provider] - 1-2 Days León Garber MD [STAFF PHYSICIAN] - 12/27/20 9:30 am Patient Instructions/Handouts: *Surgery [facility] - After Heart Catheterization - [employer] Instructions, COPD (Chronic Obstructive Pulmonary Disease) (DC) Discharge Disposition: HOME SELF-CARE
== END 2020-12-23 15:23 | disposition home or self-care (01) | DRG 247 ==
LOC: EC 07:24 → 3SCARD 11:51
PROVIDERS: ADMIT Hospitalist; ATTEND Hospitalist
PROC: 027034Z Dilation of Coronary Artery, One Artery with Drug-eluting Intraluminal Device, Percutaneous Approach (ICD-10-PCS; principal; 2020-12-20 09:50)
PROC: B2111ZZ Fluoroscopy of Multiple Coronary Arteries using Low Osmolar Contrast (ICD-10-PCS; 2020-12-20 09:50)
PROC: 4A023N7 Measurement of Cardiac Sampling and Pressure, Left Heart, Percutaneous Approach (ICD-10-PCS; 2020-12-20 09:50)
DX: I21.4 Non-ST elevation (NSTEMI) myocardial infarction (principal); J98.11 Atelectasis; J44.1 Chronic obstructive pulmonary disease with (acute) exacerbation; G82.20 Paraplegia, unspecified; G65.0 Sequelae of Guillain-Barre syndrome; Z20.822 Contact with and (suspected) exposure to COVID-19; I11.9 Hypertensive heart disease without heart failure; I25.10 Atherosclerotic heart disease of native coronary artery without angina pectoris; E78.5 Hyperlipidemia, unspecified; M19.91 Primary osteoarthritis, unspecified site; G25.81 Restless legs syndrome; M81.0 Age-related osteoporosis without current pathological fracture; F41.9 Anxiety disorder, unspecified; F17.218 Nicotine dependence, cigarettes, with other nicotine-induced disorders; I25.2 Old myocardial infarction; Z79.891 Long term (current) use of opiate analgesic; Z79.51 Long term (current) use of inhaled steroids; Z79.899 Other long term (current) drug therapy; Z95.5 Presence of coronary angioplasty implant and graft; Z90.49 Acquired absence of other specified parts of digestive tract; Z87.19 Personal history of other diseases of the digestive system; Z87.39 Personal history of other diseases of the musculoskeletal system and connective tissue; Z87.01 Personal history of pneumonia (recurrent); Z98.890 Other specified postprocedural states; Z88.8 Allergy status to other drugs, medicaments and biological substances; Z91.013 Allergy to seafood; Z83.3 Family history of diabetes mellitus; Z80.0 Family history of malignant neoplasm of digestive organs; Z82.49 Family history of ischemic heart disease and other diseases of the circulatory system
CPT/HCPCS: 36415; 71045; 71046; 80048; 80053; 81001; 83690; 83735; 83880; 84484; 85025; 85347; 85610; 85730; 87635; 93005; 93306; 93458; 94640; 96374; 96375; 99291

== ENCOUNTER → 2021-01-24 | Outpatient (CLI) | payer MEDICARE, OTHER ==
[2021-01-25 03:30] LABS: Chol/HDL Ratio 3.43
== END | disposition home or self-care (01) ==
LOC: LABWHC1 11:03
PROVIDERS: ATTEND Internal Medicine Cardiovascular Disease
DX: E78.2 Mixed hyperlipidemia (principal)
CPT/HCPCS: 36415; 80061; 84450; 84460